=== PATIENT | male | born 1970 | race Hispanic/Latino ===

== ENCOUNTER 2017-05-18 13:50 | Inpatient (IN) | payer MEDICAID ==
[2017-05-18 13:50] VITALS: BMI 26.6
--- NOTE | 2017-05-18 14:10 | ED PDOC ---
Arrival/HPI - General Time Seen by Provider: 05/18/17 14:03 Historian: Patient - History of Present Illness Narrative History of Present Illness (Text): 05/18/17 14:04 46 y/o male, pmh including dm (on insulin/noncompliant), nkda, complaining of rt. calf swelling with the redness x 2 days. PT. stated that he was bitten by an unknown insect about 2 days ago while at the backyard, been having the redness and pain to the skin on the rt. calf, no fever or chills, no headache or night sweat, no dizziness, no chest pain or shortness of breath, no palpitation, no numbness or tingling, no other medical or psychological complaints. Past Medical History - Provider Review Nursing Documentation Reviewed: Yes - Infectious Disease Hx of Infectious Diseases: None - Tetanus Immunization Tetanus Immunization: Up to Date - Cardiac Hx Cardiac Disorders: Yes Hx Hypertension: Yes - Pulmonary Hx Respiratory Disorders: No - Neurological Hx Neurological Disorder: No - HEENT Hx HEENT Disorder: No - Renal Hx Renal Disorder: No - Endocrine/Metabolic Hx Endocrine Disorders: Yes Hx Diabetes Mellitus Type 1: Yes Hx Diabetes Mellitus Type 2: Yes - Hematological/Oncological Hx Blood Disorders: No - Integumentary Hx Dermatological Disorder: No - Musculoskeletal/Rheumatological Hx Musculoskeletal Disorders: No Hx Falls: No - Gastrointestinal Hx Gastrointestinal Disorders: No - Genitourinary/Gynecological Hx Genitourinary Disorders: No - Psychiatric Hx Psychophysiologic Disorder: Yes Hx Anxiety: Yes Hx Depression: No Hx Emotional Abuse: No Hx Physical Abuse: No Hx Substance Use: No - Past Surgical History Past Surgical History: No Previous - Anesthesia Hx Anesthesia: No - Suicidal Assessment Feels Threatened In Home Enviroment: No Family/Social History - Physician Review Nursing Documentation Reviewed: Yes Family/Social History: Unknown Family HX Smoking Status: Heavy Smoker > 10 Cigarettes Daily Hx Alcohol Use: No Hx Substance Use: No Substance used: cocaine Hx Substance Use Treatment: Yes Allergies/Home Meds Allergies/Adverse Reactions: Allergies No Known Allergies Allergy (Verified 05/22/17 17:28) Home Medications: Home Meds Medication Instructions Recorded Confirmed Insulin Detemir [Levemir] 15 unit SC HS 05/21/17 05/22/17 metFORMIN [glucOPHAGE] 500 mg PO BID 05/21/17 05/22/17 Review of Systems - Review of Systems Constitutional: absent: Fatigue, Fevers Eyes: absent: Vision Changes ENT: absent: Hearing Changes Respiratory: absent: SOB, Cough Cardiovascular: absent: Chest Pain Gastrointestinal: absent: Abdominal Pain, Diarrhea, Nausea, Vomiting Skin: Rash, Skin Lesions, Cellulitis. absent: Pruritis, Laceration, Abscess, Ulcer Neurological: absent: Headache, Dizziness, Facial Droop, Seizure Physical Exam Vital Signs Reviewed: Yes Vital Signs Temp Pulse Resp BP Pulse Ox 05/18/17 16:56 75 18 113/71 97 05/18/17 15:43 79 18 111/75 97 05/18/17 14:05 98 F 88 20 109/74 99 Temperature: Afebrile Blood Pressure: Normal Pulse: Regular Respiratory Rate: Normal Appearance: Positive for: Well-Appearing, Non-Toxic Pain Distress: Severe Mental Status: Positive for: Alert and Oriented X 3 - Systems Exam Head: Present: Atraumatic, Normocephalic Pupils: Present: PERRL Extroacular Muscles: Present: EOMI Conjunctiva: Present: Normal Mouth: Present: Moist Mucous Membranes Neck: Present: Normal Range of Motion Respiratory/Chest: Present: Clear to Auscultation, Good Air Exchange. No: Respiratory Distress, Accessory Muscle Use Cardiovascular: Present: Regular Rate and Rhythm, Normal S1, S2. No: Murmurs Abdomen: Present: Normal Bowel Sounds. No: Tenderness, Distention, Peritoneal Signs Back: Present: Normal Inspection Upper Extremity: Present: Normal Inspection. No: Cyanosis, Edema Lower Extremity: Present: Normal Inspection, Other (Rt. lower extremities: swelling and redness to the rt. posterior calf region with approx. [id number] traced with the skin marker and there is visible central insect bite berg, cellulitis streaking to the ankle, no ulcer, FROM without limitation, sensation intact, motor 5/5, +DPPT pulses, capillary refill< 2 seconds, neurovascular intact. ). No: Edema Neurological: Present: GCS=15, CN II-XII Intact, Speech Normal, Motor Func Grossly Intact, Gait Normal, Memory Normal Skin: Present: Warm, Dry, Normal Color. No: Rashes Psychiatric: Present: Alert, Oriented x 3, Normal Insight, Normal Concentration Medical Decision Making ED Course and Treatment: 05/18/17 14:10 -labs/blood culture -IV vancomycin/zosyn/benadryl/morphine -EKG -Rt. tibia/fibula xray/RLE Venuous doppler/CXR -Will admit the patient 05/18/17 14:59 -EKG -RLE Veuous doppler: as per preliminary report, no acute dvt -Rt. tibia/fibula: no acute findings. -Labs are non-significant except wbc 14.2, Na 130, Glucose 484. IV antibiotics and insulin ordered. -Chest xray show no active disease 05/18/17 16:24 -FS corrected to 240s -I discussed with Dr. Wright and he agreed on the admission order and test. -I discussed with Dr. Moreno, discussed about the labs/radiology results, agreed to accept the patient and request inpatient admission. - Lab Interpretations Microbiology Results: Microbiology Results 05/18/17 12:40 Blood-Venous Blood Culture - Preliminary NO GROWTH AFTER 4 DAYS 05/18/17 14:22 Blood-Venous Blood Culture - Preliminary NO GROWTH AFTER 4 DAYS Lab Results: 05/18/17 14:22 05/18/17 14:22 Lab Results 05/18/17 16:14: POC Glucose (mg/dL) 241 H 05/18/17 14:32: Serum Osmolality 305 H 05/18/17 14:32: Procalcitonin 0.05 L 05/18/17 14:22: Sodium 130 L, Potassium 3.9, Chloride 97 L, Carbon Dioxide 26, Anion Gap 11, BUN 16, Creatinine 0.9, Est GFR ( Amer) > 60, Est GFR (Non- Af Amer) > 60, Random Glucose 484 H* D, Calcium 8.5, Total Bilirubin 1.1, AST 17 , ALT 20, Alkaline Phosphatase 91, Total Protein 7.1, Albumin 3.7, Globulin 3.4 , Albumin/Globulin Ratio 1.1 05/18/17 14:22: WBC 14.2 H D, RBC 5.06, Hgb 14.6, Hct 41.5 L, MCV 82.0, MCH 28.9 , MCHC 35.2, RDW 12.8, Plt Count 202, MPV 10.2, Gran % 86.1 H, Lymph % (Auto) 7.1 L, Mccone % (Auto) 5.3, Eos % (Auto) 1.1 L, Baso % (Auto) 0.4, Gran # 12.20 H , Lymph # 1.0 L, Mccone # 0.8 H, Eos # 0.2, Baso # 0.05 05/18/17 14:07: POC Glucose (mg/dL) 417 H* Interpretation: Abnormal lab values (wbc 14.2,) - RAD Interpretation Radiology Orders: 05/18/17 14:16 CHEST PORTABLE [RAD] Stat 05/18/17 14:19 DUPLEX LOWER EXTRM VEIN RIGHT [US] Stat 05/18/17 14:22 TIBIA FIBULA RIGHT [RAD] Stat RLE Venuous Doppler: As per preliminary report, no acute DVT. Chest x-ray: no active disease Rt. tibia/fibula xray: no fracture or dislocation Integrity Engineer: Radiologist - Medication Orders Current Medication Orders: Discontinued Medications Diphenhydramine HCl (Benadryl) 50 mg IVP STAT STA Stop: 05/18/17 14:16 Last Admin: 05/18/17 14:26 Dose: 50 mg Heparin Sodium (Porcine) (Heparin) 5,000 units SC Q12 ANDRAE PRN Reason: Protocol Last Admin: 05/20/17 09:34 Dose: 5,000 units Sodium Chloride (Sodium Chloride 0.9%) 1,000 mls @ 999 mls/hr IV .Q1H1M STA Stop: 05/18/17 15:15 Last Admin: 05/18/17 14:27 Dose: 999 mls/hr Piperacillin Sod/Tazobactam Sod (Zosyn 3.375 In Ns 100ml) 100 mls @ 200 mls/hr IVPB STAT STA PRN Reason: Protocol Stop: 05/18/17 14:44 Last Admin: 05/18/17 14:27 Dose: 200 mls/hr Vancomycin HCl (Vancomycin 1gm) 1 gm in 250 mls @ 167 mls/hr IVPB STAT STA Stop: 05/18/17 15:48 Last Admin: 05/18/17 15:45 Dose: 167 mls/hr Vancomycin HCl (Vancomycin 1gm) 1 gm in 250 mls @ 167 mls/hr IVPB DAILY ANDRAE PRN Reason: Protocol Last Admin: 05/20/17 09:35 Dose: 167 mls/hr Piperacillin Sod/Tazobactam Sod (Zosyn 3.375 In Ns 100ml) 100 mls @ 200 mls/hr IVPB Q6 ANDRAE PRN Reason: Protocol Stop: 05/19/17 06:29 Last Admin: 05/19/17 05:22 Dose: 200 mls/hr Piperacillin Sod/Tazobactam Sod (Zosyn 3.375 In Ns 100ml) 100 mls @ 200 mls/hr IVPB Q6 ANDRAE PRN Reason: Protocol Last Admin: 05/20/17 12:22 Dose: 200 mls/hr Indomethacin (Indocin) 25 mg PO TID ANDRAE Indomethacin (Indocin) 25 mg PO TID ANDRAE Indomethacin (Indocin) 25 mg PO TID [facility] Last Admin: 05/20/17 09:33 Dose: 25 mg Re-Assess: [facility] Pain Assessment Document 05/20/17 10:33 RS (Rec: 05/20/17 13:50 RS [id number]) Pain Reassessment Is this a pain reassessment? Yes Sleep Is patient sleeping during reassessment? No Presence of Pain Presence of Pain No Insulin Detemir (Levemir) 10 unit SC [facility] Last Admin: 05/19/17 21:30 Dose: 10 unit Insulin Human Lispro (Humalog Low) 0 units SC ACHS ANDRAE PRN Reason: Protocol Last Admin: 05/20/17 12:20 Dose: 1 units Insulin Human Regular (Humulin R) 10 units IV STAT STA Stop: 05/18/17 15:14 Last Admin: 05/18/17 15:41 Dose: 10 units Insulin Human Regular (Humulin R Low) 0 units SC ACHS ANDRAE PRN Reason: Protocol Last Admin: 05/19/17 21:29 Dose: 4 units Comments: called Insulin Human Regular (Humulin R Med) 8 units SC Stat STA PRN Reason: Protocol Stop: 05/19/17 23:49 Last Admin: 05/20/17 00:10 Dose: Ketorolac Tromethamine (Toradol) 15 mg IM Q6 [facility] Stop: 05/23/17 21:52 Last Admin: 05/19/17 18:16 Dose: 15 mg Re-Assess: [facility] Pain Assessment Document 05/19/17 19:16 FC (Rec: 05/19/17 19:51 FC [id number]) Pain Reassessment Is this a pain reassessment? Yes Presence of Pain Presence of Pain No Metformin HCl (Glucophage) 500 mg PO BID [facility] Last Admin: 05/20/17 09:33 Dose: 500 mg Morphine Sulfate (Morphine) 4 mg IVP STAT STA Stop: 05/18/17 14:16 Last Admin: 05/18/17 14:26 Dose: 4 mg Re-Assess: [facility] Pain Assessment Document 05/18/17 15:26 GMD (Rec: 05/18/17 15:45 GMD [id number] Pain Reassessment Is this a pain reassessment? Yes Sleep Is patient sleeping during reassessment? No Presence of Pain Presence of Pain Yes Pain Scale Used Pain Scale Used Numeric Description Intensity of Pain at present 6 Morphine Sulfate (Morphine) 2 mg IVP Q4H PRN PRN Reason: Pain, severe (8-10) Last Admin: 05/19/17 08:03 Dose: 2 mg Re-Assess: [facility] Pain Assessment Document 05/19/17 09:03 VS (Rec: 05/19/17 09:51 VS [id number]) Pain Reassessment Is this a pain reassessment? Yes Sleep Is patient sleeping during reassessment? Yes Morphine Sulfate (Morphine) 4 mg IVP Q4H PRN PRN Reason: Pain, severe (8-10) Last Admin: 05/20/17 09:41 Dose: 4 mg Re-Assess: [facility] Pain Assessment Document 05/20/17 10:41 RS (Rec: 05/20/17 13:51 RS [id number]) Pain Reassessment Is this a pain reassessment? Yes Sleep Is patient sleeping during reassessment? No Presence of Pain Presence of Pain No Pantoprazole Sodium (Protonix Inj) 40 mg IVP DAILY [facility] Last Admin: 05/20/17 09:34 Dose: 40 mg - PA / INSPECTOR [employer]ATCH [employer] / Resident Statement MD/DO has reviewed & agrees with the documentation as recorded. Disposition/Present on Arrival - Present on Arrival Any Indicators Present on Arrival: No History of DVT/PE: No History of Uncontrolled Diabetes: No Urinary Catheter: No History of Decub. Ulcer: No History Surgical Site Infection Following: None - Disposition Have Diagnosis and Disposition been Completed?: Yes Diagnosis: Cellulitis, Diabetes, Leukocytosis, Hyperglycemia Disposition: HOSPITALIZED Disposition Time: 14:25 Patient Plan: Admission Condition: STABLE
[2017-05-18] MEDS ORDERED: Morphine 4 mg/ml ISec IVP STA (14:15)
[2017-05-18] MEDS ORDERED: DiphenhydrAMINE 50 mg/ml Inj IVP STA (14:15)
[2017-05-18] MEDS ORDERED: Sodium Chloride 0.9% 1,000 ML IV STA (14:15)
[2017-05-18] MEDS ORDERED: Vancomycin 500 mg Inj IV STA (14:15)
[2017-05-18] MEDS ORDERED: Piperacillin/Tazobact 3.375 gm 100 ML IVPB STA (14:15)
[2017-05-18] MEDS ORDERED: Vancomycin 1gm in NS 250ml 1 GM/250 ML BAG IVPB STA (14:19)
[2017-05-18 14:52] LABS: BASO # 0.05 K/mm3 (0.0-2.0); BASO % 0.4 % (0.0-3.0); EOS # 0.2 (0.0-0.7); EOS % 1.1 % (1.5-5.0); GRAN % 86.1 % (50.0-68.0); HEMOGLOBIN 14.6 gm/dL (14.0-18.0); LYMPH % 7.1 % (22.0-35.0); MEAN CORPUSCULAR HEMOGLOBIN 28.9 pg (25.0-35.0); MEAN CORPUSCULAR HGB CONC 35.2 g/dl (31.0-37.0); MEAN PLATELET VOLUME 10.2 fl (7.0-11.0); MONO # 0.8 (0.1-0.6); MONO % 5.3 % (1.0-6.0); PLATELET COUNT 202 10^3/uL (120.0-450.0); RBC 5.06 10^6/uL (3.5-6.1); RED CELL DISTRIBUTION WIDTH 12.8 % (11.5-14.5); WHITE BLOOD COUNT 14.2 10^3/ul (4.5-11.0)
[2017-05-18 15:05] LABS: ALB/GLOB RATIO 1.1 (1.1-1.8); ALBUMIN 3.7 g/dL (3.0-4.8); ALT/SGPT 20 U/L (7-56); AST/SGOT 17 U/L (15-59); BLOOD UREA NITROGEN 16 mg/dL (7-21); CALCIUM 8.5 mg/dL (8.4-10.5); GFR AFRICAN-AMERICAN > 60; GFR NON-AFRICAN AMERICAN > 60
[2017-05-18] MEDS ORDERED: Insulin Regular 1 UNITS/0.01 ML ML IV STA (15:13)
--- NOTE | 2017-05-18 15:19 | RAD ---
HISTORY: medical clearance COMPARISON: 11/24/2016 FINDINGS: LUNGS: No active pulmonary disease. PLEURA: No significant pleural effusion identified, no pneumothorax apparent. CARDIOVASCULAR: Normal. OSSEOUS STRUCTURES: No significant abnormalities. VISUALIZED UPPER ABDOMEN: Normal. OTHER FINDINGS: None. IMPRESSION: No active disease.
--- NOTE | 2017-05-18 16:27 | RAD ---
PROCEDURE: Radiographs of the right tibia and fibula. HISTORY: rt. posterior calf swelling COMPARISON: None available. TECHNIQUE: Frontal and lateral views obtained. FINDINGS: BONES: No fracture or destructive lesion. JOINT SPACES: Unremarkable. OTHER FINDINGS: None. IMPRESSION: Unremarkable radiographs of the right tibia and fibula.
--- NOTE | 2017-05-18 17:27 | CP.PCM.HP ---
<Juan Moyerwin - Last Filed: 05/18/17 18:09> History of Present Illness - History of Present Illness History of Present Illness: cc: RLE pain HPI: Patient is a 46yo male with history of diabetes mellitus type (non- complaint) that presents c/o right lower extremity pain. Patient reports that he was bitten by a bug when approximately 2 days later he began to experience right lower extremity pain associated with erythema, swelling and increased warmth. He states that he never experienced anything like this before in the past. Denied any alleviating factors and reported exacerbation of his pain with movement and touch. Patient reported that he was prompted to go to the hospital when he was unable to put pressure on his leg. Denies chest pain, palpitations, SOB, abdominal pain, nausea, vomiting. Denied fever, chills, cough. 12point ROS as per HPI above, otherwise negative PMHx: DM2 PSHx: Appendectomy Allergies: NKDA Family Hx: Non-contributory Social Hx: Current 1ppd smoker; Hx of Cocaine use; Denies alcohol use; PMD: [place] Present on Admission - Present on Admission Any Indicators Present on Admission: Yes History of Uncontrolled Diabetes: Yes Past Patient History - Infectious Disease Hx of Infectious Diseases: None - Tetanus Immunizations Tetanus Immunization: Up to Date - Past Social History Smoking Status: Heavy Smoker > 10 Cigarettes Daily - CARDIAC Hx Cardiac Disorders: Yes Hx Hypertension: Yes - PULMONARY Hx Respiratory Disorders: No - NEUROLOGICAL Hx Neurological Disorder: No - HEENT Hx HEENT Problems: No - RENAL Hx Chronic Kidney Disease: No - ENDOCRINE/METABOLIC Hx Endocrine Disorders: Yes Hx Diabetes Mellitus Type 1: Yes Hx Diabetes Mellitus Type 2: Yes - HEMATOLOGICAL/ONCOLOGICAL Hx Blood Disorders: No - INTEGUMENTARY Hx Dermatological Problems: No - MUSCULOSKELETAL/RHEUMATOLOGICAL Hx Musculoskeletal Disorders: No Hx Falls: No - GASTROINTESTINAL Hx Gastrointestinal Disorders: No - GENITOURINARY/GYNECOLOGICAL Hx Genitourinary Disorders: No - PSYCHIATRIC Hx Psychophysiologic Disorder: Yes Hx Anxiety: Yes Hx Depression: No Hx Emotional Abuse: No Hx Physical Abuse: No Hx Substance Use: No - SURGICAL HISTORY Hx Surgeries: No - ANESTHESIA Hx Anesthesia: No Meds Allergies/Adverse Reactions: Allergies Allergy/AdvReac Type Severity Reaction Status Date / Time No Known Allergies Allergy Verified 05/18/17 14:12 Physical Exam - Constitutional Appears: Non-toxic, No Acute Distress - Head Exam Head Exam: ATRAUMATIC, NORMAL INSPECTION, NORMOCEPHALIC - Eye Exam Eye Exam: EOMI, PERRL - ENT Exam ENT Exam: Mucous Membranes Moist - Neck Exam Neck exam: Positive for: Normal Inspection. Negative for: Lymphadenopathy, Tenderness, Thyromegaly - Respiratory Exam Respiratory Exam: Clear to Auscultation Bilateral. absent: Rales, Rhonchi, Wheezes - Cardiovascular Exam Cardiovascular Exam: RRR, +S1, +S2. absent: Gallop, Rubs - GI/Abdominal Exam GI & Abdominal Exam: Soft. absent: Distended, Firm, Guarding, Rebound, Tenderness - Neurological Exam Neurological exam: Alert, CN II-XII Intact, Oriented x3 - Psychiatric Exam Psychiatric exam: Normal Affect, Normal Mood - Skin Skin Exam: Erythema, Intact, Warm Additional comments: right lower extremity cellulitis ~7.5cm in diameter; no fluctuance; tender to touch; increased warmth; no drainage Results - Vital Signs Recent Vital Signs: Last Vital Signs Temp 98 F 05/18/17 14:05 Pulse 75 05/18/17 16:56 Resp 18 05/18/17 16:56 BP 113/71 05/18/17 16:56 Pulse Ox 97 05/18/17 16:56 - Labs Result Diagrams: 05/18/17 14:22 05/18/17 14:22 Labs: Laboratory Results - last 24 hr 05/18/17 05/18/17 14:22 14:22 WBC 14.2 H D RBC 5.06 Hgb 14.6 Hct 41.5 L MCV 82.0 MCH 28.9 MCHC 35.2 RDW 12.8 Plt Count 202 MPV 10.2 Gran % 86.1 H Lymph % (Auto) 7.1 L Dukes % (Auto) 5.3 Eos % (Auto) 1.1 L Baso % (Auto) 0.4 Gran # 12.20 H Lymph # 1.0 L Dukes # 0.8 H Eos # 0.2 Baso # 0.05 Sodium 130 L Potassium 3.9 Chloride 97 L Carbon Dioxide 26 Anion Gap 11 BUN 16 Creatinine 0.9 Est GFR ( Amer) > 60 Est GFR (Non-Af Amer) > 60 Random Glucose 484 H* D Calcium 8.5 Total Bilirubin 1.1 AST 17 ALT 20 Alkaline Phosphatase 91 Total Protein 7.1 Albumin 3.7 Globulin 3.4 Albumin/Globulin Ratio 1.1 Assessment & Plan - Assessment and Plan (Free Text) Plan: 46yo male with history of diabetes presents c/o right lower extremity cellulitis 1. RLE cellulitis -afebrile with leukocytosis of 14.2 on admission -Patient received zosyn and vanc in the ED -Blood culture and procalcitonin pending -Preliminary lower extremity doppler negative, pending official read -Will continue Zosyn and Vancomycin pending ID recommendations -Pain control -ID consulted - Dr. Chowdhury 2. Diabetes type 2 -Glucose 484 on arrival -Patient given 10u humalog in the ED -Will start levemir 10u HS and humulin low dose ISS -Consistent carb diet -Fingersticks ACHS -Encouraged oral fluid intake 3. Hyponatremia -Likely secondary to dehydration due to uncontrolled diabetes -Will obtain hyponatremia workup -Encouraged PO intake of fluids 4. GI/DVT prophylaxis -Protonix/Heparin SC Patient seen and case discussed with attending, Dr. Moreno - Date & Time Date: 05/18/17 Time: 17:31 <Deb Moreno - Last Filed: 05/19/17 06:42> Results - Vital Signs Recent Vital Signs: Last Vital Signs Temp 98 F 05/18/17 18:58 Pulse 73 05/18/17 18:58 Resp 20 05/18/17 18:58 BP 132/87 05/18/17 18:58 Pulse Ox 97 05/18/17 18:58 - Labs Result Diagrams: 05/18/17 14:22 05/18/17 14:22 Labs: Laboratory Results - last 24 hr 05/18/17 21:33 POC Glucose (mg/dL) 256 H Attending/Attestation - Attestation I have personally seen and examined this patient.: Yes I have fully participated in the care of the patient.: Yes I have reviewed all pertinent clinical information: Yes Notes (Text): 05/18/17 46 year old male with past medical history of diabetes who presents with complaint of right lower extremity cellulitis x 2 days. Lower extremity doppler and xray are negative. Continue with iv antibiotics as per ID. Will follow up on cultures. He also presented with uncontrolled diabetes with hyperglycemia secondary to medication noncompliance for which he was counselled on. Will continue with insulin ss and levemir. Continue to monitor fingersticks closely and adjust his regimen accordingly. Deb Moreno MD Hospitalist.
--- NOTE | 2017-05-18 17:30 | US ---
PROCEDURE: Right lower extremity venous US HISTORY: Leg pain and swelling. Evaluate for DVT. PHYSICIAN(S): Audie Lopes M.D. TECHNIQUE: Duplex sonography and color-flow Doppler with graded compression were used to evaluate the deep venous system of the right lower extremity. FINDINGS: The visualized deep venous system of the right lower extremity is sonographically normal and compressible. Normal waveforms and augmentation are seen. There is no sonographic evidence for deep venous thrombosis in the visualized segments of the right lower extremity. IMPRESSION: 1. No sonographic evidence for deep venous thrombosis in the visualized segments of the right lower extremity.
--- NOTE | 2017-05-18 17:37 | CP.PCM.CON ---
History of Present Illness - History of Present Illness History of Present Illness: Infectious Disease Consultation: May 18, 2017 46 yo male with erythema of right calf for at least 2 days after being bitten by an insect. Patient denies fevers or chills. No other complaints made. PMHx: Diabetes Mellitus. Question of HTN and hyperlipidemia PSHx: none given Allergies: NKDA Social Hx: current tobacco use of 1ppd, No EtOH, occasional Cocaine use Lives with Active Medications Insulin Human Regular (Humulin R Low) 0 units SC ACHS ANDRAE PRN Reason: Protocol Family Hx: denies ROS: No fevers, chills, nausea, vomiting, diarrhea, headaches, dizziness, chest pain , abdominal pain, melena, hematuria, hematemesis, hematochezia, depression , anxiety. Past Patient History - Infectious Disease Hx of Infectious Diseases: None - Tetanus Immunizations Tetanus Immunization: Up to Date - Past Social History Smoking Status: Heavy Smoker > 10 Cigarettes Daily - CARDIAC Hx Cardiac Disorders: Yes Hx Hypertension: Yes - PULMONARY Hx Respiratory Disorders: No - NEUROLOGICAL Hx Neurological Disorder: No - HEENT Hx HEENT Problems: No - RENAL Hx Chronic Kidney Disease: No - ENDOCRINE/METABOLIC Hx Endocrine Disorders: Yes Hx Diabetes Mellitus Type 1: Yes Hx Diabetes Mellitus Type 2: Yes - HEMATOLOGICAL/ONCOLOGICAL Hx Blood Disorders: No - INTEGUMENTARY Hx Dermatological Problems: No - MUSCULOSKELETAL/RHEUMATOLOGICAL Hx Musculoskeletal Disorders: No Hx Falls: No - GASTROINTESTINAL Hx Gastrointestinal Disorders: No - GENITOURINARY/GYNECOLOGICAL Hx Genitourinary Disorders: No - PSYCHIATRIC Hx Psychophysiologic Disorder: Yes Hx Anxiety: Yes Hx Depression: No Hx Emotional Abuse: No Hx Physical Abuse: No Hx Substance Use: No - SURGICAL HISTORY Hx Surgeries: No - ANESTHESIA Hx Anesthesia: No Meds Allergies/Adverse Reactions: Allergies Allergy/AdvReac Type Severity Reaction Status Date / Time No Known Allergies Allergy Verified 05/18/17 14:12 - Medications Medications: Current Medications Insulin Human Regular (Humulin R Low) 0 units SC ACHS ANDRAE PRN Reason: Protocol Physical Exam - Constitutional Appears: Non-toxic, No Acute Distress, Chronically Ill - Head Exam Head Exam: ATRAUMATIC, NORMOCEPHALIC - Eye Exam Eye Exam: EOMI, PERRL Pupil Exam: NORMAL ACCOMODATION, PERRL - ENT Exam ENT Exam: Mucous Membranes Moist, Normal External Ear Exam, TM's Normal Bilaterally - Neck Exam Neck exam: Positive for: Full Rom, Normal Inspection - Respiratory Exam Respiratory Exam: Clear to Auscultation Bilateral, NORMAL BREATHING PATTERN. absent: Rales, Rhonchi, Wheezes - Cardiovascular Exam Cardiovascular Exam: REGULAR RHYTHM, RRR, +S1, +S2 - GI/Abdominal Exam Additional comments: RLQ tenderness. Positive obturator sign. Positive McBurney's. Rovsing's Positive - Extremities Exam Additional comments: Rt. lower extremities: swelling and redness to the rt. posterior calf region with approx. [id number] traced with the skin marker and there is visible central insect bite berg, cellulitis streaking to the ankle, no ulcer, FROM without limitation, sensation intact, motor 5/5, +DPPT pulses, capillary refill< 2 seconds, neurovascular intact. - Neurological Exam Neurological exam: Alert, CN II-XII Intact, Oriented x3 - Psychiatric Exam Psychiatric exam: Normal Affect, Normal Mood - Skin Skin Exam: Intact, Normal Color Results - Vital Signs Recent Vital Signs: Last Vital Signs Temp 98 F 05/18/17 14:05 Pulse 75 05/18/17 16:56 Resp 18 05/18/17 16:56 BP 113/71 05/18/17 16:56 Pulse Ox 97 05/18/17 16:56 - Labs Result Diagrams: 05/18/17 14:22 05/18/17 14:22 Labs: Laboratory Results - last 24 hr 05/18/17 05/18/17 14:22 14:22 WBC 14.2 H D RBC 5.06 Hgb 14.6 Hct 41.5 L MCV 82.0 MCH 28.9 MCHC 35.2 RDW 12.8 Plt Count 202 MPV 10.2 Gran % 86.1 H Lymph % (Auto) 7.1 L Clay % (Auto) 5.3 Eos % (Auto) 1.1 L Baso % (Auto) 0.4 Gran # 12.20 H Lymph # 1.0 L Clay # 0.8 H Eos # 0.2 Baso # 0.05 Sodium 130 L Potassium 3.9 Chloride 97 L Carbon Dioxide 26 Anion Gap 11 BUN 16 Creatinine 0.9 Est GFR ( Amer) > 60 Est GFR (Non-Af Amer) > 60 Random Glucose 484 H* D Calcium 8.5 Total Bilirubin 1.1 AST 17 ALT 20 Alkaline Phosphatase 91 Total Protein 7.1 Albumin 3.7 Globulin 3.4 Albumin/Globulin Ratio 1.1 Assessment & Plan - Assessment and Plan (Free Text) Assessment: 46 yo male with uncontrolled diabetes mellitus with right leg swelling and cellulitis secondary to insect bite. The patient was started on Vancomycin and Zosyn for antibiotic coverage. Patient also needs better control of his diabetes. Local wound care. Insect bites present on right leg. Can doan culture although suspect that the cultures would be negative. Supportive care. Thank you for allowing me to participate in the care of the patient, we will follow with you.
[2017-05-18] MEDS: Morphine 2 mg/ml ISec IVP PRN ×2 (18:44→22:56)
[2017-05-18] MEDS: Insulin Detemir 100 units/ml Vial (Levemir) SC SCH (22:04)
[2017-05-18] MEDS: Insulin Reg-LOW-Coverage SC SCH (22:56)
[2017-05-18] MEDS: Piperacillin/Tazobact 3.375 gm 100 ML IVPB SCH (23:47)
[2017-05-19] MEDS: Piperacillin/Tazobact 3.375 gm 100 ML IVPB SCH ×3 (05:22→23:59)
[2017-05-19 07:43] LABS: BASO # 0.06 K/mm3 (0.0-2.0); BASO % 0.7 % (0.0-3.0); EOS # 0.4 (0.0-0.7); EOS % 4.1 % (1.5-5.0); GRAN # 6.37 (1.4-6.5); GRAN % 69.4 % (50.0-68.0); HEMOGLOBIN 13.4 gm/dL (14.0-18.0); LYMPH # 1.7 (1.2-3.4); LYMPH % 18.8 % (22.0-35.0); MEAN CORPUSCULAR HGB CONC 34.2 g/dl (31.0-37.0); MEAN PLATELET VOLUME 9.8 fl (7.0-11.0); MONO # 0.6 (0.1-0.6); PLATELET COUNT 170 10^3/uL (120.0-450.0); RBC 4.78 10^6/uL (3.5-6.1); RED CELL DISTRIBUTION WIDTH 12.8 % (11.5-14.5); WHITE BLOOD COUNT 9.2 10^3/ul (4.5-11.0)
[2017-05-19 07:54] LABS: ALBUMIN 3.2 g/dL (3.0-4.8); ALT/SGPT 23 U/L (7-56); AST/SGOT 16 U/L (15-59); BLOOD UREA NITROGEN 18 mg/dL (7-21); CALCIUM 8.5 mg/dL (8.4-10.5); GFR AFRICAN-AMERICAN > 60; GFR NON-AFRICAN AMERICAN > 60
[2017-05-19] MEDS: Morphine 2 mg/ml ISec IVP PRN (08:03)
[2017-05-19] MEDS: Insulin Reg-LOW-Coverage SC SCH ×4 (08:07→21:29)
[2017-05-19 08:58] VITALS: O2SAT 98
[2017-05-19] MEDS: Vancomycin 1gm in NS 250ml 1 GM/250 ML BAG IVPB SCH (09:50)
--- NOTE | 2017-05-19 10:40 | CARD ---
APPROVED REPORT EKG Measurement Heart [id number] MI [id number] <Conclusion> Normal sinus rhythm Septal infarct, age undetermined
[2017-05-19] MEDS: Morphine 4 mg/ml ISec IVP PRN ×4 (12:40→23:59)
--- NOTE | 2017-05-19 14:28 | CP.PCM.CON ---
History of Present Illness - History of Present Illness History of Present Illness: General Surgery Dr. Abdullahi 46 y/o M w/ DM2, noncompliant w/ medication, presented to the ED on 05/18/17 c/o RLE pain. Pt reports a lesion on the posterior calf which was first noticed on 05/17/15. Pt admits to RLE pain assoc w/ redness, swelling, and increased warmth. Pt denies Hx of infections or similar wounds. Nothing made the pain better; however, pain exacerbated by mvt and palpation. Pt decided to come to the ED for evaluation when he was unable to put pressure on his leg. Pt denies any F/C, SOB, CP, N/V, numbness, weakness of LE. RLE Venous Duplex negative for DVT R Tib/Fib XR negative. ID consulted and Pt started on IV Vanco. PMHx: DM2 Meds: reviewed in chart Allergies: NKDA PSHx: Appendectomy FHx: Non-contributory SHx: Current 1ppd smoker; Hx of Cocaine use; Denies alcohol use; Review of Systems - Review of Systems All systems: reviewed and no additional remarkable complaints except (see HPI) Past Patient History - Infectious Disease Hx of Infectious Diseases: None - Tetanus Immunizations Tetanus Immunization: Up to Date - Past Social History Smoking Status: Heavy Smoker > 10 Cigarettes Daily - CARDIAC Hx Cardiac Disorders: Yes Hx Hypertension: Yes - PULMONARY Hx Respiratory Disorders: No - NEUROLOGICAL Hx Neurological Disorder: No - HEENT Hx HEENT Problems: No - RENAL Hx Chronic Kidney Disease: No - ENDOCRINE/METABOLIC Hx Diabetes Mellitus Type 1: Yes - HEMATOLOGICAL/ONCOLOGICAL Hx Blood Disorders: No - INTEGUMENTARY Hx Dermatological Problems: No - MUSCULOSKELETAL/RHEUMATOLOGICAL Hx Falls: No - GASTROINTESTINAL Hx Gastrointestinal Disorders: No - GENITOURINARY/GYNECOLOGICAL Hx Genitourinary Disorders: No - PSYCHIATRIC Hx Anxiety: Yes - SURGICAL HISTORY Hx Surgeries: No - ANESTHESIA Hx Anesthesia: No Meds Allergies/Adverse Reactions: Allergies Allergy/AdvReac Type Severity Reaction Status Date / Time No Known Allergies Allergy Verified 05/18/17 14:12 - Medications Medications: Current Medications Heparin Sodium (Porcine) (Heparin) 5,000 units SC Q12 [facility] PRN Reason: Protocol Last Admin: 05/19/17 09:50 Dose: 5,000 units Vancomycin HCl (Vancomycin 1gm) 1 gm in 250 mls @ 167 mls/hr IVPB DAILY [facility] PRN Reason: Protocol Last Admin: 05/19/17 09:50 Dose: 167 mls/hr Insulin Detemir (Levemir) 10 unit SC HS [facility] Last Admin: 05/18/17 22:04 Dose: 10 unit Insulin Human Regular (Humulin R Low) 0 units SC ACHS [facility] PRN Reason: Protocol Last Admin: 05/19/17 12:31 Dose: 3 units Ketorolac Tromethamine (Toradol) 15 mg IM Q6 [facility] Stop: 05/23/17 21:52 Last Admin: 05/19/17 12:32 Dose: Not Given Morphine Sulfate (Morphine) 4 mg IVP Q4H PRN PRN Reason: Pain, severe (8-10) Last Admin: 05/19/17 12:40 Dose: 4 mg Pantoprazole Sodium (Protonix Inj) 40 mg IVP DAILY [facility] Last Admin: 05/19/17 09:49 Dose: 40 mg Physical Exam - Constitutional Appears: Non-toxic, No Acute Distress - Head Exam Head Exam: NORMAL INSPECTION - Eye Exam Eye Exam: Normal appearance - ENT Exam ENT Exam: Mucous Membranes Moist - Respiratory Exam Respiratory Exam: NORMAL BREATHING PATTERN. absent: Accessory Muscle Use, Respiratory Distress - Cardiovascular Exam Cardiovascular Exam: absent: Bradycardia, Tachycardia - GI/Abdominal Exam GI & Abdominal Exam: Soft. absent: Distended - Extremities Exam Extremities exam: Positive for: calf tenderness, tenderness (RLE w/ doriflexion) , pedal pulses present. Negative for: pedal edema Additional comments: 4x2cm area of erythema. central eschar. minimal fluctuance, TTP, indurated, warm. little to know surrounding erythema - Neurological Exam Neurological exam: Alert, Oriented x3 - Psychiatric Exam Psychiatric exam: Normal Affect, Normal Mood - Skin Skin Exam: Dry, Normal Color, Warm Results - Vital Signs Recent Vital Signs: Last Vital Signs Temp 97.6 F 05/19/17 06:00 Pulse 60 05/19/17 06:00 Resp 19 05/19/17 06:00 BP 110/59 L 05/19/17 06:00 Pulse Ox 98 05/19/17 06:00 - Labs Result Diagrams: 05/19/17 07:00 05/19/17 07:00 Labs: Laboratory Results - last 24 hr 05/18/17 05/19/17 05/19/17 21:33 07:00 07:00 WBC 9.2 D RBC 4.78 Hgb 13.4 L Hct 39.2 L MCV 82.0 MCH 28.0 MCHC 34.2 RDW 12.8 Plt Count 170 MPV 9.8 Gran % 69.4 H Lymph % (Auto) 18.8 L [place] % (Auto) 7.0 H Eos % (Auto) 4.1 Baso % (Auto) 0.7 Gran # 6.37 Lymph # 1.7 [place] # 0.6 Eos # 0.4 Baso # 0.06 Sodium 137 Potassium 3.7 Chloride 106 Carbon Dioxide 26 Anion Gap 9 L BUN 18 Creatinine 0.7 Est GFR ( Amer) > 60 Est GFR (Non-Af Amer) > 60 POC Glucose (mg/dL) 256 H Random Glucose 167 H Calcium 8.5 Total Bilirubin 0.3 AST 16 ALT 23 Alkaline Phosphatase 82 Total Protein 6.2 Albumin 3.2 Globulin 3.1 Albumin/Globulin Ratio 1.0 L 05/19/17 05/19/17 07:15 11:10 WBC RBC Hgb Hct MCV MCH MCHC RDW Plt Count MPV Gran % Lymph % (Auto) [place] % (Auto) Eos % (Auto) Baso % (Auto) Gran # Lymph # [place] # Eos # Baso # Sodium Potassium Chloride Carbon Dioxide Anion Gap BUN Creatinine Est GFR ( Amer) Est GFR (Non-Af Amer) POC Glucose (mg/dL) 175 H 299 H Random Glucose Calcium Total Bilirubin AST ALT Alkaline Phosphatase Total Protein Albumin Globulin Albumin/Globulin Ratio - EKG Data EKG Interpreted by: Myself EKG shows normal: Sinus rhythm Rate: Normal Assessment & Plan - Assessment and Plan (Free Text) Assessment: 46 y/o M w/ RLE cellulitis - warm compresses - cont IV Abx per ID - pain management - RLE US for possible abscess - GI/DVT PPx Pt discussed w/ Dr. Bradly Sky DO PGY2
--- NOTE | 2017-05-19 16:31 | CP.PCM.PN ---
Subjective - Date & Time of Evaluation Date of Evaluation: 05/19/17 Time of Evaluation: 15:30 - Subjective Subjective: Infectious Disease Follow Up: May 19, 2017 46 yo male with erythema of right calf for at least 2 days after being bitten by an insect. Patient denies fevers or chills. Patient with pain in the right calf. He has been given morphine for pain control. No other complaints made. Soft tissue ultrasound is pending. Objective - Vital Signs/Intake and Output Vital Signs (last 24 hours): Temp Pulse Resp BP Pulse Ox 97.6 F 60 19 110/59 L 98 05/19/17 06:00 05/19/17 06:00 05/19/17 06:00 05/19/17 06:00 05/19/17 06:00 Intake and Output: 05/19/17 05/19/17 06:59 18:59 Intake Total 2210 1250 Balance 2210 1250 - Medications Medications: Current Medications Heparin Sodium (Porcine) (Heparin) 5,000 units SC Q12 [facility] PRN Reason: Protocol Last Admin: 05/19/17 09:50 Dose: 5,000 units Vancomycin HCl (Vancomycin 1gm) 1 gm in 250 mls @ 167 mls/hr IVPB DAILY [facility] PRN Reason: Protocol Last Admin: 05/19/17 09:50 Dose: 167 mls/hr Piperacillin Sod/Tazobactam Sod (Zosyn 3.375 In Ns 100ml) 100 mls @ 200 mls/hr IVPB Q6 [facility] PRN Reason: Protocol Insulin Detemir (Levemir) 10 unit SC HS [facility] Last Admin: 05/18/17 22:04 Dose: 10 unit Insulin Human Regular (Humulin R Low) 0 units SC ACHS [facility] PRN Reason: Protocol Last Admin: 05/19/17 12:31 Dose: 3 units Ketorolac Tromethamine (Toradol) 15 mg IM Q6 [facility] Stop: 05/23/17 21:52 Last Admin: 05/19/17 12:32 Dose: Not Given Morphine Sulfate (Morphine) 4 mg IVP Q4H PRN PRN Reason: Pain, severe (8-10) Last Admin: 05/19/17 12:40 Dose: 4 mg Pantoprazole Sodium (Protonix Inj) 40 mg IVP DAILY [facility] Last Admin: 05/19/17 09:49 Dose: 40 mg - Labs Labs: 05/19/17 07:00 05/19/17 07:00 - Constitutional Appears: Non-toxic, No Acute Distress, Chronically Ill - Head Exam Head Exam: ATRAUMATIC, NORMOCEPHALIC - Eye Exam Eye Exam: EOMI, PERRL Pupil Exam: NORMAL ACCOMODATION, PERRL - ENT Exam ENT Exam: Mucous Membranes Moist, Normal External Ear Exam, TM's Normal Bilaterally - Neck Exam Neck Exam: Full ROM, Normal Inspection - Respiratory Exam Respiratory Exam: Clear to Ausculation Bilateral, NORMAL BREATHING PATTERN. absent: Rales, Rhonchi, Wheezes - Cardiovascular Exam Cardiovascular Exam: REGULAR RHYTHM, RRR, +S1, +S2 - GI/Abdominal Exam GI & Abdominal Exam: Soft, Normal Bowel Sounds. absent: Distended, Tenderness - Extremities Exam Extremities Exam: Full ROM Additional comments: Rt. lower extremities: initially swelling and redness to the rt. posterior calf region with approx. [id number] traced with the skin marker on admission and there is visible central insect bite berg, cellulitis streaking to the ankle has significantly improved, no ulcer, FROM without limitation, sensation intact , motor 5/5, +DPPT pulses, capillary refill< 2 seconds, neurovascular intact. Overall swelling and erythema has significantly improved. - Neurological Exam Neurological Exam: Alert, Awake, CN II-XII Intact, Oriented x3 - Psychiatric Exam Psychiatric exam: Normal Affect, Normal Mood - Skin Skin Exam: Intact, Normal Color Assessment and Plan - Assessment and Plan (Free Text) Assessment: 46 yo male with uncontrolled diabetes mellitus with right leg swelling and cellulitis secondary to insect bite. The patient was started on Vancomycin and Zosyn for antibiotic coverage. Patient also needs better control of his diabetes. Local wound care. Insect bites present on right leg. The swelling and erythema has improved greatly although the patient continues to complain of great pain to the right calf. Can doan culture although suspect that the cultures would be negative. Blood cultures negative at 24 hours. Supportive care. Thank you for allowing me to participate in the care of the patient, we will follow with you.
--- NOTE | 2017-05-19 17:15 | CP.PCM.PN ---
<BILL PEARCE - Last Filed: 05/19/17 17:08> Subjective - Date & Time of Evaluation Date of Evaluation: 05/19/17 Time of Evaluation: 11:05 - Subjective Subjective: Medicine Progress Note: Pt seen and assessed at bedside. Pt has no complaints other than pain in his LLE around insect bite. States that pain isnt controlled. Denies SOB, chest pain , fever, headache, changes in vision, nausea/vomiting or abdominal pain. Objective - Vital Signs/Intake and Output Vital Signs (last 24 hours): Temp Pulse Resp BP Pulse Ox 97.6 F 60 19 110/59 L 98 05/19/17 06:00 05/19/17 06:00 05/19/17 06:00 05/19/17 06:00 05/19/17 06:00 Intake and Output: 05/19/17 05/19/17 06:59 18:59 Intake Total 2210 1250 Balance 2210 1250 - Medications Medications: Current Medications Heparin Sodium (Porcine) (Heparin) 5,000 units SC Q12 [facility] PRN Reason: Protocol Last Admin: 05/19/17 09:50 Dose: 5,000 units Vancomycin HCl (Vancomycin 1gm) 1 gm in 250 mls @ 167 mls/hr IVPB DAILY [facility] PRN Reason: Protocol Last Admin: 05/19/17 09:50 Dose: 167 mls/hr Piperacillin Sod/Tazobactam Sod (Zosyn 3.375 In Ns 100ml) 100 mls @ 200 mls/hr IVPB Q6 [facility] PRN Reason: Protocol Insulin Detemir (Levemir) 10 unit SC HS [facility] Last Admin: 05/18/17 22:04 Dose: 10 unit Insulin Human Regular (Humulin R Low) 0 units SC ACHS [facility] PRN Reason: Protocol Last Admin: 05/19/17 16:56 Dose: 4 units Ketorolac Tromethamine (Toradol) 15 mg IM Q6 [facility] Stop: 05/23/17 21:52 Last Admin: 05/19/17 12:32 Dose: Not Given Morphine Sulfate (Morphine) 4 mg IVP Q4H PRN PRN Reason: Pain, severe (8-10) Last Admin: 05/19/17 16:55 Dose: 4 mg Pantoprazole Sodium (Protonix Inj) 40 mg IVP DAILY [facility] Last Admin: 05/19/17 09:49 Dose: 40 mg - Labs Labs: 05/19/17 07:00 05/19/17 07:00 - Constitutional Appears: No Acute Distress - Head Exam Head Exam: NORMAL INSPECTION, NORMOCEPHALIC - Eye Exam Eye Exam: EOMI, Normal appearance - ENT Exam ENT Exam: Mucous Membranes Moist, Normal Exam - Neck Exam Neck Exam: Full ROM - Respiratory Exam Respiratory Exam: Clear to Ausculation Bilateral, NORMAL BREATHING PATTERN. absent: Rales, Rhonchi, Wheezes - Cardiovascular Exam Cardiovascular Exam: REGULAR RHYTHM, +S1, +S2. absent: Murmur - GI/Abdominal Exam GI & Abdominal Exam: Normal Bowel Sounds. absent: Distended, Guarding, Tenderness - Extremities Exam Extremities Exam: Calf Tenderness. absent: Pedal Edema - Skin Skin Exam: Dry, Erythema, Intact, Warm Additional comments: right lower extremity cellulitis ~4 in diameter; minimal fluctuance; tender to touch; increased warmth; no drainage Assessment and Plan - Assessment and Plan (Free Text) Assessment: 46yo male with history of diabetes presents c/o right lower extremity cellulitis 1. RLE cellulitis -continue vanc and zosyn IV -white count down to 9.2 from 14.2 -Blood cultures negative for 24 hours -consulted surgery to evaluate for possible drainage -surgery awaiting ultrasound to r/o abscess -increased morphine to 4mg q4 PRN d/t increased pain -ID on board 2. Diabetes type 2 -Levemir 10u HS and humulin low dose ISS -Consistent carb diet -Fingersticks ACHS 3. Hyponatremia -130 on admission -137 today on morning CMP -resolved -will cont to monitor 4. GI/DVT prophylaxis -Protonix/Heparin SC Patient seen and case discussed with attending, Dr. Moreno <Deb Moreno - Last Filed: 05/20/17 06:52> Objective - Vital Signs/Intake and Output Vital Signs (last 24 hours): Temp Pulse Resp BP Pulse Ox 98.6 F 72 20 127/70 98 05/19/17 16:00 05/19/17 16:00 05/19/17 16:00 05/19/17 16:00 05/19/17 16:00 Intake and Output: 05/19/17 05/20/17 18:59 06:59 Intake Total 1250 1380 Balance 1250 1380 - Medications Medications: Current Medications Heparin Sodium (Porcine) (Heparin) 5,000 units SC Q12 [facility] PRN Reason: Protocol Last Admin: 05/19/17 21:29 Dose: 5,000 units Vancomycin HCl (Vancomycin 1gm) 1 gm in 250 mls @ 167 mls/hr IVPB DAILY [facility] PRN Reason: Protocol Last Admin: 05/19/17 09:50 Dose: 167 mls/hr Piperacillin Sod/Tazobactam Sod (Zosyn 3.375 In Ns 100ml) 100 mls @ 200 mls/hr IVPB Q6 [facility] PRN Reason: Protocol Last Admin: 05/20/17 05:06 Dose: 200 mls/hr Indomethacin (Indocin) 25 mg PO TID [facility] Last Admin: 05/19/17 22:14 Dose: 25 mg Insulin Detemir (Levemir) 10 unit SC HS [facility] Last Admin: 05/19/17 21:30 Dose: 10 unit Insulin Human Lispro (Humalog Low) 0 units SC ACHS [facility] PRN Reason: Protocol Morphine Sulfate (Morphine) 4 mg IVP Q4H PRN PRN Reason: Pain, severe (8-10) Last Admin: 05/20/17 05:46 Dose: 4 mg Pantoprazole Sodium (Protonix Inj) 40 mg IVP DAILY [facility] Last Admin: 05/19/17 09:49 Dose: 40 mg - Labs Labs: 05/19/17 07:00 05/19/17 07:00 Attending/Attestation - Attestation I have personally seen and examined this patient.: Yes I have fully participated in the care of the patient.: Yes I have reviewed all pertinent clinical information, including history, physical exam and plan: Yes Notes (Text): 05/19/17 46 year old male with past medical history of diabetes who presents with complaint of right lower extremity cellulitis x 2 days. Lower extremity doppler and xray were negative. Continue with iv antibiotics as per ID. Will follow up on cultures. Today his erythema has improved although he still complains of significant tenderness. There is tenderness and ?minimal fluctuance on examination. Surgery evaluation is requested to rule out early abscess. He also presented with uncontrolled diabetes with hyperglycemia secondary to medication noncompliance for which he was counselled on. Will continue with insulin ss and levemir. Continue to monitor fingersticks closely and adjust his regimen accordingly. Deb Moreno MD Hospitalist.
--- NOTE | 2017-05-19 18:24 | US ---
PROCEDURE: Right calf ultrasound HISTORY: Right Calf Cellulitis, Eval for fluid collection COMPARISON: None TECHNIQUE: Standard protocol for this study/examination. FINDINGS: Cutaneous and subcutaneous edema. Subcutaneous complex mass/fluid collection nonvascular 7 x 12 mm. Orthogonal length 4.9 cm. IMPRESSION: Subcutaneous complex solid and cystic/ fluid collection likely hematoma. This corresponds findings on physical examination medial aspect right calf.
[2017-05-19] MEDS: Insulin Detemir 100 units/ml Vial (Levemir) SC SCH (21:30)
[2017-05-19] MEDS ORDERED: Insulin Reg-MEDIUM-Coverage SC STA (23:48)
[2017-05-20] MEDS: Piperacillin/Tazobact 3.375 gm 100 ML IVPB SCH ×2 (05:06→12:22)
[2017-05-20] MEDS: Morphine 4 mg/ml ISec IVP PRN ×2 (05:46→09:41)
[2017-05-20] MEDS: Insulin Lispro (humaLOG) LOW Coverage SC SCH ×2 (08:04→12:20)
[2017-05-20 08:05] LABS: BASO # 0.05 K/mm3 (0.0-2.0); BASO % 0.6 % (0.0-3.0); EOS # 0.4 (0.0-0.7); EOS % 5.1 % (1.5-5.0); GRAN # 5.19 (1.4-6.5); GRAN % 65.6 % (50.0-68.0); HEMOGLOBIN 13.2 gm/dL (14.0-18.0); LYMPH # 1.8 (1.2-3.4); LYMPH % 22.6 % (22.0-35.0); MEAN CELL VOLUME 82.4 fL (80.0-105.0); MEAN CORPUSCULAR HGB CONC 33.9 g/dl (31.0-37.0); MONO # 0.5 (0.1-0.6); MONO % 6.1 % (1.0-6.0); PLATELET COUNT 173 10^3/uL (120.0-450.0); RBC 4.72 10^6/uL (3.5-6.1); RED CELL DISTRIBUTION WIDTH 12.7 % (11.5-14.5); WHITE BLOOD COUNT 7.9 10^3/ul (4.5-11.0)
[2017-05-20 08:15] LABS: ALT/SGPT 23 U/L (7-56); AST/SGOT 14 U/L (15-59); BLOOD UREA NITROGEN 15 mg/dL (7-21); CALCIUM 8.3 mg/dL (8.4-10.5); GFR AFRICAN-AMERICAN > 60; GFR NON-AFRICAN AMERICAN > 60
--- NOTE | 2017-05-20 08:16 | CP.PCM.PN ---
Subjective - Date & Time of Evaluation Date of Evaluation: 05/20/17 Time of Evaluation: 06:00 - Subjective Subjective: General Surgery- Dr. Abdullahi Pt S&E at bedside this AM. complains of significant pain on RLE. Still unable to apply pressure while standing. Pain is better than yesterday. Denies N/V/D/CP /SOB, numbness or tingling in extremities. Objective - Vital Signs/Intake and Output Vital Signs (last 24 hours): Temp Pulse Resp BP Pulse Ox 98.6 F 72 20 127/70 98 05/19/17 16:00 05/19/17 16:00 05/19/17 16:00 05/19/17 16:00 05/19/17 16:00 Intake and Output: 05/20/17 05/20/17 06:59 18:59 Intake Total 1380 Balance 1380 - Medications Medications: Current Medications Heparin Sodium (Porcine) (Heparin) 5,000 units SC Q12 [facility] PRN Reason: Protocol Last Admin: 05/19/17 21:29 Dose: 5,000 units Vancomycin HCl (Vancomycin 1gm) 1 gm in 250 mls @ 167 mls/hr IVPB DAILY [facility] PRN Reason: Protocol Last Admin: 05/19/17 09:50 Dose: 167 mls/hr Piperacillin Sod/Tazobactam Sod (Zosyn 3.375 In Ns 100ml) 100 mls @ 200 mls/hr IVPB Q6 [facility] PRN Reason: Protocol Last Admin: 05/20/17 05:06 Dose: 200 mls/hr Indomethacin (Indocin) 25 mg PO TID [facility] Last Admin: 05/19/17 22:14 Dose: 25 mg Insulin Detemir (Levemir) 10 unit SC HS [facility] Last Admin: 05/19/17 21:30 Dose: 10 unit Insulin Human Lispro (Humalog Low) 0 units SC ACHS [facility] PRN Reason: Protocol Last Admin: 05/20/17 08:04 Dose: 2 units Morphine Sulfate (Morphine) 4 mg IVP Q4H PRN PRN Reason: Pain, severe (8-10) Last Admin: 05/20/17 05:46 Dose: 4 mg Pantoprazole Sodium (Protonix Inj) 40 mg IVP DAILY [facility] Last Admin: 05/19/17 09:49 Dose: 40 mg - Labs Labs: 05/20/17 07:00 07/05/17 07:00 - Constitutional Appears: No Acute Distress - Head Exam Head Exam: NORMAL INSPECTION - Respiratory Exam Respiratory Exam: NORMAL BREATHING PATTERN. absent: Accessory Muscle Use, Rhonchi, Wheezes - Cardiovascular Exam Cardiovascular Exam: REGULAR RHYTHM, +S1, +S2 - GI/Abdominal Exam GI & Abdominal Exam: Soft, Normal Bowel Sounds. absent: Distended, Guarding - Extremities Exam Extremities Exam: Tenderness Additional comments: RLE black eshcar 2mm. Erythema surrounding bite. TTP. Significant decrease in swelling over the last 24hrs. Assessment and Plan - Assessment and Plan (Free Text) Assessment: 46M w/ RLE cellulitis Plan: - warm compress - elevate leg - c/w abx per ID - pain control - continue to monitor changes in size of leg discussed w/ Dr. Bradly Whyte PGY1
[2017-05-20 08:39] VITALS: BP 106/67; PULSE 59; RESP 19; TEMP 97.9
[2017-05-20] MEDS: Vancomycin 1gm in NS 250ml 1 GM/250 ML BAG IVPB SCH (09:35)
--- NOTE | 2017-05-20 14:30 | CP.PCM.DIS ---
<BILL PEARCE - Last Filed: 05/20/17 14:25> Provider - Provider Date of Admission: 05/18/17 16:20 Attending physician: Deb Moreno MD Primary care physician: Elvira Haile MD Consults: Surgery: Dr. Zapata ID: Dr. Chowdhury Time Spent in preparation of Discharge (in minutes): 46 Hospital Course - Lab Results Lab Results: Most Recent Lab Values WBC 7.9 10^3/ul (4.5-11.0) 05/20/17 07:00 RBC 4.72 10^6/uL (3.5-6.1) 05/20/17 07:00 Hgb 13.2 gm/dL (14.0-18.0) L 05/20/17 07:00 Hct 38.9 % (42.0-52.0) L 05/20/17 07:00 MCV 82.4 fL (80.0-105.0) 05/20/17 07:00 MCH 28.0 pg (25.0-35.0) 05/20/17 07:00 MCHC 33.9 g/dl (31.0-37.0) 05/20/17 07:00 RDW 12.7 % (11.5-14.5) 05/20/17 07:00 Plt Count 173 10^3/uL (120.0-450.0) 05/20/17 07:00 MPV 10.0 fl (7.0-11.0) 05/20/17 07:00 Gran % 65.6 % (50.0-68.0) 05/20/17 07:00 Lymph % (Auto) 22.6 % (22.0-35.0) 05/20/17 07:00 [place] % (Auto) 6.1 % (1.0-6.0) H 05/20/17 07:00 Eos % (Auto) 5.1 % (1.5-5.0) H 05/20/17 07:00 Baso % (Auto) 0.6 % (0.0-3.0) 05/20/17 07:00 Gran # 5.19 (1.4-6.5) 05/20/17 07:00 Lymph # 1.8 (1.2-3.4) 05/20/17 07:00 [place] # 0.5 (0.1-0.6) 05/20/17 07:00 Eos # 0.4 (0.0-0.7) 05/20/17 07:00 Baso # 0.05 K/mm3 (0.0-2.0) 05/20/17 07:00 Sodium 138 mmol/L (132-148) 05/20/17 07:00 Potassium 3.8 mmol/L (3.6-5.0) 05/20/17 07:00 Chloride 106 mmol/L (95-110) 05/20/17 07:00 Carbon Dioxide 27 mmol/L (21-33) 05/20/17 07:00 Anion Gap 9 (10-20) L 05/20/17 07:00 BUN 15 mg/dL (7-21) 05/20/17 07:00 Creatinine 0.6 mg/dL (0.5-1.4) 05/20/17 07:00 Est GFR ( Amer) > 60 05/20/17 07:00 Est GFR (Non-Af Amer) > 60 05/20/17 07:00 POC Glucose (mg/dL) 199 mg/dL (65-110) H 05/20/17 11:17 Random Glucose 179 mg/dL (70-110) H 05/20/17 07:00 Serum Osmolality 305 mosm/kg (271-296) H 05/18/17 14:32 Calcium 8.3 mg/dL (8.4-10.5) L 05/20/17 07:00 Total Bilirubin 0.3 mg/dL (0.2-1.3) 05/20/17 07:00 AST 14 U/L (15-59) L 05/20/17 07:00 ALT 23 U/L (7-56) 05/20/17 07:00 Alkaline Phosphatase 89 U/L (38-133) 05/20/17 07:00 Total Protein 5.9 g/dL (5.8-8.3) 05/20/17 07:00 Albumin 3.0 g/dL (3.0-4.8) 05/20/17 07:00 Globulin 2.9 gm/dL 05/20/17 07:00 Albumin/Globulin Ratio 1.0 (1.1-1.8) L 05/20/17 07:00 Procalcitonin 0.05 NG/ML (0.19-0.49) L 05/18/17 14:32 - Hospital Course Hospital Course: 46 year old male with a history of diabetes presented with right lower extremity cellulitis of two days duration to the ED. Patient was found to have a white blood cell count of 14.2. Cultures were then drawn and he was started on IV Vancomycin and IV Zosyn. A right lower extremity venous doppler was ordered and showed no acute deep vein thrombosis. An Xray of the right tibia/ fibula was ordered and showed no acute findings. ID was consulted and agreed to continue with the antibiotics used in the ED. Minimal fluctuance was found on physical exam so surgery was consulted for possible drainage. After an sonogram of the area revealed that the fluctuance was due to an underlying hematoma, surgery recommended we continue with current treatment and that no drainage was necessary. Upon admission patient was found to have a blood sugar of 484. He was given 10 units of humalog immediately and then put on sliding scale insulin with a scheduled 10 units of Levemir at night for the course of his hospital stay. During the course of his stay, patient was on protonix and subcutaneous heparin for prophylaxis measures. - Date & Time of H&P Date of H&P: 05/18/17 Time of H&P: 17:25 Discharge Exam - Head Exam Head Exam: NORMAL INSPECTION - Eye Exam Eye Exam: EOMI, Normal appearance - ENT Exam ENT Exam: Mucous Membranes Moist, Normal Exam - Neck Exam Neck exam: Full Rom - Respiratory Exam Respiratory Exam: NORMAL BREATHING PATTERN, UNREMARKABLE. absent: Rhonchi, Wheezes, Respiratory Distress - Cardiovascular Exam Cardiovascular Exam: REGULAR RHYTHM, RRR, +S1, +S2. absent: Irregular Rhythm - GI/Abdominal Exam GI & Abdominal Exam: Normal Bowel Sounds. absent: Distended, Guarding - Extremities Exam Extremities exam: calf tenderness, pedal pulses present - Neurological Exam Neurological exam: Alert, Normal Gait, Oriented x3 - Psychiatric Exam Psychiatric exam: Normal Affect, Normal Mood - Skin Skin Exam: Dry, Intact, Warm - Additional Findings Additional findings: right lower extremity cellulitis ~3 in diameter; minimal fluctuance; tender to touch; increased warmth; no drainage Discharge Plan - Discharge Medications Prescriptions: Cephalexin [cephalexin] 500 mg PO TID #30 cap - Follow Up Plan Condition: STABLE Disposition: HOME/ ROUTINE Instructions: Cellulitis (DC), Cellulitis (GEN) Additional Instructions: 1. If symptoms continue or worsen, please seek emergency medical attention. 2. Follow up with your primary care physician to follow up with the medical conditions addressed in this hospital visit. 3. Please take the antibiotic Keflex 500mg three times a day for the next 10 days. Be sure to complete the full course of this antibiotic. Referrals: Elvira Haile MD [Primary Care Provider] - <Deb Moreno - Last Filed: 05/21/17 12:51> Provider - Provider Date of Admission: 05/18/17 16:20 Attending physician: Deb Moreno MD Primary care physician: Elvira Haile MD Hospital Course - Lab Results Lab Results: Most Recent Lab Values WBC 7.9 10^3/ul (4.5-11.0) 05/20/17 07:00 RBC 4.72 10^6/uL (3.5-6.1) 05/20/17 07:00 Hgb 13.2 gm/dL (14.0-18.0) L 05/20/17 07:00 Hct 38.9 % (42.0-52.0) L 05/20/17 07:00 MCV 82.4 fL (80.0-105.0) 05/20/17 07:00 MCH 28.0 pg (25.0-35.0) 05/20/17 07:00 MCHC 33.9 g/dl (31.0-37.0) 05/20/17 07:00 RDW 12.7 % (11.5-14.5) 05/20/17 07:00 Plt Count 173 10^3/uL (120.0-450.0) 05/20/17 07:00 MPV 10.0 fl (7.0-11.0) 05/20/17 07:00 Gran % 65.6 % (50.0-68.0) 05/20/17 07:00 Lymph % (Auto) 22.6 % (22.0-35.0) 05/20/17 07:00 [place] % (Auto) 6.1 % (1.0-6.0) H 05/20/17 07:00 Eos % (Auto) 5.1 % (1.5-5.0) H 05/20/17 07:00 Baso % (Auto) 0.6 % (0.0-3.0) 05/20/17 07:00 Gran # 5.19 (1.4-6.5) 05/20/17 07:00 Lymph # 1.8 (1.2-3.4) 05/20/17 07:00 [place] # 0.5 (0.1-0.6) 05/20/17 07:00 Eos # 0.4 (0.0-0.7) 05/20/17 07:00 Baso # 0.05 K/mm3 (0.0-2.0) 05/20/17 07:00 Sodium 138 mmol/L (132-148) 05/20/17 07:00 Potassium 3.8 mmol/L (3.6-5.0) 05/20/17 07:00 Chloride 106 mmol/L (95-110) 05/20/17 07:00 Carbon Dioxide 27 mmol/L (21-33) 05/20/17 07:00 Anion Gap 9 (10-20) L 05/20/17 07:00 BUN 15 mg/dL (7-21) 05/20/17 07:00 Creatinine 0.6 mg/dL (0.5-1.4) 05/20/17 07:00 Est GFR ( Amer) > 60 05/20/17 07:00 Est GFR (Non-Af Amer) > 60 05/20/17 07:00 POC Glucose (mg/dL) 199 mg/dL (65-110) H 05/20/17 11:17 Random Glucose 179 mg/dL (70-110) H 05/20/17 07:00 Serum Osmolality 305 mosm/kg (271-296) H 05/18/17 14:32 Calcium 8.3 mg/dL (8.4-10.5) L 05/20/17 07:00 Total Bilirubin 0.3 mg/dL (0.2-1.3) 05/20/17 07:00 AST 14 U/L (15-59) L 05/20/17 07:00 ALT 23 U/L (7-56) 05/20/17 07:00 Alkaline Phosphatase 89 U/L (38-133) 05/20/17 07:00 Total Protein 5.9 g/dL (5.8-8.3) 05/20/17 07:00 Albumin 3.0 g/dL (3.0-4.8) 05/20/17 07:00 Globulin 2.9 gm/dL 05/20/17 07:00 Albumin/Globulin Ratio 1.0 (1.1-1.8) L 05/20/17 07:00 Procalcitonin 0.05 NG/ML (0.19-0.49) L 05/18/17 14:32 Attending/Attestation - Attestation I have personally seen and examined this patient.: Yes I have fully participated in the care of the patient.: Yes I have reviewed all pertinent clinical information, including history, physical exam and plan: Yes Notes (Text): 05/20/17 46 year old male with past medical history of diabetes who presents with complaint of right lower extremity cellulitis x 2 days. Lower extremity doppler and xray were negative. He was started on iv antibiotics. US showed no abscess; showed hematoma. His symptoms improved on iv antibiotics. He also presented with uncontrolled diabetes with hyperglycemia secondary to medication noncompliance for which he was counselled on. Patient will be discharged home to follow up with his pmd. Continue with po antibiotics. Counselled on medication compliance for diabetes. Deb Moreno MD Hospitalist.
--- NOTE | 2017-05-20 18:26 | CP.PCM.PN ---
Subjective - Date & Time of Evaluation Date of Evaluation: 05/20/17 Time of Evaluation: 12:30 - Subjective Subjective: Infectious Disease Follow Up: May 20, 2017 46 yo male with erythema of right calf for at least 2 days after being bitten by an insect. Patient denies fevers or chills. Patient with pain in the right calf. He has been given morphine for pain control. No other complaints made. Soft tissue ultrasound is showing a hematoma. No abscess. Overall, the right calf has improved greatly. Objective - Vital Signs/Intake and Output Vital Signs (last 24 hours): Temp Pulse Resp BP Pulse Ox 97.9 F 59 L 19 106/67 98 05/20/17 08:38 05/20/17 08:38 05/20/17 08:38 05/20/17 08:38 05/20/17 08:38 Intake and Output: 05/20/17 05/20/17 06:59 18:59 Intake Total 1380 1250 Balance 1380 1250 - Labs Labs: 05/20/17 07:00 05/20/17 07:00 - Constitutional Appears: Non-toxic, No Acute Distress - Head Exam Head Exam: ATRAUMATIC, NORMOCEPHALIC - Eye Exam Eye Exam: EOMI, PERRL Pupil Exam: NORMAL ACCOMODATION, PERRL - ENT Exam ENT Exam: Mucous Membranes Moist, Normal External Ear Exam, TM's Normal Bilaterally - Neck Exam Neck Exam: Full ROM, Normal Inspection - Respiratory Exam Respiratory Exam: Clear to Ausculation Bilateral, NORMAL BREATHING PATTERN. absent: Rales, Rhonchi, Wheezes - Cardiovascular Exam Cardiovascular Exam: REGULAR RHYTHM, RRR, +S1, +S2 - GI/Abdominal Exam GI & Abdominal Exam: Soft, Normal Bowel Sounds. absent: Distended, Tenderness - Extremities Exam Extremities Exam: Full ROM Additional comments: Rt. lower extremities: initially swelling and redness to the rt. posterior calf region with approx. [id number] traced with the skin marker on admission and there is visible central insect bite berg, cellulitis streaking to the ankle has significantly improved, no ulcer, FROM without limitation, sensation intact , motor 5/5, +DPPT pulses, capillary refill< 2 seconds, neurovascular intact. Most of the initial symptoms have resolved. Overall swelling and erythema has significantly improved. - Neurological Exam Neurological Exam: Alert, Awake, CN II-XII Intact, Oriented x3 - Psychiatric Exam Psychiatric exam: Normal Affect, Normal Mood - Skin Additional comments: as per Extremity exam. Assessment and Plan - Assessment and Plan (Free Text) Assessment: 46 yo male with uncontrolled diabetes mellitus with right leg swelling and cellulitis secondary to insect bite. The patient was started on Vancomycin and Zosyn for antibiotic coverage. Patient also needs better control of his diabetes. Local wound care. Insect bites present on right leg. The swelling and erythema has improved greatly although the patient continues to complain of great pain to the right calf. Can doan culture although suspect that the cultures would be negative. Blood cultures negative at 48 hours. Supportive care. Hematoma on ultrasound. Can consider use of 10-14 days of Keflex 500 mg TID on discharge. Thank you for allowing me to participate in the care of the patient, we will follow with you.
== END 2017-05-20 15:59 | disposition home or self-care (01) | DRG 277 ==
LOC: ED 13:50 → ERH 16:20 → 3RSO 18:04
PROVIDERS: ADMIT Internal Medicine; ATTEND Internal Medicine
DX: L03.115 Cellulitis of right lower limb (principal); E87.1 Hypo-osmolality and hyponatremia; E11.65 Type 2 diabetes mellitus with hyperglycemia; I10 Essential (primary) hypertension; Z91.14 Patient's other noncompliance with medication regimen; F17.200 Nicotine dependence, unspecified, uncomplicated; W57.XXXA Bitten or stung by nonvenomous insect and other nonvenomous arthropods, initial encounter; Z79.4 Long term (current) use of insulin; Z91.19 Patient's noncompliance with other medical treatment and regimen; F41.9 Anxiety disorder, unspecified; R40.2412 Glasgow coma scale score 13-15, at arrival to emergency department; Z87.898 Personal history of other specified conditions; Z90.49 Acquired absence of other specified parts of digestive tract; D72.829 Elevated white blood cell count, unspecified; E86.0 Dehydration

== ENCOUNTER 2017-05-22 14:42 | Emergency (ER) | payer MEDICAID ==
[2017-05-22 14:43] VITALS: BMI 26.6
--- NOTE | 2017-05-22 15:06 | ED PDOC ---
Arrival/HPI - General Time Seen by Provider: 05/22/17 14:57 Historian: Patient - History of Present Illness Narrative History of Present Illness (Text): 05/22/17 15:04 46 year old male whose past medical history includes diabetes (non-compliant) presents to the emergency department complaining of continuing drainage from the right calf after being discharged two days ago for treatment of cellulitis in the same area. Patient states he took antibiotics (cephalexin) as instructed but noticed copious amounts of drainage yesterday and more pain in the area. Patient also reports fatigue. Denies fever. No chest pain or shortness of breath. No nausea, vomiting, dizziness, or urinary symptoms. He has not checked his glucose since leaving. He denies any drug use. Time/Duration: 24 hours Symptom Onset: Gradual Symptom Course: Unchanged Modifying Factors (Text): None Associated Symptoms (Text): None Past Medical History - Provider Review Nursing Documentation Reviewed: Yes - Infectious Disease Hx of Infectious Diseases: None - Tetanus Immunization Tetanus Immunization: Up to Date - Cardiac Hx Cardiac Disorders: Yes Hx Hypertension: Yes - Pulmonary Hx Respiratory Disorders: No - Neurological Hx Neurological Disorder: No - HEENT Hx HEENT Disorder: No - Renal Hx Renal Disorder: No - Endocrine/Metabolic Hx Diabetes Mellitus Type 1: Yes - Hematological/Oncological Hx Blood Disorders: No - Integumentary Hx Dermatological Disorder: No - Musculoskeletal/Rheumatological Hx Falls: No - Gastrointestinal Hx Gastrointestinal Disorders: No - Genitourinary/Gynecological Hx Genitourinary Disorders: No - Psychiatric Hx Anxiety: Yes Hx Substance Use: No - Past Surgical History Past Surgical History: No Previous - Anesthesia Hx Anesthesia: No - Suicidal Assessment Feels Threatened In Home Enviroment: No Family/Social History - Physician Review Nursing Documentation Reviewed: Yes Family/Social History: Unknown Family HX Smoking Status: Heavy Smoker > 10 Cigarettes Daily Hx Alcohol Use: No Hx Substance Use: No Substance used: cocaine Hx Substance Use Treatment: Yes Allergies/Home Meds Allergies/Adverse Reactions: Allergies No Known Allergies Allergy (Verified 05/22/17 15:14) Home Medications: Home Meds Medication Instructions Recorded Confirmed Insulin Detemir [Levemir] 15 unit SC HS 05/21/17 05/22/17 metFORMIN [glucOPHAGE] 500 mg PO BID 05/21/17 05/22/17 oxyCODONE/Acetaminophen [Percocet 1 tab PO PRN PRN 05/22/17 05/22/17 5/325 mg Tab] Review of Systems - Physician Review All systems were reviewed & negative as marked: Yes - Review of Systems Constitutional: Fatigue. absent: Fevers Eyes: absent: Vision Changes ENT: absent: Hearing Changes Respiratory: absent: SOB Cardiovascular: absent: Chest Pain Gastrointestinal: absent: Nausea, Vomiting Genitourinary Male: absent: Dysuria, Frequency Musculoskeletal: absent: Back Pain Skin: Other (Drainage and redness in right calf) Neurological: absent: Headache, Dizziness Endocrine: Other (history of poorly controlled DM). absent: Diaphoresis, Polyuria, Polydipsia Physical Exam Vital Signs Temp Pulse Resp BP Pulse Ox 05/22/17 15:26 98.8 F 75 18 124/77 97 05/22/17 14:50 98.8 F 75 18 124/77 100 Temperature: Afebrile Blood Pressure: Normal Pulse: Regular Respiratory Rate: Normal Appearance: Positive for: Well-Appearing, Non-Toxic, Comfortable Pain Distress: None Mental Status: Positive for: Alert and Oriented X 3 - Systems Exam Head: Present: Atraumatic, Normocephalic Pupils: Present: PERRL Conjunctiva: Present: Normal Mouth: Present: Moist Mucous Membranes Pharnyx: Present: Normal. No: ERYTHEMA, EXUDATE Neck: Present: Normal Range of Motion Respiratory/Chest: Present: Clear to Auscultation, Good Air Exchange. No: Respiratory Distress, Accessory Muscle Use Cardiovascular: Present: Regular Rate and Rhythm, Normal S1, S2. No: Murmurs Abdomen: Present: Normal Bowel Sounds. No: Tenderness, Distention, Peritoneal Signs Back: Present: Normal Inspection Upper Extremity: Present: Normal Inspection. No: Cyanosis, Edema Lower Extremity: Present: Other (Area of induration and serosanguinous drainage with surrounding erythema approximately 18 cm x 7 cm in posterior medial right calf ) Neurological: Present: GCS=15, CN II-XII Intact, Speech Normal Skin: Present: Warm, Dry, Normal Color. No: Rashes Psychiatric: Present: Alert, Oriented x 3, Normal Insight, Normal Concentration Medical Decision Making ED Course and Treatment: Impression: 46 year old male whose past medical history includes diabetes presents to the emergency department complaining of continuing pus and drainage from the right calf after being discharged two days ago for treatment of cellulitis in the same area. Differential Diagnosis include but are not limited to: Cellulitis with or without abscess. Plan: -- Labs -- Reassess and disposition Prior Visits: Notes and results from previous visits were reviewed. Patient last seen in ED on 05/18/17 for calf swelling and admitted for Cellulitis, Diabetes, Leukocytosis, Hyperglycemia. Progress Notes: 05/22/17 16:39 Patient failed outpatient therapy for cellulitis. He will need to be readmitted for iv antibiotics. Labs with mild leukocytosis and chemistry shows uncontrolled DM but no AG. Case discussed with Dr. Moreno. Patient also noted to be cocaine and opiate positive on urine tox, but denies drug use. - Lab Interpretations Lab Results: 05/22/17 15:25 05/22/17 15:25 Lab Results 05/22/17 15:25: Urine Opiates Screen Positive H, Urine Methadone Screen Negative , Ur Barbiturates Screen Negative, Ur Phencyclidine Scrn Negative, Ur Amphetamines Screen Negative, U Benzodiazepines Scrn Negative, U Oth Cocaine Metabols Positive H, U Cannabinoids Screen Negative 05/22/17 15:25: Sodium 138, Potassium 4.4, Chloride 99, Carbon Dioxide 28, Anion Gap 15, BUN 18, Creatinine 0.8, Est GFR ( Amer) > 60, Est GFR (Non- Af Amer) > 60, Random Glucose 358 H* D, Calcium 8.7, Total Bilirubin 0.5, AST 25 , ALT 36, Alkaline Phosphatase 106, Total Protein 7.1, Albumin 3.5, Globulin 3.5 , Albumin/Globulin Ratio 1.0 L, Lipase 50 05/22/17 15:25: Urine Color Yellow, Urine Appearance Clear, Urine pH 6.5, Ur Specific [place] 1.010, Urine Protein Negative, Urine Glucose (UA) >=1000, Urine Ketones Negative, Urine Blood Negative, Urine Nitrate Negative, Urine Bilirubin Negative, Urine Urobilinogen 0.2, Ur Leukocyte Esterase Negative 05/22/17 15:25: PT 11.3, INR 1.05, APTT 27.7 05/22/17 15:25: WBC 11.1 H D, RBC 4.82, Hgb 13.7 L, Hct 39.7 L, MCV 82.4, MCH 28.4, MCHC 34.5, RDW 12.8, Plt Count 204, MPV 9.9, Gran % 78.5 H, Lymph % (Auto ) 11.9 L, [place] % (Auto) 6.6 H, Eos % (Auto) 2.6, Baso % (Auto) 0.4, Gran # 8.69 H, Lymph # 1.3, [place] # 0.7 H, Eos # 0.3, Baso # 0.04 - Medication Orders Current Medication Orders: Vancomycin HCl (Vancomycin 1gm) 1 gm in 250 mls @ 133.333 mls/hr IVPB STAT STA PRN Reason: Protocol Stop: 05/22/17 17:35 Discontinued Medications Vancomycin HCl 1 gm/ Sodium (Chloride) 250 mls @ 133.333 mls/hr IV STAT STA PRN Reason: Protocol Stop: 05/22/17 17:33 Last Admin: 05/22/17 16:09 Dose: Piperacillin Sod/Tazobactam Sod (Zosyn 3.375 In Ns 100ml) 100 mls @ 200 mls/hr IVPB STAT STA PRN Reason: Protocol Stop: 05/22/17 16:10 Last Admin: 05/22/17 16:08 Dose: 200 mls/hr Ketorolac Tromethamine (Toradol) 30 mg IVP STAT STA Stop: 05/22/17 15:52 Last Admin: 05/22/17 16:08 Dose: 30 mg - Scribe Statement The provider has reviewed the documentation as recorded by the Emigdio Ward Provider Scribe Attestation: All medical record entries made by the Emigdio were at my direction and personally dictated by me. I have reviewed the chart and agree that the record accurately reflects my personal performance of the history, physical exam, medical decision making, and the department course for this patient. I have also personally directed, reviewed, and agree with the discharge instructions and disposition. Disposition/Present on Arrival - Present on Arrival Any Indicators Present on Arrival: Yes History of DVT/PE: No History of Uncontrolled Diabetes: Yes Urinary Catheter: No History Surgical Site Infection Following: None - Disposition Have Diagnosis and Disposition been Completed?: Yes Diagnosis: Uncontrolled diabetes mellitus, Cellulitis, Drug abuse Disposition: HOSPITALIZED Disposition Time: 16:25 Patient Plan: Admission Condition: FAIR Discharge Instructions (ExitCare): Cellulitis (ED)
[2017-05-22 15:14] VITALS: TEMP 98.8
[2017-05-22] MEDS ORDERED: Piperacillin/Tazobact 3.375 gm 100 ML IVPB STA (15:41)
[2017-05-22] MEDS ORDERED: Vancomycin 1gm in NS 250ml 1 GM/250 ML BAG IVPB STA (15:43)
[2017-05-22 15:52] LABS: BASO # 0.04 K/mm3 (0.0-2.0); BASO % 0.4 % (0.0-3.0); EOS # 0.3 (0.0-0.7); EOS % 2.6 % (1.5-5.0); GRAN # 8.69 (1.4-6.5); GRAN % 78.5 % (50.0-68.0); HEMOGLOBIN 13.7 gm/dL (14.0-18.0); LYMPH # 1.3 (1.2-3.4); LYMPH % 11.9 % (22.0-35.0); MEAN CELL VOLUME 82.4 fL (80.0-105.0); MEAN CORPUSCULAR HEMOGLOBIN 28.4 pg (25.0-35.0); MEAN CORPUSCULAR HGB CONC 34.5 g/dl (31.0-37.0); MEAN PLATELET VOLUME 9.9 fl (7.0-11.0); MONO # 0.7 (0.1-0.6); MONO % 6.6 % (1.0-6.0); PLATELET COUNT 204 10^3/uL (120.0-450.0); RBC 4.82 10^6/uL (3.5-6.1); RED CELL DISTRIBUTION WIDTH 12.8 % (11.5-14.5); WHITE BLOOD COUNT 11.1 10^3/ul (4.5-11.0)
[2017-05-22 15:53] LABS: PH,URINE 6.5 (4.7-8.0); URINE BILIRUBIN NEGATIVE (NEGATIVE); URINE BLOOD NEGATIVE (NEGATIVE); URINE GLUCOSE (UA) >=1000 mg/dL (NEGATIVE); URINE LEUKOCYTE ESTERASE NEGATIVE Leu/uL (NEGATIVE); URINE NITRATE NEGATIVE (NEGATIVE); URINE PROTEIN NEGATIVE mg/dL (<30 mg/dL); URINE UROBILINOGEN 0.2 E.U./dL (<1 E.U./dL)
[2017-05-22 15:54] LABS: URINE APPEARANCE CLEAR (CLEAR); URINE COLOR YELLOW (YELLOW)
[2017-05-22 15:59] LABS: INR 1.05 (0.93-1.08); PARTIAL THROMBOPLASTIN TIME 27.7 Seconds (23.7-30.8); PROTHROMBIN TIME 11.3 Seconds (9.9-11.8)
[2017-05-22 16:08] LABS: ALBUMIN 3.5 g/dL (3.0-4.8); ALT/SGPT 36 U/L (7-56); AST/SGOT 25 U/L (15-59); BLOOD UREA NITROGEN 18 mg/dL (7-21); CALCIUM 8.7 mg/dL (8.4-10.5); GFR AFRICAN-AMERICAN > 60; GFR NON-AFRICAN AMERICAN > 60; LIPASE 50 U/L (23-300)
[2017-05-22 16:22] LABS: BARBITURATES, UR NEGATIVE (NEGATIVE); BENZODIAZEPINES, UR NEGATIVE (NEGATIVE); OPIATES, UR POSITIVE (NEGATIVE); PHENCYCLIDINE, UR NEGATIVE (NEGATIVE)
--- NOTE | 2017-05-22 17:33 | CP.PCM.HP ---
<Miguelito Scruggs - Last Filed: 05/22/17 17:47> History of Present Illness - History of Present Illness History of Present Illness: Patient is a 46 year old male who presents to the ED for evaluation of right lower extremity redness, swelling, and discharge from wound. It is important to note that the patient was discharged 2 days ago from the hospital where he was evaluated and treated for cellulitis in the same region. Patient was discharged with cephalexin and has been compliant with his medications. He admits to the increased red-brown non-malordorous discharge from the wound site since and has cleaned it with peroxide and OTC neosporin. Denies fever , chills, dizziness, chest pain, SOB, abdominal pain, N/V, diarrhea, constipation, and urinary symptoms. 12point ROS as per HPI above, otherwise negative PMHx: DM2 PSHx: Appendectomy Allergies: NKDA Family Hx: Non-contributory Social Hx: Current 1ppd smoker; Hx of Cocaine use, currently denies use; Denies alcohol use; PMD: [place] Present on Admission - Present on Admission Any Indicators Present on Admission: Yes History of Uncontrolled Diabetes: Yes Review of Systems - Review of Systems Review of Systems: As per HPI Past Patient History - Infectious Disease Hx of Infectious Diseases: None - Tetanus Immunizations Tetanus Immunization: Up to Date - Past Social History Smoking Status: Heavy Smoker > 10 Cigarettes Daily - CARDIAC Hx Cardiac Disorders: Yes Hx Hypertension: Yes - PULMONARY Hx Respiratory Disorders: No - NEUROLOGICAL Hx Neurological Disorder: No - HEENT Hx HEENT Problems: No - RENAL Hx Chronic Kidney Disease: No - ENDOCRINE/METABOLIC Hx Diabetes Mellitus Type 1: Yes - HEMATOLOGICAL/ONCOLOGICAL Hx Blood Disorders: No - INTEGUMENTARY Hx Dermatological Problems: No - MUSCULOSKELETAL/RHEUMATOLOGICAL Hx Falls: No - GASTROINTESTINAL Hx Gastrointestinal Disorders: No - GENITOURINARY/GYNECOLOGICAL Hx Genitourinary Disorders: No - PSYCHIATRIC Hx Anxiety: Yes Hx Substance Use: No - SURGICAL HISTORY Hx Surgeries: No - ANESTHESIA Hx Anesthesia: No Meds Home Medications: Home Medication List Medication Instructions Recorded Confirmed Type Sulfamethoxazole/Trimethoprim 1 tab PO BID #28 tab 05/22/17 Rx [Bactrim DS 800 mg-160 mg] Allergies/Adverse Reactions: Allergies Allergy/AdvReac Type Severity Reaction Status Date / Time No Known Allergies Allergy Verified 07/08/17 17:28 Physical Exam - Constitutional Appears: Non-toxic, No Acute Distress - Head Exam Head Exam: ATRAUMATIC, NORMAL INSPECTION - Eye Exam Eye Exam: EOMI, Normal appearance - ENT Exam ENT Exam: Mucous Membranes Moist - Neck Exam Neck exam: Positive for: Normal Inspection - Respiratory Exam Respiratory Exam: Clear to Auscultation Bilateral. absent: Rales, Rhonchi, Wheezes - Cardiovascular Exam Cardiovascular Exam: RRR, +S1, +S2 - GI/Abdominal Exam GI & Abdominal Exam: Soft. absent: Distended, Guarding, Rigid - Extremities Exam Extremities exam: Positive for: pedal pulses present. Negative for: normal inspection Additional comments: Right lower extremity- erythemaa around draining wound, tender to touch, warm to touch, produced reddish brown discharge from wound Right ankle swelling, no erythema, no pain to touch - Neurological Exam Neurological exam: Alert, Oriented x3 Additional comments: patient is awake, alert, responds to verbal stimuli, follows commands, and moves extremities past midline - Psychiatric Exam Psychiatric exam: Normal Affect, Normal Mood - Skin Additional comments: Right lower extremity- erythemata around draining wound, warm to touch, produced reddish brown discharge from wound Results - Vital Signs Recent Vital Signs: Last Vital Signs Temp 98.8 F 05/22/17 15:26 Pulse 69 05/22/17 17:00 Resp 18 05/22/17 17:00 BP 122/74 05/22/17 17:00 Pulse Ox 97 05/22/17 17:00 - Labs Result Diagrams: 05/22/17 15:25 05/22/17 15:25 Assessment & Plan - Assessment and Plan (Free Text) Assessment: Patient is a 46 year old male who presented to the ED for evaluation and was scheduled to be admitted for evaluation and treatment of draining wound on right lower extremity with associated erythema and swelling. Plan: 1. Cellulitis - patient left AMA because he had to go to his god daughters graduation tomorrow in addition to work. He coley snot want to spend the night in the hosptial to recieve appropriate antibiotics and care. - risks of not receiving treatment in the hospital were thoroughly explained to the patient which includes worsening of current condition, the potential for increase in morbidity, and potential for increase in mortality. - patient will be sent home on keflex and bactrim DS. - patient was educated for medication compliance, wound care, and follow up with PMD in 2-3 days. - patient told to return to ED for worsening of current condition, fever, chills , dizziness, chest pain, SOB, abdominal pain, intractable N/V. 2. Diabetes - continue home - accu-checks and continue home diabetic medications metformin and levemir - follow up with PMD <JoshTaylordylon Krystyna - Last Filed: 05/23/17 07:55> Results - Vital Signs Recent Vital Signs: Last Vital Signs Temp 98.8 F 05/22/17 15:26 Pulse 74 05/22/17 18:40 Resp 16 05/22/17 18:40 BP 126/85 05/22/17 18:40 Pulse Ox 98 05/22/17 18:40 - Labs Result Diagrams: 05/22/17 15:25 05/22/17 15:25 Labs: Laboratory Results - last 24 hr 05/22/17 05/22/17 05/22/17 15:25 15:25 15:25 WBC 11.1 H D RBC 4.82 Hgb 13.7 L Hct 39.7 L MCV 82.4 MCH 28.4 MCHC 34.5 RDW 12.8 Plt Count 204 MPV 9.9 Gran % 78.5 H Lymph % (Auto) 11.9 L [place] % (Auto) 6.6 H Eos % (Auto) 2.6 Baso % (Auto) 0.4 Gran # 8.69 H Lymph # 1.3 [place] # 0.7 H Eos # 0.3 Baso # 0.04 PT 11.3 INR 1.05 APTT 27.7 Sodium Potassium Chloride Carbon Dioxide Anion Gap BUN Creatinine Est GFR ( Amer) Est GFR (Non-Af Amer) Random Glucose Calcium Total Bilirubin AST ALT Alkaline Phosphatase Total Protein Albumin Globulin Albumin/Globulin Ratio Lipase Urine Color Yellow Urine Appearance Clear Urine pH 6.5 Ur Specific [place] 1.010 Urine Protein Negative Urine Glucose (UA) >=1000 Urine Ketones Negative Urine Blood Negative Urine Nitrate Negative Urine Bilirubin Negative Urine Urobilinogen 0.2 Ur Leukocyte Esterase Negative Urine Opiates Screen Urine Methadone Screen Ur Barbiturates Screen Ur Phencyclidine Scrn Ur Amphetamines Screen U Benzodiazepines Scrn U Oth Cocaine Metabols U Cannabinoids Screen 05/22/17 05/22/17 15:25 15:25 WBC RBC Hgb Hct MCV MCH MCHC RDW Plt Count MPV Gran % Lymph % (Auto) [place] % (Auto) Eos % (Auto) Baso % (Auto) Gran # Lymph # [place] # Eos # Baso # PT INR APTT Sodium 138 Potassium 4.4 Chloride 99 Carbon Dioxide 28 Anion Gap 15 BUN 18 Creatinine 0.8 Est GFR ( Amer) > 60 Est GFR (Non-Af Amer) > 60 Random Glucose 358 H* D Calcium 8.7 Total Bilirubin 0.5 AST 25 ALT 36 Alkaline Phosphatase 106 Total Protein 7.1 Albumin 3.5 Globulin 3.5 Albumin/Globulin Ratio 1.0 L Lipase 50 Urine Color Urine Appearance Urine pH Ur Specific [place] Urine Protein Urine Glucose (UA) Urine Ketones Urine Blood Urine Nitrate Urine Bilirubin Urine Urobilinogen Ur Leukocyte Esterase Urine Opiates Screen Positive H Urine Methadone Screen Negative Ur Barbiturates Screen Negative Ur Phencyclidine Scrn Negative Ur Amphetamines Screen Negative U Benzodiazepines Scrn Negative U Oth Cocaine Metabols Positive H U Cannabinoids Screen Negative Attending/Attestation - Attestation I have personally seen and examined this patient.: Yes I have fully participated in the care of the patient.: Yes I have reviewed all pertinent clinical information: Yes Notes (Text): 05/22/17 46 year old male with past medical history of diabetes and recent cellulitis discharged earlier this week returned with complaint of right leg erythema, swelling and discharge. Recent doppler was negative for DVT and US showed hematoma. He was discharged on keflex which he states he was taking. He was given vanco/zosyn in the ER. Cultures were obtained. However he is refusing to be admitted stating he has a graduation to attend to tomorrow. At the same time he states he needs to work tomorrow. He was explained in detail risks of signing out against medical advice. He acknowledged understanding of his risks and still signed out AMA. He has keflex at home and was also given script for bactrim. He was counselled on compliance with his home medications for diabetes. Counselled on wound care, continue with antibiotics and PMD follow up. He was counselled on risks of continued substance abuse (urine drug screen was positive for cocaine which he denied use of). Patient has signed out AMA. Deb Moreno MD Hospitalist. Discharge Diagnoses: 1) cellulitis 2) diabetes 3) substance abuse 4) left AMA
[2017-05-22 18:55] VITALS: BP 126/85; PULSE 74; RESP 16; O2SAT 98
== END 2017-05-22 18:57 | disposition left against medical advice (07) ==
LOC: ED 14:42 → ERH 16:29 → UNDOADMIN 16:29 → ERH 16:55
DX: E11.9 Type 2 diabetes mellitus without complications (principal); F19.10 Other psychoactive substance abuse, uncomplicated; L03.115 Cellulitis of right lower limb; I10 Essential (primary) hypertension; F17.210 Nicotine dependence, cigarettes, uncomplicated
CPT/HCPCS: 80053; 80324; 80345; 80346; 80349; 80353; 80358; 80361; 81003; 83690; 83992; 85025; 85610; 85730; 87040; 87070; 87181; 96365; 96366; 96367; 96375; 99285; J1885; J2543

== ENCOUNTER 2017-05-24 15:24 | Inpatient (IN) | payer MEDICAID ==
[2017-05-24 15:26] VITALS: BMI 26.6
[2017-05-24] MEDS ORDERED: Sodium Chloride 0.9% 1,000 ML IV STA ×2 (16:03→17:51)
[2017-05-24] MEDS ORDERED: Vancomycin 1gm in NS 250ml 1 GM/250 ML BAG IVPB STA (16:03)
--- NOTE | 2017-05-24 16:10 | ED PDOC ---
Arrival/HPI - General Historian: Patient - History of Present Illness Time/Duration: < week Symptom Onset: Gradual Symptom Course: Worsening Context: Home - General Time Seen by Provider: 05/24/17 15:31 - History of Present Illness Narrative History of Present Illness (Text): 05/24/17 16:05 This 46 yo male with pmh MRSA, right lower leg infection, presents to this emergency department complaining of right lower leg and right foot swelling. Patient admits signing AMA x 2 days ago after admission. Patient denies fever, chills, sob, cp, abdominal pain, urinary symptoms, or abnormal gait. (Brennan Post) Past Medical History - Provider Review Nursing Documentation Reviewed: Yes - Infectious Disease Hx of Infectious Diseases: None - Tetanus Immunization Tetanus Immunization: Up to Date - Cardiac Hx Cardiac Disorders: Yes Hx Hypertension: Yes - Pulmonary Hx Respiratory Disorders: No - Neurological Hx Neurological Disorder: No - HEENT Hx HEENT Disorder: No - Renal Hx Renal Disorder: No - Endocrine/Metabolic Hx Endocrine Disorders: Yes Hx Diabetes Mellitus Type 1: Yes Hx Diabetes Mellitus Type 2: Yes - Hematological/Oncological Hx Blood Disorders: No - Integumentary Hx Dermatological Disorder: No - Musculoskeletal/Rheumatological Hx Musculoskeletal Disorders: No Hx Falls: No - Gastrointestinal Hx Gastrointestinal Disorders: No - Genitourinary/Gynecological Hx Genitourinary Disorders: No - Psychiatric Hx Psychophysiologic Disorder: Yes Hx Anxiety: Yes Hx Depression: No Hx Emotional Abuse: No Hx Physical Abuse: No Hx Substance Use: No - Past Surgical History Past Surgical History: No Previous - Anesthesia Hx Anesthesia: No - Suicidal Assessment Feels Threatened In Home Enviroment: No Family/Social History - Physician Review Nursing Documentation Reviewed: Yes Family/Social History: No Known Family HX Smoking Status: Heavy Smoker > 10 Cigarettes Daily Hx Alcohol Use: No Hx Substance Use: No Substance used: cocaine Hx Substance Use Treatment: Yes Allergies/Home Meds Allergies/Adverse Reactions: Allergies No Known Allergies Allergy (Verified 05/22/17 17:28) Home Medications: Home Meds Medication Instructions Recorded Confirmed Insulin Detemir [Levemir] 15 unit SC HS 05/21/17 05/22/17 metFORMIN [glucOPHAGE] 500 mg PO BID 05/21/17 05/22/17 Review of Systems - Review of Systems Constitutional: Normal. absent: Fatigue, Weight Change, Fevers, Night Sweats Eyes: Normal ENT: Normal Respiratory: Normal Cardiovascular: Normal Gastrointestinal: Normal Genitourinary Male: Normal Musculoskeletal: Normal Skin: Abscess (right lower leg), Cellulitis Neurological: Normal Endocrine: Normal Hemo/Lymphatic: Normal Psychiatric: Normal Medical Decision Making Re-evaluation Time: 19:20 Reassessment Condition: Re-examined, Improving,but remains with symptoms ED Course and Treatment: I was available for consultation during PA evaluation. The chart was reviewed by me, and I agree with disposition. The documented history was done by the physician craft coordinator. The documented physical exam was done by the physician craft coordinator. The documented procedures were done by the physician craft coordinator. (Solomon Rosales) 05/24/17 19:[address] Wally Mak physician regarding extensive cellulitis , and abscess right lower leg. He agrees with plan for admission for IV ABX. (Brennan Post) - Lab Interpretations Lab Results: 05/24/17 17:05 05/24/17 17:05 Lab Results 05/24/17 17:05: pO2 37, VBG pH 7.33, VBG pCO2 55.0, VBG HCO3 29.0 H, VBG Total CO2 30.7 H, VBG O2 Sat (Calc) 74.3 H, VBG Base Excess 1.8, VBG Potassium 4.4, Sodium 134.0, Chloride 99.0, Glucose 419 H*, Lactate 1.3, FiO2 21.0, Venous Blood Potassium 4.4 05/24/17 17:05: Sodium 132, Chloride 98, Potassium 4.3, Carbon Dioxide 26, Anion Gap 12, BUN 11, Creatinine 0.6, Est GFR ( Amer) > 60, Est GFR (Non- Af Amer) > 60, Random Glucose 421 H*, Calcium 8.9, Total Bilirubin 0.3, AST 26, ALT 38, Alkaline Phosphatase 135 H, Total Protein 7.4, Albumin 3.8, Globulin 3.6 , Albumin/Globulin Ratio 1.1 05/24/17 17:05: WBC 9.8, RBC 4.75, Hgb 13.7 L, Hct 39.1 L, MCV 82.3, MCH 28.8, MCHC 35.0, RDW 12.7, Plt Count 254, MPV 9.9, Gran % 71.3 H, Lymph % (Auto) 16.9 L, [place] % (Auto) 7.0 H, Eos % (Auto) 4.4, Baso % (Auto) 0.4, Gran # 7.02 H, Lymph # 1.7, [place] # 0.7 H, Eos # 0.4, Baso # 0.04, ESR 15 - Medication Orders Current Medication Orders: Discontinued Medications Sodium Chloride (Sodium Chloride 0.9%) 1,000 mls @ 999 mls/hr IV .Q1H1M STA Stop: 05/24/17 17:03 Last Admin: 05/24/17 17:27 Dose: 999 mls/hr Vancomycin HCl (Vancomycin 1gm) 1 gm in 250 mls @ 167 mls/hr IVPB STAT STA PRN Reason: Protocol Stop: 05/24/17 17:32 Last Admin: 05/24/17 17:27 Dose: 167 mls/hr Sodium Chloride (Sodium Chloride 0.9%) 1,000 mls @ 999 mls/hr IV .Q1H1M STA Stop: 05/24/17 18:51 Ketorolac Tromethamine (Toradol) 15 mg IVP STAT STA Stop: 05/24/17 16:52 Last Admin: 05/24/17 17:27 Dose: 15 mg Morphine Sulfate (Morphine) 4 mg IVP STAT STA Stop: 05/24/17 19:12 Ondansetron HCl (Zofran Inj) 4 mg IVP STAT STA Stop: 05/24/17 19:13 - Procedure PROCEDURE NOTE (Text): PROCEDURE: INCISION & DRAINAGE Performed by the emergency provider Indication: Abscess Location: RLE Preparation: The area was prepped and draped in the usual sterile fashion and was cleansed with Chlorhexadine. Local infiltration of Lidocaine 1% was used for anesthesia. Procedure: The most fluctuant portion of the abscess was incised with a #11 scalpel. Approximately 1 mL of purent discharge was obtained. The abscess was packed. A dressing was applied by the RN. Post-Procedure: On exam the abscess is notably less fluctuant. The patient tolerated the procedure well, and there were no complications. Cultured: YES (George Matthews) Disposition/Present on Arrival - Present on Arrival Any Indicators Present on Arrival: No History of DVT/PE: No History of Uncontrolled Diabetes: Yes Urinary Catheter: No History Surgical Site Infection Following: None - Disposition Have Diagnosis and Disposition been Completed?: Yes Disposition Time: 19:27 Patient Plan: Admission - Disposition Diagnosis: Cellulitis and abscess of leg Disposition: HOSPITALIZED Patient Problems: Current Active Problems Problem Status Onset Cellulitis and abscess of leg Acute Condition: STABLE Discharge Instructions (ExitCare): Cellulitis (ED) Referrals: Niharika Vickers MD [Primary Care Provider] - Follow up with primary
[2017-05-24 17:17] LABS: BASO # 0.04 K/mm3 (0.0-2.0); BASO % 0.4 % (0.0-3.0); EOS # 0.4 (0.0-0.7); EOS % 4.4 % (1.5-5.0); GRAN # 7.02 (1.4-6.5); GRAN % 71.3 % (50.0-68.0); HEMOGLOBIN 13.7 gm/dL (14.0-18.0); LYMPH # 1.7 (1.2-3.4); LYMPH % 16.9 % (22.0-35.0); MEAN CELL VOLUME 82.3 fL (80.0-105.0); MEAN CORPUSCULAR HEMOGLOBIN 28.8 pg (25.0-35.0); MEAN PLATELET VOLUME 9.9 fl (7.0-11.0); MONO # 0.7 (0.1-0.6); PLATELET COUNT 254 10^3/uL (120.0-450.0); RBC 4.75 10^6/uL (3.5-6.1); RED CELL DISTRIBUTION WIDTH 12.7 % (11.5-14.5); WHITE BLOOD COUNT 9.8 10^3/ul (4.5-11.0)
[2017-05-24 17:25] LABS: VENOUS BLOOD GAS BASE EXCESS 1.8 mmol/L (0.0-2.0); VENOUS BLOOD GAS PO2 37 mm/Hg (30-55); VENOUS BLOOD PH 7.33 (7.32-7.43)
[2017-05-24 17:35] LABS: ALB/GLOB RATIO 1.1 (1.1-1.8); ALBUMIN 3.8 g/dL (3.0-4.8); ALT/SGPT 38 U/L (7-56); AST/SGOT 26 U/L (15-59); BLOOD UREA NITROGEN 11 mg/dL (7-21); CALCIUM 8.9 mg/dL (8.4-10.5); GFR AFRICAN-AMERICAN > 60; GFR NON-AFRICAN AMERICAN > 60
[2017-05-24] MEDS ORDERED: Morphine 4 mg/ml ISec IVP STA (19:11)
[2017-05-24] MEDS ORDERED: Insulin Regular 1 UNITS/0.01 ML ML ONE (21:03)
[2017-05-24] MEDS: Insulin Reg-MEDIUM-Coverage SC SCH (21:08)
[2017-05-24] MEDS ORDERED: Insulin Detemir 100 units/ml Vial (Levemir) SC SCH (22:00)
--- NOTE | 2017-05-25 00:47 | CP.PCM.HP ---
<DANE MOSQUEDA - Last Filed: 05/25/17 02:02> History of Present Illness - History of Present Illness History of Present Illness: CC: Swelling and severe pain in right leg 46 year old male PMH uncontrolled DM II presents to [facility] on 05/24/2017 with complaints of swelling and severe pain in his right leg. Patient states that on Wednesday he woke up with his leg swollen and painful. Patient states he believed he was bit by a spider. He describes the suspected bite as a black jean claude encircled by swollen tissue. As time went on the patient states that this area became more and more swollen and spread from the anterior middle leg down to the ankle and up to near the knee. Patient states that the pain is more severe on the dorsal aspect of his leg. He describes the pain as sharp stating that it lasts all throughout the day. The pain is worsened with walking, especially noted by the patient when he is standing to use the restroom. 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 Before being admitted today patient states his pain was a 10/10, after being administered morphine 4 mg he states his pain is a 6/10. Patient denies any recent trauma, puncture wounds, animal bites, freshwater contact, recent seafood consumption. Patient also denies n/v/d, chest pain, shortness of breath. PMD: Dr. Vickers PMH: DM II Allergies: NKDA SH: admits to tobacco, alcohol consumption Review of Systems Constitutional: pt denies fever, chills, generalized weakness ENT: pt denies dysphagia, ofalgia, hearing deficit, rhinorrhea Eyes: pt denies sudden loss of vision, diplopia, blurred vision MSK: pt denies muscle stiffness, joint pain, extremity cramping Cardio: pt denies sob, heart murmur; see hpi Pulm: pt denies cough, hemoptysis, wheeze GI: pt denies loss of appetite, abdominal pain, constipation, melena, n/v/d Neuro: pt denies paresis, paresthesia, dizziness, gabriel, numbness, tingling Physical Exam Constitutional: thin male, a&o x 4, nad Head and Neck: neck supple, no jvd, trachea midline, carotid midline, no cervical/head mass Eyes: michelle, nonicteric sclera, eom intact ENT: auditory acuity grossly intact, throat not congested, no nasal deformity Cardio: RRR, no m/r/g, no carotid bruit, nml s1, s2 Pulm: CTAB, no accessory muscle use, equal nml breath sounds bilaterally Abd: s/nt/nd, nbs x 4 q, no palpable masses Derm: +erythema RLE, - purulent discharge, - rash Extr: +edema, no cyanosis, +calf tenderness, no lesions, no varicosities Neuro: cn II-XII grossly intact, ue and le 3+ muscle strength bilaterally, no los ue, le bilaterally and core Present on Admission - Present on Admission Any Indicators Present on Admission: No Past Patient History - Infectious Disease Hx of Infectious Diseases: None - Tetanus Immunizations Tetanus Immunization: Up to Date - Past Social History Smoking Status: Heavy Smoker > 10 Cigarettes Daily - CARDIAC Hx Cardiac Disorders: Yes Hx Hypertension: Yes - PULMONARY Hx Respiratory Disorders: No - NEUROLOGICAL Hx Neurological Disorder: No - HEENT Hx HEENT Problems: No - RENAL Hx Chronic Kidney Disease: No - ENDOCRINE/METABOLIC Hx Endocrine Disorders: Yes Hx Diabetes Mellitus Type 1: Yes Hx Diabetes Mellitus Type 2: Yes - HEMATOLOGICAL/ONCOLOGICAL Hx Blood Disorders: No - INTEGUMENTARY Hx Dermatological Problems: No - MUSCULOSKELETAL/RHEUMATOLOGICAL Hx Musculoskeletal Disorders: No Hx Falls: No - GASTROINTESTINAL Hx Gastrointestinal Disorders: No - GENITOURINARY/GYNECOLOGICAL Hx Genitourinary Disorders: No - PSYCHIATRIC Hx Psychophysiologic Disorder: Yes Hx Anxiety: Yes Hx Depression: No Hx Emotional Abuse: No Hx Physical Abuse: No Hx Substance Use: No - SURGICAL HISTORY Hx Surgeries: No - ANESTHESIA Hx Anesthesia: No Meds Allergies/Adverse Reactions: Allergies Allergy/AdvReac Type Severity Reaction Status Date / Time No Known Allergies Allergy Verified 05/22/17 17:28 Results - Vital Signs Recent Vital Signs: Last Vital Signs Temp 98.2 F 05/24/17 18:28 Pulse 61 05/24/17 21:40 Resp 18 05/24/17 21:40 BP 126/72 05/24/17 21:40 Pulse Ox 98 05/24/17 21:40 - Labs Result Diagrams: 05/24/17 17:05 05/24/17 17:05 Assessment & Plan - Assessment and Plan (Free Text) Assessment: 46 year old male PMH DM II with MRSA cellulitis of RLE. Plan: Plan: 1.Cellulitus -Blood cultures came back as MRSA -IV Vancomycin 1 mg IV q 12 x 7 -Morphine 4 mg q 4 PRN -Continue to have ID on board for further recommendations 2. DM II -Random Glucose after being admitted-325 - medication compliance stressed -Insulin detemir 15 units HS -Humulin SC ACHS DVT/GI prophylaxis: 5000 IU heparin q12/Pepcid 20 mg BID <Rowdy Lo - Last Filed: 05/25/17 02:21> Results - Vital Signs Recent Vital Signs: Last Vital Signs Temp 98.2 F 05/24/17 18:28 Pulse 61 05/24/17 21:40 Resp 18 05/24/17 21:40 BP 126/72 05/24/17 21:40 Pulse Ox 98 05/24/17 21:40 - Labs Result Diagrams: 05/24/17 17:05 05/24/17 17:05 Attending/Attestation - Attestation I have personally seen and examined this patient.: Yes I have fully participated in the care of the patient.: Yes I have reviewed all pertinent clinical information: Yes Notes (Text): 05/25/17 02:20 Patient was seen in the ER in room # 15. Agree with history, physical examination, assessment and plan.
[2017-05-25] MEDS: Morphine 4 mg/ml ISec IVP PRN ×4 (01:40→21:20)
[2017-05-25 04:29] VITALS: RESP 20
[2017-05-25 07:36] LABS: BASO # 0.09 K/mm3 (0.0-2.0); BASO % 1.1 % (0.0-3.0); EOS # 0.5 (0.0-0.7); EOS % 5.6 % (1.5-5.0); GRAN # 5.35 (1.4-6.5); HEMOGLOBIN 13.4 gm/dL (14.0-18.0); LYMPH # 1.8 (1.2-3.4); LYMPH % 21.4 % (22.0-35.0); MEAN CELL VOLUME 82.6 fL (80.0-105.0); MEAN CORPUSCULAR HEMOGLOBIN 28.1 pg (25.0-35.0); MEAN PLATELET VOLUME 9.7 fl (7.0-11.0); MONO # 0.7 (0.1-0.6); MONO % 7.9 % (1.0-6.0); PLATELET COUNT 240 10^3/uL (120.0-450.0); RBC 4.77 10^6/uL (3.5-6.1); RED CELL DISTRIBUTION WIDTH 12.8 % (11.5-14.5); WHITE BLOOD COUNT 8.4 10^3/ul (4.5-11.0)
[2017-05-25 07:49] LABS: ALBUMIN 3.3 g/dL (3.0-4.8); ALT/SGPT 28 U/L (7-56); AST/SGOT 13 U/L (15-59); BLOOD UREA NITROGEN 13 mg/dL (7-21); CALCIUM 8.7 mg/dL (8.4-10.5); GFR AFRICAN-AMERICAN > 60; GFR NON-AFRICAN AMERICAN > 60
[2017-05-25] MEDS: Insulin Reg-MEDIUM-Coverage SC SCH ×4 (08:24→21:52)
[2017-05-25] MEDS ORDERED: Vancomycin 1gm in NS 250ml 1 GM/250 ML BAG IVPB SCH ×2 (10:00→19:50)
[2017-05-25] MEDS ORDERED: Insulin Detemir 100 units/ml Vial (Levemir) SC SCH (11:41)
--- NOTE | 2017-05-25 11:42 | CP.PCM.CON ---
History of Present Illness - History of Present Illness History of Present Illness: 46 year old male with PMH of DM, uncontrolled was seen last week for right leg swelling and pain and was given antibiotics then sent home. He came back 2 days ago in the ED and was seen and was sent home on PO Bactrim and Keflex. The wound started having more drainage and pain and he came back for further evaluation and treatment. He states that the lesion started like a spider bite ( but is not aware of being bitten by a spider). He denies fever or chills, no nausea or vomiting, no headache or dizziness, no chest pain, no SOB, no abdominal pain, no diarrhea, no dysuria, no cough or colds. I and D was done in the ED. Wound cx is growing MRSA. Infectious Diseases consult is requested to further evaluate and manage. Review of Systems - Review of Systems All systems: reviewed and no additional remarkable complaints except (as per HPI ) Past Patient History - Infectious Disease Hx of Infectious Diseases: None - Tetanus Immunizations Tetanus Immunization: Up to Date - Past Social History Smoking Status: Heavy Smoker > 10 Cigarettes Daily - CARDIAC Hx Cardiac Disorders: Yes Hx Hypertension: Yes - PULMONARY Hx Respiratory Disorders: No - NEUROLOGICAL Hx Neurological Disorder: No - HEENT Hx HEENT Problems: No - RENAL Hx Chronic Kidney Disease: No - ENDOCRINE/METABOLIC Hx Endocrine Disorders: Yes Hx Diabetes Mellitus Type 1: Yes Hx Diabetes Mellitus Type 2: Yes - HEMATOLOGICAL/ONCOLOGICAL Hx Blood Disorders: No - INTEGUMENTARY Hx Dermatological Problems: No - MUSCULOSKELETAL/RHEUMATOLOGICAL Hx Musculoskeletal Disorders: No Hx Falls: No - GASTROINTESTINAL Hx Gastrointestinal Disorders: No - GENITOURINARY/GYNECOLOGICAL Hx Genitourinary Disorders: No - PSYCHIATRIC Hx Psychophysiologic Disorder: Yes Hx Anxiety: Yes Hx Depression: No Hx Emotional Abuse: No Hx Physical Abuse: No Hx Substance Use: No - SURGICAL HISTORY Hx Surgeries: No - ANESTHESIA Hx Anesthesia: No Meds Allergies/Adverse Reactions: Allergies Allergy/AdvReac Type Severity Reaction Status Date / Time No Known Allergies Allergy Verified 05/22/17 17:28 - Medications Medications: Current Medications Vancomycin HCl (Vancomycin 1gm) 1 gm in 250 mls @ 167 mls/hr IVPB Q12 ANDRAE PRN Reason: Protocol Stop: 06/01/17 10:01 Insulin Detemir (Levemir) 15 unit SC HS ANDRAE Insulin Human Regular (Humulin R Med) 0 units SC ACHS ANDRAE PRN Reason: Protocol Last Admin: 05/24/17 21:08 Dose: 2 units Physical Exam - Constitutional Appears: Non-toxic, No Acute Distress - Head Exam Head Exam: NORMAL INSPECTION - Neck Exam Neck exam: Negative for: Lymphadenopathy, Meningismus - Respiratory Exam Respiratory Exam: Decreased Breath Sounds - Cardiovascular Exam Cardiovascular Exam: +S1, +S2 - GI/Abdominal Exam GI & Abdominal Exam: Soft. absent: Tenderness - Extremities Exam Additional comments: left leg with packing in place, still with some erythema and some swelling on the medial side of the right calf Results - Vital Signs Recent Vital Signs: Last Vital Signs Temp 98.2 F 05/24/17 18:28 Pulse 61 05/24/17 21:40 Resp 18 05/24/17 21:40 BP 126/72 05/24/17 21:40 Pulse Ox 98 05/24/17 21:40 - Labs Result Diagrams: 05/25/17 06:45 05/25/17 06:45 Assessment & Plan - Assessment and Plan (Free Text) Plan: Assessment Right leg purulent skin and skin structure infection with abscess formation due to MRSA, S/P I and D POD #1 DM, uncontrolled Plan Patient was started on Vancomycin and will switch it to Zyvox and monitor clinical response
[2017-05-25] MEDS: Linezolid 600 mg in D5W 300 ml 600 MG/300 ML BAG IVPB SCH (12:31)
[2017-05-25] MEDS: Oxycodone/Acetaminophen 5/325 mg Tab PO SCH ×3 (12:32→23:20)
--- NOTE | 2017-05-25 13:12 | CP.PCM.CON ---
History of Present Illness - History of Present Illness History of Present Illness: General Surgery Consult Resident: Heather Attending: Bradly HPI: Pt is a Diabetic 46y/o WM who presented to the ER on wednesday with an abscess on his R. calf that had opened while at work. The abscess was packed in the ER and then the patient left AMA. He returned on Wednesday and was admitted. Today his only complaint is pain around the lesion. Denies Fever, SOB, CP, N/V/D /C. PMH: * Poorly controlled IDDM PSH: * Appendectomy Allergies: NKA Review of Systems - Constitutional Constitutional: As Per HPI - EENT Eyes: As Per HPI - Cardiovascular Cardiovascular: As Per HPI - Respiratory Respiratory: As Per HPI - Gastrointestinal Gastrointestinal: As Per HPI - Genitourinary Genitourinary: As Per HPI - Musculoskeletal Musculoskeletal: As Per HPI - Integumentary Integumentary: Lesions (r. calf) - Neurological Neurological: As Per HPI - Psychiatric Psychiatric: As Per HPI - Endocrine Endocrine: As Per HPI - Hematologic/Lymphatic Hematologic: As Per HPI Past Patient History - Infectious Disease Hx of Infectious Diseases: None - Tetanus Immunizations Tetanus Immunization: Up to Date - Past Social History Smoking Status: Heavy Smoker > 10 Cigarettes Daily Alcohol: None Drugs: Denies - CARDIAC Hx Cardiac Disorders: Yes Hx Hypertension: Yes - PULMONARY Hx Respiratory Disorders: No - NEUROLOGICAL Hx Neurological Disorder: No - HEENT Hx HEENT Problems: No - RENAL Hx Chronic Kidney Disease: No - ENDOCRINE/METABOLIC Hx Endocrine Disorders: Yes Hx Diabetes Mellitus Type 2: Yes (poorly controlled) - HEMATOLOGICAL/ONCOLOGICAL Hx Blood Disorders: No - INTEGUMENTARY Hx Dermatological Problems: No - MUSCULOSKELETAL/RHEUMATOLOGICAL Hx Musculoskeletal Disorders: No Hx Falls: No - GASTROINTESTINAL Hx Gastrointestinal Disorders: No - GENITOURINARY/GYNECOLOGICAL Hx Genitourinary Disorders: No - PSYCHIATRIC Hx Psychophysiologic Disorder: Yes Hx Anxiety: Yes Hx Depression: No Hx Emotional Abuse: No Hx Physical Abuse: No Hx Substance Use: No - SURGICAL HISTORY Hx Surgeries: No - ANESTHESIA Hx Anesthesia: No Meds Allergies/Adverse Reactions: Allergies Allergy/AdvReac Type Severity Reaction Status Date / Time No Known Allergies Allergy Verified 05/22/17 17:28 - Medications Medications: Current Medications Famotidine (Pepcid) 20 mg PO 1000,2200 [facility] Last Admin: 05/25/17 09:51 Dose: 20 mg Heparin Sodium (Porcine) (Heparin) 5,000 units SC Q12 [facility]RAE PRN Reason: Protocol Stop: 05/28/17 10:00 Last Admin: 05/25/17 09:50 Dose: 5,000 units Linezolid (Zyvox 600mg/300ml D5w) 600 mg in 300 mls @ 200 mls/hr IVPB Q12 [facility]RAE PRN Reason: Protocol Stop: 06/01/17 11:46 Insulin Detemir (Levemir) 20 unit SC HS [facility] Insulin Human Regular (Humulin R Med) 0 units SC ACHS ANDRAE PRN Reason: Protocol Last Admin: 05/25/17 12:32 Dose: 3 units Morphine Sulfate (Morphine) 4 mg IVP Q4H PRN PRN Reason: Pain, moderate (4-7) Last Admin: 05/25/17 09:51 Dose: 4 mg Oxycodone/Acetaminophen (Percocet 5/325 Mg Tab) 1 tab PO Q6H [facility] Stop: 05/28/17 11:46 Last Admin: 05/25/17 12:32 Dose: 1 tab Physical Exam - Head Exam Head Exam: ATRAUMATIC - Eye Exam Eye Exam: EOMI - ENT Exam ENT Exam: Mucous Membranes Moist - Neck Exam Neck exam: Positive for: Normal Inspection - Respiratory Exam Respiratory Exam: Clear to Auscultation Bilateral - Cardiovascular Exam Cardiovascular Exam: REGULAR RHYTHM - GI/Abdominal Exam GI & Abdominal Exam: Normal Bowel Sounds, Soft - Rectal Exam Rectal Exam: NORMAL INSPECTION - Expanded Lower Extremities Exam Right Lower Leg Exam: erythema (2 cm open abscess on R. calf packed with 1/4" gauze. 4 -5 cm of warmth/erythema surrounding lesion.) - Neurological Exam Neurological exam: Alert, Altered, Oriented x3 - Skin Skin Exam: Erythema (R. calf surrounding lesion) Results - Vital Signs Recent Vital Signs: Last Vital Signs Temp 98.5 F 05/25/17 07:30 Pulse 67 05/25/17 07:30 Resp 20 05/25/17 07:30 BP 137/80 05/25/17 07:30 Pulse Ox 97 05/25/17 07:30 - Labs Result Diagrams: 05/25/17 06:45 05/25/17 06:45 Labs: Laboratory Results - last 24 hr 05/25/17 05/25/17 05/25/17 06:45 06:45 06:45 WBC 8.4 RBC 4.77 Hgb 13.4 L Hct 39.4 L MCV 82.6 MCH 28.1 MCHC 34.0 RDW 12.8 Plt Count 240 MPV 9.7 Gran % 64.0 Lymph % (Auto) 21.4 L [place] % (Auto) 7.9 H Eos % (Auto) 5.6 H Baso % (Auto) 1.1 Gran # 5.35 Lymph # 1.8 [place] # 0.7 H Eos # 0.5 Baso # 0.09 APTT 26.4 Sodium 139 Potassium 4.2 Chloride 105 Carbon Dioxide 25 Anion Gap 13 BUN 13 Creatinine 0.6 Est GFR ( Amer) > 60 Est GFR (Non-Af Amer) > 60 Random Glucose 235 H Calcium 8.7 Total Bilirubin 0.2 AST 13 L ALT 28 Alkaline Phosphatase 104 Total Protein 6.4 Albumin 3.3 Globulin 3.2 Albumin/Globulin Ratio 1.0 L Assessment & Plan - Assessment and Plan (Free Text) Plan: Abscess + MRSA on R. calf * continue Vanco 1mg q12hr x 7 days * will continue to follow * no surgical intervention needed at this time Bunny DAVIS PGY-1
[2017-05-26] MEDS: Oxycodone/Acetaminophen 5/325 mg Tab PO SCH ×2 (06:19→12:12)
[2017-05-26] MEDS: Morphine 4 mg/ml ISec IVP PRN (06:21)
[2017-05-26 07:05] LABS: BASO # 0.08 K/mm3 (0.0-2.0); BASO % 1.1 % (0.0-3.0); EOS # 0.4 (0.0-0.7); EOS % 5.9 % (1.5-5.0); GRAN # 4.95 (1.4-6.5); GRAN % 66.2 % (50.0-68.0); HEMOGLOBIN 14.1 gm/dL (14.0-18.0); LYMPH # 1.5 (1.2-3.4); LYMPH % 19.7 % (22.0-35.0); MEAN CELL VOLUME 81.8 fL (80.0-105.0); MEAN CORPUSCULAR HEMOGLOBIN 28.3 pg (25.0-35.0); MEAN CORPUSCULAR HGB CONC 34.6 g/dl (31.0-37.0); MEAN PLATELET VOLUME 9.4 fl (7.0-11.0); MONO # 0.5 (0.1-0.6); MONO % 7.1 % (1.0-6.0); PLATELET COUNT 251 10^3/uL (120.0-450.0); RBC 4.99 10^6/uL (3.5-6.1); RED CELL DISTRIBUTION WIDTH 12.7 % (11.5-14.5); WHITE BLOOD COUNT 7.5 10^3/ul (4.5-11.0)
[2017-05-26 07:15] LABS: ALB/GLOB RATIO 0.9 (1.1-1.8); ALBUMIN 3.4 g/dL (3.0-4.8); ALT/SGPT 27 U/L (7-56); AST/SGOT 11 U/L (15-59); BLOOD UREA NITROGEN 20 mg/dL (7-21); CALCIUM 8.8 mg/dL (8.4-10.5); GFR AFRICAN-AMERICAN > 60; GFR NON-AFRICAN AMERICAN > 60
[2017-05-26] MEDS: Insulin Reg-MEDIUM-Coverage SC SCH ×2 (07:56→12:12)
--- NOTE | 2017-05-26 08:32 | CP.PCM.PN ---
Subjective - Date & Time of Evaluation Date of Evaluation: 05/26/17 Time of Evaluation: 08:29 - Subjective Subjective: General Surgery Progress Note Resident: Heather Attending: Bradly HPI: Patient seen and examined at bedside. Complaining of pain behind right knee and pain around lesion but states it is improving. No other complaints at this time. Laxmi Diet. +BM/Flatus. Denies N/V/D/CP/SOB/F. Objective - Vital Signs/Intake and Output Vital Signs (last 24 hours): Temp Pulse Resp BP Pulse Ox 98.5 F 67 20 137/80 97 05/25/17 07:30 05/25/17 07:30 05/25/17 07:30 05/25/17 07:30 05/25/17 07:30 Intake and Output: 05/26/17 05/26/17 06:59 18:59 Intake Total 980 Balance 980 - Medications Medications: Current Medications Famotidine (Pepcid) 20 mg PO 1000,2200 [facility] Last Admin: 05/25/17 21:08 Dose: 20 mg Heparin Sodium (Porcine) (Heparin) 5,000 units SC Q12 [facility]RAE PRN Reason: Protocol Stop: 05/28/17 10:00 Last Admin: 05/25/17 21:06 Dose: 5,000 units Linezolid (Zyvox 600mg/300ml D5w) 600 mg in 300 mls @ 200 mls/hr IVPB Q12 [facility]E PRN Reason: Protocol Stop: 06/01/17 11:46 Last Admin: 05/25/17 12:31 Dose: Not Given Insulin Detemir (Levemir) 20 unit SC HS [facility] Last Admin: 05/25/17 21:55 Dose: 20 unit Insulin Human Regular (Humulin R Med) 0 units SC ACHS [facility]RAE PRN Reason: Protocol Last Admin: 05/26/17 07:56 Dose: Not Given Morphine Sulfate (Morphine) 4 mg IVP Q4H PRN PRN Reason: Pain, moderate (4-7) Last Admin: 05/26/17 06:21 Dose: 4 mg Oxycodone/Acetaminophen (Percocet 5/325 Mg Tab) 1 tab PO Q6H [facility] Stop: 05/28/17 11:46 Last Admin: 05/26/17 06:19 Dose: Not Given - Labs Labs: 05/26/17 06:45 05/26/17 06:45 APTT 26.4 Seconds (23.7-30.8) 05/25/17 06:45 - Constitutional Appears: Non-toxic - Head Exam Head Exam: NORMAL INSPECTION - Eye Exam Eye Exam: EOMI - ENT Exam ENT Exam: Mucous Membranes Moist - Neck Exam Neck Exam: Normal Inspection - Respiratory Exam Respiratory Exam: Accessory Muscle Use - Cardiovascular Exam Cardiovascular Exam: REGULAR RHYTHM. absent: Gallop, RRR, Rubs - GI/Abdominal Exam GI & Abdominal Exam: Soft, Normal Bowel Sounds. absent: Distended, Guarding, Tenderness - Extremities Exam Additional comments: mild swelling around right knee. Dressing on R. calf c/d/i with minimal erythema surrounding lesion. Still open. - Neurological Exam Neurological Exam: Alert, Awake, Oriented x3 Assessment and Plan - Assessment and Plan (Free Text) Plan: s/p R. calf abscess I/D * Dressing changed today * Continue Abx per ID * Discuss w/ medicine possible imaging of R. Knee due to swelling and pain. Bunny DAVIS PGY-1
[2017-05-26 08:38] VITALS: BP 117/83; PULSE 63; TEMP 98.6; O2SAT 96
[2017-05-26] MEDS: Linezolid 600 mg in D5W 300 ml 600 MG/300 ML BAG IVPB SCH (10:39)
--- NOTE | 2017-05-26 11:05 | CP.PCM.PN ---
Subjective - Date & Time of Evaluation Date of Evaluation: 05/26/17 Time of Evaluation: 10:05 - Subjective Subjective: Pain on right leg is improving but has some right knee pain. For CT scan of the leg today. Objective - Vital Signs/Intake and Output Vital Signs (last 24 hours): Temp Pulse Resp BP Pulse Ox 98.5 F 67 20 137/80 97 05/25/17 07:30 05/25/17 07:30 05/25/17 07:30 05/25/17 07:30 05/25/17 07:30 Intake and Output: 05/26/17 05/26/17 06:59 18:59 Intake Total 980 Balance 980 - Medications Medications: Current Medications Famotidine (Pepcid) 20 mg PO 1000,2200 [facility] Last Admin: 05/25/17 21:08 Dose: 20 mg Heparin Sodium (Porcine) (Heparin) 5,000 units SC Q12 ANDRAE PRN Reason: Protocol Stop: 05/28/17 10:00 Last Admin: 05/25/17 21:06 Dose: 5,000 units Linezolid (Zyvox 600mg/300ml D5w) 600 mg in 300 mls @ 200 mls/hr IVPB Q12 [facility]RAE PRN Reason: Protocol Stop: 06/01/17 11:46 Last Admin: 05/25/17 12:31 Dose: Not Given Insulin Detemir (Levemir) 20 unit SC HS [facility] Last Admin: 05/25/17 21:55 Dose: 20 unit Insulin Human Regular (Humulin R Med) 0 units SC ACHS ANDRAE PRN Reason: Protocol Last Admin: 05/26/17 07:56 Dose: Not Given Morphine Sulfate (Morphine) 4 mg IVP Q4H PRN PRN Reason: Pain, moderate (4-7) Last Admin: 05/26/17 06:21 Dose: 4 mg Oxycodone/Acetaminophen (Percocet 5/325 Mg Tab) 1 tab PO Q6H [facility] Stop: 05/28/17 11:46 Last Admin: 05/26/17 06:19 Dose: Not Given - Labs Labs: 05/26/17 06:45 05/26/17 06:45 APTT 26.4 Seconds (23.7-30.8) 05/25/17 06:45 - Constitutional Appears: Non-toxic, No Acute Distress - Head Exam Head Exam: NORMAL INSPECTION - Respiratory Exam Respiratory Exam: Decreased Breath Sounds - Cardiovascular Exam Cardiovascular Exam: +S1, +S2 - GI/Abdominal Exam GI & Abdominal Exam: Soft. absent: Tenderness - Extremities Exam Additional comments: right leg with dressings in place Assessment and Plan - Assessment and Plan (Free Text) Plan: Assessment Right leg purulent skin and skin structure infection with abscess formation due to MRSA, S/P I and D POD #2 DM, uncontrolled Plan continue Zyvox day 2 and continue to monitor clinical response; follow up CT scan of the leg results
--- NOTE | 2017-05-26 14:08 | CP.PCM.DIS ---
<ALEXANDRU PIZARRO - Last Filed: 05/26/17 13:46> Provider - Provider Date of Admission: 05/24/17 19:27 Attending physician: Mundo Perez MD Primary care physician: Niharika Vickers MD Consults: Surgery, Infectious disease Time Spent in preparation of Discharge (in minutes): 45 Hospital Course - Lab Results Lab Results: Most Recent Lab Values WBC 7.5 10^3/ul (4.5-11.0) 05/26/17 06:45 RBC 4.99 10^6/uL (3.5-6.1) 05/26/17 06:45 Hgb 14.1 gm/dL (14.0-18.0) 05/26/17 06:45 Hct 40.8 % (42.0-52.0) L 05/26/17 06:45 MCV 81.8 fL (80.0-105.0) 05/26/17 06:45 MCH 28.3 pg (25.0-35.0) 05/26/17 06:45 MCHC 34.6 g/dl (31.0-37.0) 05/26/17 06:45 RDW 12.7 % (11.5-14.5) 05/26/17 06:45 Plt Count 251 10^3/uL (120.0-450.0) 05/26/17 06:45 MPV 9.4 fl (7.0-11.0) 05/26/17 06:45 Gran % 66.2 % (50.0-68.0) 05/26/17 06:45 Lymph % (Auto) 19.7 % (22.0-35.0) L 05/26/17 06:45 [place] % (Auto) 7.1 % (1.0-6.0) H 05/26/17 06:45 Eos % (Auto) 5.9 % (1.5-5.0) H 05/26/17 06:45 Baso % (Auto) 1.1 % (0.0-3.0) 05/26/17 06:45 Gran # 4.95 (1.4-6.5) 05/26/17 06:45 Lymph # 1.5 (1.2-3.4) 05/26/17 06:45 [place] # 0.5 (0.1-0.6) 05/26/17 06:45 Eos # 0.4 (0.0-0.7) 05/26/17 06:45 Baso # 0.08 K/mm3 (0.0-2.0) 05/26/17 06:45 ESR 15 mm/hr (0.0-15.0) 05/24/17 17:05 APTT 26.4 Seconds (23.7-30.8) 05/25/17 06:45 pO2 37 mm/Hg (30-55) 05/24/17 17:05 VBG pH 7.33 (7.32-7.43) 05/24/17 17:05 VBG pCO2 55.0 (40-60) 05/24/17 17:05 VBG HCO3 29.0 mmol/l (21-28) H 05/24/17 17:05 VBG Total CO2 30.7 mmol.L (22-28) H 05/24/17 17:05 VBG O2 Sat (Calc) 74.3 % (40-65) H 05/24/17 17:05 VBG Base Excess 1.8 mmol/L (0.0-2.0) 05/24/17 17:05 VBG Potassium 4.4 mmol/L (3.6-5.2) 05/24/17 17:05 Sodium 134.0 mmol/L (132-148) 05/24/17 17:05 Chloride 99.0 mmol/L (98-107) 05/24/17 17:05 Glucose 419 mg/dl (75-110) H* 05/24/17 17:05 Lactate 1.3 mmol/L (0.7-2.1) 05/24/17 17:05 FiO2 21.0 % 05/24/17 17:05 Sodium 138 mmol/L (132-148) 05/26/17 06:45 Potassium 4.3 mmol/L (3.6-5.0) 05/26/17 06:45 Chloride 100 mmol/L (98-107) 05/26/17 06:45 Carbon Dioxide 30 mmol/L (21-33) 05/26/17 06:45 Anion Gap 12 (10-20) 05/26/17 06:45 BUN 20 mg/dL (7-21) 05/26/17 06:45 Creatinine 0.7 mg/dL (0.5-1.4) 05/26/17 06:45 Est GFR ( Amer) > 60 05/26/17 06:45 Est GFR (Non-Af Amer) > 60 05/26/17 06:45 Random Glucose 235 mg/dL (70-110) H 05/26/17 06:45 Calcium 8.8 mg/dL (8.4-10.5) 05/26/17 06:45 Total Bilirubin 0.3 mg/dL (0.2-1.3) 05/26/17 06:45 AST 11 U/L (15-59) L 05/26/17 06:45 ALT 27 U/L (7-56) 05/26/17 06:45 Alkaline Phosphatase 98 U/L (38-133) 05/26/17 06:45 C-React Prot High Sens > 15.00 mg/L (1.00-3.00) H 05/24/17 17:05 Total Protein 7.0 g/dL (5.8-8.3) 05/26/17 06:45 Albumin 3.4 g/dL (3.0-4.8) 05/26/17 06:45 Globulin 3.6 gm/dL 05/26/17 06:45 Albumin/Globulin Ratio 0.9 (1.1-1.8) L 05/26/17 06:45 Procalcitonin < 0.05 NG/ML (0.19-0.49) L 05/25/17 06:45 Venous Blood Potassium 4.4 mmol/L (3.6-5.2) 05/24/17 17:05 - Hospital Course Hospital Course: 46 yo M with pMHx of uncontrolled DM II presented with c/o swelling and severe pain in his right leg. Pt believes he was bit by a spider. Pt stated that the area around the bite became more swollen and spread from his anteromedial right knee to ankle. Pt reports severe, sharp pain in the dorsal region of his leg. The pain is aggravated by ambulation. Pt also reports brown discharge from the bite site. Pt was initially admitted on 05/18/17 for the same bite/cellulitis of the LE. Pt was discharged home with Cephalexin. However, the pt returned 2 days later to the ED complaining of worsening symptoms in which the abscess was drained even further. Pt left AMA from the ED before completing treatment. The patient returned on 05/25/17 complaining of worsening RLE pain, swelling, and discharge. In the ED, basic labs were ordered demonstrating normal WBC. Surgery was consulted for packing and dressing recommendations. ID was consulted and started the patient on Vancomycin and recommended patient be sent home on Zyvox. Pt was to be discharged on 05/26/17 with Zyvox and percocet for pain. Pt left AMA only with Zyvox. Discharge Exam - Head Exam Head Exam: NORMAL INSPECTION - Eye Exam Eye Exam: EOMI, PERRL - ENT Exam ENT Exam: Mucous Membranes Moist - Neck Exam Neck exam: Full Rom - Respiratory Exam Respiratory Exam: Clear to PA & Lateral. absent: Rales, Rhonchi, Wheezes - Cardiovascular Exam Cardiovascular Exam: RRR, +S1, +S2. absent: Gallop, Rubs, Systolic Murmur - GI/Abdominal Exam GI & Abdominal Exam: Soft. absent: Distended, Firm, Guarding, Rebound, Tenderness - Extremities Exam Additional comments: RLE decreased tenderness and swelling. Minor discomfort R popliteal region. Dressings clean, dry, and intact. - Neurological Exam Neurological exam: Alert, Oriented x3, Reflexes Normal - Skin Skin Exam: Dry, Normal Color Discharge Plan - Discharge Medications Prescriptions: Linezolid [Zyvox] 600 mg PO BID #20 tab oxyCODONE/Acetaminophen [Percocet 5/325 mg Tab] 1 tab PO Q6H PRN #10 tab PRN Reason: Pain, Severe (8-10) - Follow Up Plan Condition: STABLE Disposition: AGAINST MEDICAL ADVICE Patient education suggested?: Yes Instructions: How to Stop Smoking (DC), MRSA (Methicillin Resistant Staphylococcus Aureus) (DC), Pneumococcal Vaccine for Adults (DC), Cellulitis ( DC), Diabetes Mellitus Type 2 in Adults (DC), Abscess (GEN) Additional Instructions: -Take medications as instructed -Dressinx4 gauze over wound. Fully tape over gauze. Keep area dry -Shower ok, but Keep area dry -Do not submerge wound under water (no bathing) -If dressing gets wet, change the dressing. -Isolation: Do not let other people come in contact with wound -Follow up with PMD in 2-3 days Referrals: Niharika Vickers MD [Primary Care Provider] - <Mundo Perez - Last Filed: 05/26/17 17:09> Provider - Provider Date of Admission: 05/24/17 19:27 Attending physician: Mundo Perez MD Primary care physician: Niharika Vickers MD Hospital Course - Lab Results Lab Results: Most Recent Lab Values WBC 7.5 10^3/ul (4.5-11.0) 05/26/17 06:45 RBC 4.99 10^6/uL (3.5-6.1) 05/26/17 06:45 Hgb 14.1 gm/dL (14.0-18.0) 05/26/17 06:45 Hct 40.8 % (42.0-52.0) L 05/26/17 06:45 MCV 81.8 fL (80.0-105.0) 05/26/17 06:45 MCH 28.3 pg (25.0-35.0) 05/26/17 06:45 MCHC 34.6 g/dl (31.0-37.0) 05/26/17 06:45 RDW 12.7 % (11.5-14.5) 05/26/17 06:45 Plt Count 251 10^3/uL (120.0-450.0) 05/26/17 06:45 MPV 9.4 fl (7.0-11.0) 05/26/17 06:45 Gran % 66.2 % (50.0-68.0) 05/26/17 06:45 Lymph % (Auto) 19.7 % (22.0-35.0) L 05/26/17 06:45 [place] % (Auto) 7.1 % (1.0-6.0) H 05/26/17 06:45 Eos % (Auto) 5.9 % (1.5-5.0) H 05/26/17 06:45 Baso % (Auto) 1.1 % (0.0-3.0) 05/26/17 06:45 Gran # 4.95 (1.4-6.5) 05/26/17 06:45 Lymph # 1.5 (1.2-3.4) 05/26/17 06:45 [place] # 0.5 (0.1-0.6) 05/26/17 06:45 Eos # 0.4 (0.0-0.7) 05/26/17 06:45 Baso # 0.08 K/mm3 (0.0-2.0) 05/26/17 06:45 ESR 15 mm/hr (0.0-15.0) 05/24/17 17:05 APTT 26.4 Seconds (23.7-30.8) 05/25/17 06:45 pO2 37 mm/Hg (30-55) 05/24/17 17:05 VBG pH 7.33 (7.32-7.43) 05/24/17 17:05 VBG pCO2 55.0 (40-60) 05/24/17 17:05 VBG HCO3 29.0 mmol/l (21-28) H 05/24/17 17:05 VBG Total CO2 30.7 mmol.L (22-28) H 05/24/17 17:05 VBG O2 Sat (Calc) 74.3 % (40-65) H 05/24/17 17:05 VBG Base Excess 1.8 mmol/L (0.0-2.0) 05/24/17 17:05 VBG Potassium 4.4 mmol/L (3.6-5.2) 05/24/17 17:05 Sodium 134.0 mmol/L (132-148) 05/24/17 17:05 Chloride 99.0 mmol/L (98-107) 05/24/17 17:05 Glucose 419 mg/dl (75-110) H* 05/24/17 17:05 Lactate 1.3 mmol/L (0.7-2.1) 05/24/17 17:05 FiO2 21.0 % 05/24/17 17:05 Sodium 138 mmol/L (132-148) 05/26/17 06:45 Potassium 4.3 mmol/L (3.6-5.0) 05/26/17 06:45 Chloride 100 mmol/L (98-107) 05/26/17 06:45 Carbon Dioxide 30 mmol/L (21-33) 05/26/17 06:45 Anion Gap 12 (10-20) 05/26/17 06:45 BUN 20 mg/dL (7-21) 05/26/17 06:45 Creatinine 0.7 mg/dL (0.5-1.4) 05/26/17 06:45 Est GFR ( Amer) > 60 05/26/17 06:45 Est GFR (Non-Af Amer) > 60 05/26/17 06:45 Random Glucose 235 mg/dL (70-110) H 05/26/17 06:45 Calcium 8.8 mg/dL (8.4-10.5) 05/26/17 06:45 Total Bilirubin 0.3 mg/dL (0.2-1.3) 05/26/17 06:45 AST 11 U/L (15-59) L 05/26/17 06:45 ALT 27 U/L (7-56) 05/26/17 06:45 Alkaline Phosphatase 98 U/L (38-133) 05/26/17 06:45 C-React Prot High Sens > 15.00 mg/L (1.00-3.00) H 05/24/17 17:05 Total Protein 7.0 g/dL (5.8-8.3) 05/26/17 06:45 Albumin 3.4 g/dL (3.0-4.8) 05/26/17 06:45 Globulin 3.6 gm/dL 05/26/17 06:45 Albumin/Globulin Ratio 0.9 (1.1-1.8) L 05/26/17 06:45 Procalcitonin < 0.05 NG/ML (0.19-0.49) L 05/25/17 06:45 Venous Blood Potassium 4.4 mmol/L (3.6-5.2) 05/24/17 17:05 Attending/Attestation - Attestation I have personally seen and examined this patient.: Yes I have fully participated in the care of the patient.: Yes I have reviewed all pertinent clinical information, including history, physical exam and plan: Yes Notes (Text): 05/26/17 17:03 attending note; Patient seen and examined with resident. Patient is a 46-year- male admitted with right lower extremity abscess. Status post incision and drainage. Currently redness and swelling improved significantly. Treated with IV vancomycin. Will be discharged home with po Zyvox. Wound culture grew MRSA. ID evaluation appreciated. Contact precautions explained in detail. surgery evaluation appreciated. dressing instructions given by surgery. right knee pain; CT scan ordered. Patient did not want to wait for results. Signed AGAINST MEDICAL ADvice. Diagnosis; Right leg abscess Status post incision and drainage MRSA infection
--- NOTE | 2017-05-27 09:33 | CT ---
PROCEDURE: CT of the right knee HISTORY: right leg pain, Right knee pain COMPARISON: TECHNIQUE: CT of the right knee was performed in the axial plane with sagittal and coronal reconstructions. FINDINGS: There are no bony abnormalities seen. There is no fracture. There is no joint effusion. There are no significant degenerative changes. Minimal cystic degenerative changes are seen in the lateral tibial plateau IMPRESSION: Minimal degenerative changes lateral tibial plateau
== END 2017-05-26 12:30 | disposition left against medical advice (07) | DRG 277 ==
LOC: ED 15:24 → ERH 19:27 → 5RNO 22:02
PROVIDERS: ADMIT Internal Medicine; ATTEND Internal Medicine
PROC: 0H9KXZZ Drainage of Right Lower Leg Skin, External Approach (ICD-10-PCS; principal; 2017-05-24)
DX: L02.415 Cutaneous abscess of right lower limb (principal); L03.115 Cellulitis of right lower limb; E11.65 Type 2 diabetes mellitus with hyperglycemia; I10 Essential (primary) hypertension; B95.62 Methicillin resistant Staphylococcus aureus infection as the cause of diseases classified elsewhere; T63.301A Toxic effect of unspecified spider venom, accidental (unintentional), initial encounter; F17.210 Nicotine dependence, cigarettes, uncomplicated; F41.9 Anxiety disorder, unspecified; Z79.4 Long term (current) use of insulin

== ENCOUNTER 2017-06-06 12:59 | Emergency (ER) | payer MEDICAID ==
[2017-06-06 13:06] VITALS: BMI 23.5
[2017-06-06] MEDS ORDERED: Sodium Chloride 0.9% 1,000 ML IV STA (13:09)
[2017-06-06 13:44] LABS: BASO # 0.09 K/mm3 (0.0-2.0); EOS # 0.5 (0.0-0.7); EOS % 5.2 % (1.5-5.0); GRAN # 6.68 (1.4-6.5); GRAN % 73.7 % (50.0-68.0); LYMPH # 1.2 (1.2-3.4); LYMPH % 13.5 % (22.0-35.0); MEAN CELL VOLUME 81.3 fL (80.0-105.0); MEAN CORPUSCULAR HEMOGLOBIN 28.8 pg (25.0-35.0); MEAN CORPUSCULAR HGB CONC 35.4 g/dl (31.0-37.0); MEAN PLATELET VOLUME 9.5 fl (7.0-11.0); MONO # 0.6 (0.1-0.6); MONO % 6.6 % (1.0-6.0); PLATELET COUNT 271 10^3/uL (120.0-450.0); RBC 5.56 10^6/uL (3.5-6.1); RED CELL DISTRIBUTION WIDTH 12.9 % (11.5-14.5); WHITE BLOOD COUNT 9.1 10^3/ul (4.5-11.0)
[2017-06-06 13:45] LABS: URINE BILIRUBIN NEGATIVE (NEGATIVE); URINE BLOOD NEGATIVE (NEGATIVE); URINE GLUCOSE (UA) >=1000 mg/dL (NEGATIVE); URINE LEUKOCYTE ESTERASE NEGATIVE Leu/uL (NEGATIVE); URINE NITRATE NEGATIVE (NEGATIVE); URINE PROTEIN NEGATIVE mg/dL (<30 mg/dL); URINE UROBILINOGEN 0.2 E.U./dL (<1 E.U./dL)
[2017-06-06 13:48] LABS: ALB/GLOB RATIO 1.1 (1.1-1.8); ALBUMIN 4.2 g/dL (3.0-4.8); ALT/SGPT 18 U/L (7-56); AST/SGOT 15 U/L (15-59); BLOOD UREA NITROGEN 23 mg/dL (7-21); CALCIUM 9.3 mg/dL (8.4-10.5); GFR AFRICAN-AMERICAN > 60; GFR NON-AFRICAN AMERICAN > 60; MAGNESIUM 1.8 mg/dL (1.7-2.2)
[2017-06-06 13:55] LABS: URINE APPEARANCE CLEAR (CLEAR); URINE COLOR COLORLESS (YELLOW)
[2017-06-06] MEDS ORDERED: Insulin Regular 1 UNITS/0.01 ML ML IV STA (13:59)
[2017-06-06 14:06] LABS: TROPONIN I < 0.01 ng/mL
[2017-06-06 15:15] VITALS: BP 119/61; PULSE 84; RESP 16; TEMP 98.1; O2SAT 95
--- NOTE | 2017-06-06 15:25 | ED PDOC ---
Arrival/HPI - General Chief Complaint: Dizziness/Lightheaded Time Seen by Provider: 06/06/17 13:07 Historian: Patient - History of Present Illness Narrative History of Present Illness (Text): 06/06/17 14:30 Bunny Maier is a 46 year old male whose past medical history includes diabetes , presents to the Emergency department complaining of feeling dizzy and high sugar level. He reports the symptoms began this morning but is currently not experiencing any complaints. Patient denies chest pain, shortness of breath, headache, fever, chills, cough, nausea, vomiting, diarrhea, abdominal pain, or other complaints. Time/Duration: 4-6 hours Symptom Onset: Sudden Symptom Course: Improving Modifying Factors (Text): None Associated Symptoms (Text): dizziness Past Medical History - Provider Review Nursing Documentation Reviewed: Yes - Infectious Disease Hx of Infectious Diseases: None - Tetanus Immunization Tetanus Immunization: Up to Date - Cardiac Hx Cardiac Disorders: Yes Hx Hypertension: Yes - Pulmonary Hx Respiratory Disorders: No - Neurological Hx Neurological Disorder: No - HEENT Hx HEENT Disorder: No - Renal Hx Renal Disorder: No - Endocrine/Metabolic Hx Endocrine Disorders: Yes Hx Diabetes Mellitus Type 2: Yes (poorly controlled) - Hematological/Oncological Hx Blood Disorders: No - Integumentary Hx Dermatological Disorder: No - Musculoskeletal/Rheumatological Hx Musculoskeletal Disorders: No Hx Falls: No - Gastrointestinal Hx Gastrointestinal Disorders: No - Genitourinary/Gynecological Hx Genitourinary Disorders: No - Psychiatric Hx Psychophysiologic Disorder: Yes Hx Anxiety: Yes Hx Depression: No Hx Emotional Abuse: No Hx Physical Abuse: No Hx Substance Use: No - Past Surgical History Past Surgical History: No Previous - Anesthesia Hx Anesthesia: No - Suicidal Assessment Feels Threatened In Home Enviroment: No Family/Social History - Physician Review Nursing Documentation Reviewed: Yes Family/Social History: Unknown Family HX Smoking Status: Heavy Smoker > 10 Cigarettes Daily Hx Alcohol Use: Yes Hx Substance Use: No Substance used: cocaine Hx Substance Use Treatment: Yes Allergies/Home Meds Allergies/Adverse Reactions: Allergies No Known Allergies Allergy (Verified 06/06/17 13:06) Home Medications: Home Meds Medication Instructions Recorded Confirmed Insulin Detemir [Levemir] 15 unit SC HS 05/21/17 06/06/17 metFORMIN [glucOPHAGE] 500 mg PO BID 05/21/17 06/06/17 Review of Systems - Physician Review All systems were reviewed & negative as marked: Yes - Review of Systems Constitutional: Other (elevated sugar) Respiratory: absent: SOB Cardiovascular: absent: Chest Pain Neurological: Dizziness. absent: Headache Physical Exam Vital Signs Reviewed: Yes Vital Signs Temp Pulse Resp BP Pulse Ox 06/06/17 15:15 84 16 119/61 95 06/06/17 15:14 98.1 F 84 16 119/61 95 06/06/17 13:04 97.8 F 92 H 18 120/80 96 Temperature: Afebrile Blood Pressure: Normal Pulse: Tachycardic Respiratory Rate: Normal Appearance: Positive for: Well-Appearing, Non-Toxic, Comfortable Pain Distress: None Mental Status: Positive for: Alert and Oriented X 3 Finger Stick Blood Glucose: 230 - Systems Exam Head: Present: Atraumatic, Normocephalic Pupils: Present: PERRL Extroacular Muscles: Present: EOMI Conjunctiva: Present: Normal Mouth: Present: Moist Mucous Membranes Neck: Present: Normal Range of Motion Respiratory/Chest: Present: Clear to Auscultation, Good Air Exchange. No: Respiratory Distress, Accessory Muscle Use Cardiovascular: Present: Regular Rate and Rhythm, Normal S1, S2. No: Murmurs Abdomen: Present: Normal Bowel Sounds. No: Tenderness, Distention, Peritoneal Signs Lower Extremity: Present: Normal Inspection, Other (healing abscess wound that was drained last week). No: Edema Neurological: Present: GCS=15, CN II-XII Intact, Speech Normal Skin: Present: Warm, Dry, Normal Color. No: Rashes Psychiatric: Present: Alert, Oriented x 3, Normal Insight, Normal Concentration Medical Decision Making ED Course and Treatment: 06/06/17 Impression: 46 year old male with high sugar level and dizziness Plan: -- EKG -- Urinalysis -- Labs -- Humulin and Sodium Chloride -- Reassess and disposition Progress Notes: EKG: Ordered, reviewed, and independently interpreted the EKG. Rate : 83 BPM Rhythm : NSR Interpretation : Normal axis and normal intervals. Comparison : No previous EKG for comparison. Reevaluation: On reevaluation the patient feels better and is in no acute distress. I have discussed the results and plan with the patient, who expresses understanding. Patient given the opportunity to ask question, all questions were answered and there is agreement with the plan to discharge the patient. Patient is stable for discharge. Patient was instructed to follow up with physician/clinic in 1-2 days or return if symptoms persist/worsen or new concerning symptoms arise. - Lab Interpretations Lab Results: 06/06/17 13:34 06/06/17 13:34 Lab Results 06/06/17 13:34: Sodium 135, Potassium 4.3, Chloride 95 L, Carbon Dioxide 28, Anion Gap 16, BUN 23 H, Creatinine 0.9, Est GFR ( Amer) > 60, Est GFR ( Non-Af Amer) > 60, Random Glucose 440 H* D, Calcium 9.3, Magnesium 1.8, Total Bilirubin 0.8, AST 15, ALT 18, Alkaline Phosphatase 123, Lactate Dehydrogenase 359, Total Creatine Kinase 52, Troponin I < 0.01, Total Protein 8.1, Albumin 4.2 , Globulin 3.9, Albumin/Globulin Ratio 1.1 06/06/17 13:34: Urine Color Colorless, Urine Appearance Clear, Urine pH 6.0, Ur Specific [place] <= 1.005, Urine Protein Negative, Urine Glucose (UA) >=1000, Urine Ketones Negative, Urine Blood Negative, Urine Nitrate Negative, Urine Bilirubin Negative, Urine Urobilinogen 0.2, Ur Leukocyte Esterase Negative 06/06/17 13:34: WBC 9.1 D, RBC 5.56, Hgb 16.0, Hct 45.2, MCV 81.3, MCH 28.8, MCHC 35.4, RDW 12.9, Plt Count 271, MPV 9.5, Gran % 73.7 H, Lymph % (Auto) 13.5 L, [place] % (Auto) 6.6 H, Eos % (Auto) 5.2 H, Baso % (Auto) 1.0, Gran # 6.68 H, Lymph # 1.2, [place] # 0.6, Eos # 0.5, Baso # 0.09 I have reviewed the lab results: Yes - EKG Interpretation Interpreted by ED Physician: Yes Type: 12 lead EKG - Medication Orders Current Medication Orders: Discontinued Medications Sodium Chloride (Sodium Chloride 0.9%) 1,000 mls @ 999 mls/hr IV .Q1H1M STA Stop: 06/06/17 14:09 Last Admin: 06/06/17 13:28 Dose: 999 mls/hr Insulin Human Regular (Humulin R) 6 units IV STAT STA Stop: 06/06/17 14:00 Last Admin: 06/06/17 14:04 Dose: 6 units - Scribe Statement The provider has reviewed the documentation as recorded by the Scribe 06/06/2017 Rocio Benitez Provider Scribe Attestation: All medical record entries made by the Scribe were at my direction and personally dictated by me. I have reviewed the chart and agree that the record accurately reflects my personal performance of the history, physical exam, medical decision making, and the department course for this patient. I have also personally directed, reviewed, and agree with the discharge instructions and disposition. Disposition/Present on Arrival - Present on Arrival Any Indicators Present on Arrival: No History of DVT/PE: No History of Uncontrolled Diabetes: Yes Urinary Catheter: No History of Decub. Ulcer: No History Surgical Site Infection Following: None - Disposition Have Diagnosis and Disposition been Completed?: Yes Diagnosis: Hyperglycemia Disposition: HOME/ ROUTINE Disposition Time: 14:45 Condition: IMPROVED Discharge Instructions (ExitCare): How to Check Your Blood Sugar (ED), Diabetic Hyperglycemia (ED) Additional Instructions: Thank you for letting us take care of you today. Your provider was Dr. Wright. You were treated for elevated blood sugar. The emergency medical care you received today was directed at your acute symptoms. If you were prescribed any medication, please fill it and take as directed. It may take several days for your symptoms to resolve. Return to the Emergency Department if your symptoms worsen, do not improve, or if you have any other problems. Please contact your doctor or call one of the physicians/clinics you have been referred to that are listed on the Patient Visit Information form that is included in your discharge packet. Bring any paperwork you were given at discharge with you along with any medications you are taking to your follow up visit. Our treatment cannot replace ongoing medical care by a primary care provider (PCP) outside of the emergency department. Thank you for allowing the [facility] team to be part of your care today. Follow up with your doctor in 2-3 days for re-evaluation. Referrals: [facility], [Non-Staff] - Follow up with primary
--- NOTE | 2017-06-07 21:18 | CARD ---
APPROVED REPORT EKG Measurement Heart [id number] ID [id number] <Conclusion> Normal sinus rhythm Septal infarct, age undetermined Abnormal ECG
== END 2017-06-06 15:15 | disposition home or self-care (01) ==
LOC: ED 12:59
DX: E11.65 Type 2 diabetes mellitus with hyperglycemia (principal); F17.210 Nicotine dependence, cigarettes, uncomplicated; I10 Essential (primary) hypertension
CPT/HCPCS: 80053; 81003; 82550; 83615; 83735; 84484; 85025; 93005; 96360; 99285; J7040

== ENCOUNTER 2017-06-23 20:10 | Inpatient (IN) | payer MEDICAID ==
[2017-06-23 20:10] VITALS: BMI 23.5
[2017-06-23] MEDS ORDERED: Piperacillin/Tazobact 3.375 gm 100 ML IV STA (21:24)
[2017-06-23] MEDS ORDERED: Morphine 2 mg/ml ISec IVP STA (21:25)
[2017-06-23] MEDS ORDERED: Sodium Chloride 0.9% 1,000 ML IV STA (21:25)
[2017-06-23] MEDS ORDERED: Vancomycin 1gm in NS 250ml 1 GM/250 ML BAG IVPB STA (21:26)
--- NOTE | 2017-06-23 21:45 | ED PDOC ---
Arrival/HPI - General Chief Complaint: Groin Pain Time Seen by Provider: 06/23/17 20:22 Historian: Patient - History of Present Illness Narrative History of Present Illness (Text): 06/23/17 21:45 46 year old male, whose past medical history includes diabetes, presents to the emergency department complaining of an abscess to suprapubic area for the past few days, worsening today. Patient states he experienced similar symptoms in the past to his right lower leg and was diagnosed with MRSA. Patient reports associated pain to the area with subjective fever and chills. Patient denies chest pain, shortness of breath, nausea, vomiting, diarrhea, urinary symptoms, back pain, neck pain, headache, dizziness, or any other complaints. Time/Duration: Other (few days) Symptom Onset: Gradual Symptom Course: Worsening Activities at Onset: Rest, Light Context: Home Past Medical History - Provider Review Nursing Documentation Reviewed: Yes - Infectious Disease Hx of Infectious Diseases: MRSA - Tetanus Immunization Tetanus Immunization: Up to Date - Cardiac Hx Cardiac Disorders: Yes Hx Hypertension: Yes - Pulmonary Hx Respiratory Disorders: No - Neurological Hx Neurological Disorder: No - HEENT Hx HEENT Disorder: No - Renal Hx Renal Disorder: No - Endocrine/Metabolic Hx Endocrine Disorders: Yes Hx Diabetes Mellitus Type 2: Yes (poorly controlled) - Hematological/Oncological Hx Blood Disorders: No - Integumentary Hx Dermatological Disorder: No - Musculoskeletal/Rheumatological Hx Musculoskeletal Disorders: No Hx Falls: No - Gastrointestinal Hx Gastrointestinal Disorders: No - Genitourinary/Gynecological Hx Genitourinary Disorders: No - Psychiatric Hx Psychophysiologic Disorder: Yes Hx Anxiety: Yes Hx Depression: No Hx Emotional Abuse: No Hx Physical Abuse: No Hx Substance Use: No - Past Surgical History Past Surgical History: No Previous - Anesthesia Hx Anesthesia: No - Suicidal Assessment Feels Threatened In Home Enviroment: No Family/Social History - Physician Review Nursing Documentation Reviewed: Yes Family/Social History: Unknown Family HX Smoking Status: Heavy Smoker > 10 Cigarettes Daily Hx Alcohol Use: Yes Hx Substance Use: No Substance used: cocaine Hx Substance Use Treatment: Yes Allergies/Home Meds Allergies/Adverse Reactions: Allergies No Known Allergies Allergy (Verified 06/23/17 20:52) Home Medications: Home Meds Medication Instructions Recorded Confirmed Insulin Detemir [Levemir] 15 unit SC HS 05/21/17 06/23/17 metFORMIN [glucOPHAGE] 500 mg PO BID 05/21/17 06/23/17 Review of Systems - Physician Review All systems were reviewed & negative as marked: Yes - Review of Systems Constitutional: Fevers, Other (+chills) Respiratory: Normal. absent: SOB, Cough Cardiovascular: Normal. absent: Chest Pain Gastrointestinal: absent: Diarrhea, Nausea, Vomiting Genitourinary Male: Normal. absent: Dysuria, Hematuria Musculoskeletal: Normal. absent: Back Pain, Neck Pain Skin: Abscess (Abscess located on Superapubic) Neurological: Normal. absent: Headache, Dizziness Physical Exam Vital Signs Reviewed: Yes Vital Signs Temp Pulse Resp BP Pulse Ox 06/23/17 20:58 99.2 F 88 16 127/87 98 06/23/17 20:57 99.2 F 88 20 127/57 L 97 Temperature: Afebrile Blood Pressure: Normal Pulse: Regular Respiratory Rate: Normal Appearance: Positive for: Well-Appearing Pain Distress: None Mental Status: Positive for: Alert and Oriented X 3 - Systems Exam Head: Present: Atraumatic, Normocephalic Pupils: Present: PERRL Extroacular Muscles: Present: EOMI Conjunctiva: Present: Normal Mouth: Present: Moist Mucous Membranes Neck: Present: Normal Range of Motion Respiratory/Chest: Present: Clear to Auscultation, Good Air Exchange. No: Respiratory Distress, Accessory Muscle Use Cardiovascular: Present: Regular Rate and Rhythm, Normal S1, S2. No: Murmurs Abdomen: Present: Normal Bowel Sounds, Other (Area of cellulitis to suprapubic area, excessively tender). No: Distention, Peritoneal Signs Upper Extremity: Present: Other (Cellulitis to fingers of right hand). No: Cyanosis, Edema Lower Extremity: Present: Normal Inspection. No: Edema Neurological: Present: GCS=15, CN II-XII Intact, Speech Normal Psychiatric: Present: Alert, Oriented x 3, Normal Insight, Normal Concentration Medical Decision Making ED Course and Treatment: 06/23/17 21:25 Impression: 46 year old male present for cellulitic abscess on the suprapubic area pain. Plan: -- Labs -- Morphine -- IV Fluids -- Vancomycin -- Zosyn -- Blood Culture -- Reassess and disposition Prior Visits: Notes and results from previous visits were reviewed. On 12/07/16, patient came in complaining of dizziness and high sugar levels. Pt was maxi/c home. Progress Notes: 06/23/17 22:52 Case discussed with medical health researcher, who aware and agrees with the plan Case discussed with Dr. Fam who is aware and agrees with the plan. Accepts patient into hospital service. Patient will go to [facility] observation for cellulitis and Diabetes mellitus - Lab Interpretations Lab Results: 06/23/17 21:40 06/23/17 21:40 Lab Results 06/23/17 21:40: WBC 13.1 H D, RBC 4.84, Hgb 13.8 L, Hct 39.0 L, MCV 80.6, MCH 28.5, MCHC 35.4, RDW 12.8, Plt Count 154, MPV 10.0 06/23/17 21:40: Sodium 133, Potassium 3.7, Chloride 99, Carbon Dioxide 24, Anion Gap 14, BUN 15, Creatinine 0.7, Est GFR ( Amer) > 60, Est GFR (Non- Af Amer) > 60, Random Glucose 404 H*, Calcium 9.0, Total Bilirubin 0.4, AST 13 L , ALT 27, Alkaline Phosphatase 128, Total Protein 7.1, Albumin 4.0, Globulin 3.1 , Albumin/Globulin Ratio 1.3 I have reviewed the lab results: Yes - Medication Orders Current Medication Orders: Discontinued Medications Piperacillin Sod/Tazobactam Sod (Zosyn 3.375 In Ns 100ml) 100 mls @ 200 mls/hr IV STAT STA PRN Reason: Protocol Stop: 06/23/17 21:53 Last Admin: 06/23/17 21:57 Dose: 200 mls/hr Vancomycin HCl (Vancomycin 1gm) 1 gm in 250 mls @ 167 mls/hr IVPB STAT STA PRN Reason: Protocol Stop: 06/23/17 22:55 Sodium Chloride (Sodium Chloride 0.9%) 1,000 mls @ 999 mls/hr IV .Q1H1M STA Stop: 06/23/17 22:25 Last Admin: 06/23/17 21:58 Dose: 999 mls/hr Morphine Sulfate (Morphine) 2 mg IVP STAT STA Stop: 06/23/17 21:26 Last Admin: 06/23/17 21:57 Dose: 2 mg - Shyanneibkaty Statement The provider has reviewed the documentation as recorded by the Emigdio Vasquez training with Nichole Ulrich All medical record entries made by the Emigdio were at my direction and personally dictated by me. I have reviewed the chart and agree that the record accurately reflects my personal performance of the history, physical exam, medical decision making, and the department course for this patient. I have also personally directed, reviewed, and agree with the discharge instructions and disposition. Disposition/Present on Arrival - Present on Arrival Any Indicators Present on Arrival: No History of DVT/PE: No History of Uncontrolled Diabetes: Yes Urinary Catheter: No History of Decub. Ulcer: No History Surgical Site Infection Following: None - Disposition Have Diagnosis and Disposition been Completed?: Yes Diagnosis: Cellulitis, Diabetes Disposition: HOSPITALIZED Disposition Time: 22:57 Patient Plan: Admission Condition: STABLE Discharge Instructions (ExitCare): Cellulitis (ED) Forms: [facility] (Yoruba)
[2017-06-23 21:57] LABS: HEMOGLOBIN 13.8 g/dL (14.0-18.0); MEAN CELL VOLUME 80.6 fl (80.0-105.0); MEAN CORPUSCULAR HEMOGLOBIN 28.5 pg (25.0-35.0); MEAN CORPUSCULAR HGB CONC 35.4 g/dl (31.0-37.0); RBC 4.84 10^6/uL (3.5-6.1); RED CELL DISTRIBUTION WIDTH 12.8 % (11.5-14.5); WHITE BLOOD COUNT 13.1 10^3/ul (4.5-11.0)
[2017-06-23 22:02] LABS: ALB/GLOB RATIO 1.3 (1.1-1.8); ALT/SGPT 27 U/L (7-56); AST/SGOT 13 U/L (15-59); BLOOD UREA NITROGEN 15 mg/dL (7-21); GFR AFRICAN-AMERICAN > 60; GFR NON-AFRICAN AMERICAN > 60
[2017-06-23] MEDS ORDERED: Insulin Regular 1 UNITS/0.01 ML ML SC ONE (23:25)
[2017-06-24] MEDS: Insulin Detemir 100 units/ml Vial (Levemir) SC SCH ×2 (00:43→21:47)
--- NOTE | 2017-06-24 01:16 | CP.PCM.HP ---
<BILL PEARCE - Last Filed: 06/24/17 01:21> History of Present Illness - History of Present Illness History of Present Illness: CC: Suprapubic Cellulitis/Tenderness HPI: Mr. Maier is a 46 year old male with a past medical history of MRSA cellulitis and DM2 who presented for suprapubic cellulitis and tenderness. Patient reports that he woke up on the morning of 06/23/2017 with pain and erythema in his suprapubic region with no obvious inciting event. Patient reports the pain at 10/10. Patient denies any trauma, insect bites, or shaving of this area as well as any associated fever, chills or N/V. Patient was recently seen at [facility] for cellulitis of his RLE and was found to be MRSA positive on 05/20/2017. Patient was discharged with a 10 day course of Keflex and Bactrim DS, which he reports he finished to completion. Patient was given one dose of both Vancomycin and Zosyn as well as 2mg of IV morphine. Currently, patient reports that his pain has not changed in intensity, quality or location. Patient denies fever, chills, headache, chest pain, SOB, N/V, diarrhea, abdominal pain, penile discharge, testicular pain/swelling, or any new rashes. 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; Lives with and children Allergies: NKDA Home Medications: Levemir 15u SC HS, Metformin 500mg PO BID PMD: [place] Present on Admission - Present on Admission Any Indicators Present on Admission: No Review of Systems - Review of Systems Review of Systems: As per HPI Past Patient History - Infectious Disease Hx of Infectious Diseases: MRSA - Tetanus Immunizations Tetanus Immunization: Up to Date - Past Social History Smoking Status: Heavy Smoker > 10 Cigarettes Daily - CARDIAC Hx Cardiac Disorders: Yes Hx Hypertension: Yes - PULMONARY Hx Respiratory Disorders: No - NEUROLOGICAL Hx Neurological Disorder: No - HEENT Hx HEENT Problems: No - RENAL Hx Chronic Kidney Disease: No - ENDOCRINE/METABOLIC Hx Endocrine Disorders: Yes Hx Diabetes Mellitus Type 2: Yes (poorly controlled) - HEMATOLOGICAL/ONCOLOGICAL Hx Blood Disorders: No - INTEGUMENTARY Hx Dermatological Problems: No - MUSCULOSKELETAL/RHEUMATOLOGICAL Hx Musculoskeletal Disorders: No Hx Falls: No - GASTROINTESTINAL Hx Gastrointestinal Disorders: No - GENITOURINARY/GYNECOLOGICAL Hx Genitourinary Disorders: No - PSYCHIATRIC Hx Psychophysiologic Disorder: Yes Hx Anxiety: Yes Hx Depression: No Hx Emotional Abuse: No Hx Physical Abuse: No Hx Substance Use: No - SURGICAL HISTORY Hx Surgeries: No - ANESTHESIA Hx Anesthesia: No Meds Allergies/Adverse Reactions: Allergies Allergy/AdvReac Type Severity Reaction Status Date / Time No Known Allergies Allergy Verified 06/23/17 20:52 Physical Exam - Constitutional Appears: No Acute Distress - Head Exam Head Exam: NORMAL INSPECTION, NORMOCEPHALIC - Eye Exam Eye Exam: EOMI, Normal appearance, PERRL - ENT Exam ENT Exam: Mucous Membranes Moist, Normal Exam - Neck Exam Neck exam: Positive for: Full Rom, Normal Inspection. Negative for: Lymphadenopathy - Respiratory Exam Respiratory Exam: Clear to Auscultation Bilateral, NORMAL BREATHING PATTERN. absent: Chest Wall Tenderness, Rales, Rhonchi, Wheezes, Respiratory Distress - Cardiovascular Exam Cardiovascular Exam: REGULAR RHYTHM, RRR, +S1, +S2. absent: Tachycardia, Systolic Murmur - GI/Abdominal Exam GI & Abdominal Exam: Normal Bowel Sounds, Soft. absent: Distended, Firm, Guarding, Tenderness - Exam Exam: absent: Bladder Distension Additional comments: Suprapubic erythema, edema, tenderness to palpation; scattered folliculitis - Extremities Exam Extremities exam: Positive for: normal capillary refill, normal inspection, pedal pulses present. Negative for: calf tenderness, pedal edema Additional comments: Scattered folliculitis on R second digit with minimal erythema and edema - Neurological Exam Neurological exam: Alert, Normal Gait, Oriented x3 - Psychiatric Exam Psychiatric exam: Normal Affect, Normal Mood - Skin Skin Exam: Dry, Warm Results - Vital Signs Recent Vital Signs: Last Vital Signs Temp 99.0 F 06/23/17 23:41 Pulse 85 06/23/17 23:41 Resp 18 06/24/17 00:05 BP 127/87 06/23/17 20:58 Pulse Ox 98 06/24/17 00:05 - Labs Result Diagrams: 06/23/17 21:40 06/23/17 21:40 Assessment & Plan - Assessment and Plan (Free Text) Assessment: 46 year old male with a past medical history of MRSA cellulitis and DM2 who presented for suprapubic cellulitis and tenderness Plan: 1. Suprapubic Cellulitis -history of MRSA cellulitis -started on llindamycin 600mg IVPB Q8H, given one dose of vancomycin and zosyn in ED -Percocet 5/325 PO Q6H PRN for pain control -Tylenol 650 PO Q4h PRN for fever/pain -blood culture pending -surgery consulted, will follow recommendations -monitor leukocytosis with daily CBC's 2. DM Type 2 -SSI-low -Levemir 15u SC HS -Fingerstick ACHS 3. GI/DVT Prophylaxis -Protonix/scd's Patient seen and case discussed with attending, Dr. Fam. - Date & Time Date: 06/24/17 Time: 01:25 Decision To Admit - Pt Status Changed To: Hospital Disposition Of: Inpatient Admission - Admit Certification Admit to Inpatient:: After my assessment, the patient will require hospitalization for at least two midnights. This is because of the severity of symptoms shown, intensity of services needed, and/or the medical risk in this patient being treated as an outpatient. - . Bed Request Type: Med/Surg <Florencio Fam P - Last Filed: 06/24/17 06:48> Results - Vital Signs Recent Vital Signs: Last Vital Signs Temp 98.7 F 06/24/17 02:00 Pulse 78 06/24/17 01:10 Resp 20 06/24/17 01:10 BP 128/66 06/24/17 00:15 Pulse Ox 97 06/24/17 00:15 - Labs Result Diagrams: 06/23/17 21:40 06/23/17 21:40 Attending/Attestation - Attestation I have personally seen and examined this patient.: Yes I have fully participated in the care of the patient.: Yes I have reviewed all pertinent clinical information: Yes Notes (Text): Assessment: * Recurrent skin infection on this admission suprapubic area indurated area non fluctuant probably early abscess with few discrete follicullitis, also folliculitis on right index and little finger. * Uncontrolled dm due to non compliance has not taken any meds atleast for 1 wk , as per patient ran out of meds * Tobacco abuse Plan: * Clindamycin iv * Restart last dose insulin, with sliding scale coverage * Counselled about being compliant about diabetic care and tobacco care * Surgery consult as suprapubic area may mature as abscess * pain control * see orders for detail.
[2017-06-24] MEDS: Pantoprazole 40 mg EC Tab PO SCH (05:44)
[2017-06-24] MEDS: Oxycodone/Acetaminophen 5/325 mg Tab PO PRN ×3 (05:50→18:05)
[2017-06-24 08:01] LABS: BASO # 0.05 K/mm3 (0.0-2.0); BASO % 0.3 % (0.0-3.0); EOS # 0.4 (0.0-0.7); EOS % 2.6 % (1.5-5.0); GRAN # 11.64 (1.4-6.5); GRAN % 80.4 % (50.0-68.0); HEMOGLOBIN 14.6 g/dL (14.0-18.0); LYMPH # 1.5 (1.2-3.4); LYMPH % 10.1 % (22.0-35.0); MEAN CORPUSCULAR HEMOGLOBIN 28.3 pg (25.0-35.0); MEAN PLATELET VOLUME 10.2 fl (7.0-11.0); MONO % 6.6 % (1.0-6.0); PLATELET COUNT 150 10^3/uL (120.0-450.0); RBC 5.15 10^6/uL (3.5-6.1); RED CELL DISTRIBUTION WIDTH 13.2 % (11.5-14.5); WHITE BLOOD COUNT 14.5 10^3/ul (4.5-11.0)
[2017-06-24 08:16] LABS: ALB/GLOB RATIO 1.2 (1.1-1.8); ALBUMIN 3.7 g/dL (3.0-4.8); ALT/SGPT 28 U/L (7-56); AST/SGOT 15 U/L (15-59); BLOOD UREA NITROGEN 18 mg/dL (7-21); GFR AFRICAN-AMERICAN > 60; GFR NON-AFRICAN AMERICAN > 60
--- NOTE | 2017-06-24 08:17 | CP.PCM.CON ---
History of Present Illness - History of Present Illness History of Present Illness: Surgical Consult Note for Dr. Zapata Consulted for: Cellulitis, possible abscess HPI: This is a 46 yo M with PMH of DM2, medication non-compliance, and recent admission for RLE cellulitis with suspected abscess who presented to the ED with complaint of worsening supra-pubic pain with localized erythema and burning sensation similar to the symptoms he experienced with his leg cellulitis. He states that first noticed a black dot with some discomfort in the area 2 days ago, and yesterday AM awoke to the area being acutely swollen, erythematous, and painful. Reports painful at baseline, mixed sharp pains and burning sensation, worse with palpation or walking. Denies visible discharge, no exacerbation of pain with urinating or moving bowels. States area of induration and pain have improved today after receiving IV abx in the ED overnight. Admits to fevers and malaise yesterday, no longer present. Denies current fever/chills, night sweats, nausea/emesis, chest/abdominal pain, PO intolerance, shortness of breath, dysuria/hematuria, constipation/diarrhea. Remaining 12-point ROS negative. PMH: DM2, Medication noncompliance, Recent RLE cellulitis PSH: Appendectomy FHx: Non-contributory SHx: Admits tobacco (1 ppd cigarettes, < 20 years), Admits former illicits ( cocaine, snorted), Denies current illicits, EtOH, or any IVDA Operates a dumptruck for a living; Lives with and children Allergies: NKDA Home Medications: Levemir 15u SC HS (non-compliant due to unable to afford), Metformin 500mg PO BID PMD: Dr. Vickers Review of Systems - Review of Systems All systems: reviewed and no additional remarkable complaints except (as per HPI ) Past Patient History - Infectious Disease Hx of Infectious Diseases: MRSA - Tetanus Immunizations Tetanus Immunization: Up to Date - Past Social History Smoking Status: Heavy Smoker > 10 Cigarettes Daily - CARDIAC Hx Cardiac Disorders: Yes Hx Hypertension: Yes - PULMONARY Hx Respiratory Disorders: No - NEUROLOGICAL Hx Neurological Disorder: No - HEENT Hx HEENT Problems: No - RENAL Hx Chronic Kidney Disease: No - ENDOCRINE/METABOLIC Hx Endocrine Disorders: Yes Hx Diabetes Mellitus Type 2: Yes (poorly controlled) - HEMATOLOGICAL/ONCOLOGICAL Hx Blood Disorders: No - INTEGUMENTARY Hx Dermatological Problems: No - MUSCULOSKELETAL/RHEUMATOLOGICAL Hx Musculoskeletal Disorders: No Hx Falls: No - GASTROINTESTINAL Hx Gastrointestinal Disorders: No - GENITOURINARY/GYNECOLOGICAL Hx Genitourinary Disorders: No - PSYCHIATRIC Hx Psychophysiologic Disorder: Yes Hx Anxiety: Yes Hx Depression: No Hx Emotional Abuse: No Hx Physical Abuse: No Hx Substance Use: No - SURGICAL HISTORY Hx Surgeries: No - ANESTHESIA Hx Anesthesia: No Meds Allergies/Adverse Reactions: Allergies Allergy/AdvReac Type Severity Reaction Status Date / Time No Known Allergies Allergy Verified 06/23/17 20:52 - Medications Medications: Current Medications Acetaminophen (Tylenol 325mg Tab) 650 mg PO Q4H PRN PRN Reason: Fever >100.4 F Clindamycin Phosphate 600 mg/ (Sodium Chloride) 54 mls @ 102 mls/hr IVPB Q8 ANDRAE PRN Reason: Protocol Last Admin: 06/24/17 05:43 Dose: 102 mls/hr Insulin Detemir (Levemir) 15 unit SC HS [facility]RAE Last Admin: 06/24/17 00:43 Dose: 15 unit Insulin Human Regular (Humulin R Low) 0 units SC ACHS ANDRAE PRN Reason: Protocol Oxycodone/Acetaminophen (Percocet 5/325 Mg Tab) 1 tab PO Q6H PRN PRN Reason: Pain, moderate (4-7) Stop: 06/26/17 23:26 Last Admin: 06/24/17 05:50 Dose: 1 tab Pantoprazole Sodium (Protonix Ec Tab) 40 mg PO 0600 [facility] Last Admin: 06/24/17 05:44 Dose: 40 mg Physical Exam - Constitutional Appears: Well, Non-toxic, No Acute Distress - Head Exam Head Exam: ATRAUMATIC, NORMAL INSPECTION, NORMOCEPHALIC - Eye Exam Eye Exam: EOMI, Normal appearance. absent: Conjunctival injection, Scleral icterus Pupil Exam: absent: Irregular, Unequal - ENT Exam ENT Exam: Mucous Membranes Moist. absent: Mucous Membranes Dry - Neck Exam Neck exam: Positive for: Normal Inspection. Negative for: Lymphadenopathy, Thyromegaly - Respiratory Exam Respiratory Exam: Decreased Breath Sounds (mildly decreased breath sounds in all schroeder), Clear to Auscultation Bilateral, NORMAL BREATHING PATTERN. absent : Accessory Muscle Use, Chest Wall Tenderness, Rales, Rhonchi, Wheezes - Cardiovascular Exam Cardiovascular Exam: REGULAR RHYTHM, RRR, +S1, +S2. absent: Bradycardia, Tachycardia, Diastolic murmur, Irregular Rhythm, +S4, Systolic Murmur - GI/Abdominal Exam GI & Abdominal Exam: Normal Bowel Sounds, Soft, Tenderness (tenderness at supra- pubic cellulitis site, no surrounding tenderness). absent: Diminished Bowel Sounds, Hyperactive Bowel Sounds, Hypoactive Bowel Sounds Additional comments: Supra-pubic cellulitis area, ~2-3cm diameter, indurated, some deep fluctuance, scattered boils overlying the cellulitis area, warm to palpation compared to surrounding area, no ulceration, no active bleeding/oozing/discharge at site. - Extremities Exam Extremities exam: Positive for: normal inspection. Negative for: calf tenderness, pedal edema, tenderness - Neurological Exam Neurological exam: Alert, Oriented x3 - Psychiatric Exam Psychiatric exam: Normal Affect, Normal Mood - Skin Skin Exam: Dry, Intact, Normal Color, Warm Results - Vital Signs Recent Vital Signs: Last Vital Signs Temp 98.7 F 06/24/17 02:00 Pulse 78 06/24/17 01:10 Resp 20 06/24/17 01:10 BP 128/66 06/24/17 00:15 Pulse Ox 97 06/24/17 00:15 - Labs Result Diagrams: 06/24/17 07:30 06/24/17 07:30 Assessment & Plan - Assessment and Plan (Free Text) Assessment: This is a 46 yo M with PMH of DM2, medication non-compliance, and recent admission for RLE cellulitis with suspected abscess presenting with supra -pubic cellulitis and possible abscess. Plan: Supra-pubic cellulitis -Abx as per ID -Pain management with Percocet -Warm compresses -Protonix for GI ppx, SCDs for DVT ppx -Further recs as per Dr. Zapata Will discuss with Dr. Zapata.
[2017-06-24] MEDS: Insulin Reg-LOW-Coverage SC SCH ×4 (08:18→21:42)
[2017-06-24] MEDS ORDERED: Piperacillin/Tazobact 3.375 gm 100 ML IVPB SCH (09:45)
[2017-06-24] MEDS: Linezolid 600 mg in D5W 300 ml 600 MG/300 ML BAG IVPB SCH ×2 (10:47→21:48)
[2017-06-24] MEDS ORDERED: Piperacillin/Tazobact 2.25gm 2.25 GM/100 ML BAG IVPB SCH (12:00)
--- NOTE | 2017-06-24 15:14 | CP.PCM.CON ---
History of Present Illness - History of Present Illness History of Present Illness: 46 year old male with PMH of DM, uncontrolled, history of Right leg purulent skin and skin structure infection with abscess formation due to MRSA, S/P I and D came in to [facility] complaining of pain and swelling at the suprapubic / lower abdominal area, which apparently started like a small pimple. He denies insect bites or tick bites over the area. He has subjective fevers and chills. He denies nausea or vomiting, no headache or dizziness, no chest pain, no SOB,no diarrhea, no dysuria, no cough or colds. Infectious Diseases consult is requested to further evaluate and manage. Review of Systems - Review of Systems All systems: reviewed and no additional remarkable complaints except (as per HPI ) Past Patient History - Infectious Disease Hx of Infectious Diseases: MRSA - Tetanus Immunizations Tetanus Immunization: Up to Date - Past Social History Smoking Status: Heavy Smoker > 10 Cigarettes Daily - CARDIAC Hx Cardiac Disorders: Yes Hx Hypertension: Yes - PULMONARY Hx Respiratory Disorders: No - NEUROLOGICAL Hx Neurological Disorder: No - HEENT Hx HEENT Problems: No - RENAL Hx Chronic Kidney Disease: No - ENDOCRINE/METABOLIC Hx Endocrine Disorders: Yes Hx Diabetes Mellitus Type 2: Yes (poorly controlled) - HEMATOLOGICAL/ONCOLOGICAL Hx Blood Disorders: No - INTEGUMENTARY Hx Dermatological Problems: No - MUSCULOSKELETAL/RHEUMATOLOGICAL Hx Musculoskeletal Disorders: No Hx Falls: No - GASTROINTESTINAL Hx Gastrointestinal Disorders: No - GENITOURINARY/GYNECOLOGICAL Hx Genitourinary Disorders: No - PSYCHIATRIC Hx Psychophysiologic Disorder: Yes Hx Anxiety: Yes Hx Depression: No Hx Emotional Abuse: No Hx Physical Abuse: No Hx Substance Use: No - SURGICAL HISTORY Hx Surgeries: No - ANESTHESIA Hx Anesthesia: No Meds Allergies/Adverse Reactions: Allergies Allergy/AdvReac Type Severity Reaction Status Date / Time No Known Allergies Allergy Verified 06/23/17 20:52 - Medications Medications: Current Medications Acetaminophen (Tylenol 325mg Tab) 650 mg PO Q4H PRN PRN Reason: Fever >100.4 F Clindamycin Phosphate 600 mg/ (Sodium Chloride) 54 mls @ 102 mls/hr IVPB Q8 ANDRAE PRN Reason: Protocol Last Admin: 06/24/17 05:43 Dose: 102 mls/hr Insulin Detemir (Levemir) 15 unit SC HS ANDRAE Last Admin: 06/24/17 00:43 Dose: 15 unit Insulin Human Regular (Humulin R Low) 0 units SC ACHS ANDRAE PRN Reason: Protocol Last Admin: 06/24/17 08:18 Dose: 2 units Oxycodone/Acetaminophen (Percocet 5/325 Mg Tab) 1 tab PO Q6H PRN PRN Reason: Pain, moderate (4-7) Stop: 06/26/17 23:26 Last Admin: 06/24/17 05:50 Dose: 1 tab Pantoprazole Sodium (Protonix Ec Tab) 40 mg PO 0600 [facility] Last Admin: 06/24/17 05:44 Dose: 40 mg Physical Exam - Constitutional Appears: Non-toxic, No Acute Distress - Head Exam Head Exam: NORMAL INSPECTION - ENT Exam ENT Exam: Mucous Membranes Moist - Neck Exam Neck exam: Negative for: Lymphadenopathy, Meningismus - Respiratory Exam Respiratory Exam: Decreased Breath Sounds - Cardiovascular Exam Cardiovascular Exam: +S1, +S2 - GI/Abdominal Exam GI & Abdominal Exam: Soft, Tenderness (over the lower abdominal area, with indurated area ) Results - Vital Signs Recent Vital Signs: Last Vital Signs Temp 98.7 F 06/24/17 02:00 Pulse 78 06/24/17 01:10 Resp 20 06/24/17 01:10 BP 128/66 06/24/17 00:15 Pulse Ox 97 06/24/17 00:15 - Labs Result Diagrams: 06/24/17 07:30 06/24/17 07:30 Labs: Laboratory Results - last 24 hr 06/24/17 06/24/17 06/24/17 07:30 07:30 08:04 WBC 14.5 H RBC 5.15 Hgb 14.6 Hct 41.7 L MCV 81.0 MCH 28.3 MCHC 35.0 RDW 13.2 Plt Count 150 MPV 10.2 Gran % 80.4 H Lymph % (Auto) 10.1 L [place] % (Auto) 6.6 H Eos % (Auto) 2.6 Baso % (Auto) 0.3 Gran # 11.64 H Lymph # 1.5 [place] # 1.0 H Eos # 0.4 Baso # 0.05 Sodium 141 Potassium 3.7 Chloride 104 Carbon Dioxide 28 Anion Gap 13 BUN 18 Creatinine 0.7 Est GFR ( Amer) > 60 Est GFR (Non-Af Amer) > 60 POC Glucose (mg/dL) 237 H Random Glucose 232 H Calcium 9.0 Total Bilirubin 0.6 AST 15 ALT 28 Alkaline Phosphatase 113 Total Protein 6.9 Albumin 3.7 Globulin 3.2 Albumin/Globulin Ratio 1.2 Assessment & Plan - Assessment and Plan (Free Text) Plan: Assessment Sepsis due to lower abdominal area skin and skin structure infection history of right leg purulent skin and skin structure infection with abscess formation due to MRSA, S/P I and D DM, uncontrolled Plan started Zyvox and Zosyn pending blood and wound cx; follow up Surgery evaluation and plans will monitor clinically -recommend warm compress over the indurated area
[2017-06-24] MEDS: Piperacillin/Tazobact 3.375 gm 100 ML IVPB SCH ×2 (17:12→23:42)
[2017-06-25] MEDS: Oxycodone/Acetaminophen 5/325 mg Tab PO PRN ×5 (00:01→23:01)
[2017-06-25] MEDS: Piperacillin/Tazobact 3.375 gm 100 ML IVPB SCH ×4 (05:37→23:04)
[2017-06-25] MEDS: Pantoprazole 40 mg EC Tab PO SCH (06:24)
[2017-06-25 07:13] LABS: ALB/GLOB RATIO 1.1 (1.1-1.8); ALBUMIN 3.7 g/dL (3.0-4.8); ALT/SGPT 143 U/L (7-56); AST/SGOT 83 U/L (15-59); BLOOD UREA NITROGEN 13 mg/dL (7-21); GFR AFRICAN-AMERICAN > 60; GFR NON-AFRICAN AMERICAN > 60
--- NOTE | 2017-06-25 08:00 | CP.PCM.PN ---
Subjective - Date & Time of Evaluation Date of Evaluation: 06/25/17 Time of Evaluation: 07:57 - Subjective Subjective: Gen Sx: Dr Zapata Pt S&E. TANIA. Pt complains pain medicine is not lasting more than 4 hours. Suprapubic abscess very inflamed and tender. Now draining purulent drainage from pin-sized hole in center of lesion. Objective - Vital Signs/Intake and Output Vital Signs (last 24 hours): Temp Pulse Resp BP Pulse Ox 98.7 F 69 20 128/81 97 06/25/17 07:48 06/25/17 07:48 06/25/17 07:48 06/25/17 07:48 06/25/17 07:48 Intake and Output: 06/25/17 06/25/17 06:59 18:59 Intake Total 1320 Balance 1320 - Medications Medications: Current Medications Acetaminophen (Tylenol 325mg Tab) 650 mg PO Q4H PRN PRN Reason: Fever >100.4 F Linezolid (Zyvox 600mg/300ml D5w) 600 mg in 300 mls @ 200 mls/hr IVPB Q12 ANDRAE PRN Reason: Protocol Stop: 07/01/17 10:01 Last Admin: 06/24/17 21:48 Dose: 200 mls/hr Piperacillin Sod/Tazobactam Sod (Zosyn 3.375 In Ns 100ml) 100 mls @ 200 mls/hr IVPB Q6 ANDRAE PRN Reason: Protocol Stop: 07/01/17 18:01 Last Admin: 06/25/17 05:37 Dose: 200 mls/hr Ibuprofen (Motrin Tab) 600 mg PO Q6H PRN PRN Reason: Pain, moderate (4-7) Insulin Detemir (Levemir) 15 unit SC HS [facility] Last Admin: 06/24/17 21:47 Dose: 15 unit Insulin Human Regular (Humulin R Low) 0 units SC ACHS ANDRAE PRN Reason: Protocol Last Admin: 06/24/17 21:42 Dose: Not Given Pantoprazole Sodium (Protonix Ec Tab) 40 mg PO 0600 [facility] Last Admin: 06/25/17 06:24 Dose: 40 mg - Labs Labs: 06/24/17 07:30 06/25/17 06:20 - Constitutional Appears: Non-toxic, No Acute Distress - Respiratory Exam Respiratory Exam: absent: Accessory Muscle Use, Respiratory Distress - Cardiovascular Exam Cardiovascular Exam: REGULAR RHYTHM. absent: Tachycardia - GI/Abdominal Exam GI & Abdominal Exam: Soft, Tenderness (supra-pubic tenderness). absent: Distended, Firm Additional comments: 4x4 cm fluctuant and erythematous abscess now draining purulent material - Neurological Exam Neurological Exam: Alert, Awake, Oriented x3 - Psychiatric Exam Psychiatric exam: Normal Affect, Normal Mood - Skin Skin Exam: Normal Color, Warm Assessment and Plan - Assessment and Plan (Free Text) Assessment: 46M with supra-pubic abscess Plan: cont warm compresses cont abx will likely need bedside I&D later this afternoon d/w Dr Benny Bowers, PGY3
[2017-06-25] MEDS: Insulin Reg-LOW-Coverage SC SCH ×2 (08:06→17:55)
[2017-06-25] MEDS ORDERED: Lidocaine 1% w Epi 1:100,000 Inj IJ ONE (09:07)
[2017-06-25] MEDS ORDERED: Morphine 4 mg/ml ISec IVP STA (09:08)
--- NOTE | 2017-06-25 09:39 | CP.PCM.PN ---
<Hilda Bond - Last Filed: 06/25/17 12:21> Subjective - Date & Time of Evaluation Date of Evaluation: 06/25/17 Time of Evaluation: 12:13 - Subjective Subjective: PT S&E at bedside. states he is in a lot of pain, but does not look to be in distress. 2.5x1.5 induration with drainage seen at bedside at left suprapubic region. Patient states he's been using warm compresses and would like somebody to do something about the right hand, which has a 5th finger and 2nd finger swelling with induration. Spoke to surgical team. Plan is to I&D patient at bedside today. Patient states he's unable to afford diabetic medication at home because insurance does not cover his medication. Patient was on Metformin 500mg POBID at home. He has a history of non-compliance. Patient denies F/C, abdominal pain. admits to suprapubic pain and pain on affected fingers of right hand PT S&E with attending, PT had just had I&D done by surgical instrument repair specialist at bedside. 10cc pus aspirated with needle and sent for wound culture. Patient states he is not tolerating pain well. Patient covered himself in his sheets, but was able to move well to show us his I&D sites. Morphine 2mg Q4H PRN ordered. Elevated AST/ALT found on today's CMP. Continue to monitor LFTs, f/u hepatic panel f/u hepatic US ID: f/u HIV status Per ID: continue to observe patient. awaiting wound culture results for further treatment. Objective - Vital Signs/Intake and Output Vital Signs (last 24 hours): Temp Pulse Resp BP Pulse Ox 98.7 F 69 20 128/81 97 06/25/17 07:48 06/25/17 07:48 06/25/17 07:48 06/25/17 07:48 06/25/17 07:48 Intake and Output: 06/25/17 06/25/17 06:59 18:59 Intake Total 1820 Balance 1820 - Medications Medications: Current Medications Linezolid (Zyvox 600mg/300ml D5w) 600 mg in 300 mls @ 200 mls/hr IVPB Q12 ANDRAE PRN Reason: Protocol Stop: 07/01/17 10:01 Last Admin: 06/24/17 21:48 Dose: 200 mls/hr Piperacillin Sod/Tazobactam Sod (Zosyn 3.375 In Ns 100ml) 100 mls @ 200 mls/hr IVPB Q6 ANDRAE PRN Reason: Protocol Stop: 07/01/17 18:01 Last Admin: 06/25/17 05:37 Dose: 200 mls/hr Ibuprofen (Motrin Tab) 600 mg PO Q6H PRN PRN Reason: Pain, moderate (4-7) Insulin Detemir (Levemir) 15 unit SC HS [facility] Last Admin: 06/24/17 21:47 Dose: 15 unit Insulin Human Regular (Humulin R Low) 0 units SC ACHS ANDRAE PRN Reason: Protocol Last Admin: 06/25/17 08:06 Dose: Not Given Oxycodone/Acetaminophen (Percocet 5/325 Mg Tab) 1 tab PO Q4H PRN PRN Reason: Pain, moderate (4-7) Stop: 06/26/17 23:26 Pantoprazole Sodium (Protonix Ec Tab) 40 mg PO 0600 [facility] Last Admin: 06/25/17 06:24 Dose: 40 mg - Labs Labs: 06/24/17 07:30 06/25/17 06:20 - Constitutional Appears: Non-toxic, No Acute Distress - Head Exam Head Exam: NORMAL INSPECTION - Eye Exam Eye Exam: EOMI, Normal appearance - ENT Exam ENT Exam: Mucous Membranes Moist - Neck Exam Neck Exam: Full ROM, Normal Inspection - Respiratory Exam Respiratory Exam: NORMAL BREATHING PATTERN. absent: Accessory Muscle Use, Respiratory Distress, Stridor - Cardiovascular Exam Cardiovascular Exam: REGULAR RHYTHM - GI/Abdominal Exam GI & Abdominal Exam: Soft. absent: Tenderness, Pulsatile Mass - Extremities Exam Extremities Exam: Full ROM, Normal Inspection. absent: Joint Swelling, Pedal Edema - Skin Additional comments: right hand folliculitis (2nd digit, I&D). 5th digit. monitor Suprapubic cellulitis s/p I&D. packing. some drainage Assessment and Plan - Assessment and Plan (Free Text) Assessment: 46 M suprapubic cellulitis, right hand folliculitis with induration of 2nd and 5th digit. s/p I&D of suprapubic abscess and 2nd digit abscess. Plan: s/p I&D at bedside POD#0 f/u hepatic panel f/u hepatic US Surgery: f/u wound cx, no need for packing after initial packing today right hand folliculitis (2nd digit, I&D). 5th digit, monitor Suprapubic cellulitis s/p I&D. packing. some drainage ID: f/u HIV status Per ID: continue to observe patient. awaiting wound culture results for further treatment. ID: f/u HIV status Per ID: continue to observe patient. awaiting wound culture results for further treatment. Elevated LFTs/ History of Drug Abuse f/u hepatic panel f/u hepatic US DC percocet and tylenol DM: Patient's labs 10.9 A1c. Diabetic gate watchman education ordered. will follow up switched to Humalin N 70/30 8 units Q12H (patient's home meds: levemir and metformin) f/u accuchecks f/u diabetic gate watchman education: Patient states he's unable to afford medication GI PPX: Protonix <Cris Jacobo B - Last Filed: 06/25/17 17:08> Objective - Vital Signs/Intake and Output Vital Signs (last 24 hours): Temp Pulse Resp BP Pulse Ox 98.7 F 69 20 128/81 97 06/25/17 07:48 06/25/17 07:48 06/25/17 07:48 06/25/17 07:48 06/25/17 07:48 Intake and Output: 06/25/17 06/25/17 06:59 18:59 Intake Total 1820 620 Balance 1820 620 - Medications Medications: Current Medications Linezolid (Zyvox 600mg/300ml D5w) 600 mg in 300 mls @ 200 mls/hr IVPB Q12 ANDRAE PRN Reason: Protocol Stop: 07/01/17 10:01 Last Admin: 06/25/17 10:11 Dose: 200 mls/hr Piperacillin Sod/Tazobactam Sod (Zosyn 3.375 In Ns 100ml) 100 mls @ 200 mls/hr IVPB Q6 ANDRAE PRN Reason: Protocol Stop: 07/01/17 18:01 Last Admin: 06/25/17 13:01 Dose: 200 mls/hr Ibuprofen (Motrin Tab) 600 mg PO Q6H PRN PRN Reason: Pain, moderate (4-7) Insulin Human NPH (Humulin N) 8 units SC Q12 ANDRAE Last Admin: 08/11/17 16:42 Dose: 8 units Morphine Sulfate (Morphine) 2 mg IVP Q4H PRN PRN Reason: Pain, severe (8-10) Last Admin: 06/25/17 16:08 Dose: 2 mg Oxycodone/Acetaminophen (Percocet 5/325 Mg Tab) 1 tab PO Q4H PRN PRN Reason: Pain, moderate (4-7) Stop: 06/26/17 23:26 Last Admin: 06/25/17 10:40 Dose: 1 tab Pantoprazole Sodium (Protonix Ec Tab) 40 mg PO 0600 [facility] Last Admin: 06/25/17 06:24 Dose: 40 mg - Labs Labs: 06/25/17 06:20 06/25/17 06:20 Attending/Attestation - Attestation I have personally seen and examined this patient.: Yes I have fully participated in the care of the patient.: Yes I have reviewed all pertinent clinical information, including history, physical exam and plan: Yes Notes (Text): I have seen and examined patient at bedside. Agree with the note dictated above with the following additions/ exceptions: Briefly this is 46 year old male with history of uncontrolled DM, recent MRSA infection in right leg who came for evaluation of suprapubic cellulitis/ folliculitis and induration of right 2nd and 5th finger. He underwent bedside I&D of suprapubic area and right 2nd digit. Wound cultures were sent. He is on zosyn and zyvox. Discussed with ID and surgery team. Patient was noted to have transaminitis. Hep panel, HIV and liver ultrasound pending. Hold all hepatotoxic medications. AIC was noted to be 10.9. Patient has been non compliant with medications. Advised patient regarding need to be complaint with diabetic medications. Will consult diabetic nurse educator as well. Upon discharge patient will follow up with Niharika Escamilla. Dr Cris Jacobo
[2017-06-25 09:45] LABS: BASO # 0.07 K/mm3 (0.0-2.0); BASO % 0.5 % (0.0-3.0); EOS # 0.7 (0.0-0.7); EOS % 4.9 % (1.5-5.0); GRAN # 10.26 (1.4-6.5); GRAN % 77.8 % (50.0-68.0); HEMOGLOBIN 14.9 g/dL (14.0-18.0); LYMPH # 1.4 (1.2-3.4); LYMPH % 10.2 % (22.0-35.0); MEAN CELL VOLUME 81.4 fl (80.0-105.0); MEAN CORPUSCULAR HEMOGLOBIN 28.2 pg (25.0-35.0); MEAN CORPUSCULAR HGB CONC 34.7 g/dl (31.0-37.0); MEAN PLATELET VOLUME 10.8 fl (7.0-11.0); MONO # 0.9 (0.1-0.6); MONO % 6.6 % (1.0-6.0); PLATELET COUNT 149 10^3/uL (120.0-450.0); RBC 5.28 10^6/uL (3.5-6.1); RED CELL DISTRIBUTION WIDTH 13.2 % (11.5-14.5); WHITE BLOOD COUNT 13.2 10^3/ul (4.5-11.0)
[2017-06-25] MEDS: Linezolid 600 mg in D5W 300 ml 600 MG/300 ML BAG IVPB SCH (10:11)
[2017-06-25] MEDS: Morphine 2 mg/ml ISec IVP PRN ×3 (12:08→20:42)
[2017-06-25] MEDS: Insulin Human NPH 1 UNITS/0.01 ML SC SCH ×2 (16:42→23:02)
--- NOTE | 2017-06-25 16:53 | US ---
HISTORY: transaminitis COMPARISON: None. TECHNIQUE: Sonographic evaluation of the right upper quadrant of the abdomen. FINDINGS: LIVER: Measures 16.7 cm in length. Normal echogenicity of the liver parenchyma. No mass. No intrahepatic bile duct dilatation. GALLBLADDER: Unremarkable. No gallstones. COMMON BILE DUCT: Measures 6 mm. No stones. No dilatation. PANCREAS: Unremarkable as visualized. No mass. No ductal dilatation. RIGHT KIDNEY: Measures 12.6 cm in length. Normal echogenicity. No calculus, mass, or hydronephrosis. AORTA: No aneurysmal dilatation. IVC: Unremarkable. OTHER FINDINGS: None . IMPRESSION: Unremarkable examination. No evidence of biliary obstruction. No evidence of cholelithiasis or cholecystitis.
[2017-06-25 17:05] LABS: HEPATITIS B SURFACE AG NEGATIVE (NEGATIVE)
[2017-06-25 17:11] LABS: HEPATITIS A IGM NEGATIVE (NEGATIVE); HEPATITIS B CORE AB NEGATIVE (NEGATIVE)
[2017-06-25 17:22] LABS: HEPATITIS C ANTIBODY NEGATIVE (NEGATIVE)
--- NOTE | 2017-06-25 17:44 | CP.PCM.PN ---
Subjective - Date & Time of Evaluation Date of Evaluation: 06/25/17 Time of Evaluation: 10:30 - Subjective Subjective: Patient is for I and D today, still with pain in the lower abdominal area. Objective - Vital Signs/Intake and Output Vital Signs (last 24 hours): Temp Pulse Resp BP Pulse Ox 98.7 F 69 20 128/81 97 06/25/17 07:48 06/25/17 07:48 06/25/17 07:48 06/25/17 07:48 06/25/17 07:48 Intake and Output: 06/25/17 06/25/17 06:59 18:59 Intake Total 1820 Balance 1820 - Medications Medications: Current Medications Acetaminophen (Tylenol 325mg Tab) 650 mg PO Q4H PRN PRN Reason: Fever >100.4 F Linezolid (Zyvox 600mg/300ml D5w) 600 mg in 300 mls @ 200 mls/hr IVPB Q12 ANDRAE PRN Reason: Protocol Stop: 07/01/17 10:01 Last Admin: 06/24/17 21:48 Dose: 200 mls/hr Piperacillin Sod/Tazobactam Sod (Zosyn 3.375 In Ns 100ml) 100 mls @ 200 mls/hr IVPB Q6 ANDRAE PRN Reason: Protocol Stop: 07/01/17 18:01 Last Admin: 06/25/17 05:37 Dose: 200 mls/hr Ibuprofen (Motrin Tab) 600 mg PO Q6H PRN PRN Reason: Pain, moderate (4-7) Insulin Detemir (Levemir) 15 unit SC HS [facility] Last Admin: 06/24/17 21:47 Dose: 15 unit Insulin Human Regular (Humulin R Low) 0 units SC ACHS [facility] PRN Reason: Protocol Last Admin: 06/25/17 08:06 Dose: Not Given Oxycodone/Acetaminophen (Percocet 5/325 Mg Tab) 1 tab PO Q4H PRN PRN Reason: Pain, moderate (4-7) Stop: 06/26/17 23:26 Pantoprazole Sodium (Protonix Ec Tab) 40 mg PO 0600 [facility] Last Admin: 06/25/17 06:24 Dose: 40 mg - Labs Labs: 06/24/17 07:30 06/25/17 06:20 - Constitutional Appears: Non-toxic, No Acute Distress - Head Exam Head Exam: NORMAL INSPECTION - ENT Exam ENT Exam: Mucous Membranes Moist - Neck Exam Neck Exam: absent: Lymphadenopathy, Meningismus - Respiratory Exam Respiratory Exam: Decreased Breath Sounds - Cardiovascular Exam Cardiovascular Exam: +S1, +S2 - GI/Abdominal Exam GI & Abdominal Exam: Soft. absent: Tenderness Assessment and Plan - Assessment and Plan (Free Text) Plan: Assessment Sepsis due to lower abdominal area skin and skin structure infection, growing Staph aureus history of right leg purulent skin and skin structure infection with abscess formation due to MRSA, S/P I and D DM, uncontrolled Plan continue Zyvox day 2 pending sensitivities of the Staph aureus from the wound; follow up I and D results
[2017-06-26] MEDS: Morphine 2 mg/ml ISec IVP PRN ×3 (01:12→09:57)
[2017-06-26] MEDS: Pantoprazole 40 mg EC Tab PO SCH (05:18)
[2017-06-26] MEDS: Piperacillin/Tazobact 3.375 gm 100 ML IVPB SCH ×2 (05:18→11:25)
[2017-06-26 07:49] LABS: BASO # 0.06 K/mm3 (0.0-2.0); BASO % 0.7 % (0.0-3.0); EOS # 0.6 (0.0-0.7); EOS % 6.8 % (1.5-5.0); GRAN # 6.09 (1.4-6.5); GRAN % 68.5 % (50.0-68.0); LYMPH # 1.4 (1.2-3.4); MEAN CORPUSCULAR HEMOGLOBIN 28.5 pg (25.0-35.0); MEAN CORPUSCULAR HGB CONC 35.6 g/dl (31.0-37.0); MEAN PLATELET VOLUME 9.6 fl (7.0-11.0); MONO # 0.7 (0.1-0.6); PLATELET COUNT 146 10^3/uL (120.0-450.0); RBC 5.26 10^6/uL (3.5-6.1); RED CELL DISTRIBUTION WIDTH 13.2 % (11.5-14.5); WHITE BLOOD COUNT 8.9 10^3/ul (4.5-11.0)
--- NOTE | 2017-06-26 08:02 | CP.PCM.PN ---
Subjective - Date & Time of Evaluation Date of Evaluation: 06/26/17 Time of Evaluation: 06:45 - Subjective Subjective: General Surgery- Dr. Zapata Pt S&E at bedside this AM. No acute events overnight. Pt states continued pain, however would like to go home today. Suprapubic dressing changed at bedside. little purulent drainage from center of lesion. Denies F/C CP/SOB N/V/D Objective - Vital Signs/Intake and Output Vital Signs (last 24 hours): Temp Pulse Resp BP Pulse Ox 98.4 F 71 20 110/64 96 06/25/17 16:00 06/25/17 16:00 06/25/17 16:00 06/25/17 16:00 06/25/17 16:00 Intake and Output: 06/26/17 06/26/17 06:59 18:59 Intake Total 1380 Balance 1380 - Medications Medications: Current Medications Piperacillin Sod/Tazobactam Sod (Zosyn 3.375 In Ns 100ml) 100 mls @ 200 mls/hr IVPB Q6 ANDRAE PRN Reason: Protocol Stop: 07/01/17 18:01 Last Admin: 06/26/17 05:18 Dose: 200 mls/hr Ibuprofen (Motrin Tab) 600 mg PO Q6H PRN PRN Reason: Pain, moderate (4-7) Insulin Human NPH (Humulin N) 8 units SC Q12 ANDRAE Last Admin: 06/25/17 23:02 Dose: 8 units Morphine Sulfate (Morphine) 2 mg IVP Q4H PRN PRN Reason: Pain, severe (8-10) Last Admin: 06/26/17 05:28 Dose: 2 mg Oxycodone/Acetaminophen (Percocet 5/325 Mg Tab) 1 tab PO Q4H PRN PRN Reason: Pain, moderate (4-7) Stop: 06/26/17 23:26 Last Admin: 06/25/17 23:01 Dose: 1 tab Pantoprazole Sodium (Protonix Ec Tab) 40 mg PO 0600 ANDRAE Last Admin: 06/26/17 05:18 Dose: 40 mg - Labs Labs: 06/26/17 07:40 06/25/17 06:20 - Constitutional Appears: No Acute Distress - Eye Exam Eye Exam: EOMI - ENT Exam ENT Exam: Mucous Membranes Moist - Respiratory Exam Respiratory Exam: NORMAL BREATHING PATTERN. absent: Accessory Muscle Use, Chest Wall Tenderness, Rhonchi, Wheezes - Cardiovascular Exam Cardiovascular Exam: +S1, +S2 - GI/Abdominal Exam GI & Abdominal Exam: Soft Additional comments: Tender around suprapubic abscess site. erythematous and indurated. Actively draining. Dressing changed. C/D/I - Neurological Exam Neurological Exam: Awake, Oriented x3 - Skin Skin Exam: Normal Color, Warm Assessment and Plan - Assessment and Plan (Free Text) Assessment: 46M s/p bedside I&D of suprapubic abscess POD#1 Plan: - packing removed. Dry dressing placed - cont warm compresses - MRSA +; culture sensitivity - cleared for D/C by surgery on PO antibiotics - no further surgical intervention at this time - further Recs per Dr. Benny Whyte PGY1
[2017-06-26 08:04] LABS: ALB/GLOB RATIO 1.1 (1.1-1.8); ALBUMIN 3.8 g/dL (3.0-4.8); ALT/SGPT 89 U/L (7-56); AST/SGOT 22 U/L (15-59); BLOOD UREA NITROGEN 14 mg/dL (7-21); CALCIUM 9.2 mg/dL (8.4-10.5); GFR AFRICAN-AMERICAN > 60; GFR NON-AFRICAN AMERICAN > 60
[2017-06-26 08:20] VITALS: BP 107/59; PULSE 65; RESP 18; TEMP 98.1; O2SAT 97
[2017-06-26] MEDS: Insulin Human NPH 1 UNITS/0.01 ML SC SCH (09:54)
[2017-06-26] MEDS: Oxycodone/Acetaminophen 5/325 mg Tab PO PRN (12:36)
--- NOTE | 2017-06-26 13:20 | CP.PCM.DIS ---
Addendum entered and electronically signed by Hilda Bond DO 06/26/17 16:59: 46 year old male with a past medical history of MRSA cellulitis and DM2 who presented for suprapubic cellulitis and tenderness. Patient reports that he woke up on the morning of 06/23/2017 with pain and erythema in his suprapubic region with no obvious inciting event. Physical exam indurated suprapubic indurated mass 5.08cm 3.81 cm (2"x1.5") No drainage, purulence. On 06/25, patient I&D at bedside by surgical team. Patient was given 2mg Morphine for the pain s/p I&D.Patient stated today when S& E at bedside, that he would like to go home. Patient was made aware of smoking cessation and proper diabetic diet. Patient was given a voucher to better afford diabetic medication until seen by Primary care physician. Patient was instructed on proper care of wound with warm compresses, washing area with warm soap and water, and keeping area clean and dry. Abdominal US negative. no evidence of biliary obstruction, cholelithiasis, cirrhosis wound culture positive for Gram positive cocci DC with Humalin 70/30 8units BID and doxycycline 100 mg BID Original Note: <Hilda Bond - Last Filed: 06/26/17 13:20> Provider - Provider Date of Admission: 06/23/17 22:54 Attending physician: Cris Jacobo MD Consults: Wound Care Dr. Zapata ID: Dr. Mac Time Spent in preparation of Discharge (in minutes): 20 Hospital Course - Lab Results Lab Results: Micro Results 06/25/17 10:00 Abdomen Gram Stain - Final 06/25/17 10:00 Abdomen Wound Culture - Preliminary Gram Positive Cocci 06/24/17 14:45 Abscess - Pelvic Gram Stain - Final 06/24/17 14:45 Abscess - Pelvic Wound Culture - Final Methicillin Resistant S Aureus Most Recent Lab Values WBC 8.9 10^3/ul (4.5-11.0) D 06/26/17 07:40 RBC 5.26 10^6/uL (3.5-6.1) 06/26/17 07:40 Hgb 15.0 g/dL (14.0-18.0) 06/26/17 07:40 Hct 42.1 % (42.0-52.0) 06/26/17 07:40 MCV 80.0 fl (80.0-105.0) 06/26/17 07:40 MCH 28.5 pg (25.0-35.0) 06/26/17 07:40 MCHC 35.6 g/dl (31.0-37.0) 06/26/17 07:40 RDW 13.2 % (11.5-14.5) 06/26/17 07:40 Plt Count 146 10^3/uL (120.0-450.0) 06/26/17 07:40 MPV 9.6 fl (7.0-11.0) 06/26/17 07:40 Gran % 68.5 % (50.0-68.0) H 06/26/17 07:40 Lymph % (Auto) 16.0 % (22.0-35.0) L 06/26/17 07:40 [place] % (Auto) 8.0 % (1.0-6.0) H 06/26/17 07:40 Eos % (Auto) 6.8 % (1.5-5.0) H 06/26/17 07:40 Baso % (Auto) 0.7 % (0.0-3.0) 06/26/17 07:40 Gran # 6.09 (1.4-6.5) 06/26/17 07:40 Lymph # 1.4 (1.2-3.4) 06/26/17 07:40 [place] # 0.7 (0.1-0.6) H 06/26/17 07:40 Eos # 0.6 (0.0-0.7) 06/26/17 07:40 Baso # 0.06 K/mm3 (0.0-2.0) 06/26/17 07:40 Sodium 137 mmol/L (132-148) 06/26/17 07:40 Potassium 3.9 mmol/L (3.6-5.0) 06/26/17 07:40 Chloride 100 mmol/L (98-107) 06/26/17 07:40 Carbon Dioxide 28 mmol/L (21-33) 06/26/17 07:40 Anion Gap 13 (10-20) 06/26/17 07:40 BUN 14 mg/dL (7-21) 06/26/17 07:40 Creatinine 0.6 mg/dL (0.5-1.4) 06/26/17 07:40 Est GFR ( Amer) > 60 06/26/17 07:40 Est GFR (Non-Af Amer) > 60 06/26/17 07:40 POC Glucose (mg/dL) 270 mg/dL (65-110) H 06/26/17 11:53 Random Glucose 170 mg/dL (70-110) H 06/26/17 07:40 Hemoglobin A1c 10.9 % (4.2-6.5) H D 06/24/17 07:30 Calcium 9.2 mg/dL (8.4-10.5) 06/26/17 07:40 Total Bilirubin 0.8 mg/dL (0.2-1.3) 06/26/17 07:40 AST 22 U/L (15-59) 06/26/17 07:40 ALT 89 U/L (7-56) H 06/26/17 07:40 Alkaline Phosphatase 147 U/L (38-133) H 06/26/17 07:40 Total Protein 7.2 g/dL (5.8-8.3) 06/26/17 07:40 Albumin 3.8 g/dL (3.0-4.8) 06/26/17 07:40 Globulin 3.4 gm/dL 06/26/17 07:40 Albumin/Globulin Ratio 1.1 (1.1-1.8) 06/26/17 07:40 Procalcitonin 0.09 NG/ML (0.19-0.49) L 06/24/17 08:00 Hepatitis A IgM Ab Negative (NEGATIVE) 06/25/17 08:00 Hep Bs Antigen Negative (NEGATIVE) 06/25/17 08:00 Hep B Core IgM Ab Negative (NEGATIVE) 06/25/17 08:00 Hepatitis C Antibody Negative (NEGATIVE) 06/25/17 08:00 HIV 1&2 Ag/Ab, 4th Gen Nonreactive (Nonreactive) 06/24/17 08:00 Discharge Exam - Head Exam Head Exam: NORMAL INSPECTION Discharge Plan - Discharge Medications Prescriptions: Doxycycline Hyclate [Doryx] 100 mg PO BID #14 cap Insulin Human NPH [Humulin N] 8 units SC Q12 #10 ml Insulin NPH Hum/Reg Insulin Hm [Humulin 70-30 Vial] 10 ml SC BID #1 diego - Follow Up Plan Condition: STABLE Disposition: HOME/ ROUTINE Instructions: How to Stop Smoking (DC), MRSA (Methicillin Resistant Staphylococcus Aureus) (DC), Cellulitis (DC), Cigarette Smoking and Your Health (GEN), Basic Carbohydrate Counting (GEN), Abscess (GEN), Incision and Drainage ( DC), Type 1 Diabetes Management for Adolescents (GEN) Additional Instructions: 1. Return to ED if cellulitis worsens 2. f/u with PMD 3. Continue with Doxycycline 100 mg BID x 7 days 4. Dressing change: Warm compresses, keep area clean and dry. 4x4 fold in half and tape. check for signs of drainage. wash with warm, soap and water. do not shave area until follow up unless okayed by Dr. Zapata (follow up with Dr. Zapata in 1 week) 5. Diabetic Medication discount voucher in Chart. For discharge with patient. 6. Continue on Humalin 8 units 70/30 BID. Referrals: Niharika Vickers MD [Family Provider] - Az Zapata MD [Staff Provider] - <Rashawn Ballard - Last Filed: 06/26/17 16:57> Provider - Provider Date of Admission: 06/23/17 22:54 Attending physician: Cris Jacobo MD Hospital Course - Lab Results Lab Results: Micro Results 06/25/17 10:00 Abdomen Gram Stain - Final 06/25/17 10:00 Abdomen Wound Culture - Preliminary Gram Positive Cocci 06/24/17 14:45 Abscess - Pelvic Gram Stain - Final 06/24/17 14:45 Abscess - Pelvic Wound Culture - Final Methicillin Resistant S Aureus Most Recent Lab Values WBC 8.9 10^3/ul (4.5-11.0) D 06/26/17 07:40 RBC 5.26 10^6/uL (3.5-6.1) 06/26/17 07:40 Hgb 15.0 g/dL (14.0-18.0) 06/26/17 07:40 Hct 42.1 % (42.0-52.0) 06/26/17 07:40 MCV 80.0 fl (80.0-105.0) 06/26/17 07:40 MCH 28.5 pg (25.0-35.0) 06/26/17 07:40 MCHC 35.6 g/dl (31.0-37.0) 06/26/17 07:40 RDW 13.2 % (11.5-14.5) 06/26/17 07:40 Plt Count 146 10^3/uL (120.0-450.0) 06/26/17 07:40 MPV 9.6 fl (7.0-11.0) 06/26/17 07:40 Gran % 68.5 % (50.0-68.0) H 06/26/17 07:40 Lymph % (Auto) 16.0 % (22.0-35.0) L 06/26/17 07:40 [place] % (Auto) 8.0 % (1.0-6.0) H 06/26/17 07:40 Eos % (Auto) 6.8 % (1.5-5.0) H 06/26/17 07:40 Baso % (Auto) 0.7 % (0.0-3.0) 06/26/17 07:40 Gran # 6.09 (1.4-6.5) 06/26/17 07:40 Lymph # 1.4 (1.2-3.4) 06/26/17 07:40 [place] # 0.7 (0.1-0.6) H 06/26/17 07:40 Eos # 0.6 (0.0-0.7) 06/26/17 07:40 Baso # 0.06 K/mm3 (0.0-2.0) 06/26/17 07:40 Sodium 137 mmol/L (132-148) 06/26/17 07:40 Potassium 3.9 mmol/L (3.6-5.0) 06/26/17 07:40 Chloride 100 mmol/L (98-107) 06/26/17 07:40 Carbon Dioxide 28 mmol/L (21-33) 06/26/17 07:40 Anion Gap 13 (10-20) 06/26/17 07:40 BUN 14 mg/dL (7-21) 06/26/17 07:40 Creatinine 0.6 mg/dL (0.5-1.4) 06/26/17 07:40 Est GFR ( Amer) > 60 06/26/17 07:40 Est GFR (Non-Af Amer) > 60 06/26/17 07:40 POC Glucose (mg/dL) 270 mg/dL (65-110) H 06/26/17 11:53 Random Glucose 170 mg/dL (70-110) H 06/26/17 07:40 Hemoglobin A1c 10.9 % (4.2-6.5) H D 06/24/17 07:30 Calcium 9.2 mg/dL (8.4-10.5) 06/26/17 07:40 Total Bilirubin 0.8 mg/dL (0.2-1.3) 06/26/17 07:40 AST 22 U/L (15-59) 06/26/17 07:40 ALT 89 U/L (7-56) H 06/26/17 07:40 Alkaline Phosphatase 147 U/L (38-133) H 06/26/17 07:40 Total Protein 7.2 g/dL (5.8-8.3) 06/26/17 07:40 Albumin 3.8 g/dL (3.0-4.8) 06/26/17 07:40 Globulin 3.4 gm/dL 06/26/17 07:40 Albumin/Globulin Ratio 1.1 (1.1-1.8) 06/26/17 07:40 Procalcitonin 0.09 NG/ML (0.19-0.49) L 06/24/17 08:00 Hepatitis A IgM Ab Negative (NEGATIVE) 06/25/17 08:00 Hep Bs Antigen Negative (NEGATIVE) 06/25/17 08:00 Hep B Core IgM Ab Negative (NEGATIVE) 06/25/17 08:00 Hepatitis C Antibody Negative (NEGATIVE) 06/25/17 08:00 HIV 1&2 Ag/Ab, 4th Gen Nonreactive (Nonreactive) 06/24/17 08:00 Attending/Attestation - Attestation I have personally seen and examined this patient.: Yes I have fully participated in the care of the patient.: Yes I have reviewed all pertinent clinical information, including history, physical exam and plan: Yes Notes (Text): 06/26/17 16:55 Patient seen and examined at bedside. labs, vitals, notes and orders reviewed. Patient feels better and denies any new complaints. Compliance with insulin regimen discussed and smoking cessation reinforced. Case d/w ID service including antibiotics. Agree with the plan of care as outlined by the resident.
--- NOTE | 2017-06-26 17:38 | CP.PCM.PN ---
Subjective - Date & Time of Evaluation Date of Evaluation: 06/26/17 Time of Evaluation: 12:05 - Subjective Subjective: Feeling better, not in distress, afebrile overnight. Objective - Vital Signs/Intake and Output Vital Signs (last 24 hours): Temp Pulse Resp BP Pulse Ox 98.1 F 65 18 107/59 L 97 06/26/17 08:19 06/26/17 08:19 06/26/17 08:19 06/26/17 08:19 06/26/17 08:19 Intake and Output: 06/26/17 06/26/17 06:59 18:59 Intake Total 1580 Balance 1580 - Medications Medications: Current Medications Piperacillin Sod/Tazobactam Sod (Zosyn 3.375 In Ns 100ml) 100 mls @ 200 mls/hr IVPB Q6 ANDRAE PRN Reason: Protocol Stop: 07/01/17 18:01 Last Admin: 06/26/17 05:18 Dose: 200 mls/hr Ibuprofen (Motrin Tab) 600 mg PO Q6H PRN PRN Reason: Pain, moderate (4-7) Insulin Human NPH (Humulin N) 8 units SC Q12 ANDRAE Last Admin: 06/26/17 09:54 Dose: 8 units Morphine Sulfate (Morphine) 2 mg IVP Q4H PRN PRN Reason: Pain, severe (8-10) Last Admin: 06/26/17 09:57 Dose: 2 mg Oxycodone/Acetaminophen (Percocet 5/325 Mg Tab) 1 tab PO Q4H PRN PRN Reason: Pain, moderate (4-7) Stop: 06/26/17 23:26 Last Admin: 06/25/17 23:01 Dose: 1 tab Pantoprazole Sodium (Protonix Ec Tab) 40 mg PO 0600 ANDRAE Last Admin: 06/26/17 05:18 Dose: 40 mg - Labs Labs: 06/26/17 07:40 06/26/17 07:40 - Constitutional Appears: Non-toxic, No Acute Distress - ENT Exam ENT Exam: Mucous Membranes Moist - Neck Exam Neck Exam: absent: Lymphadenopathy, Meningismus - Respiratory Exam Respiratory Exam: Decreased Breath Sounds - Cardiovascular Exam Cardiovascular Exam: +S1, +S2 - GI/Abdominal Exam GI & Abdominal Exam: Soft. absent: Tenderness Assessment and Plan - Assessment and Plan (Free Text) Plan: Assessment Sepsis due to lower abdominal area skin and skin structure infection, growing methicillin-resistant Staph aureus history of right leg purulent skin and skin structure infection with abscess formation due to MRSA, S/P I and D DM, uncontrolled Plan on Zyvox day 3; can be switched to PO Doxycycline to complete therapy discussed with Dr. Ballard
== END 2017-06-26 14:52 | disposition home or self-care (01) | DRG 898 ==
LOC: ED 20:10 → ERH 22:54 → 5RSO 06-24 00:11
PROVIDERS: ADMIT Internal Medicine; ATTEND Hospitalist
PROC: 0H9FXZZ Drainage of Right Hand Skin, External Approach (ICD-10-PCS; principal; 2017-06-25)
PROC: 0H99XZZ Drainage of Perineum Skin, External Approach (ICD-10-PCS; 2017-06-25)
DX: A41.02 Sepsis due to Methicillin resistant Staphylococcus aureus (principal); E11.65 Type 2 diabetes mellitus with hyperglycemia; I10 Essential (primary) hypertension; L02.521 Furuncle right hand; L03.115 Cellulitis of right lower limb; L03.818 Cellulitis of other sites; L73.9 Follicular disorder, unspecified; Z86.14 Personal history of Methicillin resistant Staphylococcus aureus infection; Z91.14 Patient's other noncompliance with medication regimen; F17.210 Nicotine dependence, cigarettes, uncomplicated; F41.9 Anxiety disorder, unspecified

== ENCOUNTER 2018-10-29 11:50 | Observation (INO) | payer MEDICAID ==
[2018-10-29 11:50] VITALS: BMI 23.5
--- NOTE | 2018-10-29 12:34 | RAD ---
HISTORY: chest pain COMPARISON: Chest x-ray performed 05/18/17 TECHNIQUE: Chest, one view. FINDINGS: LUNGS: No focal consolidation. Please note that chest x-ray has limited sensitivity for the detection of pulmonary masses. PLEURA: No significant pleural effusion identified. No definite pneumothorax . CARDIOVASCULAR: Heart size appears within normal limits. Atherosclerotic calcification present. OSSEOUS STRUCTURES: Degenerative changes. VISUALIZED UPPER ABDOMEN: Unremarkable. OTHER FINDINGS: None. IMPRESSION: No focal consolidation.
[2018-10-29 12:39] LABS: BASO # 0.05 K/mm3 (0.0-2.0); BASO % 0.3 % (0.0-3.0); EOS # 0.1 (0.0-0.7); EOS % 0.7 % (1.5-5.0); GRAN # 16.96 (1.4-6.5); GRAN % 87.1 % (50.0-68.0); HEMOGLOBIN 16.3 g/dL (14.0-18.0); LYMPH # 1.1 (1.2-3.4); LYMPH % 5.5 % (22.0-35.0); MEAN CELL VOLUME 80.8 fl (80.0-105.0); MEAN CORPUSCULAR HEMOGLOBIN 28.7 pg (25.0-35.0); MEAN CORPUSCULAR HGB CONC 35.5 g/dl (31.0-37.0); MEAN PLATELET VOLUME 9.9 fl (7.0-11.0); MONO # 1.3 (0.1-0.6); MONO % 6.4 % (1.0-6.0); RBC 5.68 10^6/uL (3.5-6.1); RED CELL DISTRIBUTION WIDTH 13.5 % (11.5-14.5); WHITE BLOOD COUNT 19.5 10^3/uL (4.5-11.0)
[2018-10-29] MEDS: Sodium Chloride 0.9% 1,000 ML IV SCH (12:44)
[2018-10-29 12:47] LABS: INR 1.14; PROTHROMBIN TIME 13.2 SECONDS (9.4-12.5)
[2018-10-29 13:01] LABS: ALB/GLOB RATIO 1.2 (1.1-1.8); ALT/SGPT 27 U/L (7-56); AST/SGOT 20 U/L (17-59); B-TYPE NATRIURETIC PEPTIDE 81.1 pg/mL (0-450); BLOOD UREA NITROGEN 26 mg/dL (7-21); CALCIUM 9.8 mg/dL (8.4-10.5); GFR NON-AFRICAN AMERICAN > 60
--- NOTE | 2018-10-29 13:03 | ED PDOC ---
Arrival/HPI - General Chief Complaint: Chest Pain Time Seen by Provider: 10/29/18 11:55 Historian: Patient - History of Present Illness Narrative History of Present Illness (Text): 10/29/18 13:05 A 48 year old male, whose past medical history includes bronchitis, presents to the emergency department complaining of chest pain and some shortness of breath starting 1 hour prior to being seen. Patient seen at 12:15. Patient reports also experiencing nausea and "face feels hot." Patient admits to smoking cocaine earlier today and states his life has been stressful lately. Patient denies any headache, suicidal/homicidal ideation, or any other complaints at this time. PMD: Dr. Vickers Past Medical History - Provider Review Nursing Documentation Reviewed: Yes - Infectious Disease Hx of Infectious Diseases: None - Tetanus Immunization Tetanus Immunization: Up to Date - Cardiac Hx Cardiac Disorders: Yes Hx Hypertension: Yes - Pulmonary Hx Respiratory Disorders: No - Neurological Hx Neurological Disorder: No - HEENT Hx HEENT Disorder: No - Renal Hx Renal Disorder: No - Endocrine/Metabolic Hx Endocrine Disorders: Yes Hx Diabetes Mellitus Type 2: Yes (poorly controlled) - Hematological/Oncological Hx Blood Disorders: No - Integumentary Hx Dermatological Disorder: No - Musculoskeletal/Rheumatological Hx Musculoskeletal Disorders: No Hx Falls: No - Gastrointestinal Hx Gastrointestinal Disorders: No - Genitourinary/Gynecological Hx Genitourinary Disorders: No - Psychiatric Hx Psychophysiologic Disorder: Yes Hx Anxiety: Yes Hx Depression: No Hx Emotional Abuse: No Hx Physical Abuse: No Hx Substance Use: Yes - Past Surgical History Past Surgical History: No Previous - Anesthesia Hx Anesthesia: No Hx Anesthesia Reactions: No Hx Malignant Hyperthermia: No - Suicidal Assessment Feels Threatened In Home Enviroment: No Family/Social History - Physician Review Nursing Documentation Reviewed: Yes Family/Social History: No Known Family HX Smoking Status: Heavy Smoker > 10 Cigarettes Daily Hx Alcohol Use: Yes Hx Substance Use: Yes Substance used: coccaine Hx Substance Use Treatment: Yes Allergies/Home Meds Allergies/Adverse Reactions: Allergies No Known Allergies Allergy (Verified 06/23/17 20:52) Review of Systems - Physician Review All systems were reviewed & negative as marked: Yes - Review of Systems Respiratory: SOB Cardiovascular: Chest Pain Gastrointestinal: Nausea Neurological: absent: Headache Psychiatric: Anxiety. absent: Suicidal Ideation (and no homicidal ideation) Physical Exam Vital Signs Reviewed: Yes Vital Signs Temp Pulse Resp BP Pulse Ox 10/29/18 11:54 98.1 F 99 H 19 140/88 96 Temperature: Afebrile Blood Pressure: Normal Pulse: Regular Respiratory Rate: Normal Appearance: Positive for: Well-Appearing, Non-Toxic, Comfortable Pain Distress: None Mental Status: Positive for: Alert and Oriented X 3 - Systems Exam Head: Present: Atraumatic, Normocephalic Pupils: Present: PERRL Extroacular Muscles: Present: EOMI Conjunctiva: Present: Normal Mouth: Present: Moist Mucous Membranes Neck: Present: Normal Range of Motion Respiratory/Chest: Present: Wheezes (expiratory/inspiratory wheezing to posterior lung schroeder). No: Good Air Exchange, Respiratory Distress, Accessory Muscle Use, Tachypneic Cardiovascular: Present: Regular Rate and Rhythm, Normal S1, S2. No: Murmurs Abdomen: No: Tenderness, Distention, Peritoneal Signs Back: Present: Normal Inspection Upper Extremity: Present: Normal Inspection. No: Cyanosis, Edema Lower Extremity: Present: Normal Inspection. No: Edema Neurological: Present: GCS=15, CN II-XII Intact, Speech Normal Skin: Present: Warm, Dry, Normal Color. No: Rashes Psychiatric: Present: Alert, Oriented x 3, Normal Insight, Normal Concentration Medical Decision Making ED Course and Treatment: 10/29/18 13:06 Impression: 48 year old male with chest pain and some shortness of breath. Physical exam shows expiratory/inspiratory wheezing to posterior lung schroeder. Differential Diagnoses Include But Are Not Limited To: Cocaine Induced Chest Pain ACS COPD exacerbation Plan: -- EKG -- Chest X-ray -- Labs -- Ativan -- IV Fluids -- Urinalysis --Urine Drug Screen -- Reassess and disposition Progress Notes: 10/29/18 13:[address] Neville(covers for Dr. Vickers) who is unable to accept patient at this time due to out of insurance coverage. Discussed case with Dr. Domonique Scruggs(hospitalist) who accepts patient onto her service. - Lab Interpretations Lab Results: 10/29/18 12:30 Lab Results 10/29/18 12:30: PT 13.2 H, INR 1.14, APTT 25.0 L 10/29/18 12:30: WBC 19.5 H, RBC 5.68, Hgb 16.3, Hct 45.9, MCV 80.8, MCH 28.7, MCHC 35.5, RDW 13.5, Plt Count 288, MPV 9.9, Gran % 87.1 H, Lymph % (Auto) 5.5 L , [place] % (Auto) 6.4 H, Eos % (Auto) 0.7 L, Baso % (Auto) 0.3, Gran # 16.96 H, Lymph # (Auto) 1.1 L, [place] # (Auto) 1.3 H, Eos # (Auto) 0.1, Baso # (Auto) 0.05 10/29/18 12:30 10/29/18 12:30 Lab Results 10/29/18 13:20: Urine Opiates Screen Negative, Urine Methadone Screen Negative, Ur Barbiturates Screen Negative, Ur Phencyclidine Scrn Negative, Ur Amphetamines Screen Negative, U Benzodiazepines Scrn Negative, U Oth Cocaine Metabols Positive H, U Cannabinoids Screen Negative 10/29/18 13:20: Urine Color Light yellow, Urine Appearance Clear, Urine pH 6.0, Ur Specific Harris >= 1.030, Urine Protein 100 H, Urine Glucose (UA) >=1000, Urine Ketones 40 H, Urine Blood Negative, Urine Nitrate Negative, Urine Bi lirubin Negative, Urine Urobilinogen 0.2, Ur Leukocyte Esterase Negative, Urine RBC 0 - 2, Urine WBC Negative, Ur Epithelial Cells None 10/29/18 12:30: Alcohol, Quantitative < 10 10/29/18 12:30: Sodium 138, Potassium 4.4, Chloride 98, Carbon Dioxide 28, Anion Gap 17, BUN 26 H, Creatinine 0.7 L, Est GFR ( Amer) > 60, Est GFR (Non-Af Amer) > 60, Random Glucose 255 H, Calcium 9.8, Magnesium 1.8, Total Bilirubin 1.0, AST 20, ALT 27, Alkaline Phosphatase 131 H, Lactate Dehydrogenase 572, Total Creatine Kinase 90, Troponin I < 0.01, NT-Pro-B Natriuret Pep 81.1, Total Protein 9.2 H, Albumin 5.0 H, Globulin 4.2, Albumin/Globulin Ratio 1.2 10/29/18 12:30: PT 13.2 H, INR 1.14, APTT 25.0 L 10/29/18 12:30: WBC 19.5 H, RBC 5.68, Hgb 16.3, Hct 45.9, MCV 80.8, MCH 28.7, MCHC 35.5, RDW 13.5, Plt Count 288, MPV 9.9, Gran % 87.1 H, Lymph % (Auto) 5.5 L , [place] % (Auto) 6.4 H, Eos % (Auto) 0.7 L, Baso % (Auto) 0.3, Gran # 16.96 H, Lymph # (Auto) 1.1 L, [place] # (Auto) 1.3 H, Eos # (Auto) 0.1, Baso # (Auto) 0.05 - RAD Interpretation Narrative RAD Interpretations (Text): 10/29/2018 12:30 Chest X-ray IMPRESSION: No focal consolidation. Dictator: Negra Gaytan MD Radiology Orders: 10/29/18 11:59 CHEST PORTABLE [RAD] Stat - EKG Interpretation EKG Interpretation (Text): 10/29/18 13:23 EKG: Ordered, reviewed, and independently interpreted the EKG. Rate : 96 BPM Rhythm : NSR Interpretation : No ST-segment elevations or depressions, no T-wave inversions. Comparison : No previous EKG for comparison. Interpreted by ED Physician: Yes Type: 12 lead EKG - Medication Orders Current Medication Orders: Sodium Chloride (Sodium Chloride 0.9%) 1,000 mls @ 100 mls/hr IV .Q10H ANDRAE Last Admin: 10/29/18 12:44 Dose: 100 mls/hr eMAR Start Stop Document 10/29/18 12:44 EB (Rec: 10/29/18 12:44 EB [facility] [id number]) Intravenous Solution Start Date 10/29/18 Start Time 12:44 End Date 10/29/18 End time 22:44 Total Infusion Time 600 Discontinued Medications Lorazepam (Ativan) 2 mg PO ONCE ONE; Protocol Stop: 10/29/18 12:01 Last Admin: 10/29/18 12:44 Dose: 2 mg - Scribe Statement The provider has reviewed the documentation as recorded by the Scribe hdab Disposition/Present on Arrival - Present on Arrival Any Indicators Present on Arrival: Yes History of DVT/PE: No History of Uncontrolled Diabetes: Yes Urinary Catheter: No History of Decub. Ulcer: No History Surgical Site Infection Following: None - Disposition Have Diagnosis and Disposition been Completed?: Yes Diagnosis: Cocaine abuse, Chest pain Disposition: HOSPITALIZED Disposition Time: 13:20 Patient Plan: Observation Patient Problems: Current Active Problems Problem Status Onset Chest pain Acute Cocaine abuse Acute Condition: GUARDED
[2018-10-29 13:06] LABS: TROPONIN I < 0.01 ng/mL
[2018-10-29 13:40] LABS: URINE APPEARANCE CLEAR (CLEAR); URINE BILIRUBIN NEGATIVE (NEGATIVE); URINE BLOOD NEGATIVE (NEGATIVE); URINE COLOR LIGHT YELLOW (YELLOW); URINE GLUCOSE (UA) >=1000 mg/dL (NEGATIVE); URINE LEUKOCYTE ESTERASE NEGATIVE Leu/uL (NEGATIVE); URINE PROTEIN 100 mg/dL (<30 mg/dL); URINE UROBILINOGEN 0.2 E.U./dL (<1 E.U./dL)
[2018-10-29 13:57] LABS: BARBITURATES, UR NEGATIVE (NEGATIVE); OPIATES, UR NEGATIVE (NEGATIVE); PHENCYCLIDINE, UR NEGATIVE (NEGATIVE)
[2018-10-29 13:59] LABS: URINE RBC 0 - 2 /hpf (0-2); URINE WBC NEGATIVE /hpf (0-6)
[2018-10-29 14:01] LABS: BENZODIAZEPINES, UR NEGATIVE (NEGATIVE)
--- NOTE | 2018-10-29 15:13 | CARD ---
APPROVED REPORT Date of service: 10/29/2018 EKG Measurement Heart [id number] <Conclusion> Normal sinus rhythm Septal infarct, age undetermined Abnormal ECG
--- NOTE | 2018-10-29 15:39 | CP.PCM.HP ---
<Ed Sagastume - Last Filed: 10/29/18 16:06> History of Present Illness - History of Present Illness History of Present Illness: Ed Sagastume, PGY-1 History and Physical for Hospitalist Service CC: Chest Pain HPI: Mr. Maier is a 48 male with PMHx of DM2, HLD, and MRSA cellulitis who presents with complaints of L sided substernal chest pain. Patient states it began one hour prior to arrival. Patient reports walking when the sensation of pulling began, and rated it as an 8/10. No radiation, and no associated nausea, diaphoresis or dizziness. Patient states nothing made it better or worse. Patient states that he has not eaten anything since morning, at which point he began to snort a large amount of cocaine. Patient states he has been cocaine-free for two years but recently has had family issues that have caused him to relapse. Patient states that he drove himself to the hospital after the pain had not self-resolved. Patient reports associated shortness of breath, which he attributes to his chronic bronchitis as it has not worsened. Patient is drowsy and a poor historian and is unable to elaborate on his story further. Upon evaluation, patient states chest pain has improved and has been associated with some blurry vision. Denies palpitations, headaches, diaphoresis, nausea, vomiting, fevers, chills, dysuria, abdominal pain, changes in bowel or urinary habits and leg pain. Denies sick contacts and recent long travel. PMH: DM2, HLD, MRSA cellulitis of leg PSH: Appendectomy Family: Father passed from [place] at age 58 Social: Current 1ppd smoker, denies alcohol or current illicit drug use, + cocaine use; Operates a truck for a living; Lives with and children Allergies: NKDA Home Medications: please confirm complete list with [facility] on [address] PMD: Dr. Vickers Present on Admission - Present on Admission Any Indicators Present on Admission: No Review of Systems - Review of Systems Review of Systems: 12 point ROS complete and negative except as described in HPI Past Patient History - Infectious Disease Hx of Infectious Diseases: None - Tetanus Immunizations Tetanus Immunization: Up to Date - Past Social History Smoking Status: Heavy Smoker > 10 Cigarettes Daily - CARDIAC Hx Cardiac Disorders: Yes Hx Hypertension: Yes - PULMONARY Hx Respiratory Disorders: No - NEUROLOGICAL Hx Neurological Disorder: No - HEENT Hx HEENT Problems: No - RENAL Hx Chronic Kidney Disease: No - ENDOCRINE/METABOLIC Hx Endocrine Disorders: Yes Hx Diabetes Mellitus Type 2: Yes (poorly controlled) - HEMATOLOGICAL/ONCOLOGICAL Hx Blood Disorders: No - INTEGUMENTARY Hx Dermatological Problems: No - MUSCULOSKELETAL/RHEUMATOLOGICAL Hx Musculoskeletal Disorders: No Hx Falls: No - GASTROINTESTINAL Hx Gastrointestinal Disorders: No - GENITOURINARY/GYNECOLOGICAL Hx Genitourinary Disorders: No - PSYCHIATRIC Hx Psychophysiologic Disorder: Yes Hx Anxiety: Yes Hx Depression: No Hx Emotional Abuse: No Hx Physical Abuse: No Hx Substance Use: Yes - SURGICAL HISTORY Hx Surgeries: No - ANESTHESIA Hx Anesthesia: No Hx Anesthesia Reactions: No Hx Malignant Hyperthermia: No Meds Allergies/Adverse Reactions: Allergies Allergy/AdvReac Type Severity Reaction Status Date / Time No Known Allergies Allergy Verified 06/23/17 20:52 Physical Exam - Constitutional Appears: Unkempt Additional comments: Drowsy - Head Exam Head Exam: ATRAUMATIC, NORMOCEPHALIC - Eye Exam Eye Exam: EOMI Pupil Exam: Mydriatic - ENT Exam ENT Exam: Mucous Membranes Dry - Neck Exam Neck exam: Positive for: Full Rom, Normal Inspection. Negative for: Meningismus - Respiratory Exam Respiratory Exam: Rales (bilateral lobes) - Cardiovascular Exam Cardiovascular Exam: RRR, +S1, +S2 - GI/Abdominal Exam GI & Abdominal Exam: Soft. absent: Distended, Firm, Guarding, Rebound, Tenderness - Extremities Exam Extremities exam: Positive for: pedal pulses present. Negative for: calf tenderness, pedal edema - Back Exam Back exam: absent: CVA tenderness (L), CVA tenderness (R) - Skin Skin Exam: Dry, Intact, Normal Color, Warm Results - Vital Signs Recent Vital Signs: Last Vital Signs Temp 98.1 F 10/29/18 11:54 Pulse 86 10/29/18 13:58 Resp 19 10/29/18 13:58 BP 142/86 10/29/18 13:58 Pulse Ox 100 10/29/18 13:58 - Labs Result Diagrams: 10/29/18 12:30 10/29/18 12:30 Labs: Laboratory Results - last 24 hr 10/29/18 10/29/18 10/29/18 12:30 12:30 12:30 WBC 19.5 H RBC 5.68 Hgb 16.3 Hct 45.9 MCV 80.8 MCH 28.7 MCHC 35.5 RDW 13.5 Plt Count 288 MPV 9.9 Gran % 87.1 H Lymph % (Auto) 5.5 L Dade % (Auto) 6.4 H Eos % (Auto) 0.7 L Baso % (Auto) 0.3 Gran # 16.96 H Lymph # (Auto) 1.1 L Dade # (Auto) 1.3 H Eos # (Auto) 0.1 Baso # (Auto) 0.05 PT 13.2 H INR 1.14 APTT 25.0 L Sodium 138 Potassium 4.4 Chloride 98 Carbon Dioxide 28 Anion Gap 17 BUN 26 H Creatinine 0.7 L Est GFR ( Amer) > 60 Est GFR (Non-Af Amer) > 60 Random Glucose 255 H Calcium 9.8 Magnesium 1.8 Total Bilirubin 1.0 AST 20 ALT 27 Alkaline Phosphatase 131 H Lactate Dehydrogenase 572 Total Creatine Kinase 90 Troponin I < 0.01 NT-Pro-B Natriuret Pep 81.1 Total Protein 9.2 H Albumin 5.0 H Globulin 4.2 Albumin/Globulin Ratio 1.2 Urine Color Urine Appearance Urine pH Ur Specific [place] Urine Protein Urine Glucose (UA) Urine Ketones Urine Blood Urine Nitrate Urine Bilirubin Urine Urobilinogen Ur Leukocyte Esterase Urine RBC Urine WBC Ur Epithelial Cells Urine Opiates Screen Urine Methadone Screen Ur Barbiturates Screen Ur Phencyclidine Scrn Ur Amphetamines Screen U Benzodiazepines Scrn U Oth Cocaine Metabols U Cannabinoids Screen 10/29/18 10/29/18 13:20 13:20 WBC RBC Hgb Hct MCV MCH MCHC RDW Plt Count MPV Gran % Lymph % (Auto) Dade % (Auto) Eos % (Auto) Baso % (Auto) Gran # Lymph # (Auto) Dade # (Auto) Eos # (Auto) Baso # (Auto) PT INR APTT Sodium Potassium Chloride Carbon Dioxide Anion Gap BUN Creatinine Est GFR ( Amer) Est GFR (Non-Af Amer) Random Glucose Calcium Magnesium Total Bilirubin AST ALT Alkaline Phosphatase Lactate Dehydrogenase Total Creatine Kinase Troponin I NT-Pro-B Natriuret Pep Total Protein Albumin Globulin Albumin/Globulin Ratio Urine Color Light yellow Urine Appearance Clear Urine pH 6.0 Ur Specific [place] >= 1.030 Urine Protein 100 H Urine Glucose (UA) >=1000 Urine Ketones 40 H Urine Blood Negative Urine Nitrate Negative Urine Bilirubin Negative Urine Urobilinogen 0.2 Ur Leukocyte Esterase Negative Urine RBC 0 - 2 Urine WBC Negative Ur Epithelial Cells None Urine Opiates Screen Negative Urine Methadone Screen Negative Ur Barbiturates Screen Negative Ur Phencyclidine Scrn Negative Ur Amphetamines Screen Negative U Benzodiazepines Scrn Negative U Oth Cocaine Metabols Positive H U Cannabinoids Screen Negative Assessment & Plan - Assessment and Plan (Free Text) Assessment: 48 M PMHx of chronic bronchitis, DM and HLD who presents with L sided chest pain. Patient has had cocaine since without any food or drink since that time. CP r/o ACS vs cocaine induced vasospasm vs costochondritis vs mediastinitis CARY score of 1 EKG NSR @91 bpm, no ST or T wave changes. No significant changes as compared to previous EKGs. Ativan 2 mg given in ED, Ativan 1 mg q6h ASA 81 mg, Amlodipine 5 mg Trop #1 negative. Trend two additional q6 Echo ordered Cardio consult - Dr. Olea - recommendations appreciated Leukocytosis likely secondary to drug use, r/o infectious vs cardiac cause UA negative CXR shows no consolidation expectation to decrease in subsequent CBCs NS @ 100 cc/hr continue to monitor Hx of drug use F/u ETOH level CIWA protocol Seizure, Aspiration and Fall precautions DM Accuchecks F/u a1c F/u Mg, Phos Med ISS HHD HLD Lipitor 40 mg F/u lipid panel GI/DVT Ppx Lovenox 40 SC, PTX 40 mg PO Dispo: confirm meds with pharmacy Patient seen, case reviewed and plan approved by Dr. Monzon. Ed Sagastume, PGY-1 <Ale Monzon - Last Filed: 10/29/18 18:42> Results - Vital Signs Recent Vital Signs: Last Vital Signs Temp 98.1 F 10/29/18 11:54 Pulse 87 10/29/18 16:28 Resp 77 H 10/29/18 16:47 BP 110/66 10/29/18 16:47 Pulse Ox 99 10/29/18 16:47 - Labs Result Diagrams: 10/29/18 12:30 10/29/18 12:30 Labs: Laboratory Results - last 24 hr 10/29/18 10/29/18 10/29/18 12:30 12:30 12:30 WBC 19.5 H RBC 5.68 Hgb 16.3 Hct 45.9 MCV 80.8 MCH 28.7 MCHC 35.5 RDW 13.5 Plt Count 288 MPV 9.9 Gran % 87.1 H Lymph % (Auto) 5.5 L [place] % (Auto) 6.4 H Eos % (Auto) 0.7 L Baso % (Auto) 0.3 Gran # 16.96 H Lymph # (Auto) 1.1 L Dade # (Auto) 1.3 H Eos # (Auto) 0.1 Baso # (Auto) 0.05 PT 13.2 H INR 1.14 APTT 25.0 L Sodium 138 Potassium 4.4 Chloride 98 Carbon Dioxide 28 Anion Gap 17 BUN 26 H Creatinine 0.7 L Est GFR ( Amer) > 60 Est GFR (Non-Af Amer) > 60 POC Glucose (mg/dL) Random Glucose 255 H Calcium 9.8 Magnesium 1.8 Total Bilirubin 1.0 AST 20 ALT 27 Alkaline Phosphatase 131 H Lactate Dehydrogenase 572 Total Creatine Kinase 90 Troponin I < 0.01 NT-Pro-B Natriuret Pep 81.1 Total Protein 9.2 H Albumin 5.0 H Globulin 4.2 Albumin/Globulin Ratio 1.2 Urine Color Urine Appearance Urine pH Ur Specific [place] Urine Protein Urine Glucose (UA) Urine Ketones Urine Blood Urine Nitrate Urine Bilirubin Urine Urobilinogen Ur Leukocyte Esterase Urine RBC Urine WBC Ur Epithelial Cells Urine Opiates Screen Urine Methadone Screen Ur Barbiturates Screen Ur Phencyclidine Scrn Ur Amphetamines Screen U Benzodiazepines Scrn U Oth Cocaine Metabols U Cannabinoids Screen Alcohol, Quantitative 10/29/18 10/29/18 10/29/18 12:30 13:20 13:20 WBC RBC Hgb Hct MCV MCH MCHC RDW Plt Count MPV Gran % Lymph % (Auto) Dade % (Auto) Eos % (Auto) Baso % (Auto) Gran # Lymph # (Auto) Dade # (Auto) Eos # (Auto) Baso # (Auto) PT INR APTT Sodium Potassium Chloride Carbon Dioxide Anion Gap BUN Creatinine Est GFR ( Amer) Est GFR (Non-Af Amer) POC Glucose (mg/dL) Random Glucose Calcium Magnesium Total Bilirubin AST ALT Alkaline Phosphatase Lactate Dehydrogenase Total Creatine Kinase Troponin I NT-Pro-B Natriuret Pep Total Protein Albumin Globulin Albumin/Globulin Ratio Urine Color Light yellow Urine Appearance Clear Urine pH 6.0 Ur Specific [place] >= 1.030 Urine Protein 100 H Urine Glucose (UA) >=1000 Urine Ketones 40 H Urine Blood Negative Urine Nitrate Negative Urine Bilirubin Negative Urine Urobilinogen 0.2 Ur Leukocyte Esterase Negative Urine RBC 0 - 2 Urine WBC Negative Ur Epithelial Cells None Urine Opiates Screen Negative Urine Methadone Screen Negative Ur Barbiturates Screen Negative Ur Phencyclidine Scrn Negative Ur Amphetamines Screen Negative U Benzodiazepines Scrn Negative U Oth Cocaine Metabols Positive H U Cannabinoids Screen Negative Alcohol, Quantitative < 10 10/29/18 10/29/18 14:05 16:35 WBC RBC Hgb Hct MCV MCH MCHC RDW Plt Count MPV Gran % Lymph % (Auto) Dade % (Auto) Eos % (Auto) Baso % (Auto) Gran # Lymph # (Auto) Dade # (Auto) Eos # (Auto) Baso # (Auto) PT INR APTT Sodium Potassium Chloride Carbon Dioxide Anion Gap BUN Creatinine Est GFR ( Amer) Est GFR (Non-Af Amer) POC Glucose (mg/dL) 231 H 186 H Random Glucose Calcium Magnesium Total Bilirubin AST ALT Alkaline Phosphatase Lactate Dehydrogenase Total Creatine Kinase Troponin I NT-Pro-B Natriuret Pep Total Protein Albumin Globulin Albumin/Globulin Ratio Urine Color Urine Appearance Urine pH Ur Specific [place] Urine Protein Urine Glucose (UA) Urine Ketones Urine Blood Urine Nitrate Urine Bilirubin Urine Urobilinogen Ur Leukocyte Esterase Urine RBC Urine WBC Ur Epithelial Cells Urine Opiates Screen Urine Methadone Screen Ur Barbiturates Screen Ur Phencyclidine Scrn Ur Amphetamines Screen U Benzodiazepines Scrn U Oth Cocaine Metabols U Cannabinoids Screen Alcohol, Quantitative Attending/Attestation - Attestation I have personally seen and examined this patient.: Yes I have fully participated in the care of the patient.: Yes I have reviewed all pertinent clinical information: Yes Notes (Text): 10/29/18 18:38 Medical record note made by the resident after discussion with my direction and input after the patient was personally seen and examined by me. I have reviewed the chart and agree that the record accurately reflects by personal performance of the history, physical exam, data review, and medical decision-making, in the course for the patient. I have also personally directed the plan of care. 48 yrs old male with PMH of IRDM, and drug abuse is admitted with chest pain, also found to have leukocytosis. Etiology of chest pain is unclear.Patient is sleeping in ER, EKG is negative for acute ischemic changes, initial troponins are normal. Agreed with ASA/Lipitor and amlodipine. We will get serial troponin. We will also get cardiology consult. Etiology of Leukocytosis is not clear,patient is afebrile, no evidence of infection , likely reactive. We will monitor.
[2018-10-29] MEDS: Enoxaparin 40 mg Syringe SC SCH (16:28)
[2018-10-29] MEDS: Insulin Lispro (humaLOG) MEDIUM Coverage SC SCH ×2 (16:56→21:45)
[2018-10-30] MEDS ORDERED: guaiFENesin DM 200 mg-20 mg/10 ml UD PO ONE (03:56)
[2018-10-30] MEDS: Sodium Chloride 0.9% 1,000 ML IV SCH ×2 (04:00→17:02)
[2018-10-30] MEDS: Pantoprazole 40 mg EC Tab PO SCH (06:53)
[2018-10-30 08:13] LABS: BASO # 0.06 K/mm3 (0.0-2.0); BASO % 0.6 % (0.0-3.0); EOS # 0.4 (0.0-0.7); EOS % 4.5 % (1.5-5.0); GRAN # 6.46 (1.4-6.5); GRAN % 69.6 % (50.0-68.0); LYMPH # 1.7 (1.2-3.4); MEAN CELL VOLUME 81.8 fl (80.0-105.0); MEAN CORPUSCULAR HEMOGLOBIN 27.9 pg (25.0-35.0); MEAN CORPUSCULAR HGB CONC 34.1 g/dl (31.0-37.0); MEAN PLATELET VOLUME 9.7 fl (7.0-11.0); MONO # 0.7 (0.1-0.6); MONO % 7.3 % (1.0-6.0); RBC 4.95 10^6/uL (3.5-6.1); RED CELL DISTRIBUTION WIDTH 13.5 % (11.5-14.5); WHITE BLOOD COUNT 9.3 10^3/uL (4.5-11.0)
[2018-10-30 08:14] LABS: HEMOGLOBIN 13.8 g/dL (14.0-18.0)
[2018-10-30] MEDS: Insulin Lispro (humaLOG) MEDIUM Coverage SC SCH ×2 (08:23→12:38)
[2018-10-30 08:58] LABS: ALBUMIN 3.5 g/dL (3.0-4.8); ALT/SGPT 28 U/L (7-56); AST/SGOT 16 U/L (17-59); BLOOD UREA NITROGEN 21 mg/dL (7-21); CALCIUM 8.5 mg/dL (8.4-10.5); GFR NON-AFRICAN AMERICAN > 60; HDL CHOLESTEROL 45 mg/dL (29-60)
[2018-10-30 09:08] LABS: LDL CHOLESTEROL 106 mg/dL (0-129)
[2018-10-30] MEDS: Enoxaparin 40 mg Syringe SC SCH (09:10)
--- NOTE | 2018-10-30 14:31 | CP.PCM.PN ---
<Ed Sagastume - Last Filed: 10/30/18 14:23> Subjective - Date & Time of Evaluation Date of Evaluation: 10/30/18 Time of Evaluation: 10:00 - Subjective Subjective: Ed Sagastume PGY-1 Progress Note for Hospitalist Service Patient seen and evaluated at bedside. No acute events reported overnight. Denies residual chest pain, palpitations, shortness of breath, polyuria, polydipsia, nausea, fevers, chills or diaphoresis. Objective - Vital Signs/Intake and Output Vital Signs (last 24 hours): Temp Pulse Resp BP Pulse Ox 98.6 F 73 18 112/65 95 10/30/18 12:00 10/30/18 12:00 10/30/18 12:00 10/30/18 12:00 10/30/18 06:00 Intake and Output: 10/30/18 10/30/18 06:59 18:59 Intake Total 360 Output Total 1 Balance 359 - Medications Medications: Current Medications Amlodipine Besylate (Norvasc) 5 mg PO DAILY [facility] Last Admin: 10/30/18 09:10 Dose: 5 mg Aspirin (Aspirin Chewable) 81 mg PO DAILY [facility] Last Admin: 10/30/18 09:10 Dose: 81 mg Atorvastatin Calcium (Lipitor) 40 mg PO DIN [facility] Last Admin: 10/29/18 17:51 Dose: 40 mg Enoxaparin Sodium (Lovenox) 40 mg SC DAILY [facility]; Protocol Last Admin: 10/30/18 09:10 Dose: 40 mg Sodium Chloride (Sodium Chloride 0.9%) 1,000 mls @ 100 mls/hr IV .Q10H [facility] Last Admin: 10/30/18 04:00 Dose: 100 mls/hr Ibuprofen (Motrin Tab) 600 mg PO Q6H PRN PRN Reason: Pain, severe (8-10) Insulin Human Lispro (Humalog Med) 0 units SC ACHS [facility]; Protocol Last Admin: 10/30/18 12:38 Dose: Not Given Lorazepam (Ativan) 1 mg IVP Q6H PRN; Protocol PRN Reason: Anxiety Pantoprazole Sodium (Protonix Ec Tab) 40 mg PO 0600 [facility] Last Admin: 10/30/18 06:53 Dose: 40 mg - Labs Labs: 10/30/18 07:30 10/30/18 07:30 PT 13.2 SECONDS (9.4-12.5) H 10/29/18 12:30 INR 1.14 10/29/18 12:30 APTT 25.0 Seconds (25.1-36.5) L 10/29/18 12:30 - Additional Findings Additional findings: Appears: Unkempt - Head Exam Head Exam: ATRAUMATIC, NORMOCEPHALIC - Eye Exam Eye Exam: EOMI Pupil Exam: Mydriatic - ENT Exam ENT Exam: Mucous Membranes Dry - Neck Exam Neck exam: Positive for: Full Rom, Normal Inspection. Negative for: Meningismus - Respiratory Exam Respiratory Exam: Decreased Rales (bilateral lobes) - Cardiovascular Exam Cardiovascular Exam: RRR, +S1, +S2 - GI/Abdominal Exam GI & Abdominal Exam: Soft. absent: Distended, Firm, Guarding, Rebound, Tenderness - Extremities Exam Extremities exam: Positive for: pedal pulses present. Negative for: calf tende rness, pedal edema - Back Exam Back exam: absent: CVA tenderness (L), CVA tenderness (R) - Skin Skin Exam: Dry, Intact, Normal Color, Warm Assessment and Plan - Assessment and Plan (Free Text) Assessment: 48 M PMHx of chronic bronchitis, DM and HLD who presents with L sided chest pain. Awaiting cardiac evaluation. CP r/o ACS vs cocaine induced vasospasm vs costochondritis vs mediastinitis CARY score of 1 EKG NSR @91 bpm, no ST or T wave changes. No significant changes as compared to previous EKGs. Ativan 2 mg given in ED, Ativan 1 mg q6h ASA 81 mg, Amlodipine 5 mg Trop negative x3 Echo ordered Cardio consult - Dr. Olea - recommendations appreciated Leukocytosis - resolved likely secondary to drug use, r/o infectious vs cardiac cause UA negative CXR shows no consolidation NS @ 100 cc/hr continue to monitor Hx of drug use ETOH level <10 CIWA protocol Seizure, Aspiration and Fall precautions DM Accuchecks- 253, 257, 305, 144 A1c 10.0 Med ISS changed to hi HHD HLD Lipitor 40 mg Lipid panel - Triglycerides 80, cholesterol 188, LDL 106 GI/DVT Ppx Lovenox 40 SC, PTX 40 mg PO Dispo: F/u outpatient pharmacy records for home meds. Closed on weekend. Patient seen, case reviewed and plan approved by Dr. Monzon. Ed Sagastume, PGY-1 <Ale Monzon - Last Filed: 10/31/18 15:12> Objective - Vital Signs/Intake and Output Vital Signs (last 24 hours): Temp Pulse Resp BP Pulse Ox 97.4 F L 68 20 137/84 97 10/31/18 06:00 10/31/18 10:00 10/31/18 06:00 10/31/18 06:00 10/31/18 06:00 Intake and Output: 10/31/18 10/31/18 06:59 18:59 Intake Total 1360 240 Balance 1360 240 - Labs Labs: 10/31/18 07:00 10/31/18 07:00 PT 13.2 SECONDS (9.4-12.5) H 10/29/18 12:30 INR 1.14 10/29/18 12:30 APTT 25.0 Seconds (25.1-36.5) L 10/29/18 12:30 Attending/Attestation - Attestation I have personally seen and examined this patient.: Yes I have fully participated in the care of the patient.: Yes I have reviewed all pertinent clinical information, including history, physical exam and plan: Yes Notes (Text): 10/31/18 15:08 Medical record note made by the resident after discussion with my direction and input after the patient was personally seen and examined by me. I have reviewed the chart and agree that the record accurately reflects by personal performance of the history, physical exam, data review, and medical decision-making, in the course for the patient. I have also personally directed the plan of care. 48 yrs old male with PMH of IRDM, and drug abuse was admitted with chest pain, also found to have leukocytosis. Etiology of chest pain is unclear, serial troponins are normal. Telemetry is unremarkable,Echo is pending. Cardiology evaluation is pending. Leukocytosis is likely reactive, resolved.Patient is afebrile. Issue of cocain abuse was discussed in detail with patient.
[2018-10-30] MEDS: Insulin Lispro (HUMAlog) HIGH Coverage SC SCH ×2 (17:03→21:47)
[2018-10-30] MEDS: guaiFENesin DM 200 mg-20 mg/10 ml UD PO PRN (17:03)
--- NOTE | 2018-10-30 23:40 | CON ---
DATE: 10/30/2018 CARDIOLOGY CONSULTATION HISTORY OF PRESENT ILLNESS: The patient is a 48-year-old male who presented with palpitations as well as transient chest pain after extensive smoking cocaine. The patient is also heavy smoker. In addition, he suffers from diabetes mellitus. No hypertension. He denies previous angina and denies previous coronary artery disease. SOCIAL HISTORY: Active smoker, active drug user. REVIEW OF SYSTEMS: 14-point review of systems is reviewed in detail. The patient currently is completely asymptomatic PHYSICAL EXAMINATION VITAL SIGNS: Blood pressure reveals 112/65. The patient is afebrile. Heart rate is in the 70s. NECK: Negative JVD. LUNGS: Without rales. HEART: S1, S2. EXTREMITIES: Without edema. EKG shows no acute changes. LABORATORY DATA: Hemoglobin is 13.8. Chemistries: Troponins are negative x2. Glucose is 257. IMPRESSION 1. Transient chest pain. 2. No evidence for acute coronary syndrome. 3. Palpitations. 4. Heavy cocaine smoker. 5. Heavy tobacco user. 6. Diabetes mellitus. 7. Noncompliance to medical advice. Given these findings, I discussed with him about the dangers of cocaine smoking and his need to stop. The patient not interested in hearing the advice. We will obtain a third troponin. Observe on telemetry for 24 hours. Audie Olea MD
[2018-10-31 00:06] VITALS: RESP 20
[2018-10-31] MEDS: Sodium Chloride 0.9% 1,000 ML IV SCH (04:06)
[2018-10-31] MEDS: Pantoprazole 40 mg EC Tab PO SCH (05:37)
[2018-10-31 06:20] VITALS: BP 137/84; TEMP 97.4; O2SAT 97
--- NOTE | 2018-10-31 06:55 | CP.PCM.PN ---
Subjective - Date & Time of Evaluation Date of Evaluation: 10/31/18 Time of Evaluation: 06:54 - Subjective Subjective: Resident Progress Note for Hospitalist Service Objective - Vital Signs/Intake and Output Vital Signs (last 24 hours): Temp Pulse Resp BP Pulse Ox 97.4 F L 63 20 137/84 97 10/31/18 06:00 10/31/18 06:00 10/31/18 06:00 10/31/18 06:00 10/31/18 06:00 Intake and Output: 10/30/18 10/31/18 18:59 06:59 Intake Total 1560 1360 Output Total 1 Balance 1559 1360 - Medications Medications: Current Medications Amlodipine Besylate (Norvasc) 5 mg PO DAILY [facility] Last Admin: 10/30/18 09:10 Dose: 5 mg Aspirin (Aspirin Chewable) 81 mg PO DAILY [facility] Last Admin: 10/30/18 09:10 Dose: 81 mg Atorvastatin Calcium (Lipitor) 40 mg PO DIN [facility] Last Admin: 10/30/18 17:02 Dose: 40 mg Enoxaparin Sodium (Lovenox) 40 mg SC DAILY [facility]; Protocol Last Admin: 10/30/18 09:10 Dose: 40 mg Guaifenesin/Dextromethorphan (Robitussin Dm) 10 ml PO Q4H PRN PRN Reason: Cough Last Admin: 10/30/18 17:03 Dose: 10 ml Sodium Chloride (Sodium Chloride 0.9%) 1,000 mls @ 100 mls/hr IV .Q10H [facility] Last Admin: 10/31/18 04:06 Dose: 100 mls/hr Ibuprofen (Motrin Tab) 600 mg PO Q6H PRN PRN Reason: Pain, severe (8-10) Insulin Human Lispro (Humalog High) 0 units SC ACHS [facility]; Protocol Last Admin: 10/30/18 21:47 Dose: Not Given Lorazepam (Ativan) 1 mg IVP Q6H PRN; Protocol PRN Reason: Anxiety Last Admin: 10/30/18 21:44 Dose: 1 mg Pantoprazole Sodium (Protonix Ec Tab) 40 mg PO 0600 [facility] Last Admin: 10/31/18 05:37 Dose: 40 mg - Labs Labs: 10/30/18 07:30 10/30/18 07:30 PT 13.2 SECONDS (9.4-12.5) H 10/29/18 12:30 INR 1.14 10/29/18 12:30 APTT 25.0 Seconds (25.1-36.5) L 10/29/18 12:30
[2018-10-31] MEDS: guaiFENesin DM 200 mg-20 mg/10 ml UD PO PRN ×2 (07:11→10:27)
[2018-10-31 07:36] LABS: BASO # 0.07 K/mm3 (0.0-2.0); EOS # 0.4 (0.0-0.7); EOS % 5.8 % (1.5-5.0); GRAN # 4.92 (1.4-6.5); GRAN % 68.4 % (50.0-68.0); HEMOGLOBIN 13.7 g/dL (14.0-18.0); LYMPH # 1.4 (1.2-3.4); MEAN CELL VOLUME 81.6 fl (80.0-105.0); MEAN CORPUSCULAR HEMOGLOBIN 27.7 pg (25.0-35.0); MEAN CORPUSCULAR HGB CONC 33.9 g/dl (31.0-37.0); MEAN PLATELET VOLUME 10.2 fl (7.0-11.0); MONO # 0.4 (0.1-0.6); MONO % 5.8 % (1.0-6.0); RBC 4.95 10^6/uL (3.5-6.1); RED CELL DISTRIBUTION WIDTH 13.3 % (11.5-14.5); WHITE BLOOD COUNT 7.2 10^3/uL (4.5-11.0)
[2018-10-31 07:57] LABS: ALBUMIN 3.3 g/dL (3.0-4.8); ALT/SGPT 28 U/L (7-56); AST/SGOT 17 U/L (17-59); BLOOD UREA NITROGEN 13 mg/dL (7-21); CALCIUM 8.4 mg/dL (8.4-10.5); GFR NON-AFRICAN AMERICAN > 60
[2018-10-31] MEDS: Insulin Lispro (HUMAlog) HIGH Coverage SC SCH ×2 (08:31→12:28)
[2018-10-31] MEDS: Enoxaparin 40 mg Syringe SC SCH (10:27)
--- NOTE | 2018-10-31 12:26 | CP.PCM.DIS ---
<YatesYao L - Last Filed: 10/31/18 19:44> Provider - Provider Date of Admission: 10/29/18 13:23 Attending physician: Ale Monzon MD Primary care physician: Dr. Vickers Consults: 10/29/18 15:42 Cardiology Consult Routine Comment: Consulting Provider: Audie Olea Consulting Physician: Audie Olea Reason for Consult: Chest pain, DM and HLD, cocaine use Time Spent in preparation of Discharge (in minutes): 35 Diagnosis - Discharge Diagnosis (1) Chest pain Status: Resolved Hospital Course - Lab Results Lab Results: Most Recent Lab Values WBC 7.2 10^3/uL (4.5-11.0) D 10/31/18 07:00 RBC 4.95 10^6/uL (3.5-6.1) 10/31/18 07:00 Hgb 13.7 g/dL (14.0-18.0) L 10/31/18 07:00 Hct 40.4 % (42.0-52.0) L 10/31/18 07:00 MCV 81.6 fl (80.0-105.0) 10/31/18 07:00 MCH 27.7 pg (25.0-35.0) 10/31/18 07:00 MCHC 33.9 g/dl (31.0-37.0) 10/31/18 07:00 RDW 13.3 % (11.5-14.5) 10/31/18 07:00 Plt Count 212 10^3/uL (120.0-450.0) 10/31/18 07:00 MPV 10.2 fl (7.0-11.0) 10/31/18 07:00 Gran % 68.4 % (50.0-68.0) H 10/31/18 07:00 Lymph % (Auto) 19.0 % (22.0-35.0) L 10/31/18 07:00 Juab % (Auto) 5.8 % (1.0-6.0) 10/31/18 07:00 Eos % (Auto) 5.8 % (1.5-5.0) H 10/31/18 07:00 Baso % (Auto) 1.0 % (0.0-3.0) 10/31/18 07:00 Gran # 4.92 (1.4-6.5) 10/31/18 07:00 Lymph # (Auto) 1.4 (1.2-3.4) 10/31/18 07:00 Juab # (Auto) 0.4 (0.1-0.6) 10/31/18 07:00 Eos # (Auto) 0.4 (0.0-0.7) 10/31/18 07:00 Baso # (Auto) 0.07 K/mm3 (0.0-2.0) 10/31/18 07:00 PT 13.2 SECONDS (9.4-12.5) H 10/29/18 12:30 INR 1.14 10/29/18 12:30 APTT 25.0 Seconds (25.1-36.5) L 10/29/18 12:30 Sodium 136 mmol/L (132-148) 10/31/18 07:00 Potassium 4.1 mmol/L (3.6-5.0) 10/31/18 07:00 Chloride 107 mmol/L (98-107) 10/31/18 07:00 Carbon Dioxide 26 mmol/L (21-33) 10/31/18 07:00 Anion Gap 7 (10-20) L 10/31/18 07:00 BUN 13 mg/dL (7-21) 10/31/18 07:00 Creatinine 0.6 mg/dl (0.8-1.5) L 10/31/18 07:00 Est GFR ( Amer) > 60 10/31/18 07:00 Est GFR (Non-Af Amer) > 60 10/31/18 07:00 POC Glucose (mg/dL) 182 mg/dL (65-110) H 10/31/18 11:36 Random Glucose 253 mg/dL (70-110) H 10/31/18 07:00 Hemoglobin A1c 10.0 % (4.2-6.5) H 10/29/18 12:30 Calcium 8.4 mg/dL (8.4-10.5) 10/31/18 07:00 Phosphorus 2.7 mg/dL (2.5-4.5) 10/30/18 07:30 Magnesium 2.0 mg/dL (1.7-2.2) 10/30/18 07:30 Total Bilirubin 0.4 mg/dL (0.2-1.3) 10/31/18 07:00 AST 17 U/L (17-59) 10/31/18 07:00 ALT 28 U/L (7-56) 10/31/18 07:00 Alkaline Phosphatase 96 U/L (38-126) 10/31/18 07:00 Lactate Dehydrogenase 572 U/L (333-699) 10/29/18 12:30 Total Creatine Kinase 90 U/L (35-230) 10/29/18 12:30 Troponin I < 0.01 ng/mL 10/30/18 01:30 NT-Pro-B Natriuret Pep 81.1 pg/mL (0-450) 10/29/18 12:30 Total Protein 6.6 g/dL (5.8-8.3) 10/31/18 07:00 Albumin 3.3 g/dL (3.0-4.8) 10/31/18 07:00 Globulin 3.4 gm/dL 10/31/18 07:00 Albumin/Globulin Ratio 1.0 (1.1-1.8) L 10/31/18 07:00 Triglycerides 80 mg/dL (35-160) 10/30/18 07:30 Cholesterol 188 mg/dL (130-200) 10/30/18 07:30 LDL Cholesterol Direct 106 mg/dL (0-129) 10/30/18 07:30 HDL Cholesterol 45 mg/dL (29-60) 10/30/18 07:30 Urine Color Light yellow (YELLOW) 10/29/18 13:20 Urine Appearance Clear (CLEAR) 10/29/18 13:20 Urine pH 6.0 (4.7-8.0) 10/29/18 13:20 Ur Specific Tavares >= 1.030 (1.005-1.035) 10/29/18 13:20 Urine Protein 100 mg/dL (<30 mg/dL) H 10/29/18 13:20 Urine Glucose (UA) >=1000 mg/dL (NEGATIVE) 10/29/18 13:20 Urine Ketones 40 mg/dL (NEGATIVE) H 10/29/18 13:20 Urine Blood Negative (NEGATIVE) 10/29/18 13:20 Urine Nitrate Negative (NEGATIVE) 10/29/18 13:20 Urine Bilirubin Negative (NEGATIVE) 10/29/18 13:20 Urine Urobilinogen 0.2 E.U./dL (<1 E.U./dL) 10/29/18 13:20 Ur Leukocyte Esterase Negative Kwasi/uL (NEGATIVE) 10/29/18 13:20 Urine RBC 0 - 2 /hpf (0-2) 10/29/18 13:20 Urine WBC Negative /hpf (0-6) 10/29/18 13:20 Ur Epithelial Cells None /hpf (0-5) 10/29/18 13:20 Urine Opiates Screen Negative (NEGATIVE) 10/29/18 13:20 Urine Methadone Screen Negative (NEGATIVE) 10/29/18 13:20 Ur Barbiturates Screen Negative (NEGATIVE) 10/29/18 13:20 Ur Phencyclidine Scrn Negative (NEGATIVE) 10/29/18 13:20 Ur Amphetamines Screen Negative (NEGATIVE) 10/29/18 13:20 U Benzodiazepines Scrn Negative (NEGATIVE) 10/29/18 13:20 U Oth Cocaine Metabols Positive (NEGATIVE) H 10/29/18 13:20 U Cannabinoids Screen Negative (NEGATIVE) 10/29/18 13:20 Alcohol, Quantitative < 10 mg/dL (0-10) 10/29/18 12:30 - Hospital Course Hospital Course: On admission: Mr. Maier is a 48 male with PMHx of DM2, HLD, and MRSA cellulitis who presents with complaints of L sided substernal chest pain. Patient states it began one hour prior to arrival. Patient reports walking when the sensation of pulling began, and rated it as an 8/10. No radiation, and no associated nausea, diaphoresis or dizziness. Patient states nothing made it better or worse. Patient states that he has not eaten anything since morning, at which point he began to snort a large amount of cocaine. Patient states he has been cocaine-free for two years but recently has had family issues that have caused him to relapse. Patient states that he drove himself to the hospital after the pain had not self-resolved. Patient reports associated shortness of breath, which he attributes to his chronic bronchitis as it has not worsened. Patient is drowsy and a poor historian and is unable to elaborate on his story further. Upon evaluation, patient states chest pain has improved and has been associated with some blurry vision. Denies palpitations, headaches, diaphoresis, nausea, vomiting, fevers, chills, dysuria, abdominal pain, changes in bowel or urinary habits and leg pain. Denies sick contacts and recent long travel. During hospital stay: Patient had EKG which showed EKG NSR @91 bpm, no ST or T wave changes. No significant changes as compared to previous EKGs. Ativan 2 mg was given in ED. Patient was started on amlodipine 5 mg PO daily, aspirin 81 mg PO daily, lipitor 40 mg PO DIN, lovenox 40 mg SC daily. Troponins were negative x3. Cardiology was consulted. Leukocytosis was also present on labs which resolved the following day. UA was negative. CXR was unremarkable. Patient was counseled on cessation of substance abuse. Patient was advised to be evaluated with repeat chest x-ray and echocardiogram, however patient refused and requested to sign out against medical advice. Risks and benefits were discussed with patient. Patient expressed understanding and again requested to sign out against medical advice. Patient was advised to return to ED if symptoms return or worsen. - Date & Time of H&P Date of H&P: 10/29/18 Time of H&P: 15:39 Discharge Exam - Additional Findings Additional findings: - Head Exam Head Exam: ATRAUMATIC, NORMOCEPHALIC - Eye Exam Eye Exam: EOMI Pupil Exam: Mydriatic - ENT Exam ENT Exam: Mucous Membranes Dry - Neck Exam Neck exam: Positive for: Full Rom, Normal Inspection. Negative for: Meningismus - Respiratory Exam Respiratory Exam: Rales (bilateral lobes) - Cardiovascular Exam Cardiovascular Exam: RRR, +S1, +S2 - GI/Abdominal Exam GI & Abdominal Exam: Soft. absent: Distended, Firm, Guarding, Rebound, Tenderness - Extremities Exam Extremities exam: Positive for: pedal pulses present. Negative for: calf tenderness, pedal edema - Back Exam Back exam: absent: CVA tenderness (L), CVA tenderness (R) - Skin Skin Exam: Dry, Intact, Normal Color, Warm Discharge Plan - Follow Up Plan Condition: GUARDED Disposition: AGAINST MEDICAL ADVICE Patient education suggested?: Yes Instructions: Chest Pain (ED) Additional Instructions: Please follow up with your primary medical doctor within 1 week. Please also follow up with a director industrial nursing within 1 week. You have been given a referral to Dr. Olea. Resume your home medications as prescribed. Return to ED if symptoms return or worsen. Referrals: Audie Olea MD [Staff Provider] - <Ale Monzon - Last Filed: 11/01/18 08:32> Provider - Provider Date of Admission: 10/29/18 13:23 Attending physician: Ale Monzon MD Consults: 10/29/18 15:42 Cardiology Consult Routine Comment: Consulting Provider: Audie Olea Consulting Physician: Audie Olea Reason for Consult: Chest pain, DM and HLD, cocaine use Hospital Course - Lab Results Lab Results: Most Recent Lab Values WBC 7.2 10^3/uL (4.5-11.0) D 10/31/18 07:00 RBC 4.95 10^6/uL (3.5-6.1) 10/31/18 07:00 Hgb 13.7 g/dL (14.0-18.0) L 10/31/18 07:00 Hct 40.4 % (42.0-52.0) L 10/31/18 07:00 MCV 81.6 fl (80.0-105.0) 10/31/18 07:00 MCH 27.7 pg (25.0-35.0) 10/31/18 07:00 MCHC 33.9 g/dl (31.0-37.0) 10/31/18 07:00 RDW 13.3 % (11.5-14.5) 10/31/18 07:00 Plt Count 212 10^3/uL (120.0-450.0) 10/31/18 07:00 MPV 10.2 fl (7.0-11.0) 10/31/18 07:00 Gran % 68.4 % (50.0-68.0) H 10/31/18 07:00 Lymph % (Auto) 19.0 % (22.0-35.0) L 10/31/18 07:00 Juab % (Auto) 5.8 % (1.0-6.0) 10/31/18 07:00 Eos % (Auto) 5.8 % (1.5-5.0) H 10/31/18 07:00 Baso % (Auto) 1.0 % (0.0-3.0) 10/31/18 07:00 Gran # 4.92 (1.4-6.5) 10/31/18 07:00 Lymph # (Auto) 1.4 (1.2-3.4) 10/31/18 07:00 Juab # (Auto) 0.4 (0.1-0.6) 10/31/18 07:00 Eos # (Auto) 0.4 (0.0-0.7) 10/31/18 07:00 Baso # (Auto) 0.07 K/mm3 (0.0-2.0) 10/31/18 07:00 PT 13.2 SECONDS (9.4-12.5) H 10/29/18 12:30 INR 1.14 10/29/18 12:30 APTT 25.0 Seconds (25.1-36.5) L 10/29/18 12:30 Sodium 136 mmol/L (132-148) 10/31/18 07:00 Potassium 4.1 mmol/L (3.6-5.0) 10/31/18 07:00 Chloride 107 mmol/L (98-107) 10/31/18 07:00 Carbon Dioxide 26 mmol/L (21-33) 10/31/18 07:00 Anion Gap 7 (10-20) L 10/31/18 07:00 BUN 13 mg/dL (7-21) 10/31/18 07:00 Creatinine 0.6 mg/dl (0.8-1.5) L 10/31/18 07:00 Est GFR ( Amer) > 60 10/31/18 07:00 Est GFR (Non-Af Amer) > 60 10/31/18 07:00 POC Glucose (mg/dL) 182 mg/dL (65-110) H 10/31/18 11:36 Random Glucose 253 mg/dL (70-110) H 10/31/18 07:00 Hemoglobin A1c 10.0 % (4.2-6.5) H 10/29/18 12:30 Calcium 8.4 mg/dL (8.4-10.5) 10/31/18 07:00 Phosphorus 2.7 mg/dL (2.5-4.5) 10/30/18 07:30 Magnesium 2.0 mg/dL (1.7-2.2) 10/30/18 07:30 Total Bilirubin 0.4 mg/dL (0.2-1.3) 10/31/18 07:00 AST 17 U/L (17-59) 10/31/18 07:00 ALT 28 U/L (7-56) 10/31/18 07:00 Alkaline Phosphatase 96 U/L (38-126) 10/31/18 07:00 Lactate Dehydrogenase 572 U/L (333-699) 10/29/18 12:30 Total Creatine Kinase 90 U/L (35-230) 10/29/18 12:30 Troponin I < 0.01 ng/mL 10/30/18 01:30 NT-Pro-B Natriuret Pep 81.1 pg/mL (0-450) 10/29/18 12:30 Total Protein 6.6 g/dL (5.8-8.3) 10/31/18 07:00 Albumin 3.3 g/dL (3.0-4.8) 10/31/18 07:00 Globulin 3.4 gm/dL 10/31/18 07:00 Albumin/Globulin Ratio 1.0 (1.1-1.8) L 10/31/18 07:00 Triglycerides 80 mg/dL (35-160) 10/30/18 07:30 Cholesterol 188 mg/dL (130-200) 10/30/18 07:30 LDL Cholesterol Direct 106 mg/dL (0-129) 10/30/18 07:30 HDL Cholesterol 45 mg/dL (29-60) 10/30/18 07:30 Urine Color Light yellow (YELLOW) 10/29/18 13:20 Urine Appearance Clear (CLEAR) 10/29/18 13:20 Urine pH 6.0 (4.7-8.0) 10/29/18 13:20 Ur Specific Tavares >= 1.030 (1.005-1.035) 10/29/18 13:20 Urine Protein 100 mg/dL (<30 mg/dL) H 10/29/18 13:20 Urine Glucose (UA) >=1000 mg/dL (NEGATIVE) 10/29/18 13:20 Urine Ketones 40 mg/dL (NEGATIVE) H 10/29/18 13:20 Urine Blood Negative (NEGATIVE) 10/29/18 13:20 Urine Nitrate Negative (NEGATIVE) 10/29/18 13:20 Urine Bilirubin Negative (NEGATIVE) 10/29/18 13:20 Urine Urobilinogen 0.2 E.U./dL (<1 E.U./dL) 10/29/18 13:20 Ur Leukocyte Esterase Negative Kwasi/uL (NEGATIVE) 10/29/18 13:20 Urine RBC 0 - 2 /hpf (0-2) 10/29/18 13:20 Urine WBC Negative /hpf (0-6) 10/29/18 13:20 Ur Epithelial Cells None /hpf (0-5) 10/29/18 13:20 Urine Opiates Screen Negative (NEGATIVE) 10/29/18 13:20 Urine Methadone Screen Negative (NEGATIVE) 10/29/18 13:20 Ur Barbiturates Screen Negative (NEGATIVE) 10/29/18 13:20 Ur Phencyclidine Scrn Negative (NEGATIVE) 10/29/18 13:20 Ur Amphetamines Screen Negative (NEGATIVE) 10/29/18 13:20 U Benzodiazepines Scrn Negative (NEGATIVE) 10/29/18 13:20 U Oth Cocaine Metabols Positive (NEGATIVE) H 10/29/18 13:20 U Cannabinoids Screen Negative (NEGATIVE) 10/29/18 13:20 Alcohol, Quantitative < 10 mg/dL (0-10) 10/29/18 12:30 Attending/Attestation - Attestation I have personally seen and examined this patient.: Yes I have fully participated in the care of the patient.: Yes I have reviewed all pertinent clinical information, including history, physical exam and plan: Yes Notes (Text): 11/01/18 08:32 Medical record note made by the resident after discussion with my direction and input after the patient was personally seen and examined by me. I have reviewed the chart and agree that the record accurately reflects by personal performance of the history, physical exam, data review, and medical decision-making, in the course for the patient. I have also personally directed the plan of care.
[2018-10-31 13:07] VITALS: PULSE 68
--- NOTE | 2018-10-31 17:51 | PN ---
DATE: 10/31/2018 CARDIOLOGY FOLLOWUP SUBJECTIVE: The patient is signing out against medical advice. His troponins were all negative after a cocaine binge. I discussed with him about the need to stop and the patient is uninterested in hearing it. Audie Olea MD
== END 2018-10-31 14:35 | disposition left against medical advice (07) ==
LOC: ED 11:50 → ERH 13:23 → 2RSO 22:29
PROVIDERS: ADMIT Internal Medicine; ATTEND Internal Medicine
DX: R07.2 Precordial pain (principal); E11.65 Type 2 diabetes mellitus with hyperglycemia; J44.1 Chronic obstructive pulmonary disease with (acute) exacerbation; F14.10 Cocaine abuse, uncomplicated; F17.210 Nicotine dependence, cigarettes, uncomplicated; E78.5 Hyperlipidemia, unspecified; I10 Essential (primary) hypertension; Z91.19 Patient's noncompliance with other medical treatment and regimen
CPT/HCPCS: 36415; 71045; 80053; 80061; 80320; 80324; 80345; 80346; 80349; 80353; 80358; 80361; 81001; 82550; 82948; 83036; 83615; 83735; 83880; 83992; 84100; 84484; 85025; 85610; 85730; 93005; 96361; 96372; 96374; 99285; G0378; J1650; J2060; J7030

== ENCOUNTER 2018-11-06 13:11 | Emergency (ER) | payer MEDICAID ==
[2018-11-06 13:28] VITALS: BP 147/64; PULSE 88; RESP 18; TEMP 98.7; O2SAT 96; BMI 24.4
--- NOTE | 2018-11-06 13:54 | ED PDOC ---
Arrival/HPI - General Chief Complaint: Abnormal Skin Integrity Time Seen by Provider: 11/06/18 13:31 Historian: Patient - History of Present Illness Narrative History of Present Illness (Text): 11/06/18 13:50 48 year old male, whose past medical history includes diabetes, depression, multiple mersa infections, and drug abuse, who presents to the Emergency department complaining of rt calf pain. Patient notes pain as sharp and states area is itchy. Patient notes upon onset of pain, he began feeling fatigued and warm. Patient had an incision and drainage in the exact same area previously. Patient notes experiencing this pain before. Patient denies any chills, chest pain, shortness of breath, nausea, vomiting, diarrhea, back pain, neck pain, headache, dizziness, or any other complaints. Time/Duration: 4-6 hours Symptom Onset: Gradual Symptom Course: Unchanged Activities at Onset: Light Context: Home Past Medical History - Provider Review Nursing Documentation Reviewed: Yes - Infectious Disease Hx of Infectious Diseases: None - Tetanus Immunization Tetanus Immunization: Up to Date - Cardiac Other/Comment: dm2;hyperlipidemia;2016 mrsa rll - Pulmonary Hx Respiratory Disorders: No - Neurological Hx Neurological Disorder: No - HEENT Hx HEENT Disorder: No - Renal Hx Renal Disorder: No - Endocrine/Metabolic Hx Endocrine Disorders: Yes Hx Diabetes Mellitus Type 2: Yes (poorly controlled) - Hematological/Oncological Hx Blood Disorders: No - Integumentary Hx Dermatological Disorder: No - Musculoskeletal/Rheumatological Hx Falls: No - Gastrointestinal Hx Gastrointestinal Disorders: No - Genitourinary/Gynecological Hx Genitourinary Disorders: No - Psychiatric Hx Psychophysiologic Disorder: Yes Hx Anxiety: Yes Hx Depression: No Hx Emotional Abuse: No Hx Physical Abuse: No Hx Substance Use: Yes - Past Surgical History Past Surgical History: No Previous - Anesthesia Hx Anesthesia: No Hx Anesthesia Reactions: No Hx Malignant Hyperthermia: No - Suicidal Assessment Feels Threatened In Home Enviroment: No Family/Social History - Physician Review Nursing Documentation Reviewed: Yes Family/Social History: Unknown Family HX Smoking Status: Current Some Days Smoker Hx Alcohol Use: Yes Hx Substance Use: Yes Substance used: coccaine Hx Substance Use Treatment: Yes Allergies/Home Meds Allergies/Adverse Reactions: Allergies No Known Allergies Allergy (Verified 06/23/17 20:52) Review of Systems - Physician Review All systems were reviewed & negative as marked: Yes - Review of Systems Constitutional: Fatigue, Fevers Eyes: Normal ENT: Normal Respiratory: Normal. absent: SOB, Cough Cardiovascular: Normal. absent: Chest Pain Gastrointestinal: Normal. absent: Abdominal Pain, Nausea, Vomiting Genitourinary Male: Normal. absent: Dysuria, Frequency Musculoskeletal: Other (RLE calf pain). absent: Back Pain, Neck Pain Skin: Normal. absent: Rash Neurological: Normal. absent: Headache Endocrine: Normal Hemo/Lymphatic: Normal Psychiatric: Normal Physical Exam Vital Signs Reviewed: Yes Vital Signs Temp Pulse Resp BP Pulse Ox 11/06/18 13:28 98.7 F 88 18 147/64 96 Temperature: Afebrile Blood Pressure: Normal Pulse: Regular Respiratory Rate: Normal Appearance: Positive for: Well-Appearing, Non-Toxic, Comfortable Pain Distress: None Mental Status: Positive for: Alert and Oriented X 3 - Systems Exam Head: Present: Atraumatic, Normocephalic Pupils: Present: PERRL Extroacular Muscles: Present: EOMI Conjunctiva: Present: Normal Mouth: Present: Moist Mucous Membranes Neck: Present: Normal Range of Motion Respiratory/Chest: Present: Clear to Auscultation, Good Air Exchange. No: Respiratory Distress, Accessory Muscle Use Cardiovascular: Present: Regular Rate and Rhythm, Normal S1, S2. No: Murmurs Abdomen: No: Tenderness, Distention, Peritoneal Signs Back: Present: Normal Inspection Upper Extremity: Present: Normal Inspection. No: Cyanosis, Edema Lower Extremity: Present: Other (Small nodual, about 0.75cm, on proximal medial rt calf. tender to touch; surrounding induration; no fluctuance, errythema, or swellin gof the leg.). No: Edema Neurological: Present: GCS=15, CN II-XII Intact, Speech Normal Skin: Present: Warm, Dry, Normal Color. No: Rashes Psychiatric: Present: Alert, Oriented x 3, Normal Insight, Normal Concentration Medical Decision Making ED Course and Treatment: 11/06/18 13:55 Impression: 48 year old male presents to the Emergency department complaining of rt calf pain. Plan: -- Reassess and disposition Progress Notes: 11/06/18 14:04 Discussed with pt, that there's no need for drainage at this time. Pt will be started on abx. - Scribe Statement The provider has reviewed the documentation as recorded by the Scribe Chandrika Sanderlin All medical record entries made by the Shyanneibkaty were at my direction and personally dictated by me. I have reviewed the chart and agree that the record accurately reflects my personal performance of the history, physical exam, medical decision making, and the department course for this patient. I have also personally directed, reviewed, and agree with the discharge instructions and disposition. Disposition/Present on Arrival - Present on Arrival Any Indicators Present on Arrival: Yes History of DVT/PE: No History of Uncontrolled Diabetes: Yes Urinary Catheter: No History of Decub. Ulcer: No History Surgical Site Infection Following: None - Disposition Have Diagnosis and Disposition been Completed?: Yes Diagnosis: Abscess Disposition: HOME/ ROUTINE Disposition Time: 14:08 Patient Plan: Discharge Condition: GOOD Discharge Instructions (ExitCare): Skin Abscess Prescriptions: Sulfamethoxazole/Trimethoprim [Bactrim DS 800 mg-160 mg] 1 tab PO BID #20 tab Referrals: Niharika Vickers MD [Family Provider] - Follow up with primary Forms: [facility] (Bulgarian)
== END 2018-11-06 14:46 | disposition home or self-care (01) ==
LOC: ED 13:11
DX: L02.415 Cutaneous abscess of right lower limb (principal)

== ENCOUNTER 2018-11-08 09:19 | Emergency (ER) | payer MEDICAID ==
[2018-11-08 09:19] VITALS: BMI 24.4
[2018-11-08] MEDS ORDERED: Albuterol-Ipratrop 3 mg / 0.5 (3 ml) UD IH STA (09:45)
--- NOTE | 2018-11-08 09:48 | ED PDOC ---
Arrival/HPI - General Chief Complaint: Cough, Cold, Congestion Time Seen by Provider: 11/08/18 09:36 - History of Present Illness Narrative History of Present Illness (Text): 11/08/18 09:47 A 48 year old male, a lifelong smoker, whose past medical history includes substance abuse and diabetes, presents to the emergency department complaining of cough for the past 3 weeks. Patient reports cough is dry. Patient states he saw his primary care doctor where he was given anitbiotics and was diagnosed with bronchitis. Patient also reports he was seen in the ER 2 days ago for a different complaint of a right leg abscess which was improved from bactrim. Dorian salas denies any fever, chills, shortness of breath, chest pain, diarrhea, nausea, vomiting, urinary symptoms, back pain, neck pain, headache, dizziness, or any other complaints. PMD: Dr. Vickers Time/Duration: > week (3 weeks), Other Symptom Onset: Gradual Symptom Course: Unchanged Activities at Onset: Light Context: Home Past Medical History - Provider Review Nursing Documentation Reviewed: Yes - Infectious Disease Hx of Infectious Diseases: None - Tetanus Immunization Tetanus Immunization: Up to Date - Cardiac Other/Comment: dm2;hyperlipidemia;2016 mrsa rll - Pulmonary Hx Respiratory Disorders: No - Neurological Hx Neurological Disorder: No - HEENT Hx HEENT Disorder: No - Renal Hx Renal Disorder: No - Endocrine/Metabolic Hx Endocrine Disorders: Yes Hx Diabetes Mellitus Type 2: Yes (poorly controlled) - Hematological/Oncological Hx Blood Disorders: No - Integumentary Hx Dermatological Disorder: No - Musculoskeletal/Rheumatological Hx Falls: No - Gastrointestinal Hx Gastrointestinal Disorders: No - Genitourinary/Gynecological Hx Genitourinary Disorders: No - Psychiatric Hx Psychophysiologic Disorder: Yes Hx Anxiety: Yes Hx Substance Use: Yes - Past Surgical History Past Surgical History: No Previous - Anesthesia Hx Anesthesia: No Hx Anesthesia Reactions: No Hx Malignant Hyperthermia: No - Suicidal Assessment Feels Threatened In Home Enviroment: No Family/Social History - Physician Review Nursing Documentation Reviewed: Yes Family/Social History: No Known Family HX Smoking Status: Current Some Days Smoker Hx Alcohol Use: Yes Hx Substance Use: Yes Substance used: coccaine Hx Substance Use Treatment: Yes Allergies/Home Meds Allergies/Adverse Reactions: Allergies No Known Allergies Allergy (Verified 06/23/17 20:52) Review of Systems - Physician Review All systems were reviewed & negative as marked: Yes - Review of Systems Constitutional: absent: Fevers, Night Sweats Respiratory: Cough. absent: SOB Cardiovascular: absent: Chest Pain Gastrointestinal: absent: Diarrhea, Nausea, Vomiting Genitourinary Male: absent: Urinary Output Changes Musculoskeletal: absent: Back Pain, Neck Pain Neurological: absent: Headache, Dizziness Physical Exam Vital Signs Reviewed: Yes Vital Signs Temp Pulse Resp BP Pulse Ox 11/08/18 09:19 97.5 F L 71 20 159/84 H 95 Temperature: Hypothermic Blood Pressure: Hypertensive Pulse: Regular Respiratory Rate: Normal Appearance: Positive for: Well-Appearing Pain Distress: None Mental Status: Positive for: Alert and Oriented X 3, other (speaking full sentences) - Systems Exam Head: Present: Atraumatic, Normocephalic Pupils: Present: PERRL Extroacular Muscles: Present: EOMI Conjunctiva: Present: Normal Mouth: Present: Moist Mucous Membranes Neck: Present: Normal Range of Motion Respiratory/Chest: Present: Wheezes (scattered wheezing) Cardiovascular: Present: Regular Rate and Rhythm, Normal S1, S2. No: Murmurs Abdomen: No: Tenderness, Distention, Peritoneal Signs Back: Present: Normal Inspection Upper Extremity: Present: Normal Inspection. No: Cyanosis, Edema Lower Extremity: Present: Normal Inspection. No: Edema Neurological: Present: GCS=15, CN II-XII Intact, Speech Normal Skin: Present: Warm, Dry, Normal Color. No: Rashes Psychiatric: Present: Alert, Oriented x 3, Normal Insight, Normal Concentration Medical Decision Making ED Course and Treatment: 11/08/18 09:48 Impression: 48 year old male presenting to the emergency department for cough. Plan: -- Chest X-ray -- Duoneb -- Prednisone -- Influenza A B -- Reassess and disposition Prior Visits: Notes and results from previous visits were reviewed. Progress Notes: 11/08/18 10:11 Chest X-ray results show no acute disease, read by me. 11/08/18 10:37 Upon reassessment, patient's wheezing has improved with no acute distress, watching tv. Patient is stable for discharge. 11/08/18 12:20 xr neg suspect viral bronchitis. speaking full sentneces lungs cta. in nad. advised pt will need cont outpt fu. 11/08/18 12:20 return precatuions adivised pt states will return with any worsening. - RAD Interpretation Radiology Orders: 11/08/18 09:45 CHEST TWO VIEWS (PA/LAT) [RAD] Stat - Medication Orders Current Medication Orders: Discontinued Medications Albuterol/Ipratropium (Duoneb 3 Mg/0.5 Mg (3 Ml) Ud) 3 ml IH STAT STA Stop: 11/08/18 09:46 Prednisone (Prednisone Tab) 50 mg PO STAT STA Stop: 11/08/18 09:46 - Scribe Statement The provider has reviewed the documentation as recorded by the Emigdio Herron All medical record entries made by the Shyanneibkaty were at my direction and personally dictated by me. I have reviewed the chart and agree that the record accurately reflects my personal performance of the history, physical exam, medical decision making, and the department course for this patient. I have also personally directed, reviewed, and agree with the discharge instructions and disposition. Disposition/Present on Arrival - Present on Arrival Any Indicators Present on Arrival: No History of DVT/PE: No History of Uncontrolled Diabetes: Yes Urinary Catheter: No History of Decub. Ulcer: No History Surgical Site Infection Following: None - Disposition Have Diagnosis and Disposition been Completed?: Yes Diagnosis: Cough Disposition: HOME/ ROUTINE Disposition Time: 11:00 Condition: STABLE Discharge Instructions (ExitCare): Cough in Adults, Acute Bronchitis, Adult (DC) Additional Instructions: follow up with your doctor/clinic. retur nto er with worsening symptosm or concerns. you will need further workup and testing as an outpatient. Prescriptions: RX: Albuterol HFA [Ventolin HFA 90 mcg/actuation (8 g)] 1 puff IH Q6 PRN #1 inhaler PRN Reason: Wheezing RX: Prednisone 50 mg PO DAILY #5 tablet Forms: Ziliko (Emirati)
--- NOTE | 2018-11-08 10:21 | RAD ---
Date of service: 11/08/2018 HISTORY: Cough. COMPARISON: 10/29/2018 TECHNIQUE: Chest PA and lateral FINDINGS: LUNGS: No active pulmonary disease. PLEURA: No significant pleural effusion identified. No pneumothorax apparent. CARDIOVASCULAR: No aortic atherosclerotic calcification present. Normal cardiac size. No pulmonary vascular congestion. OSSEOUS STRUCTURES: No significant abnormalities. VISUALIZED UPPER ABDOMEN: Normal. OTHER FINDINGS: None. IMPRESSION: No active disease. No significant interval change compared to the prior examination(s).
[2018-11-08 10:53] VITALS: BP 130/72; PULSE 85; RESP 19; TEMP 98.9; O2SAT 98
== END 2018-11-08 10:51 | disposition home or self-care (01) ==
LOC: ED 09:19
DX: R05 Cough (principal); E11.9 Type 2 diabetes mellitus without complications; E78.5 Hyperlipidemia, unspecified

== ENCOUNTER 2018-12-21 23:46 | Emergency (ER) | payer MEDICAID ==
[2018-12-21 23:47] VITALS: BMI 24.4
--- NOTE | 2018-12-22 00:30 | ED PDOC ---
Arrival/HPI - General Chief Complaint: Chest Pain Time Seen by Provider: 12/21/18 23:49 Historian: Patient - History of Present Illness Narrative History of Present Illness (Text): 12/22/18 23:49 Bunny Maier is a 48 year old male,whose past medical history includes substance abuse, diabetes, and hyperlipidemia, who presents to the emergency department complaining of chest pain. Patient reports he has been experiencing mid-sternal chest tightness today. Patient admits to snorting cocaine today. Patient denies fevers, chills, headache, dizziness, shortness of breath, dyspnea on exertion, cough, abdominal pain, nausea, vomiting, diarrhea, or any other complaint. Symptom Onset: Gradual Quality: Tightness Activities at Onset: Light Context: Home Past Medical History - Provider Review Nursing Documentation Reviewed: Yes - Infectious Disease Hx of Infectious Diseases: None - Tetanus Immunization Tetanus Immunization: Up to Date - Cardiac Other/Comment: dm2;hyperlipidemia;2016 mrsa rll - Pulmonary Hx Respiratory Disorders: No - Neurological Hx Neurological Disorder: No - HEENT Hx HEENT Disorder: No - Renal Hx Renal Disorder: No - Endocrine/Metabolic Hx Endocrine Disorders: Yes Hx Diabetes Mellitus Type 2: Yes (poorly controlled) - Hematological/Oncological Hx Blood Disorders: No - Integumentary Hx Dermatological Disorder: No - Musculoskeletal/Rheumatological Hx Falls: No - Gastrointestinal Hx Gastrointestinal Disorders: No - Genitourinary/Gynecological Hx Genitourinary Disorders: No - Psychiatric Hx Psychophysiologic Disorder: Yes Hx Anxiety: Yes Hx Substance Use: Yes - Past Surgical History Past Surgical History: No Previous - Anesthesia Hx Anesthesia: No Hx Anesthesia Reactions: No Hx Malignant Hyperthermia: No - Suicidal Assessment Feels Threatened In Home Enviroment: No Family/Social History - Physician Review Nursing Documentation Reviewed: Yes Family/Social History: No Known Family HX Smoking Status: Current Some Days Smoker Hx Alcohol Use: Yes Hx Substance Use: Yes Substance used: coccaine Hx Substance Use Treatment: Yes Allergies/Home Meds Allergies/Adverse Reactions: Allergies No Known Allergies Allergy (Verified 06/23/17 20:52) Review of Systems - Physician Review All systems were reviewed & negative as marked: Yes - Review of Systems Constitutional: absent: Fevers, Night Sweats Respiratory: absent: SOB, Cough Cardiovascular: Chest Pain (described as "pulling" ) Gastrointestinal: absent: Abdominal Pain, Diarrhea, Nausea, Vomiting Neurological: absent: Headache, Dizziness Physical Exam Vital Signs Reviewed: Yes Vital Signs Pulse Resp BP Pulse Ox 12/21/18 23:58 95 H 18 142/83 99 Temperature: Afebrile Blood Pressure: Normal Pulse: Tachycardic Respiratory Rate: Normal Appearance: Positive for: Well-Appearing, Non-Toxic, Comfortable Pain Distress: None Mental Status: Positive for: Alert and Oriented X 3 - Systems Exam Head: Present: Atraumatic, Normocephalic Pupils: Present: PERRL Extroacular Muscles: Present: EOMI Conjunctiva: Present: Normal Mouth: Present: Moist Mucous Membranes Neck: Present: Normal Range of Motion Respiratory/Chest: Present: Clear to Auscultation, Good Air Exchange. No: Respiratory Distress, Accessory Muscle Use Cardiovascular: Present: Regular Rate and Rhythm, Normal S1, S2. No: Murmurs Abdomen: No: Tenderness, Distention, Peritoneal Signs Back: Present: Normal Inspection Upper Extremity: Present: Normal Inspection. No: Cyanosis, Edema Lower Extremity: Present: Normal Inspection. No: Edema Neurological: Present: GCS=15, CN II-XII Intact, Speech Normal Skin: Present: Warm, Dry, Normal Color. No: Rashes Psychiatric: Present: Alert, Oriented x 3, Normal Insight, Normal Concentration Medical Decision Making ED Course and Treatment: 12/21/18 23:34 Impression: Patient is a 48 year old male, with history of substance abuse, who presents to the emergency department with complaints of chest pain. Plan: -- EKG -- Labs -- Chest X-Ray -- Aspirin -- Reassess and disposition Prior Visits: Notes and results from previous visits were reviewed. Progress Notes: 12/22/18 00:17 Reviewed EKG, shows: Rate : 83 BPM Rhythm : NSR Interpretation : Septal infarct. Nonspecific ST / T changes. 12/22/18 02:00 Reviewed Chest X-Ray, shows: No acute processes 12/22/18 03:29 Spoke to medical secretary teacher and Dr. Jacobo, aware and agree with plan. Accept pt in to hospitalist service. - RAD Interpretation Radiology Orders: 12/21/18 23:59 CHEST PORTABLE [RAD] Stat Teacher Of The Visually Impaired: ED Physician - EKG Interpretation Interpreted by ED Physician: Yes Type: 12 lead EKG - Medication Orders Current Medication Orders: Discontinued Medications Aspirin (Aspirin) 325 mg PO ONCE STA Stop: 12/22/18 00:00 Last Admin: 12/22/18 00:18 Dose: 325 mg - Scribe Statement The provider has reviewed the documentation as recorded by the Emigdio parisi with Nichole All medical record entries made by the Emigdio were at my direction and personally dictated by me. I have reviewed the chart and agree that the record accurately reflects my personal performance of the history, physical exam, medical decision making, and the department course for this patient. I have also personally directed, reviewed, and agree with the discharge instructions and disposition. Disposition/Present on Arrival - Present on Arrival Any Indicators Present on Arrival: No History of DVT/PE: No History of Uncontrolled Diabetes: Yes Urinary Catheter: No History of Decub. Ulcer: No History Surgical Site Infection Following: None - Disposition Have Diagnosis and Disposition been Completed?: Yes Diagnosis: Chest pain Disposition: HOSPITALIZED Disposition Time: 03:30 Patient Problems: Current Active Problems Problem Status Onset Chest pain Acute Condition: STABLE
[2018-12-22 00:35] LABS: MEAN CELL VOLUME 82.7 fl (80.0-105.0); MEAN CORPUSCULAR HEMOGLOBIN 28.9 pg (25.0-35.0); MEAN PLATELET VOLUME 9.8 fl (7.0-11.0); RBC 5.19 10^6/uL (3.5-6.1); RED CELL DISTRIBUTION WIDTH 13.1 % (11.5-14.5); WHITE BLOOD COUNT 16.2 10^3/uL (4.5-11.0)
[2018-12-22 00:39] LABS: INR 1.16; PARTIAL THROMBOPLASTIN TIME 31.2 Seconds (26.9-38.3); PROTHROMBIN TIME 12.9 SECONDS (9.4-12.5)
[2018-12-22 00:43] LABS: ALB/GLOB RATIO 1.3 (1.1-1.8); ALBUMIN 4.7 g/dL (3.0-4.8); ALT/SGPT 15 U/L (7-56); AST/SGOT 22 U/L (17-59); BLOOD UREA NITROGEN 16 mg/dL (7-21); CALCIUM 9.7 mg/dL (8.4-10.5); GFR NON-AFRICAN AMERICAN > 60
[2018-12-22 00:55] LABS: TROPONIN I < 0.01 ng/mL
--- NOTE | 2018-12-22 04:14 | CP.PCM.HP ---
History of Present Illness - History of Present Illness History of Present Illness: History and Physical for Hospitalist Service, Dr. Bob Shepherd, PGY-1 This is a 48 y o male with PMhx tobacco abuse, cocaine abuse, DM2, HLD, who presents with chest pain that started at around 7 pm last night. Pt admits to smoking cocaine several times today, states he smoked his usual dose, states he has been clean for the past several weeks and only started using cocaine yesterday. States he is trying to get treatment for his substance abuse. Describes chest pain as sharp and stabbing in quality at time of onset, localizes pain to L side of chest with associated radiation to shoulder. States the chest pain is improved now in the ED, only c/o some achiness present in his L upper chest and L shoulder. Denies fever, chills, shortness of breath, n/v/d/c, abd pain, urinary complaints, leg edema, numbness/tingling in extremities or other symptoms. PMhx: tobacco abuse, cocaine abuse, DM2, HLD PSurgHx: appendectomy Allergies: NKDA Home meds: Trudjenta 20 units at bedtime, Metformin 1000 mg PO bid Fam hx: Father passed from NH at age 58 Soc hx: Current 1 ppd smoker, denies EtOH use; admits to cocaine use as noted in HPI; denies other illicit drug use PMD: Dr. Vickers [facility]: [facility] in [place] on [address] [place] [id number] Present on Admission - Present on Admission Any Indicators Present on Admission: No History of DVT/PE: No History of Uncontrolled Diabetes: Yes Urinary Catheter: No Decubitus Ulcer Present: No Review of Systems - Constitutional Constitutional: absent: Anorexia, Chills, Fatigue, Fever - Cardiovascular Cardiovascular: Chest Pain. absent: Dyspnea on Exertion, Edema, Palpitations, Syncope - Respiratory Respiratory: absent: Cough, Dyspnea, Dyspnea on Exertion, Wheezing, Pain on Inspiration, Chest Congestion - Gastrointestinal Gastrointestinal: absent: Abdominal Pain, Change in Bowel Habits, Constipation, Diarrhea, Nausea, Vomiting - Musculoskeletal Musculoskeletal: absent: Abnormal Gait, Back Pain, Muscle Weakness, Myalgias Past Patient History - Infectious Disease Hx of Infectious Diseases: None - Tetanus Immunizations Tetanus Immunization: Up to Date - Past Social History Smoking Status: Current Some Days Smoker - CARDIAC Other/Comment: dm2;hyperlipidemia;2016 mrsa rll - PULMONARY Hx Respiratory Disorders: No - NEUROLOGICAL Hx Neurological Disorder: No - HEENT Hx HEENT Problems: No - RENAL Hx Chronic Kidney Disease: No - ENDOCRINE/METABOLIC Hx Endocrine Disorders: Yes Hx Diabetes Mellitus Type 2: Yes (poorly controlled) - HEMATOLOGICAL/ONCOLOGICAL Hx Blood Disorders: No - INTEGUMENTARY Hx Dermatological Problems: No - MUSCULOSKELETAL/RHEUMATOLOGICAL Hx Falls: No - GASTROINTESTINAL Hx Gastrointestinal Disorders: No - GENITOURINARY/GYNECOLOGICAL Hx Genitourinary Disorders: No - PSYCHIATRIC Hx Psychophysiologic Disorder: Yes Hx Anxiety: Yes Hx Substance Use: Yes - SURGICAL HISTORY Hx Surgeries: No - ANESTHESIA Hx Anesthesia: No Hx Anesthesia Reactions: No Hx Malignant Hyperthermia: No Meds Allergies/Adverse Reactions: Allergies Allergy/AdvReac Type Severity Reaction Status Date / Time No Known Allergies Allergy Verified 06/23/17 20:52 Physical Exam - Constitutional Appears: Non-toxic, No Acute Distress - Head Exam Head Exam: ATRAUMATIC, NORMOCEPHALIC - Eye Exam Eye Exam: EOMI, Normal appearance, PERRL - ENT Exam ENT Exam: Mucous Membranes Moist - Respiratory Exam Respiratory Exam: Clear to Auscultation Bilateral, NORMAL BREATHING PATTERN. absent: Rales, Rhonchi, Wheezes - Cardiovascular Exam Cardiovascular Exam: REGULAR RHYTHM, +S1, +S2. absent: Gallop, Rubs, Systolic Murmur - GI/Abdominal Exam GI & Abdominal Exam: Normal Bowel Sounds, Soft. absent: Distended, Guarding, Organomegaly, Rigid, Tenderness - Extremities Exam Extremities exam: Positive for: full ROM, normal capillary refill, normal inspection, pedal pulses present. Negative for: calf tenderness, pedal edema - Back Exam Back exam: FULL ROM, NORMAL INSPECTION. absent: muscle spasm, paraspinal tenderness - Neurological Exam Neurological exam: Alert, CN II-XII Intact, Oriented x3, Reflexes Normal - Skin Skin Exam: Dry, Intact, Normal Color, Warm Results - Vital Signs Recent Vital Signs: Last Vital Signs Temp 97.6 F 12/22/18 02:53 Pulse 68 12/22/18 02:53 Resp 18 12/22/18 02:53 BP 121/64 12/22/18 02:53 Pulse Ox 97 12/22/18 02:53 - Labs Result Diagrams: 12/22/18 00:15 12/22/18 00:15 Labs: Laboratory Results - last 24 hr 12/22/18 12/22/18 12/22/18 00:15 00:15 00:15 WBC 16.2 H D RBC 5.19 Hgb 15.0 Hct 42.9 MCV 82.7 MCH 28.9 MCHC 35.0 RDW 13.1 Plt Count 220 MPV 9.8 PT 12.9 H INR 1.16 APTT 31.2 Sodium 138 Potassium 3.8 Chloride 103 Carbon Dioxide 28 Anion Gap 11 BUN 16 Creatinine 0.7 L Est GFR ( Amer) > 60 Est GFR (Non-Af Amer) > 60 Random Glucose 85 Calcium 9.7 Total Bilirubin 0.7 AST 22 ALT 15 Alkaline Phosphatase 93 Lactate Dehydrogenase 442 Total Creatine Kinase 94 Troponin I < 0.01 Total Protein 8.3 Albumin 4.7 Globulin 3.6 Albumin/Globulin Ratio 1.3 Assessment & Plan - Assessment and Plan (Free Text) Assessment: This is a 48 y o male with PMhx tobacco abuse, cocaine abuse, DM2, HLD, who presents with chest pain that started at around 7 pm last night. R/o ACS, likely 2/2 to cocaine abuse. Plan: Chest pain -R/o ACS as etiology; likely 2/2 to cocaine abuse -Admit to tele -VS as per protocol -EKG on admission NSR at [address], [address]-T wave changes appreciated -Repeat EKG pending for 11:00 am -Trop neg x1 on admission, repeat trops x2 pending -Cardiology consulted (Dr. Greenberg), recs appreciated -Start ASA daily; s/p ASA 325 mg x1 in ED -Nitro paste q6h prn for chest pain Leukocytosis -WBC 16.5 on admission -May be reactive 2/2 chest pain, cocaine ingestion -Per prior record review, pt has had hx of leukocytosis in past -Cont to trend, not likely infectious etiology at this time -Procal ordered Hx HLD -Restart Lipitor 40 mg daily (was on this regimen in prior admission in Oct 2018) -Lipid panel wnl from Oct 2018, no repeat lipid panel indicated at this time Hx DM2 -Hold home Metformin -Levemir 20 U HS -ISS: med -Fingersticks achs -Hypoglycemic protocol -HHD -Repeat A1c pending; last A1c was 10 in Oct 2018 Hx cocaine abuse/tobacco abuse -Cessation counseling provided to pt -Social work consult for resources for treatment of cocaine abuse -Nicotine patch provided DVT ppx: SCD GI ppx: not indicated at this time Pt seen, examined with, and plan discussed with Dr. Bob Jacobo, attending physician. Bobby Shepherd DO PGY-1, Closing Machine Operator Pager #[phone]
[2018-12-22] MEDS ORDERED: Dextrose 50% SYRINGE Inj (50 ml) IV PRN (04:35)
[2018-12-22] MEDS ORDERED: Nitroglycerin 2% Ointment Foilpak UD TOP PRN (04:48)
[2018-12-22] MEDS: Insulin Lispro (humaLOG) MEDIUM Coverage SC SCH ×2 (07:53→12:31)
--- NOTE | 2018-12-22 09:10 | RAD ---
Date of service: 12/22/2018 HISTORY: Chest pain COMPARISON: 11/08/2018. FINDINGS: LUNGS: The lungs are well inflated and clear. PLEURA: No pleural effusions or pneumothorax. CARDIOVASCULAR: The heart is normal in size. No aortic atherosclerotic calcifications present. OSSEOUS STRUCTURES: Within normal limits for the patient's age. VISUALIZED UPPER ABDOMEN: Normal. OTHER FINDINGS: None. IMPRESSION: No active pulmonary disease.
[2018-12-22] MEDS ORDERED: Insulin Lispro 1 UNITS/0.01 ML ONE (12:32)
--- NOTE | 2018-12-22 13:47 | CON ---
DATE: 12/22/2018 REQUESTING PHYSICIAN: Dr. Monzon. REASON FOR CONSULTATION: Chest pain. HISTORY: This is a 48-year-old man known to us from prior admissions with a history of substance abuse, admitted with complaints of chest discomfort. He states that he has had longstanding history of cocaine abuse and has been admitted in the past for chest pain. He had been reportedly clean for the past several months and was scheduled to be admitted to an inpatient substance abuse program tomorrow, but after an argument with his , he used cocaine yesterday, he had retrosternal chest pain, and presents to the emergency room for evaluation. An electrocardiogram showed no acute changes, and his cardiac enzymes have been negative. PAST MEDICAL HISTORY: His past history is known for the problems mentioned above. He does have a history of diabetes, tobacco abuse, and a family history of premature heart disease. Past history is notable also for hyperlipidemia and prior appendectomy. MEDICATIONS AT HOME: Include metformin and Tradjenta. ALLERGIES: NONE. SOCIAL HISTORY: He is a smoker for a pack per day. He uses cocaine intermittently. He denies alcohol use. FAMILY HISTORY: Father at the age of 58 from myocardial infarction. REVIEW OF SYSTEMS: Ten-point review of systems is otherwise unremarkable. PHYSICAL EXAMINATION: GENERAL: He is an anxious-appearing middle-aged man. VITAL SIGNS: Blood pressure is 116/60 with a pulse of 60, sinus; respirations are 16. He is afebrile. HEENT: Normocephalic, atraumatic. NECK: Supple. No JVD noted. CHEST: Few scattered rhonchi heard. HEART: PMI displaced laterally with no pathological gallops heard. ABDOMEN: Soft, nontender with normoactive bowel sounds. EXTREMITIES: No edema. SKIN: Warm and dry. PSYCHIATRIC: Mild anxious anxiety with otherwise normal mood and affect. NEUROLOGICAL: Alert and oriented x3. No gross motor or sensory deficits appreciable. DIAGNOSTIC DATA: Two sets of cardiac enzymes are negative. Potassium of 3.8. BUN and creatinine are 16 and 0.7. White count is 16.2, hemoglobin and hematocrit are 15 and 42.9, with a platelet count of 220,000. Glucose is 134. Electrocardiogram reveals sinus rhythm with no significant ST-T changes. Chest x-ray reveals normal cardiac silhouette with clear lung schroeder. IMPRESSION: 1. Chest pain, possibly related to a recent cocaine ingestion, and no evidence of acute cardiac ischemia. 2. History of substance abuse. 3. Multiple cardiac risk factors given his hyperlipidemia, diabetes, family history of premature heart disease, and tobacco abuse. RECOMMENDATIONS: Observation and checking a third set of cardiac enzymes would be reasonable. He has plans for an inpatient admission beginning tomorrow at a facility in [facility]. He was strongly encouraged to follow through with this. The need for aggressive risk factor control was discussed with him as well as the need for complete abstinence from cocaine use and has potential risk of inducing myocardial infarction. Thank you for this consultation. We would be happy to see as needed. Dale Arias MD MTDD
[2018-12-22 16:15] VITALS: BP 102/62; PULSE 70; RESP 20
--- NOTE | 2018-12-22 16:18 | CP.PCM.DIS ---
Provider - Provider Date of Admission: 12/22/18 03:33 Attending physician: Ale Monzon MD Primary care physician: Niharika Vickers MD Consults: 12/22/18 04:32 Cardiology Consult Routine Comment: Consulting Provider: Pillo Greenberg Consulting Physician: Pillo Greenberg Reason for Consult: chest pain, hx cocaine abuse Time Spent in preparation of Discharge (in minutes): 45 Diagnosis - Discharge Diagnosis (1) Chest pain Status: Acute (2) Cocaine abuse Status: Acute Hospital Course - Lab Results Lab Results: Most Recent Lab Values WBC 16.2 10^3/uL (4.5-11.0) H D 12/22/18 00:15 RBC 5.19 10^6/uL (3.5-6.1) 12/22/18 00:15 Hgb 15.0 g/dL (14.0-18.0) 12/22/18 00:15 Hct 42.9 % (42.0-52.0) 12/22/18 00:15 MCV 82.7 fl (80.0-105.0) 12/22/18 00:15 MCH 28.9 pg (25.0-35.0) 12/22/18 00:15 MCHC 35.0 g/dl (31.0-37.0) 12/22/18 00:15 RDW 13.1 % (11.5-14.5) 12/22/18 00:15 Plt Count 220 10^3/uL (120.0-450.0) 12/22/18 00:15 MPV 9.8 fl (7.0-11.0) 12/22/18 00:15 PT 12.9 SECONDS (9.4-12.5) H 12/22/18 00:15 INR 1.16 12/22/18 00:15 APTT 31.2 Seconds (26.9-38.3) 12/22/18 00:15 Sodium 138 mmol/L (132-148) 12/22/18 00:15 Potassium 3.8 mmol/L (3.6-5.0) 12/22/18 00:15 Chloride 103 mmol/L (98-107) 12/22/18 00:15 Carbon Dioxide 28 mmol/L (21-33) 12/22/18 00:15 Anion Gap 11 (10-20) 12/22/18 00:15 BUN 16 mg/dL (7-21) 12/22/18 00:15 Creatinine 0.7 mg/dl (0.8-1.5) L 12/22/18 00:15 Est GFR ( Amer) > 60 12/22/18 00:15 Est GFR (Non-Af Amer) > 60 12/22/18 00:15 POC Glucose (mg/dL) 163 mg/dL (65-110) H 12/22/18 11:37 Random Glucose 85 mg/dL (70-110) 12/22/18 00:15 Hemoglobin A1c 11.0 % (4.2-6.5) H 12/22/18 00:15 Calcium 9.7 mg/dL (8.4-10.5) 12/22/18 00:15 Total Bilirubin 0.7 mg/dL (0.2-1.3) 12/22/18 00:15 AST 22 U/L (17-59) 12/22/18 00:15 ALT 15 U/L (7-56) 12/22/18 00:15 Alkaline Phosphatase 93 U/L (38-126) 12/22/18 00:15 Lactate Dehydrogenase 442 U/L (333-699) 12/22/18 00:15 Total Creatine Kinase 94 U/L (35-230) 12/22/18 00:15 Troponin I < 0.01 ng/mL 12/22/18 11:50 Total Protein 8.3 g/dL (5.8-8.3) 12/22/18 00:15 Albumin 4.7 g/dL (3.0-4.8) 12/22/18 00:15 Globulin 3.6 gm/dL 12/22/18 00:15 Albumin/Globulin Ratio 1.3 (1.1-1.8) 12/22/18 00:15 Procalcitonin < 0.05 NG/ML (0.19-0.49) L 12/22/18 05:04 - Hospital Course Hospital Course: Upon Admission: This is a 48 y o male with PMhx tobacco abuse, cocaine abuse, DM2, HLD, who presents with chest pain that started at around 7 pm last night. Pt admits to smoking cocaine several times today, states he smoked his usual dose, states he has been clean for the past several weeks and only started using cocaine yesterday. States he is trying to get treatment for his substance abuse. Describes chest pain as sharp and stabbing in quality at time of onset, localizes pain to L side of chest with associated radiation to shoulder. States the chest pain is improved now in the ED, only c/o some achiness present in his L upper chest and L shoulder. Denies fever, chills, shortness of breath, n/v/d/c, abd pain, urinary complaints, leg edema, numbness/tingling in extremities or other symptoms. Hospital Course: Pt was being admitted and worked up for chest pain r/o ACS. Pts trops were trended, and noted to be (-) x 3. Pts EKG also showed: NSR @ 83, with septal infarct of undetermined age. Pts CXR showed: No acute disease. Cardiology was consulted and stated that the pt could go home, pending negative trops x 3. Cardiology cleared the pt for d/c. Discharge Exam - Head Exam Head Exam: ATRAUMATIC, NORMOCEPHALIC Discharge Plan - Discharge Medications Prescriptions: Aspirin [Adult Low Dose Aspirin EC] 81 mg PO DAILY 30 Days #30 tablet.dr - Follow Up Plan Condition: STABLE Disposition: HOSPITALIZED Additional Instructions: - Please follow up with your primary care doctor, Dr. Vickers within 1 week of discharge. - Please refrain from the continued use of cocaine and other illicit drugs, as they can cause permanent damage to your heart - Please follow up with your real estate photographer within 1 week. You are given the information for Dr. Arias who saw you during your stay. IF he can not see you, please ask your primary care doctor for a referral to a grocery specialist. - You are given a prescription for Aspirin 81mg to take by mouth daily. Please take this medication daily as it can protect your heart. - Please continue all of your home medications as directed - If you have any new or worsening symptoms please return to the nearest emergency department. Referrals: Niharika Vickers MD [Primary Care Provider] - Dale Arias MD [Staff Provider] -
[2018-12-22 17:30] VITALS: TEMP 98; O2SAT 98
--- NOTE | 2018-12-22 19:00 | CARD ---
APPROVED REPORT Date of service: 12/21/2018 EKG Measurement Heart [id number] <Conclusion> Normal sinus rhythm Septal infarct, age undetermined Abnormal ECG
--- NOTE | 2018-12-22 19:03 | CARD ---
APPROVED REPORT Date of service: 12/22/2018 EKG Measurement Heart [id number] <Conclusion> Normal sinus rhythm Septal infarct, age undetermined Abnormal ECG
[2018-12-22] MEDS ORDERED: Insulin Detemir 100 units/ml Vial (Levemir) SC SCH (22:00)
== END 2018-12-22 17:30 | disposition home or self-care (01) ==
LOC: ED 23:46 → UNDOADMOB 12-22 03:33 → ERH 12-22 03:33 → ED 12-22 17:30
DX: R07.9 Chest pain, unspecified (principal); F14.10 Cocaine abuse, uncomplicated; E11.9 Type 2 diabetes mellitus without complications; E78.5 Hyperlipidemia, unspecified; Z87.891 Personal history of nicotine dependence

== ENCOUNTER 2019-02-04 10:48 | Emergency (ER) | payer MEDICAID ==
[2019-02-04 11:10] VITALS: BMI 23.7
[2019-02-04 11:23] VITALS: RESP 18
[2019-02-04] MEDS ORDERED: TDAP Vaccine 0.5 mL Syr IM ONE (11:36)
--- NOTE | 2019-02-04 11:41 | ED PDOC ---
Arrival/HPI - General Chief Complaint: Eye Problem Time Seen by Provider: 02/04/19 11:11 Historian: Patient - History of Present Illness Narrative History of Present Illness (Text): 02/04/19 11:38 48-year-old male presents today with foreign body sensation in the eye since yesterday. Patient states yesterday he was working on a car and felt the piece of paint hit him in the face, bounce off of his facemask and hit into his right eye. pt states he applied visine without improvement. Patient complaining of burning sensation in the right eye. Patient complaining of blurred vision in the right eye. Unsure of his last tetanus shot. No other complaints Past Medical History - Provider Review Nursing Documentation Reviewed: Yes - Travel History Have you recently traveled outside [place] w/in the past 3 mons?: No - Infectious Disease Hx of Infectious Diseases: None - Tetanus Immunization Tetanus Immunization: Up to Date - Cardiac Other/Comment: dm2;hyperlipidemia;2016 mrsa rll - Pulmonary Hx Respiratory Disorders: No - Neurological Hx Neurological Disorder: No - HEENT Hx HEENT Disorder: No - Renal Hx Renal Disorder: No - Endocrine/Metabolic Hx Endocrine Disorders: Yes Hx Diabetes Mellitus Type 2: Yes (poorly controlled) - Hematological/Oncological Hx Blood Disorders: No - Integumentary Hx Dermatological Disorder: No - Musculoskeletal/Rheumatological Hx Falls: No - Gastrointestinal Hx Gastrointestinal Disorders: No - Genitourinary/Gynecological Hx Genitourinary Disorders: No - Psychiatric Hx Psychophysiologic Disorder: Yes Hx Anxiety: Yes Hx Substance Use: Yes - Past Surgical History Past Surgical History: No Previous - Anesthesia Hx Anesthesia: No Hx Anesthesia Reactions: No Hx Malignant Hyperthermia: No - Suicidal Assessment Feels Threatened In Home Enviroment: No Family/Social History - Physician Review Nursing Documentation Reviewed: Yes Family/Social History: Unknown Family HX Smoking Status: Current Some Days Smoker Hx Alcohol Use: Yes Hx Substance Use: Yes Substance used: coccaine Hx Substance Use Treatment: Yes Allergies/Home Meds Allergies/Adverse Reactions: Allergies No Known Allergies Allergy (Verified 12/22/18 12:32) Review of Systems - Review of Systems Constitutional: absent: Fatigue, Fevers Eyes: Vision Changes, Photophobia, Eye Pain Respiratory: absent: SOB, Cough Cardiovascular: absent: Chest Pain, Palpitations Gastrointestinal: absent: Abdominal Pain, Nausea, Vomiting Musculoskeletal: absent: Arthralgias Skin: absent: Rash, Pruritis Neurological: absent: Headache, Dizziness Psychiatric: absent: Anxiety, Depression Physical Exam Vital Signs Reviewed: Yes Vital Signs Temp Pulse Resp BP Pulse Ox 02/04/19 11:22 97.7 F 73 18 114/70 95 Temperature: Afebrile Blood Pressure: Normal Pulse: Regular Respiratory Rate: Normal Appearance: Positive for: Well-Appearing, Non-Toxic, Comfortable Pain Distress: None Mental Status: Positive for: Alert and Oriented X 3 - Systems Exam Head: Present: Atraumatic Pupils: Present: PERRL Extroacular Muscles: Present: EOMI Conjunctiva: Present: Injected (right conjunctival injection. + black 2mm fb noted just inferior to the pupil on the cornea; No kayli sign. no hypema. eomi. no periorbital edema or erythema. ) Mouth: Present: Moist Mucous Membranes Nose (External): Present: Atraumatic Neck: Present: Normal Range of Motion Respiratory/Chest: Present: Clear to Auscultation Cardiovascular: Present: Regular Rate and Rhythm Neurological: Present: GCS=15 Skin: Present: Warm, Dry, Normal Color Psychiatric: Present: Alert, Oriented x 3 Medical Decision Making ED Course and Treatment: 02/04/19 12:03 48-year-old male with foreign body in the right eye since yesterday. right eye; 20/30 left eye; 20/20 both eyes; 20/20 pt with 2mm black fb inferior aspect of cornea just inferior to the pupil with conjunctival injection. no kayli sign. tetanus updated. Case was discussed with in depth; he advised sending the patient directly to the office [address] [place] [address] [place]. Patient was advised to go directly to the eye doctor's office of [address] [place] [address] to have the foreign body removed from the eye. Patient states he is going to walk there. I googled the location of [address] [place] [address] and showed the patient the map making me aware that the eye doctor's office was next to the [facility]. Patient states he is aware of the location and will go there right now. Patient verbalizes understanding of discharge instructions and need for immediate followup. All aspects of this case were discussed the attending of record. impression; foreign body, eye GO DIRECTLY TO THE EYE DOCTOR OFFICE; [address] [place] [address] RETURN IMMEDIATELY IF ANY OTHER CONCERNING SYMPTOMS DEVELOP. Reassessment Condition: Re-examined, Improved - Medication Orders Current Medication Orders: Tetanus/Reduced Diphtheria/Acell Pertussis (Boostrix Vaccine Inj) 0.5 ml IM .ONCE ONE Stop: 02/04/19 11:37 Disposition/Present on Arrival - Present on Arrival Any Indicators Present on Arrival: Yes History of DVT/PE: No History of Uncontrolled Diabetes: Yes Urinary Catheter: No History of Decub. Ulcer: No History Surgical Site Infection Following: None - Disposition Have Diagnosis and Disposition been Completed?: Yes Diagnosis: Foreign body, eye Disposition: HOME/ ROUTINE Disposition Time: 11:41 Patient Plan: Discharge Condition: GOOD Discharge Instructions (ExitCare): Foreign Body in Eye (DC) Additional Instructions: GO DIRECTLY TO THE EYE DOCTOR OFFICE; [address] IN [place] RETURN IMMEDIATELY IF ANY OTHER CONCERNING SYMPTOMS DEVELOP. Referrals: Paul Napier MD [Staff Provider] - Follow up with primary Forms: [facility] ([employer]), WORK NOTE
[2019-02-04 11:51] VITALS: BP 114/69; PULSE 78; TEMP 98.1; O2SAT 97
== END 2019-02-04 11:51 | disposition home or self-care (01) ==
LOC: ED 10:48
DX: T15.01XA Foreign body in cornea, right eye, initial encounter (principal); X58.XXXA Exposure to other specified factors, initial encounter; E11.9 Type 2 diabetes mellitus without complications; E78.5 Hyperlipidemia, unspecified; Z23 Encounter for immunization

== ENCOUNTER 2019-03-04 15:13 | Inpatient (IN) | payer MEDICAID ==
[2019-03-04 15:15] VITALS: BMI 22.7
--- NOTE | 2019-03-04 15:30 | ED PDOC ---
Arrival/HPI - General Chief Complaint: Back Pain Time Seen by Provider: 03/04/19 15:27 Historian: Patient - History of Present Illness Narrative History of Present Illness (Text): 03/04/19 18:10 48 y/o male with PMH of MRSA, DM, cocaine abuse presents to the ED c/o posterior neck abscesses x 3 days that worsened today. Pt has had abscesses in the past that were positive for MRSA. Took 2 leftover amoxicillin at home without relief. Has not taken any medication for pain. States he has started to feel more ill today with associated chills, prompting ED visit. Pt is noncompliant with his metformin and does not check his sugars at home. Denies fever, nausea, vomiting, dizziness, headache, abdominal pain, chest pain, SOB, neck stiffness, vision changes, or any other associated symptoms. Past Medical History - Infectious Disease Hx of Infectious Diseases: None - Tetanus Immunization Tetanus Immunization: Up to Date - Cardiac Other/Comment: dm2;hyperlipidemia;2016 mrsa rll - Pulmonary Hx Respiratory Disorders: No - Neurological Hx Neurological Disorder: No - HEENT Hx HEENT Disorder: No - Renal Hx Renal Disorder: No - Endocrine/Metabolic Hx Endocrine Disorders: Yes Hx Diabetes Mellitus Type 2: Yes (poorly controlled) - Hematological/Oncological Hx Blood Disorders: No - Integumentary Hx Dermatological Disorder: No - Musculoskeletal/Rheumatological Hx Falls: No - Gastrointestinal Hx Gastrointestinal Disorders: No - Genitourinary/Gynecological Hx Genitourinary Disorders: No - Psychiatric Hx Psychophysiologic Disorder: Yes Hx Anxiety: Yes Hx Substance Use: Yes - Past Surgical History Past Surgical History: No Previous - Anesthesia Hx Anesthesia: No Hx Anesthesia Reactions: No Hx Malignant Hyperthermia: No - Suicidal Assessment Feels Threatened In Home Enviroment: No Family/Social History - Physician Review Nursing Documentation Reviewed: Yes Family/Social History: No Known Family HX Smoking Status: Current Some Days Smoker Hx Alcohol Use: Yes Hx Substance Use: Yes Substance used: coccaine Hx Substance Use Treatment: Yes Allergies/Home Meds Allergies/Adverse Reactions: Allergies No Known Allergies Allergy (Verified 12/22/18 12:32) Review of Systems - Review of Systems Constitutional: Fatigue Eyes: Normal. absent: Vision Changes ENT: Normal. absent: Sore Throat, Sinus Congestion Respiratory: Normal. absent: SOB, Cough Cardiovascular: Normal. absent: Chest Pain, Palpitations, Syncope Gastrointestinal: Normal. absent: Abdominal Pain, Nausea, Vomiting Genitourinary Male: Normal. absent: Dysuria, Frequency Musculoskeletal: Neck Pain. absent: Back Pain Skin: Abscess (posterior neck), Cellulitis (posterior neck) Neurological: Normal. absent: Headache, Dizziness Physical Exam Vital Signs Reviewed: Yes Vital Signs Temp Pulse Resp BP Pulse Ox 03/04/19 15:13 97.3 F L 81 18 138/81 99 Temperature: Afebrile Blood Pressure: Normal Pulse: Regular Respiratory Rate: Normal Appearance: Positive for: Well-Appearing, Non-Toxic, Comfortable Pain Distress: None Mental Status: Positive for: Alert and Oriented X 3 - Systems Exam Head: Present: Atraumatic, Normocephalic Pupils: Present: PERRL Extroacular Muscles: Present: EOMI Conjunctiva: Present: Normal Ears: Present: Normal, NORMAL TM, Normal Canal Mouth: Present: Moist Mucous Membranes Pharnyx: Present: Normal. No: ERYTHEMA, EXUDATE, TONSILS ENLARGED Nose (External): Present: Atraumatic Nose (Internal): Present: Normal Inspection Neck: Present: Normal Range of Motion, Other (2 areas of erythema, tenderness, induration, and warmth to posterior neck. One behind left ear, one just right of the midline with central black eschar/scab; no fluctuance, no drainage ). No: Meningeal Signs, MIDLINE TENDERNESS, Lymphadenopathy Respiratory/Chest: Present: Clear to Auscultation, Good Air Exchange. No: Respiratory Distress, Accessory Muscle Use Cardiovascular: Present: Regular Rate and Rhythm, Normal S1, S2, Peripheal Pulses Present Abdomen: Present: Normal Bowel Sounds. No: Tenderness, Distention, Peritoneal Signs, Rebound, Guarding Back: Present: Normal Inspection. No: CVA Tenderness, Midline Tenderness Upper Extremity: Present: Normal Inspection, Normal ROM, NORMAL PULSES, Neurovascularly Intact, Capillary Refill < 2s. No: Cyanosis, Edema, Temperature Abnormalties Lower Extremity: Present: Normal Inspection, NORMAL PULSES, Normal ROM, Neurovascularly Intact, Capillary Refill < 2 s. No: Edema, Temperature Abnormalties Neurological: Present: GCS=15, CN II-XII Intact, Speech Normal, Motor Func Grossly Intact, Normal Sensory Function, Gait Normal Skin: Present: Warm, Dry, Induration (posterior neck - posterior to left ear ([id number]) and to mid right neck ([id number]); no fluctuance, no drainage. right with central eschar/scab.) Psychiatric: Present: Alert, Oriented x 3, Normal Insight, Normal Concentration, Normal Affect, Normal Mood Medical Decision Making ED Course and Treatment: Initial Plan: * CBC, CMP * Coags * CT Soft Tissue Neck with IV Contrast * Toradol 17:41 Informed by nursing that sugar is 414. IVF and vbg ordered. Leukocytosis at 11.4 with left shift. Vanco and Zosyn ordered. Blood cultures ordered. 18:57 CT neck soft tissue shows heterogenous area to right mid posterior neck without certain fluid collection. No bone involvement. VBG shows pCO2 of 66, pH 7.[address] with ED attending Dr Mcallister. ABG ordered. 19:[address] Alberto who accepted patient for inpatient admission to [facility] with diagnosis of abscess, cellulitis, and hyperglycemia. residential treatment specialist notified. Pt updated on change in disposition. Resting comfortably in stretcher with stable vitals at this time. - Lab Interpretations Lab Results: 03/04/19 16:40 03/04/19 16:40 Lab Results 03/04/19 16:40: Sodium 136, Potassium 4.6, Chloride 97 L, Carbon Dioxide 31, Anion Gap 13, BUN 17, Creatinine 0.7 L, Est GFR ( Amer) > 60, Est GFR (Non-Af Amer) > 60, Random Glucose 414 H* D, Calcium 8.8, Total Bilirubin 0.5, AST 13 L D, ALT 17, Alkaline Phosphatase 138 H D, Total Protein 7.1, Albumin 3.8, Globulin 3.4, Albumin/Globulin Ratio 1.1 03/04/19 16:40: PT 12.5, INR 1.13, APTT 29.8 03/04/19 16:40: WBC 11.4 H D, RBC 5.49, Hgb 15.6, Hct 45.7, MCV 83.2, MCH 28.4, MCHC 34.1, RDW 12.4, Plt Count 205, MPV 9.8, Neut % (Auto) 77.4 H, Lymph % (Auto) 12.2 L, [place] % (Auto) 7.1 H, Eos % (Auto) 2.9, Baso % (Auto) 0.4, Lymph # (Auto) 1.4, [place] # (Auto) 0.8 H, Eos # (Auto) 0.3, Baso # (Auto) 0.05, Absolute Neuts (auto) 8.82 H I have reviewed the lab results: Yes - RAD Interpretation Narrative RAD Interpretations (Text): 03/04/19 18:55 CT Neck Soft Tissue with IV contrast: FINDINGS: PHARYNX: Unremarkable appearance of the nasopharynx, oropharyx, and hypopharynx. No pharyngeal mucosal based mass lesions. LARYNX: The larynx is unremarkable. The epiglottis appears normal. RETROPHARYNGEAL SPACE: The retropharyngeal soft tissues appear within normal limits. SALIVARY GLANDS: No salivary gland abnormality evident. Unremarkable appearance of the parotid, submandibular, and sublingual glands. LYMPH NODES: No significant lymphadenopathy. THYROID: The thyroid gland is unremarkable. No nodule is evident. BONES: No acute osseous abnormality. No aggressive appearing osseous lesion. Advanced hypertrophic and degenerative changes lower cervical spine. Note is made of marked inflammatory change within the ethmoid sinuses, right maxillary sinus and right sphenoid sinus. There is heterogeneous density within the subcutaneous soft tissues measuring approximately 2.3 x 3 cm with overlying skin thickening at the posterior right side of the mid neck which is likely inflammatory in nature . A small amount of air may be present within the soft tissues medial to the suspected inflammatory changes. IMPRESSION: Heterogeneous density within the subcutaneous soft tissues measuring approximately 2.3 x 3 cm within the posterior right side of the mid neck likely inflammatory in nature and raising suspicion of localized abscess with overlying skin thickening. No distinct fluid collection identified. Marked inflammatory changes within the ethmoid sinuses and right maxillary sinus and right sphenoid sinus. Clinical correlation advised. Electronically signed on Mar 04, 2019 6:18:54 PM EDT by: Brayan Cline M.D., Certified by [facility], Diagnostic Radiology Radiology Orders: 03/04/19 15:28 NECK SOFT TISSUE W/CONTRAST [CT] Stat [employer]: Radiologist - EKG Interpretation EKG Interpretation (Text): 03/04/19 19:56 Rate 63; NSR; Normal intervals, normal axis; No STEMI, nonspecific ST/T wave changes Interpreted by ED Physician: Yes Type: 12 lead EKG Disposition/Present on Arrival - Present on Arrival Any Indicators Present on Arrival: Yes History of DVT/PE: No History of Uncontrolled Diabetes: Yes Urinary Catheter: No History of Decub. Ulcer: No History Surgical Site Infection Following: None - Disposition Have Diagnosis and Disposition been Completed?: Yes Diagnosis: Cellulitis, Abscess, Hyperglycemia Disposition: HOSPITALIZED Disposition Time: 18:50 Patient Problems: Current Active Problems Problem Status Onset Abscess Acute Cellulitis Acute Hyperglycemia Acute Condition: STABLE
[2019-03-04 16:53] LABS: BASO # 0.05 K/mm3 (0.0-2.0); BASO % 0.4 % (0.0-3.0); EOS # 0.3 (0.0-0.7); EOS % 2.9 % (1.5-5.0); HEMOGLOBIN 15.6 g/dL (14.0-18.0); LYMPH # 1.4 (1.2-3.4); LYMPH % 12.2 % (22.0-35.0); MEAN CELL VOLUME 83.2 fl (80.0-105.0); MEAN CORPUSCULAR HEMOGLOBIN 28.4 pg (25.0-35.0); MEAN CORPUSCULAR HGB CONC 34.1 g/dl (31.0-37.0); MEAN PLATELET VOLUME 9.8 fl (7.0-11.0); MONO # 0.8 (0.1-0.6); MONO % 7.1 % (1.0-6.0); RBC 5.49 10^6/uL (3.5-6.1); RED CELL DISTRIBUTION WIDTH 12.4 % (11.5-14.5)
[2019-03-04 17:02] LABS: INR 1.13; PARTIAL THROMBOPLASTIN TIME 29.8 Seconds (26.9-38.3); PROTHROMBIN TIME 12.5 SECONDS (9.4-12.5); WHITE BLOOD COUNT 11.4 10^3/uL (4.5-11.0)
[2019-03-04 17:41] LABS: ALB/GLOB RATIO 1.1 (1.1-1.8); ALBUMIN 3.8 g/dL (3.0-4.8); ALT/SGPT 17 U/L (7-56); AST/SGOT 13 U/L (17-59); BLOOD UREA NITROGEN 17 mg/dL (7-21); CALCIUM 8.8 mg/dL (8.4-10.5); GFR NON-AFRICAN AMERICAN > 60
[2019-03-04] MEDS ORDERED: Sodium Chloride 0.9% 1,000 ML IV STA ×2 (17:41→19:22)
[2019-03-04] MEDS ORDERED: Piperacillin/Tazobact 3.375 gm 100 ML IVPB STA (17:48)
[2019-03-04] MEDS ORDERED: Vancomycin 1gm in NS 250ml 1 GM/250 ML BAG IVPB STA (17:48)
--- NOTE | 2019-03-04 17:48 | CP.PCM.HP ---
<Rajinder Platt - Last Filed: 03/04/19 20:49> History of Present Illness - History of Present Illness History of Present Illness: PGY-1 Medicine H&P for Dr. Alberto CC: Posterior neck abscesses HPI: Patient is a 48 year old male with a past medical history of MRSA infection/abscesses, DM-2, cocaine abuse, and HLD, presenting with posterior neck abscesses for 3 days. Patient states that he has had abscesses that was positive for MRSA before in the past. He describes the pain to be stabbing and "15 out of 10" at its worst. He also admits to seeing a clear discharge from his abscess. He took Benadryl and applied warm compresses without relief. He also admits to having chills that started today. He also mentioned that he is a diabetic and is on Metformin. However, patient has not been taking his medications because he feels that his "sugars are not that bad". He denies fevers, nausea, vomiting, dizziness, headache, abdominal pain, chest pain, SOB, or any other associated symptoms. 12 system ROS reviewed and negative and except mentioned in HPI. PMHx: tobacco abuse, MRSA infection/abcesses, DM2, HLD, coccaine abuse PSurgHx: appendectomy Allergies: NKDA Fam hx: Father passed from [place] at age 58 Soc hx: Current 1 ppd smoker, denies EtOH use; admits to cocaine use; denies oth er illicit drug use Home meds: denies PMD: Dr. Vickers Pharmacy: [facility] in [place] on [address] [place] [address] Present on Admission - Present on Admission Any Indicators Present on Admission: Yes History of DVT/PE: No History of Uncontrolled Diabetes: Yes Urinary Catheter: No Decubitus Ulcer Present: No Past Patient History - Infectious Disease Hx of Infectious Diseases: None - Tetanus Immunizations Tetanus Immunization: Up to Date - Past Social History Smoking Status: Current Some Days Smoker - CARDIAC Other/Comment: dm2;hyperlipidemia;2016 mrsa rll - PULMONARY Hx Respiratory Disorders: No - NEUROLOGICAL Hx Neurological Disorder: No - HEENT Hx HEENT Problems: No - RENAL Hx Chronic Kidney Disease: No - ENDOCRINE/METABOLIC Hx Endocrine Disorders: Yes Hx Diabetes Mellitus Type 2: Yes (poorly controlled) - HEMATOLOGICAL/ONCOLOGICAL Hx Blood Disorders: No - INTEGUMENTARY Hx Dermatological Problems: No - MUSCULOSKELETAL/RHEUMATOLOGICAL Hx Falls: No - GASTROINTESTINAL Hx Gastrointestinal Disorders: No - GENITOURINARY/GYNECOLOGICAL Hx Genitourinary Disorders: No - PSYCHIATRIC Hx Psychophysiologic Disorder: Yes Hx Anxiety: Yes Hx Substance Use: Yes - SURGICAL HISTORY Hx Surgeries: No - ANESTHESIA Hx Anesthesia: No Hx Anesthesia Reactions: No Hx Malignant Hyperthermia: No Meds Allergies/Adverse Reactions: Allergies Allergy/AdvReac Type Severity Reaction Status Date / Time No Known Allergies Allergy Verified 12/22/18 12:32 Physical Exam - Constitutional Appears: Well, Non-toxic, No Acute Distress - Head Exam Head Exam: ATRAUMATIC, NORMAL INSPECTION - Eye Exam Eye Exam: EOMI, Normal appearance, PERRL - ENT Exam ENT Exam: Mucous Membranes Moist - Neck Exam Additional comments: Posterior neck abscesses, see skin examination section - Respiratory Exam Respiratory Exam: Clear to Auscultation Bilateral, NORMAL BREATHING PATTERN. absent: Rales, Rhonchi, Wheezes - Cardiovascular Exam Cardiovascular Exam: REGULAR RHYTHM, +S1, +S2. absent: Gallop, Rubs, Systolic Murmur - GI/Abdominal Exam GI & Abdominal Exam: Normal Bowel Sounds, Soft. absent: Tenderness - Extremities Exam Extremities exam: Positive for: normal inspection. Negative for: calf tenderness, pedal edema - Back Exam Back exam: NORMAL INSPECTION. absent: paraspinal tenderness, vertebral tenderness - Neurological Exam Neurological exam: Alert, CN II-XII Intact, Oriented x3 - Psychiatric Exam Psychiatric exam: Normal Affect, Normal Mood - Skin Skin Exam: Dry, Normal Color, Warm Additional comments: 5cm on the right posterior neck, 3cm on the left posterior neck- erythematous, edematous abscess with secondary crusting over punctum, no drainage appreciated. Results - Vital Signs Recent Vital Signs: Last Vital Signs Temp 97.3 F L 03/04/19 15:13 Pulse 81 03/04/19 15:13 Resp 18 03/04/19 15:13 BP 138/81 03/04/19 15:13 Pulse Ox 99 03/04/19 15:13 - Labs Result Diagrams: 03/04/19 16:40 03/04/19 16:40 Labs: Laboratory Results - last 24 hr 03/04/19 03/04/19 03/04/19 16:40 16:40 16:40 WBC 11.4 H D RBC 5.49 Hgb 15.6 Hct 45.7 MCV 83.2 MCH 28.4 MCHC 34.1 RDW 12.4 Plt Count 205 MPV 9.8 Neut % (Auto) 77.4 H Lymph % (Auto) 12.2 L [place] % (Auto) 7.1 H Eos % (Auto) 2.9 Baso % (Auto) 0.4 Lymph # (Auto) 1.4 [place] # (Auto) 0.8 H Eos # (Auto) 0.3 Baso # (Auto) 0.05 Absolute Neuts (auto) 8.82 H PT 12.5 INR 1.13 APTT 29.8 Sodium 136 Potassium 4.6 Chloride 97 L Carbon Dioxide 31 Anion Gap 13 BUN 17 Creatinine 0.7 L Est GFR ( Amer) > 60 Est GFR (Non-Af Amer) > 60 Random Glucose 414 H* D Calcium 8.8 Total Bilirubin 0.5 AST 13 L D ALT 17 Alkaline Phosphatase 138 H D Total Protein 7.1 Albumin 3.8 Globulin 3.4 Albumin/Globulin Ratio 1.1 Assessment & Plan - Assessment and Plan (Free Text) Assessment: Patient is a 48 year old male with a past medical history of MRSA infection/abscesses, DM-2, cocaine abuse, and HLD, presenting with posterior neck abscesses for 3 days. Plan: Posterior neck abscesses - Preliminary CT neck soft tissue shows heterogenous area to right mid posterior neck without certain fluid collection. No bone involvement. - Vancomycin 1g IV Q12 (Started on 03/04) - Zosyn 3.375g IV Q8 (Started on 03/04) - Surgery consulted, Dr. Zapata - Morphine 2mg IV Q6 PRN - Toradol 15mg IV Q8 PRN - Cyclobenzaprine 5mg PO PRN - Warm compresses PRN Hyperglycemia - 2/2 to uncontrolled diabetes - Glucose levels was 414 on admission - 2 x NS boluses given in ED DM-2 - ISS, medium dose - Levemir 10u HS - Accuchecks ACHS - Follow up HbA1C Tobacco abuse disorder - Nicoderm patches - Counseled on smoking cessation Prophylaxis: - DVT: Lovenox 40mg SC QD, SCD's Patient seen and case discussed with attending, Dr. Alberto. Rajinder Platt, PGY-1 <Eris Alberto - Last Filed: 03/05/19 06:31> Results - Vital Signs Recent Vital Signs: Last Vital Signs Temp 97.3 F L 03/04/19 15:13 Pulse 65 03/05/19 02:00 Resp 18 03/04/19 22:40 BP 138/81 03/04/19 15:13 Pulse Ox 99 03/04/19 15:13 - Labs Result Diagrams: 03/04/19 16:40 03/04/19 16:40 Labs: Laboratory Results - last 24 hr 03/04/19 03/04/19 03/04/19 16:40 16:40 16:40 WBC 11.4 H D RBC 5.49 Hgb 15.6 Hct 45.7 MCV 83.2 MCH 28.4 MCHC 34.1 RDW 12.4 Plt Count 205 MPV 9.8 Neut % (Auto) 77.4 H Lymph % (Auto) 12.2 L [place] % (Auto) 7.1 H Eos % (Auto) 2.9 Baso % (Auto) 0.4 Lymph # (Auto) 1.4 [place] # (Auto) 0.8 H Eos # (Auto) 0.3 Baso # (Auto) 0.05 Absolute Neuts (auto) 8.82 H PT 12.5 INR 1.13 APTT 29.8 pO2 VBG pH VBG pCO2 VBG HCO3 VBG Total CO2 VBG O2 Sat (Calc) VBG Base Excess VBG Potassium Glucose Lactate FiO2 Crit Value Called To Crit Value Called By Blood Gas Notified Time Sodium 136 Potassium 4.6 Chloride 97 L Carbon Dioxide 31 Anion Gap 13 BUN 17 Creatinine 0.7 L Est GFR ( Amer) > 60 Est GFR (Non-Af Amer) > 60 POC Glucose (mg/dL) Random Glucose 414 H* D Calcium 8.8 Total Bilirubin 0.5 AST 13 L D ALT 17 Alkaline Phosphatase 138 H D Total Protein 7.1 Albumin 3.8 Globulin 3.4 Albumin/Globulin Ratio 1.1 Venous Blood Potassium 03/04/19 03/04/19 03/04/19 18:50 21:40 23:33 WBC RBC Hgb Hct MCV MCH MCHC RDW Plt Count MPV Neut % (Auto) Lymph % (Auto) [place] % (Auto) Eos % (Auto) Baso % (Auto) Lymph # (Auto) [place] # (Auto) Eos # (Auto) Baso # (Auto) Absolute Neuts (auto) PT INR APTT pO2 49 VBG pH 7.31 L VBG pCO2 66.0 H* VBG HCO3 33.2 H VBG Total CO2 35.2 H VBG O2 Sat (Calc) 86.9 H VBG Base Excess 4.8 H VBG Potassium 4.2 Glucose 355 H Lactate 1.2 FiO2 21.0 Crit Value Called To Dorian blair Crit Value Called By Mrp Blood Gas Notified Time 1900 Sodium 132.0 Potassium Chloride 95.0 L Carbon Dioxide Anion Gap BUN Creatinine Est GFR ( Amer) Est GFR (Non-Af Amer) POC Glucose (mg/dL) 195 H 372 H Random Glucose Calcium Total Bilirubin AST ALT Alkaline Phosphatase Total Protein Albumin Globulin Albumin/Globulin Ratio Venous Blood Potassium 4.2 Attending/Attestation - Attestation I have personally seen and examined this patient.: Yes I have fully participated in the care of the patient.: Yes I have reviewed all pertinent clinical information: Yes Notes (Text): 03/05/19 06:31 Seen and examined. Discussed with resident. A&P as above.
[2019-03-04] MEDS ORDERED: Iohexol 350 MG/100 ML VIAL ONE (17:51)
[2019-03-04 19:02] LABS: VENOUS BLOOD GAS BASE EXCESS 4.8 mmol/L (0.0-2.0); VENOUS BLOOD GAS PO2 49 mm/Hg (30-55); VENOUS BLOOD PH 7.31 (7.32-7.43)
[2019-03-04] MEDS: Morphine 2 mg/ml ISec IVP PRN (20:37)
--- NOTE | 2019-03-04 20:44 | CP.PCM.CON ---
History of Present Illness - History of Present Illness History of Present Illness: Surgery Consult Note for Dr. Zapata Consult: Right posterior neck abscess HPI: 48 year old male, past medical history significant for DM and prior I&Ds, presents to the emergency department with new right posterior neck abscess that started 2 days ago. Patient states it started out as a small bump, he assumed it was an infected hair follicle and left it alone. This morning the area became increasingly large and tender to palpation. A small lesion superior to the abscess was also present and started draining fluid today. Patient did not try medications or warm compresses in an attempt to alleviate his symptoms. Patient denies f/c, n/v/d, SOB, CP, blurred vision, neck stiffness, back pain, headaches, dizziness, or urinary symptoms. PMH: See above + HLD, Substance abuse PSH: Appendectomy, Suprapubic/LLE/Arm I&Ds FH: Noncontributory SH: Smokes 1/2-1PPD for 37 years, cocaine abuse, denies alcohol use ALL: NKDA Meds: See MAR Review of Systems - Constitutional Constitutional: Chills. absent: Fever, Weakness - EENT Eyes: absent: Blurred Vision, Change in Vision, Diplopia, Photophobia Ears: absent: Ear Discharge, Ear Pain Nose/Mouth/Throat: absent: Nasal Congestion, Nasal Discharge - Cardiovascular Cardiovascular: absent: Chest Pain, Chest Pain at Rest, Dyspnea - Respiratory Respiratory: absent: Cough, Dyspnea - Gastrointestinal Gastrointestinal: absent: Abdominal Pain, Nausea, Vomiting - Genitourinary Genitourinary: absent: Difficulty Urinating, Dysuria - Musculoskeletal Musculoskeletal: absent: Back Pain, Neck Pain - Integumentary Integumentary: Bleeding Lesions, Changing Lesions, Erythema, New Lesions, Non- Healing Lesions - Neurological Neurological: absent: Abnormal Gait, Confusion, Dizziness, Frequent Falls - Psychiatric Psychiatric: absent: Anxiety, Depression Past Patient History - Infectious Disease Hx of Infectious Diseases: None - Tetanus Immunizations Tetanus Immunization: Up to Date - Past Social History Smoking Status: Current Some Days Smoker - CARDIAC Other/Comment: dm2;hyperlipidemia;2016 mrsa rll - PULMONARY Hx Respiratory Disorders: No - NEUROLOGICAL Hx Neurological Disorder: No - HEENT Hx HEENT Problems: No - RENAL Hx Chronic Kidney Disease: No - ENDOCRINE/METABOLIC Hx Endocrine Disorders: Yes Hx Diabetes Mellitus Type 2: Yes (poorly controlled) - HEMATOLOGICAL/ONCOLOGICAL Hx Blood Disorders: No - INTEGUMENTARY Hx Dermatological Problems: No - MUSCULOSKELETAL/RHEUMATOLOGICAL Hx Falls: No - GASTROINTESTINAL Hx Gastrointestinal Disorders: No - GENITOURINARY/GYNECOLOGICAL Hx Genitourinary Disorders: No - PSYCHIATRIC Hx Psychophysiologic Disorder: Yes Hx Anxiety: Yes Hx Substance Use: Yes - SURGICAL HISTORY Hx Surgeries: No - ANESTHESIA Hx Anesthesia: No Hx Anesthesia Reactions: No Hx Malignant Hyperthermia: No Meds Allergies/Adverse Reactions: Allergies Allergy/AdvReac Type Severity Reaction Status Date / Time No Known Allergies Allergy Verified 12/22/18 12:32 - Medications Medications: Current Medications Cyclobenzaprine HCl (Flexeril) 5 mg PO TID PRN PRN Reason: Muscle spasm Enoxaparin Sodium (Lovenox) 40 mg SC DAILY ANDRAE; Protocol Vancomycin HCl (Vancomycin 1gm) 1 gm in 250 mls @ 167 mls/hr IVPB Q12H ANDRAE; Protocol Piperacillin Sod/Tazobactam Sod (Zosyn 3.375 In Ns 100ml) 100 mls @ 25 mls/hr IVPB Q8 ANDRAE; Protocol Stop: 03/05/19 09:59 Insulin Detemir (Levemir) 10 unit SC HS ANDRAE Insulin Human Lispro (Humalog Med) 0 units SC ACHS ANDRAE; Protocol Ketorolac Tromethamine (Toradol) 15 mg IVP Q8 PRN PRN Reason: Pain, moderate (4-7) Morphine Sulfate (Morphine) 2 mg IVP Q6H PRN PRN Reason: Pain, severe (8-10) Nicotine (Nicoderm Cq) 1 patch TD DAILY PRN PRN Reason: URGE TO SMOKE Physical Exam - Constitutional Appears: Well, Non-toxic, No Acute Distress - Head Exam Head Exam: ATRAUMATIC, NORMAL INSPECTION, NORMOCEPHALIC - Eye Exam Eye Exam: EOMI Pupil Exam: PERRL - ENT Exam ENT Exam: Mucous Membranes Moist - Neck Exam Neck exam: Positive for: Tenderness. Negative for: Lymphadenopathy, Meningismus Additional comments: 4x3cm Right posterior neck raised, erythematous, tender lesion - indurated, minimal fluctuance with central scab Superior to raised lesion: smaller erythematous lesion openly draining serous fluid 1x1cm left posterior neck raised lesion draining serous fluid - Respiratory Exam Respiratory Exam: NORMAL BREATHING PATTERN. absent: Wheezes, Respiratory Distress - Cardiovascular Exam Cardiovascular Exam: REGULAR RHYTHM, +S1, +S2 - GI/Abdominal Exam GI & Abdominal Exam: Normal Bowel Sounds, Soft. absent: Tenderness - Extremities Exam Extremities exam: Positive for: normal inspection, pedal pulses present - Neurological Exam Neurological exam: Alert, Oriented x3 - Psychiatric Exam Psychiatric exam: Normal Affect, Normal Mood - Skin Skin Exam: Erythema, Warm Results - Vital Signs Recent Vital Signs: Last Vital Signs Temp 97.3 F L 03/04/19 15:13 Pulse 81 03/04/19 15:13 Resp 18 03/04/19 15:13 BP 138/81 03/04/19 15:13 Pulse Ox 99 03/04/19 15:13 - Labs Result Diagrams: 03/04/19 16:40 03/04/19 16:40 Labs: Laboratory Results - last 24 hr 03/04/19 03/04/19 03/04/19 16:40 16:40 16:40 WBC 11.4 H D RBC 5.49 Hgb 15.6 Hct 45.7 MCV 83.2 MCH 28.4 MCHC 34.1 RDW 12.4 Plt Count 205 MPV 9.8 Neut % (Auto) 77.4 H Lymph % (Auto) 12.2 L [place] % (Auto) 7.1 H Eos % (Auto) 2.9 Baso % (Auto) 0.4 Lymph # (Auto) 1.4 [place] # (Auto) 0.8 H Eos # (Auto) 0.3 Baso # (Auto) 0.05 Absolute Neuts (auto) 8.82 H PT 12.5 INR 1.13 APTT 29.8 pO2 VBG pH VBG pCO2 VBG HCO3 VBG Total CO2 VBG O2 Sat (Calc) VBG Base Excess VBG Potassium Glucose Lactate FiO2 Crit Value Called To Crit Value Called By Blood Gas Notified Time Sodium 136 Potassium 4.6 Chloride 97 L Carbon Dioxide 31 Anion Gap 13 BUN 17 Creatinine 0.7 L Est GFR ( Amer) > 60 Est GFR (Non-Af Amer) > 60 Random Glucose 414 H* D Calcium 8.8 Total Bilirubin 0.5 AST 13 L D ALT 17 Alkaline Phosphatase 138 H D Total Protein 7.1 Albumin 3.8 Globulin 3.4 Albumin/Globulin Ratio 1.1 Venous Blood Potassium 03/04/19 18:50 WBC RBC Hgb Hct MCV MCH MCHC RDW Plt Count MPV Neut % (Auto) Lymph % (Auto) [place] % (Auto) Eos % (Auto) Baso % (Auto) Lymph # (Auto) [place] # (Auto) Eos # (Auto) Baso # (Auto) Absolute Neuts (auto) PT INR APTT pO2 49 VBG pH 7.31 L VBG pCO2 66.0 H* VBG HCO3 33.2 H VBG Total CO2 35.2 H VBG O2 Sat (Calc) 86.9 H VBG Base Excess 4.8 H VBG Potassium 4.2 Glucose 355 H Lactate 1.2 FiO2 21.0 Crit Value Called To Dorian blair Crit Value Called By [facility] Blood Gas Notified Time 1900 Sodium 132.0 Potassium Chloride 95.0 L Carbon Dioxide Anion Gap BUN Creatinine Est GFR ( Amer) Est GFR (Non-Af Amer) Random Glucose Calcium Total Bilirubin AST ALT Alkaline Phosphatase Total Protein Albumin Globulin Albumin/Globulin Ratio Venous Blood Potassium 4.2 Assessment & Plan - Assessment and Plan (Free Text) Assessment: 48M w/ right posterior neck cellulitis w/ possible underlying abscess Plan: Lesion indurated with no obvious fluctuance noted Warm compresses IV Antibiotics Pain control Will reassess if amenable to I&D D/w Dr. Benny Carrillo PGY1
[2019-03-04] MEDS: Insulin Detemir 100 units/ml Vial (Levemir) SC SCH (23:40)
[2019-03-04] MEDS: Insulin Lispro (humaLOG) MEDIUM Coverage SC SCH (23:41)
[2019-03-04] MEDS: Piperacillin/Tazobact 3.375 gm 100 ML IVPB SCH (23:42)
[2019-03-05] MEDS: Morphine 2 mg/ml ISec IVP PRN ×2 (05:11→12:33)
[2019-03-05] MEDS: Piperacillin/Tazobact 3.375 gm 100 ML IVPB SCH (06:29)
[2019-03-05 06:58] LABS: ALB/GLOB RATIO 1.1 (1.1-1.8); ALBUMIN 3.3 g/dL (3.0-4.8); ALT/SGPT 24 U/L (7-56); AST/SGOT 19 U/L (17-59); BLOOD UREA NITROGEN 18 mg/dL (7-21); CALCIUM 8.6 mg/dL (8.4-10.5); GFR NON-AFRICAN AMERICAN > 60
[2019-03-05 07:12] LABS: BASO # 0.05 K/mm3 (0.0-2.0); BASO % 0.4 % (0.0-3.0); EOS # 0.5 (0.0-0.7); EOS % 3.8 % (1.5-5.0); HEMOGLOBIN 14.1 g/dL (14.0-18.0); LYMPH # 1.3 (1.2-3.4); LYMPH % 10.6 % (22.0-35.0); MEAN CELL VOLUME 82.6 fl (80.0-105.0); MEAN CORPUSCULAR HEMOGLOBIN 27.9 pg (25.0-35.0); MEAN CORPUSCULAR HGB CONC 33.8 g/dl (31.0-37.0); MONO # 0.7 (0.1-0.6); MONO % 5.8 % (1.0-6.0); RBC 5.05 10^6/uL (3.5-6.1); RED CELL DISTRIBUTION WIDTH 12.5 % (11.5-14.5); WHITE BLOOD COUNT 12.3 10^3/uL (4.5-11.0)
--- NOTE | 2019-03-05 07:44 | CP.PCM.PN ---
Subjective - Date & Time of Evaluation Date of Evaluation: 03/05/19 Time of Evaluation: 07:41 - Subjective Subjective: Surgery Progress Note for Dr. Zapata 48M seen and evaluated at bedside this morning. No acute events overnight. Complains of pain at site of cellulitis that is minimally controlled with Morphine, patient prefers Toradol. Warm compresses to be provided. Denies f/c, n/v/d, SOB, CP, or urinary symptoms. Objective - Vital Signs/Intake and Output Vital Signs (last 24 hours): Temp Pulse Resp BP Pulse Ox 97.3 F L 65 18 138/81 99 03/04/19 15:13 03/05/19 02:00 03/04/19 22:40 03/04/19 15:13 03/04/19 15:13 - Medications Medications: Current Medications Cyclobenzaprine HCl (Flexeril) 5 mg PO TID PRN PRN Reason: Muscle spasm Enoxaparin Sodium (Lovenox) 40 mg SC DAILY ANDRAE; Protocol Vancomycin HCl (Vancomycin 1gm) 1 gm in 250 mls @ 167 mls/hr IVPB Q12H ANDRAE; Protocol Piperacillin Sod/Tazobactam Sod (Zosyn 3.375 In Ns 100ml) 100 mls @ 25 mls/hr IVPB Q8 ANDRAE; Protocol Stop: 03/05/19 09:59 Last Admin: 03/05/19 06:29 Dose: 25 mls/hr Insulin Detemir (Levemir) 10 unit SC HS ANDRAE Last Admin: 03/04/19 23:40 Dose: 10 units Insulin Human Lispro (Humalog Med) 0 units SC ACHS ANDRAE; Protocol Last Admin: 03/04/19 23:41 Dose: 3 units Ketorolac Tromethamine (Toradol) 15 mg IVP Q6H PRN PRN Reason: Pain, moderate (4-7) Morphine Sulfate (Morphine) 2 mg IVP Q6H PRN PRN Reason: Pain, severe (8-10) Last Admin: 03/05/19 05:11 Dose: 2 mg Nicotine (Nicoderm Cq) 1 patch TD DAILY PRN PRN Reason: URGE TO SMOKE Last Admin: 03/04/19 20:55 Dose: 1 patch - Labs Labs: 03/05/19 06:00 03/05/19 06:00 PT 12.5 SECONDS (9.4-12.5) 03/04/19 16:40 INR 1.13 03/04/19 16:40 APTT 29.8 Seconds (26.9-38.3) 03/04/19 16:40 - Constitutional Appears: Well, Non-toxic, No Acute Distress - Head Exam Head Exam: ATRAUMATIC, NORMAL INSPECTION, NORMOCEPHALIC - Eye Exam Eye Exam: EOMI Pupil Exam: PERRL - ENT Exam ENT Exam: Mucous Membranes Moist - Neck Exam Additional comments: Right posterior neck raised lesion 4x2cm erythematous, tender, warm, excoriati ons and scabbing - wound is indurated with no fluctuance Superior right posterior neck has small opening with serous drainage Left posterior neck 1x1cm raised lesion - erythematous, tender, with scab, indurated, no fluctuance - Respiratory Exam Respiratory Exam: NORMAL BREATHING PATTERN. absent: Wheezes, Respiratory Distress - Cardiovascular Exam Cardiovascular Exam: REGULAR RHYTHM, +S1, +S2 - GI/Abdominal Exam GI & Abdominal Exam: Soft, Normal Bowel Sounds. absent: Tenderness - Neurological Exam Neurological Exam: Alert, Awake, Oriented x3 - Psychiatric Exam Psychiatric exam: Normal Affect, Normal Mood Assessment and Plan - Assessment and Plan (Free Text) Assessment: 48M w/ right and left posterior neck cellulitis Plan: Patients raised lesions are indurated with no fluctuance - no drainable collection at this time Continue IV Abx per ID Continue warm compresses Will continue to reassess if amenable to drainage D/w Dr. Benny Carrillo PGY1
[2019-03-05] MEDS: Insulin Lispro (humaLOG) MEDIUM Coverage SC SCH ×4 (07:55→22:09)
--- NOTE | 2019-03-05 08:31 | CT ---
Date of service: 03/04/2019 PROCEDURE: CT NECK WITH CONTRAST HISTORY: 2 posterior neck abscess/cellulitis COMPARISON: None available. TECHNIQUE: CT of the neck with intravenous contrast. Coronal and sagittal reformats generated. Intravenous contrast dose: 100 cc of Omni 350 Radiation dose: Total exam DLP = 552.43 mGy-cm. This CT exam was performed using one or more of the following dose reduction techniques: Automated exposure control, adjustment of the mA and/or kV according to patient size, and/or use of iterative reconstruction technique. FINDINGS: NASOPHARYNX: Unremarkable. SUPRAHYOID NECK: Unremarkable oropharynx, oral cavity, parapharyngeal space and retropharyngeal space. INFRAHYOID NECK: Unremarkable larynx, hypopharynx, and supraglottic space. Vocal cords intact. MASS: Inflammatory changes are seen in the subcutaneous tissues of the posterior neck measuring 2 x 4.4 cm. There also a localized skin thickening. There is no evidence of abscess GLANDS: Parotid and submandibular glands unremarkable. Normal size thyroid gland, without nodule. LYMPH NODES: Normal. No lymphadenopathy. CERVICAL SPINE: No fracture or focal lesion. VASCULAR STRUCTURES: Unremarkable. OTHER FINDINGS: The report concurs with the preliminary [facility] report IMPRESSION: Inflammatory changes are seen in the subcutaneous tissues of the posterior neck measuring 2 x 4.4 cm. There also a localized skin thickening. There is no evidence of abscess
--- NOTE | 2019-03-05 09:12 | CARD ---
APPROVED REPORT Date of service: 03/04/2019 EKG Measurement Heart [id number] <Conclusion> Normal sinus rhythm Septal infarct, age undetermined Abnormal ECG
[2019-03-05] MEDS ORDERED: Lidocaine 1%/Epinephrine 1:100000 30 ml vial IJ ONE (09:52)
--- NOTE | 2019-03-05 10:28 | RAD ---
Date of service: 03/04/2019 HISTORY: admission COMPARISON: 12/22/2018 TECHNIQUE: 1 view obtained. FINDINGS: LUNGS: No active pulmonary disease. PLEURA: No significant pleural effusion identified, no pneumothorax apparent. CARDIOVASCULAR: No aortic atherosclerotic calcification present. Normal cardiac size. No pulmonary vascular congestion. OSSEOUS STRUCTURES: No significant abnormalities. VISUALIZED UPPER ABDOMEN: Normal. OTHER FINDINGS: None. IMPRESSION: No active disease.
--- NOTE | 2019-03-05 11:11 | CP.PCM.PN ---
<Rajinder Platt - Last Filed: 03/05/19 11:06> Subjective - Date & Time of Evaluation Date of Evaluation: 03/05/19 Time of Evaluation: 11:06 - Subjective Subjective: PGY-1 Medicine progress note for Dr. Monzon Patient was seen and examined at bedside. No acute events overnight. Patient is complaining of pain around the site of infections in posterior neck. He denies fevers, chills, shortness of breath, chest pain, abdominal pain, nausea, vomiting, diarrhea, or any other symptoms. Objective - Vital Signs/Intake and Output Vital Signs (last 24 hours): Temp Pulse Resp BP Pulse Ox 98 F 67 18 137/72 97 03/05/19 08:46 03/05/19 08:46 03/05/19 08:46 03/05/19 08:46 03/05/19 08:46 - Medications Medications: Current Medications Cyclobenzaprine HCl (Flexeril) 5 mg PO TID PRN PRN Reason: Muscle spasm Enoxaparin Sodium (Lovenox) 40 mg SC DAILY ANDRAE; Protocol Vancomycin HCl (Vancomycin 1gm) 1 gm in 250 mls @ 167 mls/hr IVPB Q12H ANDRAE; Protocol Insulin Detemir (Levemir) 10 unit SC HS ANDRAE Last Admin: 03/04/19 23:40 Dose: 10 units Insulin Human Lispro (Humalog Med) 0 units SC ACHS ANDRAE; Protocol Last Admin: 03/05/19 07:55 Dose: 3 units Ketorolac Tromethamine (Toradol) 15 mg IVP Q6H PRN PRN Reason: Pain, moderate (4-7) Last Admin: 03/05/19 07:55 Dose: 15 mg Morphine Sulfate (Morphine) 2 mg IVP Q6H PRN PRN Reason: Pain, severe (8-10) Last Admin: 03/05/19 05:11 Dose: 2 mg Nicotine (Nicoderm Cq) 1 patch TD DAILY PRN PRN Reason: URGE TO SMOKE Last Admin: 03/04/19 20:55 Dose: 1 patch - Labs Labs: 03/05/19 06:00 03/05/19 06:00 PT 12.5 SECONDS (9.4-12.5) 03/04/19 16:40 INR 1.13 03/04/19 16:40 APTT 29.8 Seconds (26.9-38.3) 03/04/19 16:40 - Additional Findings Additional findings: - Constitutional Appears: Well, Non-toxic, No Acute Distress - Head Exam Head Exam: ATRAUMATIC, NORMAL INSPECTION - Eye Exam Eye Exam: EOMI, Normal appearance, PERRL - ENT Exam ENT Exam: Mucous Membranes Moist - Neck Exam Additional comments: Posterior neck abscesses, see skin examination section - Respiratory Exam Respiratory Exam: Clear to Auscultation Bilateral, NORMAL BREATHING PATTERN. absent: Rales, Rhonchi, Wheezes - Cardiovascular Exam Cardiovascular Exam: REGULAR RHYTHM, +S1, +S2. absent: Gallop, Rubs, Systolic Murmur - GI/Abdominal Exam GI & Abdominal Exam: Normal Bowel Sounds, Soft. absent: Tenderness - Extremities Exam Extremities exam: Positive for: normal inspection. Negative for: calf tenderness, pedal edema - Back Exam Back exam: NORMAL INSPECTION. absent: paraspinal tenderness, vertebral tenderness - Neurological Exam Neurological exam: Alert, CN II-XII Intact, Oriented x3 - Psychiatric Exam Psychiatric exam: Normal Affect, Normal Mood - Skin Skin Exam: Dry, Normal Color, Warm Additional comments: 5cm on the right posterior neck, 3cm on the left posterior neck- erythematous, edematous soft tissue infection with secondary crusting, no drainage appre ciated. Assessment and Plan - Assessment and Plan (Free Text) Assessment: Patient is a 48 year old male with a past medical history of MRSA infection/abscesses, DM-2, cocaine abuse, and HLD, presenting with posterior neck abscesses. Plan: Posterior neck soft tissue infection, r/o abscess - CT neck soft tissue shows Inflammatory changes are seen in the subcutaneous tissues of the posterior neck measuring 2 x 4.4 cm. There is also a localized skin thickening. There is no evidence of abscess. - Vancomycin 1g IV Q12 (Started on 03/04) - Zosyn 3.375g IV Q8 (Started on 03/04) - ID consulted, Dr. Peterson - Surgery consulted, Dr. Zapata - Morphine 2mg IV Q6 PRN - Toradol 15mg IV Q8 PRN - Cyclobenzaprine 5mg PO PRN - Warm compresses PRN DM-2 - ISS, medium dose - Levemir 10u HS - Accuchecks ACHS - Follow up HbA1C Hyperglycemia, resolved - 2/2 to uncontrolled diabetes - Glucose levels was 414 on admission - 2 x NS boluses given in ED Tobacco abuse disorder - Nicoderm patches - Counseled on smoking cessation Prophylaxis: - DVT: Lovenox 40mg SC QD, SCD's Patient seen and case discussed with attending, Dr. Monzon. Rajinder Platt, PGY-1 <Ale Monzon - Last Filed: 03/05/19 12:18> Objective - Vital Signs/Intake and Output Vital Signs (last 24 hours): Temp Pulse Resp BP Pulse Ox 98 F 67 18 137/72 97 03/05/19 08:46 03/05/19 08:46 03/05/19 08:46 03/05/19 08:46 03/05/19 08:46 - Medications Medications: Current Medications Cyclobenzaprine HCl (Flexeril) 5 mg PO TID PRN PRN Reason: Muscle spasm Enoxaparin Sodium (Lovenox) 40 mg SC DAILY ANDRAE; Protocol Last Admin: 03/05/19 11:34 Dose: 40 mg Vancomycin HCl (Vancomycin 1gm) 1 gm in 250 mls @ 167 mls/hr IVPB Q12H ANDRAE; Protocol Last Admin: 03/05/19 11:35 Dose: 167 mls/hr Insulin Detemir (Levemir) 10 unit SC HS ANDRAE Last Admin: 03/04/19 23:40 Dose: 10 units Insulin Human Lispro (Humalog Med) 0 units SC ACHS ANDRAE; Protocol Last Admin: 03/05/19 11:33 Dose: 8 units Ketorolac Tromethamine (Toradol) 15 mg IVP Q6H PRN PRN Reason: Pain, moderate (4-7) Last Admin: 03/05/19 07:55 Dose: 15 mg Morphine Sulfate (Morphine) 2 mg IVP Q6H PRN PRN Reason: Pain, severe (8-10) Last Admin: 03/05/19 05:11 Dose: 2 mg Nicotine (Nicoderm Cq) 1 patch TD DAILY PRN PRN Reason: URGE TO SMOKE Last Admin: 03/04/19 20:55 Dose: 1 patch - Labs Labs: 03/05/19 06:00 03/05/19 06:00 PT 12.5 SECONDS (9.4-12.5) 04/20/19 16:40 INR 1.13 03/04/19 16:40 APTT 29.8 Seconds (26.9-38.3) 03/04/19 16:40 Attending/Attestation - Attestation I have personally seen and examined this patient.: Yes I have fully participated in the care of the patient.: Yes I have reviewed all pertinent clinical information, including history, physical exam and plan: Yes Notes (Text): 03/05/19 12:16 Medical record note made by the resident after discussion with my direction and input after the patient was personally seen and examined by me. I have reviewed the chart and agree that the record accurately reflects by personal performance of the history, physical exam, data review, and medical decision-making, in the course for the patient. I have also personally directed the plan of care. 48 year old male with a past medical history of MRSA infection/abscesses, DM-2, cocaine abuse, and HLD, was admitted yesterday with posterior neck early abscesses.- CT neck soft tissue shows Inflammatory changes are seen in the subcutaneous tissues of the posterior neck measuring 2 x 4.4 cm. There is also a localized skin thickening. There is no evidence of abscess, on Vanc/Zosyn, ID and surgery is consulted. Issue of non compliance with medication and drug abuse was discussed in detail. Management plan was discussed in detail with patient. Education was provided.
[2019-03-05] MEDS: Enoxaparin 40 mg Syringe SC SCH (11:34)
[2019-03-05] MEDS: Vancomycin 1gm in NS 250ml 1 GM/250 ML BAG IVPB SCH ×2 (11:35→22:09)
--- NOTE | 2019-03-05 11:50 | PCM.SURG1 ---
Surgeon's Initial Post Op Note - Surgeon's Notes Surgeon: Dr. Zapata Mid Level Project Manager: Kristi Salazar, PGY-2 Type of Anesthesia: Local Anesthesia Administered By: Kristi Salazar PGY-2 Pre-Operative Diagnosis: Posterior neck abscess Operative Findings: Purulent drainage Post-Operative Diagnosis: Posterior neck abscess Operation Performed: Bedside Incision and drainage of Posterior neck abscess Specimen/Specimens Removed: Wound culture Estimated Blood Loss: EBL {In ML}: 2 Blood Products Given: N/A Drains Used: No Drains Post-Op Condition: Good Date of Surgery/Procedure: 03/05/19 Time of Surgery/Procedure: 11:10 - Incision & Drainage Of Abscess Anesthesia: Lidocaine 1%, With Epi Used During Procedure: Oxygen Prep Used: Betadine Procedure: Incised W/Scalpel Blade#: (11), Drained Pus, Irrigated Cavity W/Saline, Probed To Break Up Loculations, Packed W/Gauze, Cultures Obtained And Sent To Lab
[2019-03-05 16:47] VITALS: RESP 20
[2019-03-05 20:00] LABS: PH,URINE 6.5 (4.7-8.0); URINE BILIRUBIN NEGATIVE (NEGATIVE); URINE BLOOD NEGATIVE (NEGATIVE); URINE GLUCOSE (UA) >=1000 mg/dL (NEGATIVE); URINE LEUKOCYTE ESTERASE NEGATIVE Leu/uL (NEGATIVE); URINE PROTEIN NEGATIVE mg/dL (<30 mg/dL); URINE UROBILINOGEN 0.2 E.U./dL (<1 E.U./dL)
[2019-03-05 20:08] LABS: URINE APPEARANCE CLEAR (CLEAR); URINE COLOR LIGHT YELLOW (YELLOW)
[2019-03-05 20:52] LABS: BARBITURATES, UR NEGATIVE (NEGATIVE); BENZODIAZEPINES, UR NEGATIVE (NEGATIVE); OPIATES, UR POSITIVE (NEGATIVE); PHENCYCLIDINE, UR NEGATIVE (NEGATIVE)
[2019-03-05] MEDS: Insulin Detemir 100 units/ml Vial (Levemir) SC SCH (22:08)
--- NOTE | 2019-03-06 01:28 | CON ---
DATE: 03/05/2019 LOCATION: The patient is seen earlier today in room 375, bed 2. CHIEF COMPLAINT: Neck abscess times several days. HISTORY OF PRESENT ILLNESS: This is a 48-year-old male with diabetes mellitus, history of multiple MRSA infections, hyperlipidemia, anxiety, history of appendectomy, who was admitted to the emergency room. The patient had back of his neck had an abscess formation, has very painful and appears of spider bite. He denies any fevers, any chills. He is not having any difficulty swallowing. No headaches. No chest pain. No abdominal pain. However, he has significant pain in the neck where the lesion is. PAST MEDICAL HISTORY: Significant for diabetes mellitus, history of multiple episodes of MRSA, hyperlipidemia, and anxiety. REVIEW OF SYSTEMS: A 12-point review of systems performed. PAST SURGICAL HISTORY: Significant for appendectomy. ALLERGIES: THE PATIENT HAS NO KNOWN ALLERGIES. MEDICATIONS AT HOME: Reveals the patient to be on insulin and inhaler. PHYSICAL EXAMINATION GENERAL: The patient is seen in bed. VITAL SIGNS: Temperature of 98, blood pressure is 130/70, respiratory rate of 18, heart rate of 69. HEENT: Unremarkable. NECK: Supple. LUNGS: Decreased breath sounds. HEART: Normal S1 and S2. ABDOMEN: Soft, nontender. BACK: Examination of back of his neck reveals any tender approximately size of slightly larger than a quarter to half a dollar size of lesion with essential necrosis and tender to touch. LABORATORY EXAMINATION: Reveals white count 11,400 up to 12,300, hemoglobin of 14, platelets of 201. Chemistry reveals BUN of 18, creatinine of 0.6. Blood cultures are negative. The patient had a CAT scan of the neck showed a neck cancer area measuring 2 x 4 cm. No evidence of an abscess on CAT scan of Dr. Salazar's. Incision and drainage of the neck abscess, procedure note is reviewed and the patient had an HIV test back in 06/2017, which was negative. Hepatitis profile, which was negative. ASSESSMENT AND PLAN: This is a 48-year-old male with probable methicillin-resistant Staphylococcus aureus, neck abscess status post incision and drainage. Maintenance p.o. Bactrim double strength p.o. b.i.d. x5 days. He also used p.o. doxycycline 100 mg p.o. b.i.d. x5 days. We will check on the culture results; however, the patient need to discharge with p.o. antibiotics. Michael Peterson MD
[2019-03-06 07:34] LABS: BASO # 0.07 K/mm3 (0.0-2.0); BASO % 0.7 % (0.0-3.0); EOS # 0.5 (0.0-0.7); EOS % 5.1 % (1.5-5.0); HEMOGLOBIN 14.2 g/dL (14.0-18.0); LYMPH # 1.5 (1.2-3.4); MEAN CELL VOLUME 83.1 fl (80.0-105.0); MEAN CORPUSCULAR HEMOGLOBIN 28.2 pg (25.0-35.0); MEAN CORPUSCULAR HGB CONC 33.9 g/dl (31.0-37.0); MONO # 0.6 (0.1-0.6); MONO % 6.5 % (1.0-6.0); RBC 5.04 10^6/uL (3.5-6.1); RED CELL DISTRIBUTION WIDTH 12.5 % (11.5-14.5); WHITE BLOOD COUNT 9.7 10^3/uL (4.5-11.0)
[2019-03-06] MEDS: Insulin Lispro (humaLOG) MEDIUM Coverage SC SCH ×2 (07:46→12:29)
--- NOTE | 2019-03-06 08:23 | CP.PCM.PN ---
Subjective - Date & Time of Evaluation Date of Evaluation: 03/06/19 Time of Evaluation: 08:23 - Subjective Subjective: PGY1 General surgery progress note for Dr. Zapata Pt seen and examined at bedside. Pt is resting comfortably. Endorses pain in the posterior neck, but improving. Denies fever, chills, chest pain, sob, difficulty breathing, throat closing sensation, abdominal pain, n/v/d. Objective - Vital Signs/Intake and Output Vital Signs (last 24 hours): Temp Pulse Resp BP Pulse Ox 98.5 F 63 20 135/77 97 03/05/19 16:46 03/05/19 18:00 03/05/19 16:46 03/05/19 16:46 03/05/19 16:46 Intake and Output: 03/06/19 03/06/19 06:59 18:59 Intake Total 240 Balance 240 - Medications Medications: Current Medications Cyclobenzaprine HCl (Flexeril) 5 mg PO TID PRN PRN Reason: Muscle spasm Enoxaparin Sodium (Lovenox) 40 mg SC DAILY ANDRAE; Protocol Last Admin: 03/05/19 11:34 Dose: 40 mg Vancomycin HCl (Vancomycin 1gm) 1 gm in 250 mls @ 167 mls/hr IVPB Q12H ANDRAE; Protocol Last Admin: 03/05/19 22:09 Dose: 167 mls/hr Insulin Detemir (Levemir) 10 unit SC HS ANDRAE Last Admin: 03/05/19 22:08 Dose: 10 units Insulin Human Lispro (Humalog Med) 0 units SC ACHS ANDRAE; Protocol Last Admin: 03/06/19 07:46 Dose: Not Given Ketorolac Tromethamine (Toradol) 30 mg IVP Q6H PRN PRN Reason: Pain, severe (8-10) Last Admin: 03/06/19 06:45 Dose: 30 mg Morphine Sulfate (Morphine) 2 mg IVP Q6H PRN PRN Reason: Pain, severe (8-10) Last Admin: 03/05/19 12:33 Dose: 2 mg Nicotine (Nicoderm Cq) 1 patch TD DAILY PRN PRN Reason: URGE TO SMOKE Last Admin: 03/04/19 20:55 Dose: 1 patch - Labs Labs: 03/06/19 05:30 03/05/19 06:00 PT 12.5 SECONDS (9.4-12.5) 03/04/19 16:40 INR 1.13 03/04/19 16:40 APTT 29.8 Seconds (26.9-38.3) 03/04/19 16:40 - Constitutional Appears: Non-toxic, No Acute Distress - Head Exam Head Exam: ATRAUMATIC, NORMAL INSPECTION - Eye Exam Eye Exam: EOMI, Normal appearance - ENT Exam ENT Exam: Mucous Membranes Moist - Neck Exam Additional comments: (+) left lateral neck 3 cm by 3 cm area of induration, tenderness, with e rythema, without warmth, without fluctuance. (+) posterior neck wound with packing intact, minimal bleeding, no fluctuance, no purulent drainage, no warmth, moderate tenderness. - Neurological Exam Neurological Exam: Alert, Awake - Skin Skin Exam: Dry, Normal Color, Warm Assessment and Plan - Assessment and Plan (Free Text) Assessment: This is a 48 year old male with PMH of MRSA infection/abscesses, IDDM2, cocaine abuse, and HLD, who presents with posterior neck abscesses. Plan: Abscess/Cellulitis of the lateral/posterior neck Neck soft tissue CT shows inflammatory changes in the subcutaneous tissues of the posterior neck measuring 2 x 4.4 cm. Also localized skin thickening. No evidence of abscess. S/p bedside I and D on 03/05. POD#1 Packing replaced today. y Continue IV Abx as per ID. Prelim culture shows gram positive cocci Continue warm compresses Pt is cleared by surgery. Pt informed he can remove the newly reinserted packing tomorrow (after 24 hrs). He should follow up with Dr. Zapata in 1 week. IDDM Management as per primary medical team Further recommendations as per Dr. Zapata. [place] PGY1 Pager#[phone]
[2019-03-06 08:37] LABS: ALB/GLOB RATIO 1.1 (1.1-1.8); ALBUMIN 3.2 g/dL (3.0-4.8); ALT/SGPT 23 U/L (7-56); AST/SGOT 20 U/L (17-59); BLOOD UREA NITROGEN 17 mg/dL (7-21); CALCIUM 8.5 mg/dL (8.4-10.5); GFR NON-AFRICAN AMERICAN > 60
[2019-03-06 08:58] VITALS: BP 110/57; TEMP 97.7; O2SAT 98
[2019-03-06] MEDS: Enoxaparin 40 mg Syringe SC SCH (09:57)
[2019-03-06] MEDS: Vancomycin 1gm in NS 250ml 1 GM/250 ML BAG IVPB SCH (09:57)
[2019-03-06 11:22] VITALS: PULSE 72
--- NOTE | 2019-03-06 15:15 | CP.PCM.DIS ---
<Pal,Robby - Last Filed: 03/06/19 15:03> Provider - Provider Date of Admission: 03/04/19 19:18 Attending physician: Deb Moreno MD Primary care physician: Niharika Vickers MD Consults: 03/04/19 19:49 Physician Consult Routine Comment: Consulting Provider: Az Zapata Consulting Physician: Az Zapata Reason for Consult: I&D multiple neck abscess 03/05/19 07:41 Infectious Disease Consult Routine Comment: Consulting Provider: Michael Peterson Consulting Physician: Michael Peterson Reason for Consult: recurrent abscesses, MRSA pos, neck abscess Time Spent in preparation of Discharge (in minutes): 35 Hospital Course - Lab Results Lab Results: Micro Results 03/04/19 18:15 Blood S.aureus & Coag-Neg Staph PNA FISH - Final 03/04/19 18:15 Blood Blood Culture - Preliminary Gram Positive Cocci 03/04/19 18:15 Blood Gram Stain - Final 03/05/19 11:11 Abscess - Neck Gram Stain - Final 03/05/19 11:11 Abscess - Neck Wound Culture - Preliminary Gram Positive Cocci 03/04/19 18:35 Blood Blood Culture - Preliminary NO GROWTH AFTER 24 HOURS Most Recent Lab Values WBC 9.7 10^3/uL (4.5-11.0) D 03/06/19 05:30 RBC 5.04 10^6/uL (3.5-6.1) 03/06/19 05:30 Hgb 14.2 g/dL (14.0-18.0) 03/06/19 05:30 Hct 41.9 % (42.0-52.0) L 03/06/19 05:30 MCV 83.1 fl (80.0-105.0) 03/06/19 05:30 MCH 28.2 pg (25.0-35.0) 03/06/19 05:30 MCHC 33.9 g/dl (31.0-37.0) 03/06/19 05:30 RDW 12.5 % (11.5-14.5) 03/06/19 05:30 Plt Count 209 10^3/uL (120.0-450.0) 03/06/19 05:30 MPV 10.0 fl (7.0-11.0) 03/06/19 05:30 Neut % (Auto) 72.7 % (50.0-68.0) H 03/06/19 05:30 Lymph % (Auto) 15.0 % (22.0-35.0) L 03/06/19 05:30 Thayer % (Auto) 6.5 % (1.0-6.0) H 03/06/19 05:30 Eos % (Auto) 5.1 % (1.5-5.0) H 03/06/19 05:30 Baso % (Auto) 0.7 % (0.0-3.0) 03/06/19 05:30 Lymph # (Auto) 1.5 (1.2-3.4) 03/06/19 05:30 Thayer # (Auto) 0.6 (0.1-0.6) 03/06/19 05:30 Eos # (Auto) 0.5 (0.0-0.7) 03/06/19 05:30 Baso # (Auto) 0.07 K/mm3 (0.0-2.0) 03/06/19 05:30 Absolute Neuts (auto) 7.05 (1.4-6.5) H 03/06/19 05:30 PT 12.5 SECONDS (9.4-12.5) 03/04/19 16:40 INR 1.13 03/04/19 16:40 APTT 29.8 Seconds (26.9-38.3) 03/04/19 16:40 pO2 49 mm/Hg (30-55) 03/04/19 18:50 VBG pH 7.31 (7.32-7.43) L 03/04/19 18:50 VBG pCO2 66.0 (40-60) H* 03/04/19 18:50 VBG HCO3 33.2 mmol/l (21-28) H 03/04/19 18:50 VBG Total CO2 35.2 mmol.L (22-28) H 03/04/19 18:50 VBG O2 Sat (Calc) 86.9 % (40-65) H 03/04/19 18:50 VBG Base Excess 4.8 mmol/L (0.0-2.0) H 03/04/19 18:50 VBG Potassium 4.2 mmol/L (3.6-5.2) 03/04/19 18:50 Sodium 132.0 mmol/L (132-148) 03/04/19 18:50 Chloride 95.0 mmol/L (98-107) L 03/04/19 18:50 Glucose 355 mg/dl (75-110) H 03/04/19 18:50 Lactate 1.2 mmol/L (0.7-2.1) 03/04/19 18:50 FiO2 21.0 % 03/04/19 18:50 Crit Value Called To Dorian blair 03/04/19 18:50 Crit Value Called By Sindi 03/04/19 18:50 Blood Gas Notified Time 1900 03/04/19 18:50 Sodium 140 mmol/L (132-148) 03/06/19 05:30 Potassium 4.6 mmol/L (3.6-5.0) 03/06/19 05:30 Chloride 105 mmol/L (98-107) 03/06/19 05:30 Carbon Dioxide 32 mmol/L (21-33) 03/06/19 05:30 Anion Gap 8 (10-20) L 03/06/19 05:30 BUN 17 mg/dL (7-21) 03/06/19 05:30 Creatinine 0.7 mg/dl (0.8-1.5) L 03/06/19 05:30 Est GFR ( Amer) > 60 03/06/19 05:30 Est GFR (Non-Af Amer) > 60 03/06/19 05:30 POC Glucose (mg/dL) 259 mg/dL (65-110) H 03/06/19 11:23 Random Glucose 116 mg/dL (70-110) H 03/06/19 05:30 Hemoglobin A1c 11.3 % (4.2-6.5) H 03/04/19 19:00 Calcium 8.5 mg/dL (8.4-10.5) 03/06/19 05:30 Phosphorus 3.7 mg/dL (2.5-4.5) 03/05/19 06:00 Magnesium 1.7 mg/dL (1.7-2.2) 03/05/19 06:00 Total Bilirubin 0.4 mg/dL (0.2-1.3) 03/06/19 05:30 AST 20 U/L (17-59) 03/06/19 05:30 ALT 23 U/L (7-56) 03/06/19 05:30 Alkaline Phosphatase 81 U/L (38-126) 03/06/19 05:30 Total Protein 6.3 g/dL (5.8-8.3) 03/06/19 05:30 Albumin 3.2 g/dL (3.0-4.8) 03/06/19 05:30 Globulin 3.1 gm/dL 03/06/19 05:30 Albumin/Globulin Ratio 1.1 (1.1-1.8) 03/06/19 05:30 Venous Blood Potassium 4.2 mmol/L (3.6-5.2) 03/04/19 18:50 Urine Color Light yellow (YELLOW) 03/05/19 19:20 Urine Appearance Clear (CLEAR) 03/05/19 19:20 Urine pH 6.5 (4.7-8.0) 03/05/19 19:20 Ur Specific [place] 1.010 (1.005-1.035) 03/05/19 19:20 Urine Protein Negative mg/dL (<30 mg/dL) 03/05/19 19:20 Urine Glucose (UA) >=1000 mg/dL (NEGATIVE) 03/05/19 19:20 Urine Ketones Negative mg/dL (NEGATIVE) 03/05/19 19:20 Urine Blood Negative (NEGATIVE) 03/05/19 19:20 Urine Nitrate Negative (NEGATIVE) 03/05/19 19:20 Urine Bilirubin Negative (NEGATIVE) 03/05/19 19:20 Urine Urobilinogen 0.2 E.U./dL (<1 E.U./dL) 03/05/19 19:20 Ur Leukocyte Esterase Negative Kwasi/uL (NEGATIVE) 03/05/19 19:20 Urine Opiates Screen Positive (NEGATIVE) H 03/05/19 20:00 Urine Methadone Screen Negative (NEGATIVE) 03/05/19 20:00 Ur Barbiturates Screen Negative (NEGATIVE) 03/05/19 20:00 Ur Phencyclidine Scrn Negative (NEGATIVE) 03/05/19 20:00 Ur Amphetamines Screen Negative (NEGATIVE) 03/05/19 20:00 U Benzodiazepines Scrn Negative (NEGATIVE) 03/05/19 20:00 U Oth Cocaine Metabols Negative (NEGATIVE) 03/05/19 20:00 U Cannabinoids Screen Negative (NEGATIVE) 03/05/19 20:00 - Hospital Course Hospital Course: Robby Jackman, PGY1 Medicine Discharge Summary for Dr. Moreno Patient is a 48 year old male with a past medical history of MRSA infection/abscesses, DM-2, cocaine abuse, and HLD, who presented to [facility] with posterior neck abscesses for 3 days. Patient states that he has had abscesses that was positive for MRSA before in the past. He took Benadryl and applied warm compresses without relief. Patient denies IV drug use. He initially presented afebrile with a small leukocytosis, wbc 11.4. CT Neck soft tissue showed inflammatory changes in subcutaneous tissue in the posterior neck measuring 2x4.4 cm, however there was no evidence of abscess. Surgery was placed on consult. As per surgery, patient required incision and drainage for neck abscess. During hospital course, patient was started on vancomycin. ID was also placed on consult. On 03/05, patient had a bedside I&D of posterior neck abscess. Wound cx and blood cx were also drawn. Leukocytosis resolved during hospital course. Patient is now grossly asymptomatic. Posterior neck abscess was also packed by surgical team and he will follow up in 1 week for re-evaluation as outpatient. Wound cx was +gram positive cocci. Blood cx was +gram positive cocci in one bottle and negative in second bottle. This was discussed with ID, as contamination was a possibility. Lab was called and it was discovered that the positive blood cx was actually coagulase negative staph -- given he has no hardware and is not appearing septic/bacteremic at this time, this is likely a form of contamination. Discussed with ID that patient is cleared for discharge on doxycycline for x5 days. Otherwise, patient will continue with his home medications. He is safe for discharge and will follow up with surgery as outpatient. Discharge Exam - Head Exam Head Exam: ATRAUMATIC, NORMAL INSPECTION - Eye Exam Eye Exam: EOMI, Normal appearance - ENT Exam ENT Exam: Mucous Membranes Moist - Neck Exam Additional comments: Posterior neck abscess/cellulitis - s/p I&D. Packing is in place. Improved since admission. - Respiratory Exam Respiratory Exam: Clear to PA & Lateral. absent: Rales, Rhonchi, Wheezes, Stridor - Cardiovascular Exam Cardiovascular Exam: RRR, +S1, +S2 - GI/Abdominal Exam GI & Abdominal Exam: Normal Bowel Sounds. absent: Guarding, Rebound, Rigid - Extremities Exam Extremities exam: normal capillary refill, normal inspection, pedal pulses present - Neurological Exam Neurological exam: Alert, CN II-XII Intact, Normal Gait, Oriented x3 - Psychiatric Exam Psychiatric exam: Normal Affect, Normal Mood - Skin Skin Exam: Dry, Intact, Normal Color, Warm Discharge Plan - Discharge Medications Prescriptions: Doxycycline Hyclate [Doryx] 100 mg PO BID #10 cap - Follow Up Plan Condition: STABLE Disposition: HOME/ ROUTINE Instructions: Cellulitis (ED) Additional Instructions: - Please follow up with your Primary Care Doctor (Dr. Vickers) within 3-4 days of discharge. - Please follow up with outpatient surgical team within 1 week of discharge in regards to your neck abscess. - Please resume your home medications as prescribed. - You are being given an antibiotic below. Please take as prescribed: - Doxycycline 100mg twice a day for a total of 5 days - Please return to the nearest emergency if your symptoms worsen or reoccur. Referrals: Niharika Vickers MD [Primary Care Provider] - <Deb Moreno - Last Filed: 03/06/19 17:37> Provider - Provider Date of Admission: 03/04/19 19:18 Attending physician: Deb Moreno MD Primary care physician: Niharika Vickers MD Consults: 03/04/19 19:49 Physician Consult Routine Comment: Consulting Provider: Az Zapata Consulting Physician: Az Zapata Reason for Consult: I&D multiple neck abscess 03/05/19 07:41 Infectious Disease Consult Routine Comment: Consulting Provider: Michael Peterson Consulting Physician: Michael Peterson Reason for Consult: recurrent abscesses, MRSA pos, neck abscess Hospital Course - Lab Results Lab Results: Micro Results 03/04/19 18:15 Blood S.aureus & Coag-Neg Staph PNA FISH - Final 03/04/19 18:15 Blood Blood Culture - Preliminary Gram Positive Cocci 03/04/19 18:15 Blood Gram Stain - Final 03/05/19 11:11 Abscess - Neck Gram Stain - Final 03/05/19 11:11 Abscess - Neck Wound Culture - Preliminary Gram Positive Cocci 03/04/19 18:35 Blood Blood Culture - Preliminary NO GROWTH AFTER 24 HOURS Most Recent Lab Values WBC 9.7 10^3/uL (4.5-11.0) D 03/06/19 05:30 RBC 5.04 10^6/uL (3.5-6.1) 03/06/19 05:30 Hgb 14.2 g/dL (14.0-18.0) 03/06/19 05:30 Hct 41.9 % (42.0-52.0) L 03/06/19 05:30 MCV 83.1 fl (80.0-105.0) 03/06/19 05:30 MCH 28.2 pg (25.0-35.0) 03/06/19 05:30 MCHC 33.9 g/dl (31.0-37.0) 03/06/19 05:30 RDW 12.5 % (11.5-14.5) 03/06/19 05:30 Plt Count 209 10^3/uL (120.0-450.0) 03/06/19 05:30 MPV 10.0 fl (7.0-11.0) 03/06/19 05:30 Neut % (Auto) 72.7 % (50.0-68.0) H 03/06/19 05:30 Lymph % (Auto) 15.0 % (22.0-35.0) L 03/06/19 05:30 Thayer % (Auto) 6.5 % (1.0-6.0) H 03/06/19 05:30 Eos % (Auto) 5.1 % (1.5-5.0) H 03/06/19 05:30 Baso % (Auto) 0.7 % (0.0-3.0) 03/06/19 05:30 Lymph # (Auto) 1.5 (1.2-3.4) 03/06/19 05:30 Thayer # (Auto) 0.6 (0.1-0.6) 03/06/19 05:30 Eos # (Auto) 0.5 (0.0-0.7) 03/06/19 05:30 Baso # (Auto) 0.07 K/mm3 (0.0-2.0) 03/06/19 05:30 Absolute Neuts (auto) 7.05 (1.4-6.5) H 03/06/19 05:30 PT 12.5 SECONDS (9.4-12.5) 03/04/19 16:40 INR 1.13 03/04/19 16:40 APTT 29.8 Seconds (26.9-38.3) 03/04/19 16:40 pO2 49 mm/Hg (30-55) 03/04/19 18:50 VBG pH 7.31 (7.32-7.43) L 03/04/19 18:50 VBG pCO2 66.0 (40-60) H* 03/04/19 18:50 VBG HCO3 33.2 mmol/l (21-28) H 03/04/19 18:50 VBG Total CO2 35.2 mmol.L (22-28) H 03/04/19 18:50 VBG O2 Sat (Calc) 86.9 % (40-65) H 03/04/19 18:50 VBG Base Excess 4.8 mmol/L (0.0-2.0) H 03/04/19 18:50 VBG Potassium 4.2 mmol/L (3.6-5.2) 03/04/19 18:50 Sodium 132.0 mmol/L (132-148) 03/04/19 18:50 Chloride 95.0 mmol/L (98-107) L 03/04/19 18:50 Glucose 355 mg/dl (75-110) H 03/04/19 18:50 Lactate 1.2 mmol/L (0.7-2.1) 03/04/19 18:50 FiO2 21.0 % 03/04/19 18:50 Crit Value Called To Dorian blair 03/04/19 18:50 Crit Value Called By Sindi 03/04/19 18:50 Blood Gas Notified Time 1900 03/04/19 18:50 Sodium 140 mmol/L (132-148) 03/06/19 05:30 Potassium 4.6 mmol/L (3.6-5.0) 03/06/19 05:30 Chloride 105 mmol/L (98-107) 03/06/19 05:30 Carbon Dioxide 32 mmol/L (21-33) 03/06/19 05:30 Anion Gap 8 (10-20) L 03/06/19 05:30 BUN 17 mg/dL (7-21) 03/06/19 05:30 Creatinine 0.7 mg/dl (0.8-1.5) L 03/06/19 05:30 Est GFR ( Amer) > 60 03/06/19 05:30 Est GFR (Non-Af Amer) > 60 03/06/19 05:30 POC Glucose (mg/dL) 259 mg/dL (65-110) H 03/06/19 11:23 Random Glucose 116 mg/dL (70-110) H 03/06/19 05:30 Hemoglobin A1c 11.3 % (4.2-6.5) H 03/04/19 19:00 Calcium 8.5 mg/dL (8.4-10.5) 03/06/19 05:30 Phosphorus 3.7 mg/dL (2.5-4.5) 03/05/19 06:00 Magnesium 1.7 mg/dL (1.7-2.2) 03/05/19 06:00 Total Bilirubin 0.4 mg/dL (0.2-1.3) 03/06/19 05:30 AST 20 U/L (17-59) 03/06/19 05:30 ALT 23 U/L (7-56) 03/06/19 05:30 Alkaline Phosphatase 81 U/L (38-126) 03/06/19 05:30 Total Protein 6.3 g/dL (5.8-8.3) 03/06/19 05:30 Albumin 3.2 g/dL (3.0-4.8) 03/06/19 05:30 Globulin 3.1 gm/dL 03/06/19 05:30 Albumin/Globulin Ratio 1.1 (1.1-1.8) 03/06/19 05:30 Venous Blood Potassium 4.2 mmol/L (3.6-5.2) 03/04/19 18:50 Urine Color Light yellow (YELLOW) 03/05/19 19:20 Urine Appearance Clear (CLEAR) 03/05/19 19:20 Urine pH 6.5 (4.7-8.0) 03/05/19 19:20 Ur Specific [place] 1.010 (1.005-1.035) 03/05/19 19:20 Urine Protein Negative mg/dL (<30 mg/dL) 03/05/19 19:20 Urine Glucose (UA) >=1000 mg/dL (NEGATIVE) 03/05/19 19:20 Urine Ketones Negative mg/dL (NEGATIVE) 03/05/19 19:20 Urine Blood Negative (NEGATIVE) 03/05/19 19:20 Urine Nitrate Negative (NEGATIVE) 03/05/19 19:20 Urine Bilirubin Negative (NEGATIVE) 03/05/19 19:20 Urine Urobilinogen 0.2 E.U./dL (<1 E.U./dL) 03/05/19 19:20 Ur Leukocyte Esterase Negative Kwasi/uL (NEGATIVE) 03/05/19 19:20 Urine Opiates Screen Positive (NEGATIVE) H 03/05/19 20:00 Urine Methadone Screen Negative (NEGATIVE) 03/05/19 20:00 Ur Barbiturates Screen Negative (NEGATIVE) 03/05/19 20:00 Ur Phencyclidine Scrn Negative (NEGATIVE) 03/05/19 20:00 Ur Amphetamines Screen Negative (NEGATIVE) 03/05/19 20:00 U Benzodiazepines Scrn Negative (NEGATIVE) 03/05/19 20:00 U Oth Cocaine Metabols Negative (NEGATIVE) 03/05/19 20:00 U Cannabinoids Screen Negative (NEGATIVE) 03/05/19 20:00 Attending/Attestation - Attestation I have personally seen and examined this patient.: Yes I have fully participated in the care of the patient.: Yes I have reviewed all pertinent clinical information, including history, physical exam and plan: Yes Notes (Text): 03/06/19 17:31 48 year old male with past medical history of prior MRSA abscesses, diabetes, substance abuse and dyslipidemia who presented witch complaint of neck pain and swelling. He was started on iv antibiotics for abscess. Seen by surgery and is s/p I&D yesterday. Wound culture is growing gram positive cocci. BCx x 1 is also growing gram positive cocci, which is coag negative staph as per lab, likely contaminate as per ID. Second bottle is negative. Patient is cleared for d/c by ID and surgery with po antibiotics and outpatient follow up. Patient is discharged home to follow up with pmd. Follow up with surgery. Continue with po antibiotics. Counselled on risks of continued substance abuse. Deb Moreno MD Hospitalist.
--- NOTE | 2019-03-06 20:27 | PN ---
DATE: 03/06/2019 SUBJECTIVE: The patient is seen in bed, in no acute distress. Nontoxic. PHYSICAL EXAMINATION: VITAL SIGNS: Temperature is 97, blood pressure is 110/50, respiratory rate of 18. HEENT: Unremarkable. NECK: Supple LUNGS: Have decreased breath sounds. HEART: Normal S1, S2. ABDOMEN: Soft. Nontender. LABORATORY DATA: Reveals the patient's blood culture one bottle is positive, coagulase-negative staph by PNA FISH. Gram-positive cocci, heavy growth from the wound. ASSESSMENT AND PLAN: This is a 48-year-old male who states he is going sign out against medical advice. He is not discharged. He has diabetes, history of methicillin-resistant Staphylococcus aureus and with probable methicillin-resistant Staphylococcus neck abscess status post incision and drainage. May switch to oral Bactrim and may also use doxycycline or Bactrim for five days either one. Coagulase-negative staphylococcus is a contamination, not requiring treatment. Michael Peterson MD
== END 2019-03-06 14:34 | disposition home or self-care (01) | DRG 269 ==
LOC: ED 15:13 → ERH 19:18 → 3RSO 22:21
PROVIDERS: ADMIT Internal Medicine; ATTEND Internal Medicine
PROC: 0J950ZZ Drainage of Left Neck Subcutaneous Tissue and Fascia, Open Approach (ICD-10-PCS; principal; 2019-03-05)
PROC: 0J940ZZ Drainage of Right Neck Subcutaneous Tissue and Fascia, Open Approach (ICD-10-PCS; 2019-03-05)
DX: L02.11 Cutaneous abscess of neck (principal); E11.65 Type 2 diabetes mellitus with hyperglycemia; F14.90 Cocaine use, unspecified, uncomplicated; L03.221 Cellulitis of neck; E78.5 Hyperlipidemia, unspecified; F17.210 Nicotine dependence, cigarettes, uncomplicated; T63.301A Toxic effect of unspecified spider venom, accidental (unintentional), initial encounter; Z79.4 Long term (current) use of insulin; Z86.14 Personal history of Methicillin resistant Staphylococcus aureus infection; Z90.49 Acquired absence of other specified parts of digestive tract; Z91.14 Patient's other noncompliance with medication regimen; B95.62 Methicillin resistant Staphylococcus aureus infection as the cause of diseases classified elsewhere